=== PATIENT | male | born 1985 | race Caucasian/White ===

== ENCOUNTER 2023-10-19 02:17 | Emergency (ER) | payer BC, SELFPAY ==
[2023-10-19 02:21] VITALS: BP 163/92; PULSE 84; RESP 14; TEMP 36.6; O2SAT 99; BMI 50.6
--- NOTE | 2023-10-19 02:32 | ECG_ITS ---
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
--- NOTE | 2023-10-19 02:33 | CT_ITS ---
The [address] [address] Patient Name: JESSE YEPEZ MRN: [id number] date: 1985 Sex: M Assigned Patient Location: ER Current Patient Location: ER Accession/Order Number: [id number] Exam Date: 10/19/2023 02:50 Report Date: 10/19/2023 03:36 At the request of: ISAI WOODS Procedure: CT cervical spine wo con EXAM: CT cervical spine wo con HISTORY: left arm tingling, resolved COMPARISON: None. TECHNIQUE: Noncontrast axial CT images through the cervical spine were obtained with coronal and sagittal reformats. Dose reduction techniques were achieved by using automated exposure control and/or adjustment of mA and/or kV according to patient size and/or use of iterative reconstruction technique. FINDINGS: No acute fracture or subluxation is seen. The vertebral body heights are preserved. The vertebral elements are in anatomic alignment. The prevertebral soft tissues are unremarkable. The disc spaces are preserved. There does not appear to be any significant spinal canal or neural foraminal stenosis. CT/CT cervical spine wo con IMPRESSION: 1. No acute or significant abnormality of the cervical spine is seen. Electronically authenticated by: Itzel HIGGINBOTHAM Date: 10/19/2023 03:36
--- NOTE | 2023-10-19 02:33 | CT_ITS ---
The [address] [address] Patient Name: JESSE YEPEZ MRN: [id number] date: 1985 Sex: M Assigned Patient Location: ER Current Patient Location: ER Accession/Order Number: [id number] Exam Date: 10/19/2023 02:50 Report Date: 10/19/2023 03:33 At the request of: ISAI WOODS Procedure: CT head/brain wo con EXAM: CT head/brain wo con HISTORY: left arm tingling, resolved COMPARISON: CT head examination dated 01/10/2023. TECHNIQUE: Noncontrast axial CT images through the head were obtained with coronal and sagittal reformats. Dose reduction techniques were achieved by using automated exposure control and/or adjustment of mA and/or kV according to patient size and/or use of iterative reconstruction technique. FINDINGS: The cerebral sulci and ventricles are normal in size and shape. The density of the cerebrum, brainstem, and cerebellum is unremarkable. There is no evidence of intracranial hemorrhage, mass, or midline shift. No extra-axial fluid collection is seen. The brainstem and cerebellum are normal in appearance. The visualized paranasal sinuses and mastoid air cells are clear. No skull abnormalities are identified. CT/CT head/brain wo con IMPRESSION: 1. No acute intracranial abnormality. Electronically authenticated by: Itzel HIGGINBOTHAM Date: 10/19/2023 03:33
--- NOTE | 2023-10-19 02:39 | ED.GENADUL1 ---
HPI - General Adult General Chief complaint: Neuro Symptoms/Deficit Stated complaint: cva symptoms Time Seen by Provider: 10/19/23 02:19 Source: patient Mode of arrival: walk-in History of Present Illness HPI narrative: 37-year-old male presented for tingling in his left hand. It involved his thumb, index, and middle fingers and it lasted for a few minutes. It started at about 11:50 PM, just under three hours ago. It's resolved completely and has not recurred. He was started on a new blood pressure medication yesterday, lisinopril. He's taken one dose. He doesn't complain of a headache and he never had any symptoms in his right arm. Related Data Home Medications Medication Instructions Recorded Confirmed allopurinol 100 mg tablet mg 10/19/23 aspirin 325 mg tablet,delayed mg PO 10/19/23 release carvedilol 25 mg tablet mg 10/19/23 hydralazine 50 mg tablet mg 10/19/23 lisinopril 20 mg tablet 20 mg PO DAILY 10/19/23 10/19/23 Allergies Allergy/AdvReac Type Severity Reaction Status Date / Time Penicillins Allergy Verified 10/19/23 02:28 Review of Systems ROS Narrative A ten point review of systems is negative except as noted above. PFSH PFS Social History Smoking status: Never smoker Exam Narrative Exam Narrative: Nurses note and vital signs reviewed and patient is not hypoxic. General: The patient appears well and in no apparent distress. Patient is resting comfortably on cart. Skin: Warm, dry, no pallor noted. There is no rash noted. Head: Normocephalic, atraumatic Eye: Normal conjunctiva, no drainage Ears, Nose, Mouth, and Throat: oral mucosa is moist. Nares patent. Cardiovascular: Regular Rate and Rhythm Respiratory: Patient is in no distress, no accessory muscle use, lungs are clear to auscultation, no wheezing, rales or rhonchi Back: non-tender GI: obese and nontender Musculoskeletal: The patient has no evidence of calf tenderness, no pitting edema, symmetrical pulses noted bilaterally Neurological: A&O x4, normal speech; upper and lower extremity strength five out five and symmetric. Cranial nerves II through XII intact. Psychiatric: Cooperative Constitutional Vital Signs, click to edit/add: Last Vital Signs Temp 97.9 F 10/19/23 02:21 Pulse 71 10/19/23 03:43 Resp 14 10/19/23 02:21 BP 120/65 10/19/23 03:43 Pulse Ox 98 10/19/23 03:43 O2 Del Method Room Air 10/19/23 02:21 Course Vital Signs Vital signs: Vital Signs Temperature 97.9 F 10/19/23 02:21 Pulse Rate 84 10/19/23 02:21 Respiratory Rate 14 10/19/23 02:21 Blood Pressure 163/92 H 10/19/23 02:21 Pulse Oximetry 99 10/19/23 02:21 Oxygen Delivery Method Room Air 10/19/23 02:21 Temperature 97.9 F 10/19/23 02:21 Pulse Rate 71 10/19/23 03:43 Respiratory Rate 14 10/19/23 02:21 Blood Pressure 120/65 10/19/23 03:43 Pulse Oximetry 98 10/19/23 03:43 Oxygen Delivery Method Room Air 10/19/23 02:21 Medical Decision Making MDM Narrative Medical decision making narrative: CAT scan of the head and CAT scan and C-spine are both negative. EKG shows normal sinus rhythm. His symptoms of tingling in his thumb, index finger, and middle finger lasted for a few minutes and have not recurred. I've no clinical suspicion of coronary artery disease or acute coronary syndrome. This is likely a peripheral nerve issue. It has not recurred and he'll be discharged home, follow-up with his PCP. Treatment diagnosis and follow-up were discussed with the patient. Differential Diagnosis Differential Diagnosis: paresthesia, peripheral neuropathy, cervical spine issue Imaging Data CT C-spine, CT brain: Radiologist's impression: Procedure: CT head/brain wo con EXAM: CT head/brain wo con HISTORY: left arm tingling, resolved COMPARISON: CT head examination dated 01/10/2023. TECHNIQUE: Noncontrast axial CT images through the head were obtained with coronal and sagittal reformats. Dose reduction techniques were achieved by using automated exposure control and/or adjustment of mA and/or kV according to patient size and/or use of iterative reconstruction technique. FINDINGS: The cerebral sulci and ventricles are normal in size and shape. The density of the cerebrum, brainstem, and cerebellum is unremarkable. There is no evidence of intracranial hemorrhage, mass, or midline shift. No extra-axial fluid collection is seen. The brainstem and cerebellum are normal in appearance. The visualized paranasal sinuses and mastoid air cells are clear. No skull abnormalities are identified. IMPRESSION: 1. No acute intracranial abnormality. Electronically authenticated by: Itzel HIGGINBOTAHM Date: 10/19/2023 03:33 Procedure: CT cervical spine wo con EXAM: CT cervical spine wo con HISTORY: left arm tingling, resolved COMPARISON: None. TECHNIQUE: Noncontrast axial CT images through the cervical spine were obtained with coronal and sagittal reformats. Dose reduction techniques were achieved by using automated exposure control and/or adjustment of mA and/or kV according to patient size and/or use of iterative reconstruction technique. FINDINGS: No acute fracture or subluxation is seen. The vertebral body heights are preserved. The vertebral elements are in anatomic alignment. The prevertebral soft tissues are unremarkable. The disc spaces are preserved. There does not appear to be any significant spinal canal or neural foraminal stenosis. IMPRESSION: 1. No acute or significant abnormality of the cervical spine is seen. Electronically authenticated by: Itzel HIGGINBOTHAM Date: 10/19/2023 03:36 ECG Data Attestation: I personally reviewed and interpreted this ECG as follows: (EKG on my interpretation shows normal sinus rhythm without acute change, rate is 55.) Discharge Plan Discharge Chief Complaint: Neuro Symptoms/Deficit Clinical Impression: Paresthesia Patient Disposition: Home, Self-Care Time of Disposition Decision: 03:45 Condition: Good Mode of Transportation: Private Vehicle Prescriptions / Home Meds: No Action carvedilol 25 mg tablet allopurinol 100 mg tablet aspirin 325 mg tablet,delayed release (DR/EC) PO hydralazine 50 mg tablet lisinopril 20 mg tablet 20 mg PO DAILY Instructions: Paresthesia (ED) Stand Alone Forms: Portal Instructions Referrals: Salty Ramírez MD [Primary Care Provider] - 1 week
[2023-10-19 02:40] VITALS: PULSE 72
--- NOTE | 2023-10-19 02:45 | PC.NURSE ---
Pt presents to ER for numbness and tingling that was present to his left arm and hand when he woke up at 2350 last night Pt states his left thumb, pointer finger, and middle finger were completely numb but at this time has resolved pt states during this episode he was sweating profusely Pt states he has a history of sleep apnea, renal stenosis, and LVH as well as HTN Pt states he saw his PCP yesterday who started him on a new BP med (Lisinopril) which he took for the first time at about 4pm Pt drove himself to ER, and at this time denies all symptoms besides feeling weak and fatigued
[2023-10-19 03:43] VITALS: BP 120/65; PULSE 71; O2SAT 98
[2023-10-19 03:55] VITALS: PULSE 70; RESP 16; O2SAT 99
== END 2023-10-19 03:56 | disposition home or self-care (01) ==
PROVIDERS: Emergency Provider Emergency Medicine; PCP Family Medicine
DX: R20.2 Paresthesia of skin (principal); Z79.82 Long term (current) use of aspirin; Z79.899 Other long term (current) drug therapy; E66.9 Obesity, unspecified; Z68.43 Body mass index [BMI] 50.0-59.9, adult
CPT/HCPCS: 70450; 72125; 93005; 99284

== ENCOUNTER 2023-10-26 15:56 | Outpatient (OUT) | payer BC, SELFPAY ==
--- OUTSIDE RECORDS SUMMARY | 2023-10-26 16:00 | XMS_ITS | CCD ---
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 Name Role Phone High, Generic Primary Care Provider UnavailSIERRA Arriaza Referring Unavailable HIGH, GENERIC Primary Care Unavailable Jenny Ramírez Primary Care Physician Unavailable Primary Care Provider UnavailJENNY Duvall Referring Unavailable Jenny Ramírez MD Primary Care Provider [phone] AISSATOU VELASQUEZ Attending Unavailable JENNY RAMÍREZ Primary Care Unavailable SIM Guido, DR ALVARADO Primary Care Unavailable TRISTIN ., ANA Admitting Unavailable TRISTIN ., ANA Attending Unavailable HOY ., DR ALVARADO Consulting Unavailable SANJUANA, DR ERIKA Wills Consulting Unavailabl e DIOGENES, DR JOSEFINA Prakash Consulting Unavailable JOVANY, CASEY Consulting Unavailable REE, BENOIT Consulting Unavailable AURORA, MITALI Consulting Unavailable TRISTIN ., ANA Consulting Unavailable NEWATIA, SUHA Consulting Unavailable JBARA, YASER Consulting Unavailable CAROL ANNY ., DR ALVARADO Admitting Unavailable HOY ., DR ALVARADO Attending Unavailable HOY ., DR ALVARADO Consulting Unavailable HOY ., DR ALVARADO Primary Care Unavailable HOY ., DR ALVARADO Attending Unavailable HOY ., DR ALVARADO Consulting Unavailable HOY ., DR ALVARADO Primary Care Unavailable HOY ., DR ALVARADO Admitting Unavailable DEDE, DR JACOB Tolbert Consulting Unavailable SIM .DR ALVARADO Primary Care Unavailable MARKER ., DR REYEZ Admitting Unavailable MARKER ., DR REYEZ Attending Unavailable MARKER ., DR REYEZ Consulting Unavailable DIAB ., MATILDA Admitting Unavailable DIAB ., MATILDA Attending Unavailable HOVenkatesh ., DR ALVARADO Primary Care Unavailable MARYANN .IGNACIO Consulting Unavailable Jacob Everett Consulting Unavailable SIM ., DR ALVARADO Primary Care Unavailable HOY ., DR ALVARADO Admitting Unavailable HOY ., DR ALVARADO Attending Unavailable HOY ., DR ALVARADO Consulting Unavailable VEGA, MAGDALENE Attending Unavailable Allergies Allergy Classification Reported Allergen(s) Allergy Type Date of Onset Reaction(s) Facility (3 sources) Penicillins; Translations: [PENICILLINS] Propensity to adverse reactions to drug 11-30-19 17 [place], [place] (4 sources) Sulfamethoxazole / Trimethoprim; Translations: [SULFAMETHOXAZOLE-T RIMETHOPRIM] Drug Allergy 11-23-19 17 [place], [place] (2 sources) Penicillin; Translations: [penicillin] Drug Allergy [facility] (disorder) [facility] [place] (1 source) Penicillins Propensity to adverse reactions to drug 11-30-19 17 [facility] (1 source) Amoxicillin Drug Allergy [facility] Medications Current Medications Medication Drug Class(es) Dates Sig (Normalized) Sig (Original) allopurinol 100 mg oral tablet (2 sources) Xanthine Oxidase Inhibitor Start: 03-01-2022 take 1 tablet by mouth once daily allopurinol 100 mg Tab 100 mg = 1 tab(s), Oral, Daily, Refills(s) 0 Start Date: 03/01/22 Status: Ordered carvedilol 25 mg oral tablet (4 sources) alpha-Adrenergic Pablito, beta-Adrenergic Pablito Start: 01-15-2020 carvedilol (COREG) 25 MG tablet in the morning, at noon, and at bedtime 0 01/15/2020 Active cloNIDine hydrochloride 0.1 mg oral tablet (2 sources) Central alpha-2 Adrenergic Agonist Start: 02-27-2022 take 1 tablet by mouth three times daily cloNIDine 0.1 mg tab 0.1 mg = 1 tab(s), Oral, TID, Refills(s) 0 Start Date: 02/27/22 Status: Ordered Problems Active Problems Problem Classification Problem Date Documented Date Episodic/Chronic Anxiety disorders (1 source) Anxiety disorder, unspecified; Translations: [ANXIETY DISORDER UNSPECIFIED] Onset: 01-17-2023 Chronic Cardiac dysrhythmias (7 sources) Palpitations; Translations: [Palpitations] Onset: 01-07-2023 Episodic Disorders of lipid metabolism (2 sources) Mixed hyperlipidemia; Translations: [Mixed hyperlipidemia] Onset: 01-31-2023 Chronic Essential hypertension (6 sources) Malignant essential hypertension; Translations: [Essential (primary) hypertension] Onset: 01-07-2023 Chronic Gout and other crystal arthropathies (1 source) Gout 03-01-2022 Chronic Hypertension with complications and secondary hypertension (1 source) Hypertensive emergency; Translations: [HYPERTENSIVE EMERGENCY] Onset: 01-17-2023 Chronic Neoplasms of unspecified nature or uncertain behavior (2 sources) Neoplasm of uncertain behavior of skin; Translations: [Neoplasm of uncertain behavior of skin] Onset: 03-01-2022 Episodic Other aftercare (1 source) meterman (current) use of aspirin; Translations: [PRISON CURRENT USE OF ASPIRIN] Onset: 01-17-2023 Episodic Other aftercare (1 source) Other parts counterman (current) drug therapy; Translations: [OTH PRISON CURRENT DRUG THERAPY] Onset: 01-17-2023 Episodic Other and unspecified benign neoplasm (1 source) Melanocytic nevus; Translations: [Melanocytic nevi, unspecified] Onset: 03-01-2022 Episodic Other circulatory disease (1 source) History of transient ischemic attack 02-27-2022 Episodic Other circulatory disease (1 source) Prehypertension 02-27-2022 Episodic Other connective tissue disease (1 source) Tear of right rotator cuff; Translations: [Right rotator cuff tear] Onset: 11-30-2016 11-30-2016 Other nervous system disorders (4 sources) Paresthesia of skin; Translations: [PARESTHESIA OF SKIN] Onset: 01-10-2023 Episodic Other nervous system disorders (1 source) Anesthesia of skin; Translations: [ANESTHESIA OF SKIN] Onset: 01-17-2023 Episodic Other nutritional; endocrine; and metabolic disorders (1 source) Body mass index 40+ - severely obese 03-01-2022 Chronic Other nutritional; endocrine; and metabolic disorders (1 source) Morbid (severe) obesity due to excess calories; Translations: [MORBID SEVERE OBES D/T EXCESS DELFINO] Onset: 01-17-2023 Chronic Other nutritional; endocrine; and metabolic disorders (1 source) Body mass index (BMI) 50.0-59.9, adult; Translations: [BODY MASS INDEX BMI 50.0-59.9 ADULT] Onset: 01-17-2023 Chronic Other nutritional; endocrine; and metabolic disorders (1 source) Obesity, unspecified; Translations: [OBESITY UNSPECIFIED] Onset: 01-11-2023 Chronic Other skin disorders (1 source) Change in skin lesion 03-01-2022 Episodic Peripheral and visceral atherosclerosis (3 sources) Atherosclerosis of renal artery; Translations: [ATHEROSCLEROSIS OF RENAL ARTERY] Onset: 01-17-2023 Chronic Residual codes; unclassified (1 source) Sleep apnea 02-27-2022 Chronic Residual codes; unclassified (5 sources) Obstructive sleep apnea (adult) (pediatric); Translations: [OBSTRUCTIVE SLEEP APNEA] Onset: 01-17-2023 Chronic Residual codes; unclassified (1 source) Sleep apnea, unspecified; Translations: [SLEEP APNEA UNSPECIFIED] Onset: 01-11-2023 Chronic Residual codes; unclassified (1 source) Other general symptoms and signs; Translations: [Suspected COVID-19 virus infection] Episodic Residual codes; unclassified (1 source) Insomnia, unspecified; Translations: [INSOMNIA UNSPECIFIED] Onset: 01-17-2023 Episodic Screening and history of mental health and substance abuse codes (1 source) Personal history of nicotine dependence; Translations: [PERSONAL HISTORY OF NICOTINE DEPEND] Onset: 01-11-2023 Episodic Transient cerebral ischemia (6 sources) Transient cerebral ischemia; 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] Onset: 03-08-2022 02-27-2022 Chronic Unclassified (1 source) CONTACT W/AND (SUSP) EXPOS COVID-19; Translations: [CONTACT W/AND (SUSP) EXPOS COVID-19] Onset: 01-17-2023 Viral infection (2 sources) Verruca vulgaris; Translations: [Other viral warts] Onset: 03-01-2022 Episodic Past or Other Problems Problem Classification Problem Date Documented Da te Episodic/Chronic Other connective tissue disease (2 sources) Tear of right rotator cuff; Translations: [Unspecified rotator cuff tear or rupture of right shoulder, not specified as traumatic] Onset: 11-30-2016 11-30-2016 Episodic Sprains and strains (3 sources) Glenoid labrum tear; Translations: [Superior glenoid labrum lesion of unspecified shoulder, initial encounter] Onset: 11-30-2016 11-30-2016 Episodic Results Test Name Value Interpretation Reference Range Facility Office Visiton 01-31-2023 Follow-up visit [id number] Jesse Yepez 1985 Date Provider Department Center 01/31/2023 MAGDALENE GONZALEZ CARD [facility] Family History Problem Relation Age of Onset Liver disease Mother Comments: Fatty Liver Disease No Known Problems Father Comments: Suicide due to depresion No Known Problems Sister Celiac disease Brother Comments: Other gastro issues No Known Problems Brother Diabetes Mother's Brother Diabetes Maternal Grandmother COPD Maternal Grandmother Comments: Had a few other things he can't recall Heart disease Maternal Grandmother Comments: Possible Other Maternal Grandmother Dementia Paternal Grandfather Family Status - Relation Status Age at Mother Alive Father Sister Alive Brother Alive Brother Alive Mother's Brother Alive Maternal Grandmother Maternal Grandfather Alive Paternal Grandmother Alive Paternal Grandfather Level of Service:70521 OR OFFICE/OUTPATIENT NEW MODERATE MDM 45-59 MINUTES Reason for Visit and Comments: Hypertension [061651] - New Patient Normal [facility] ALDOSTERONE: RENIN RATIOon 0 01-20-2023 Aldos/Renin Ratio 4.1 Normal 0.0-30.0 [facility] Comment on above: Result Comment: Unit s: ng/dL per ng/mL/hr Performed By: #### C RP, CMP #### [facility] [address] [address] [address] Clive Main Aldosterone 3.0 ng/dL Normal 0.0-30.0 [facility] Comment on above: Performed By: #### C RP, CMP #### [facility] [address] [address] [address] Clive Main Renin Activity, Plasma 0.730 ng/mL/hr Normal 0.167-5.380 [facility] Comment on above: Performed By: #### C RP, CMP #### [facility] [address] [address] [address] Clive Main METANEPHRINES PLASMA FREEon 01-18-2023 Metanephrine, Pl <10.0 Normal 0.0-88.0 [facility] Comment on above: Performed By: #### M ETANPF #### [facility] [address] [address] [address] Clive Main Normetanephrine, Pl 107.5 pg/mL Normal 0.0-210.1 [facility] Comment on above: Performed By: #### M ETANPF #### [facility] [address] [place] [address] Dr. Clive Main CBC AUTO DIFFon 01-12-2023 BASO # 0.0 103/ul Normal 0.0-0.1 [facility] Comment on above: Performed By: #### C BC #### [facility] [address] [place] [address] Dr. Clive Main Basophils/100 WBC (Bld) 0.4 % Normal 0.2-2.0 [facility] Comment on above: Performed By: #### C BC #### [facility] [address] [place] [address] Dr. Clive Main EO # 0.1 103/ul Normal 0.0-0.7 [facility] Comment on above: Performed By: #### C BC #### [facility] [address] [place] [address] Dr. Clive Main Eosinophils/100 WBC (Bld) 0.9 % Normal 0.9-7.0 [facility] Comment on above: Performed By: #### C BC #### [facility] [address] [place] [address] Dr. Clive Main Erythrocyte distribution width (RBC) [Ratio] 13.8 % Normal 11.0-15.0 [facility] Comment on above: Performed By: #### C BC #### [facility] [address] [place] [address] Dr. Clive Main Hematocrit (Bld) [Volume fraction] 49.1 % Normal 42.0-54.0 [facility] Comment on above: Performed By: #### C BC #### [facility] [address] [place] [address] Dr. Clive Main Hemoglobin (Bld) [Mass/Vol] 16.7 g/dL Normal 14.0-18.0 [facility] Comment on above: Performed By: #### C BC #### [facility] [address] [place] [address] Dr. Clive Main IG # 0.06 10e3/ul Critically high 0.00-0.03 [facility] Comment on above: Performed By: #### C BC #### [facility] [address] [place] [address] Dr. Clive Main IG % 0.5 % Normal 0.0-0.5 [facility] Comment on above: Performed By: #### C BC #### [facility] [address] [place] [address] Dr. Clive Main LYMPH # 2.7 103/ul Normal 1.2-3.8 [facility] Comment on above: Performed By: #### C BC #### [facility] [address] [place] [address] Dr. Clive Main Lymphocytes/100 WBC (Bld) 24.7 % Normal 20.5-60.0 [facility] Comment on above: Performed By: #### C BC #### [facility] [address] [place] [address] Dr. Clive Main MANUAL DIFF REQ NO Normal [facility] Comment on above: Performed By: #### C BC #### [facility] [address] [place] [address] Dr. Clive Main MCH (RBC) [Entitic mass] 28.4 pg Normal 25.9-34.0 [facility] Comment on above: Performed By: #### C BC #### [facility] [address] [place] [address] Dr. Clive Main MCHC (RBC) [Mass/Vol] 34.0 g/dL Normal 29.9-35.2 [facility] Comment on above: Performed By: #### C BC #### [facility] [address] [place] [address] Dr. Clive Main MCV (RBC) [Entitic vol] 83.6 fL Normal 80.0-94.0 [facility] Comment on above: Performed By: #### C BC #### [facility] [address] [place] [address] Dr. Clive Main MONO # 1.3 103/ul Critically high 0.3-0.8 [facility] Comment on above: Performed By: #### C BC #### [facility] [address] [address] [address] Clive Main Monocytes/100 WBC (Bld) 11.5 % Normal 1.7-12.0 [facility] Comment on above: Performed By: #### C BC #### [facility] [address] [address] [address] Clive Main NEUT # 6.8 103/ul Critically high 1.4-6.5 [facility] Comment on above: Performed By: #### C BC #### [facility] [address] [address] [address] Clive Main Neutrophils/100 WBC (Bld) 62.0 % Normal 43.0-75.0 [facility] Comment on above: Performed By: #### C BC #### [facility] [address] [place] [address] Dr. Clive Main Platelet mean volume (Bld) [Entitic vol] 11.3 fL Normal 9.5-13.5 [facility] Comment on above: Performed By: #### C BC #### [facility] [address] [place] [address] Dr. Clive Main PLT 206 103/ul Normal 150-450 [facility] Comment on above: Performed By: #### C BC #### [facility] [address] [place] [address] Dr. Clive Main RBC 5.87 106/ul Normal 4.70-6.10 [facility] Comment on above: Performed By: #### C BC #### [facility] [address] [place] [address] Dr. Clive Main WBC 10.9 103/ul Normal 4.0-11.0 [facility] Comment on above: Performed By: #### C BC #### [facility] [address] [place] [address] Dr. Clive Main ECHOCARDIO M/2D COMPLETEon 0 01-12-2023 ECHOCARDIO M/2D COMPLETE Patient: JESSE YEPEZ Exam Date: 01/12/2023 : 1985 Gender:M Ordering : DR JENNY RAMÍREZ . Admission #: [id number] Family : ANA CROW . Order #: [id number] CLICK HERE TO VIEW EXAM ECHOCARDIOGRAM REPORT PROCEDURE: CARDIO PULMONARY ECHOCARDIO M/2D COMP INDICATIONS: Tachycardia, hypertension COMPARISON: None. DESCRIPTION: COMPLETE ECHOCARDIOGRAM Real-time transthoracic echocardiography with 2D, M-mode, spectral and color flow Doppler performed. QUALITY: Technical quality was adequate. LEFT VENTRICLE: Normal chamber size. Mild concentric left ventricular hypertrophy. Normal systolic function. LV EF: Normal left ventricular ejection fraction, (>55%). DIASTOLIC: Normal diastolic function. ATRIAL SEPTUM: LEFT ATRIUM: Normal chamber size. RIGHT ATRIUM: Normal chamber size. RIGHT VENTRICLE: Normal chamber size. Normal right ventricular systolic function. TRICUSPID VALVE: Normal mobility and thickness. No stenosis with trivial regurgitation. MITRAL VALVE: Normal mobility and thickness. No evidence of mitral valve stenosis. There is no mitral annular calcification. No mitral regurgitation. AORTIC VALVE: Normal trileaflet appearance. No visible sclerosis. Normal leaflet mobility. No evidence of aortic valve stenosis. No aortic regurgitation. AORTIC ROOT: Normal diameter and appearance. PULMONIC VALVE: Not well visualized. No stenosis. No regurgitation. PERICARDIUM: No evidence of pericardial effusion. IVC: Collapses with inspirations. PLEURA: CONCLUSION: 1. Mild concentric left ventricular hypertrophy with normal systolic function. LVEF is 60%. 2. Normal right ventricular systolic function. 3. Normal diastolic function. 4. No significant valvular dysfunction. 5. No pericardial effusion. Adult Echocardiography Procedure Report Left Ventricle LVEDD (3.7 - 5.6 cm): 5.20 cm LVESD (2.2 - 4.0 cm): 3.28 cm LVIVS thickness (0.6 - 1.2 cm): 1.35 cm LVPW thickness (0.5 - 1.0 cm): 1.35 cm e': 0.12 m/s E - e': 7.36 LVOT Max Gradient: 3.88 mm[Hg] Peak Velocity (LVOT): 0.98 m/s Mean Velocity (LVOT): 0.72 m/s LVOT Diameter 2.98 cm Left Ventricular Ejection Fraction: 60 % Left Atrium LA Volume Index (2D A2C): 102.23 ml, 102.23 ml Left Atrium Systolic Dimension: 5.14 cm Mitral Valve MV E to A Ratio: 1.19 Mitral Valve A-Wave Peak Velocity: 0.76 m/s Mitral Valve E-Wave Peak Velocity: 0.91 m/s Right Ventricle Aorta AO Root Diam: 3.70 cm Aortic Valve AoV Area (Peak Rudolph): 5.26 cm2, 5.19 cm2 AoV Area (VTI): 5.10 cm2, 4.82 cm2 Peak Velocity(Antegrade Flow): 1.32 m/s, 1.29 m/s Peak Gradient(Antegrade Flow): 7.00 mm[Hg], 6.62 mm[Hg] Mean Velocity(Antegrade Flow): 0.99 m/s, 0.93 m/s Mean Gradient(Antegrade Flow): 4.39 mm[Hg], 3.86 mm[Hg] Velocity Time Integral: 27.87 cm, 24.79 cm Tricuspid Valve Peak Velocity (Regurgitant Flow): 4.22 m/s Peak Velocity: 0.81 m/s Pulmonic Valve Peak Velocity: 1.24 m/s, 1.07 m/s Peak Gradient: 6.16 mm[Hg], 4.54 mm[Hg] Right Atrium Right Atrium Systolic Pressure: 57.39 ml, 57.39 ml Dictated by: Gigi Mooney M.D. on 01/12/2023 at 18:55 Approved by: Gigi Mooney M.D. on 01/12/2023 at 18:57 Normal [facility] PROF CHEM 8 (BAS METB)on Anion gap [Moles/Vol] 14.2 mmol/L Normal [facility] Comment on above: Performed By: #### H STROPN #### [facility] [address] [place] [address] Dr. Clive Main Calcium [Mass/Vol] 9.2 mg/dL Normal 8.5-10.1 [facility] Comment on above: Performed By: #### H STROPN #### [facility] [address] [address] [address] Clive Main Chloride [Moles/Vol] 103 mmol/L Normal 98-107 [facility] Comment on above: Performed By: #### H STROPN #### [facility] [address] [address] [address] Clive Main CO2 [Moles/Vol] 24.7 mmol/L Normal 21.0-32.0 [facility] Comment on above: Performed By: #### H STROPN #### [facility] [address] [address] [address] Clive Main Creatinine [Mass/Vol] 1.11 mg/dL Normal 0.70-1.30 [facility] Comment on above: Performed By: #### H STROPN #### [facility] [address] [address] [address] Clive Main EGFR-AF MALAGASY >60 Normal >=60 [facility] Comment on above: Performed By: #### H STROPN #### [facility] [address] [address] [address] Clive Main EGFR-NON AF MALAGASY >60 Normal >=60 [facility] Comment on above: Performed By: #### H STROPN #### [facility] [address] [address] [address] Clive Main Glucose [Mass/Vol] 117 mg/dL Critically high 74-106 [facility] Comment on above: Performed By: #### H STROPN #### [facility] [address] [address] [address] Clive Main Potassium [Moles/Vol] 3.9 mmol/L Normal 3.5-5.1 [facility] Comment on above: Performed By: #### H STROPN #### [facility] [address] [address] [address] Clive Main Sodium [Moles/Vol] 138 mmol/L Normal 136-145 [facility] Comment on above: Performed By: #### H STROPN #### [facility] [address] [address] [address] Clive Main Urea nitrogen [Mass/Vol] 20.0 mg/dL Critically high 7.0-18.0 [facility] Comment on above: Performed By: #### H STROPN #### [facility] [address] [place] [address] [id number] [address] Clive Main Urea nitrogen/Creatinine [Mass ratio] 18.0 mg/mg Normal [facility] Comment on above: Performed By: #### H STROPN #### [facility] [address] [place], [place] [id number] Dr. Clive Main US CAROTID ART BILon 023 US CAROTID ART BIN EXAMINATION: US CAROTID ART BIN HISTORY: Clouded consciousness (finding) ; right facial and arm tingling COMPARISON: Ultrasound carotid artery bilateral 03/03/2022 TECHNIQUE: Duplex Doppler ultrasound analysis of carotid and vertebral arteries. . Bilateral carotid arterial duplex examination was performed using B-mode, color flow and spectral analysis. Carotid stenosis is reported according to validated velocity parameters, similar to NASCET criteria. FINDINGS: RIGHT CAROTID ARTERY: Mild plaque without significant stenosis. RIGHT VERTEBRAL: Antegrade flow. Subclavian: PSV: 226.0 cm/s EDV: 0.0 cm/s CCA: Prox: PSV: 196.9 cm/s EDV: 32.0 cm/s Mid: PSV: 161.3 cm/s EDV: 22.3 cm/s Distal: PSV: 119.5 cm/s EDV: 24.8 cm/s BULB: PSV: 102.0 cm/s EDV: 23.0 cm/s ICA: Prox: PSV: 107.3 cm/s EDV: 33.0 cm/s Mid: PSV: 89.1 cm/s EDV: 28.0 cm/s Distal: PSV: 80.1 cm/s EDV: 32.2 cm/s ECA: PSV: 183.7 cm/s EDV: 22.0 cm/s VERTEBRAL: PSV: 25.7 cm/s EDV: 6.0 cm/s ICA/CCA ratio: PSV: 0.9 EDV: 1.3 LEFT CAROTID ARTERY: No visible stenosis or significant plaque. LEFT VERTEBRAL: Antegrade flow. Subclavian: PSV: 178.1 cm/s EDV: 0.0 cm/s CCA: Prox: PSV: 205.4 cm/s EDV: 38.4 cm/s Mid: PSV: 148.4 cm/s EDV: 22.3 cm/s Distal: PSV: 125.8 cm/s EDV: 22.3 cm/s BULB: PSV: 99.9 cm/s EDV: 22.3 cm/s ICA: Prox: PSV: 116.8 cm/s EDV: 30.4 cm/s Mid: PSV: 76.4 cm/s EDV: 30.0 cm/s Distal: PSV: 85.7 cm/s EDV: 32.3 cm/s ECA: PSV: 153.1 cm/s EDV: 27.6 cm/s VERTEBRAL: PSV: 59.4 cm/s EDV: 16.7 cm/s ICA/CCA ratio: PSV: 0.9 EDV: 1.4 IMPRESSION: 1. 0-49% flow stenosis within the right and left carotid arteries. 2. No significant atherosclerotic disease. Electronically authenticated by: JOSEFINA SHETTY Date: 2023-01-12 06:19 Normal [facility] CARDIAC ANDRE 3-6on 3 CK [Catalytic activity/Vol] 172 U/L Normal 39-308 [facility] Comment on above: Performed By: #### C RP, CMP #### [facility] [address] [place] [address] Dr. Clive ENCINAS.MB [Mass/Vol] 2.91 ng/mL Normal <=3.60 [facility] Comment on above: Performed By: #### C RP, CMP #### [facility] [address] [address] [address] Clive Main HSTROP 11.2 pg/mL Normal 4.0-76.1 [facility] Comment on above: Result Comment: CUT- OFF POINTS HAVE BEEN ESTABLISHED BASED ON THE FOURTH UNIVERSAL DEFINITIONS OF MYOCARDIAL INFARCTION. THE UPPER REFERENCE LIMIT (URL) OF TROPONIN, DEFINED THE 99TH PERCENTILE OF cTnI DISTRIBUTION IN A REFERENCE POPULATION, HAS BEEN CONFIRMED THE DECISION THRESHOLD FOR [place] DIAGNOSIS. Performed By: #### C RP, CMP #### [facility] [address] [address] [address] Clive Main CK [Catalytic activity/Vol] 204 U/L Normal 39-308 [facility] Comment on above: Performed By: #### C RP, CMP #### [facility] [address] [place] [address] Dr. Clive Main CK.MB [Mass/Vol] 2.97 ng/mL Normal <=3.60 The [facility] Comment on above: Performed By: #### C RP, CMP #### [facility] [address] [place] [address] Dr. Clive Main HSTROP 12.0 pg/mL Normal 4.0-76.1 The [facility] Comment on above: Result Comment: CUT- OFF POINTS HAVE BEEN ESTABLISHED BASED ON THE FOURTH UNIVERSAL DEFINITIONS OF MYOCARDIAL INFARCTION. THE UPPER REFERENCE LIMIT (URL) OF TROPONIN, DEFINED THE 99TH PERCENTILE OF cTnI DISTRIBUTION IN A REFERENCE POPULATION, HAS BEEN CONFIRMED THE DECISION THRESHOLD FOR [place] DIAGNOSIS. Performed By: #### C RP, CMP #### [facility] [address] [place] [address] Dr. Clive Main CBC AUTO DIFFon 01-11-2023 BASO # 0.1 103/ul Normal 0.0-0.1 [facility] Comment on above: Performed By: #### C RP, CMP #### [facility] [address] [place] [address] Dr. Clive Main Basophils/100 WBC (Bld) 0.3 % Normal 0.2-2.0 [facility] Comment on above: Performed By: #### C RP, CMP #### [facility] [address] [place] [address] Dr. Clive Main EO # 0.1 103/ul Normal 0.0-0.7 [facility] Comment on above: Performed By: #### C RP, CMP #### [facility] [address] [place] [address] Dr. Clive Main Eosinophils/100 WBC (Bld) 0.5 % Critically low 0.9-7.0 The [facility] Comment on above: Performed By: #### C RP, CMP #### [facility] [address] [place] [address] Dr. Clive Mian Erythrocyte distribution width (RBC) [Ratio] 13.6 % Normal 11.0-15.0 [facility] Comment on above: Performed By: #### C RP, CMP #### [facility] [address] [place] [address] Dr. Clive Main Hematocrit (Bld) [Volume fraction] 47.7 % Normal 42.0-54.0 [facility] Comment on above: Performed By: #### C RP, CMP #### [facility] [address] [place] [address] Dr. Clive Main Hemoglobin (Bld) [Mass/Vol] 16.2 g/dL Normal 14.0-18.0 [facility] Comment on above: Performed By: #### C RP, CMP #### [facility] [address] [place] [address] Dr. Clive Main IG # 0.26 10e3/ul Critically high 0.00-0.03 [facility] Comment on above: Performed By: #### C RP, CMP #### [facility] [address] [place] [address] Dr. Clive Main IG % 1.7 % Critically high 0.0-0.5 [facility] Comment on above: Performed By: #### C RP, CMP #### [facility] [address] [place] [address] Dr. Clive Main LYMPH # 2.2 103/ul Normal 1.2-3.8 [facility] Comment on above: Performed By: #### C RP, CMP #### [facility] [address] [place] [address] Dr. Clive Main Lymphocytes/100 WBC (Bld) 15.1 % Critically low 20.5-60.0 [facility] Comment on above: Performed By: #### C RP, CMP #### [facility] [address] [place] [address] Dr. Clive Main MANUAL DIFF REQ NO Normal [facility] Comment on above: Performed By: #### C RP, CMP #### [facility] [address] [place] [address] Dr. Clive Main MCH (RBC) [Entitic mass] 28.5 pg Normal 25.9-34.0 [facility] Comment on above: Performed By: #### C RP, CMP #### [facility] [address] [place] [address] Dr. Clive Main MCHC (RBC) [Mass/Vol] 34.0 g/dL Normal 29.9-35.2 [facility] Comment on above: Performed By: #### C RP, CMP #### [facility] [address] [place] [address] Dr. Clive Main MCV (RBC) [Entitic vol] 84.0 fL Normal 80.0-94.0 [facility] Comment on above: Performed By: #### C RP, CMP #### [facility] [address] [place] [address] Dr. Clive Main MONO # 1.3 103/ul Critically high 0.3-0.8 [facility] Comment on above: Performed By: #### C RP, CMP #### [facility] [address] [place] [address] Dr. Clive Main Monocytes/100 WBC (Bld) 8.7 % Normal 1.7-12.0 [facility] Comment on above: Performed By: #### C RP, CMP #### [facility] [address] [place] [address] Dr. Clive Main NEUT # 11.0 103/ul Critically high 1.4-6.5 [facility] Comment on above: Performed By: #### C RP, CMP #### [facility] [address] [place] [address] Dr. Clive Main Neutrophils/100 WBC (Bld) 73.7 % Normal 43.0-75.0 [facility] Comment on above: Performed By: #### C RP, CMP #### [facility] [address] [place] [address] Dr. Clive Main Platelet mean volume (Bld) [Entitic vol] 11.7 fL Normal 9.5-13.5 [facility] Comment on above: Performed By: #### C RP, CMP #### [facility] [address] [place] [address] Dr. Clive Main PLT 196 103/ul Normal 150-450 [facility] Comment on above: Performed By: #### C RP, CMP #### [facility] [address] [place] [address] Dr. Clive Main RBC 5.68 106/ul Normal 4.70-6.10 [facility] Comment on above: Performed By: #### C RP, CMP #### [facility] [address] [place] [address] Dr. Clive Main WBC 14.9 103/ul Critically high 4.0-11.0 [facility] Comment on above: Performed By: #### C RP, CMP #### [facility] [address] [place] [address] Dr. Clive Main DRUG SCREEN RAPID (URINE)on 01-11-2023 AMP Negative Normal NEGATIVE [facility] Comment on above: Performed By: #### D DIM #### [facility] [address] [place] [address] Dr. Clive Main BAR Negative Normal NEGATIVE [facility] Comment on above: Performed By: #### D DIM #### [facility] [address] [place] [address] Dr. Clive Main BUP Negative Normal NEGATIVE [facility] Comment on above: Performed By: #### D DIM #### [facility] [address] [place] [address] Dr. Clive Main BZO Negative Normal NEGATIVE [facility] Comment on above: Performed By: #### D DIM #### [facility] [address] [place] [address] Dr. Clive Main NEREIDA Negative Normal NEGATIVE [facility] Comment on above: Performed By: #### D DIM #### [facility] [address] [place] [address] Dr. Clive Main CUT-OFFS SEE BELOW Normal [facility] Comment on above: Result Comment: AMP (Amphetamine): 500ng/mL, BAR (Barbituates): 200 ng/mL, BZO (Benzodiazepines): 150 ng/mL, BUP (Buprenorphine): 10 ng/mL, NEREIDA (Cocaine): 150 ng/mL, mAMP (Methamphetamine): 500 ng/mL, MTD (Methadone): 200 ng/mL, OPI (Opiates): 100 ng/mL, OXY (Oxycodone): 100 ng/mL, PCP (Phencyclidine): 25 ng/mL, PPX (Propoxyphene): 300 ng/mL, THC (Cannabinoids): 50 ng/mL, TCA (Trycyclic Antidepressants): 300 ng/mL Performed By: #### D DIM #### [facility] [address] [place] [address] Dr. Clive Main DRUG CUT HEADER DRUG CLASS TEST SYSTEM CUT-OFF CONCENTRATIONS ARE FOLLOWS: Normal [facility] Comment on above: Performed By: #### D DIM #### [facility] [address] [place] [address] Dr. Clive Main mAMP Negative Normal NEGATIVE [facility] Comment on above: Performed By: #### D DIM #### [facility] [address] [place] [address] Dr. Clive Main MTD Negative Normal NEGATIVE [facility] Comment on above: Performed By: #### D DIM #### [facility] [address] [place] [address] Dr. Clive Main OPI Negative Normal NEGATIVE [facility] Comment on above: Performed By: #### D DIM #### [facility] [address] [place] [address] Dr. Clive Main OXY Negative Normal NEGATIVE [facility] Comment on above: Performed By: #### D DIM #### [facility] [address] [place] [address] Dr. Clive Main PCP Negative Normal NEGATIVE [facility] Comment on above: Performed By: #### D DIM #### [facility] [address] [place] [address] Dr. Clive Main PPX Negative Normal NEGATIVE [facility] Comment on above: Performed By: #### D DIM #### [facility] [address] [place] [address] Dr. Clive Main TCA Negative Normal NEGATIVE [facility] Comment on above: Performed By: #### D DIM #### [facility] [address] [place] [address] Dr. Clive Main THC Negative Normal NEGATIVE [facility] Comment on above: Performed By: #### D DIM #### [facility] [address] [place] [address] Dr. Clive ORTIZ URINE PROFILEon 3 Bilirubin Ql (U) Negative Normal NEGATIVE [facility] Comment on above: Performed By: #### C RP, CMP #### [facility] [address] [place] [address] Dr. Clive Main Clarity (U) CLEAR Normal CLEAR [facility] Comment on above: Performed By: #### C RP, CMP #### [facility] [address] [place] [address] Dr. Clive Main Color (U) LT. YELLOW Normal YELLOW [facility] Comment on above: Performed By: #### C RP, CMP #### [facility] [address] [place] [address] Dr. Clive NINO A micrscopic examination will be performed if indicated. Normal [facility] Comment on above: Performed By: #### C RP, CMP #### [facility] [address] [place] [address] Dr. Clive Main Glucose Ql (U) Negative Normal NEGATIVE [facility] Comment on above: Performed By: #### C RP, CMP #### [facility] [address] [place] [address] Dr. Clive Main Hemoglobin Ql (U) Negative Normal NEGATIVE [facility] Comment on above: Performed By: #### C RP, CMP #### [facility] [address] [place] [address] Dr. Clive Main Ketones Ql (U) 15 mg/dl Abnormal NEGATIVE [facility] Comment on above: Performed By: #### C RP, CMP #### [facility] [address] [place] [address] Dr. Clive Main LEUKOCYTES Negative Normal NEGATIVE [facility] Comment on above: Performed By: #### C RP, CMP #### [facility] [address] [place] [address] Dr. Clive Main Nitrite Ql (U) Negative Normal NEGATIVE [facility] Comment on above: Performed By: #### C RP, CMP #### [facility] [address] [place] [address] Dr. Clive Main pH (U) 5.5 [pH] Normal 5-9 [facility] Comment on above: Performed By: #### C RP, CMP #### [facility] [address] [place] [address] Dr. Clive Main SPEC GRAVITY 1.020 Normal 1.005-<=1.025 [facility] Comment on above: Performed By: #### C RP, CMP #### [facility] [address] [place] [address] Dr. Clive Main UA PROTEIN Negative Normal NEGATIVE/ TRACE [facility] Comment on above: Performed By: #### C RP, CMP #### [facility] [address] [place] [address] Dr. Clive Main UR MICRO IND NOT INDICATED Normal [facility] Comment on above: Performed By: #### C RP, CMP #### [facility] [address] [place] [address] Dr. Clive Main Urobilinogen Qn (U) 0.2 {Teodoro'U}/dL Normal 0.2 - 1. 0 [facility] Comment on above: Performed By: #### C RP, CMP #### [facility] [address] [place] [address] Dr. Clive Main MRI BRAIN WO CONon MRI BRAIN WO CON MRI OF THE BRAIN WIT H AND WITHOUT IV CONTRAST HISTORY: Headache right-sided facial paralysis with hypertension. Arm pain. TECHNIQUE: Multi planar MRI of the brain was performed with various sequences using department protocol with and without the use of IV contrast. An alternate core was used due to patient's kyphosis. Contrast: None. COMPARISON: CT head 01/10/2023. FINDINGS: Brain Parenchyma: Smith/white matter within accepted limits of normal for age. No abnormal T2 white matter signal. There is no evidence of acute hemorrhage or infarct. No restricted diffusion. No mass. Sella: Normal. Ventricles: Normal. Basal Cisterns: Normal. Midline Shift: None. Posterior Fossa: Normal. Extra Axial: Normal. Sinuses: The paranasal sinuses are clear. Mastoid air cells: Mastoid air cells are clear bilaterally. Vessels: There are normal flow voids in the internal carotid, vertebral and basilar arteries. . The dural venous sinuses are patent. Calvarium: No evidence of depressed skull fracture. Soft tissues: Normal. Orbits: Normal. IMPRESSION: Unremarkable noncontrast MRI of the brain for acute pathology. Electronically authenticated by: BENOIT KEENAN Date: 2023-01-11 01:02 Normal [facility] PROF CHEM 8 (BAS METB)on Anion gap [Moles/Vol] 15.8 mmol/L Normal [facility] Comment on above: Performed By: #### B MP #### [facility] [address] [address] [address] Clive Main Calcium [Mass/Vol] 9.0 mg/dL Normal 8.5-10.1 [facility] Comment on above: Performed By: #### B MP #### [facility] [address] [address] [address] Clive Main Chloride [Moles/Vol] 101 mmol/L Normal 98-107 [facility] Comment on above: Performed By: #### B MP #### [facility] [address] [address] [address] Clive Main CO2 [Moles/Vol] 22.0 mmol/L Normal 21.0-32.0 [facility] Comment on above: Performed By: #### B MP #### [facility] [address] [address] [address] Clive Main Creatinine [Mass/Vol] 0.88 mg/dL Normal 0.70-1.30 [facility] Comment on above: Performed By: #### B MP #### [facility] [address] [place] [address] Dr. Clive Main EGFR-AF MALAGASY >60 Normal >=60 [facility] Comment on above: Performed By: #### B MP #### [facility] [address] [address] [address] Clive Main EGFR-NON AF MALAGASY >60 Normal >=60 [facility] Comment on above: Performed By: #### B MP #### [facility] [address] [address] [address] Clive Main Glucose [Mass/Vol] 110 mg/dL Critically high 74-106 [facility] Comment on above: Performed By: #### B MP #### [facility] [address] [address] [address] Clive Main Potassium [Moles/Vol] 3.8 mmol/L Normal 3.5-5.1 [facility] Comment on above: Performed By: #### B MP #### [facility] [address] [address] [address] Clive Main Sodium [Moles/Vol] 135 mmol/L Critically low 136-145 [facility] Comment on above: Performed By: #### B MP #### [facility] [address] [address] [address] Clive Main Urea nitrogen [Mass/Vol] 15.0 mg/dL Normal 7.0-18.0 [facility] Comment on above: Performed By: #### B MP #### [facility] [address] [place] [address] Dr. Clive Main Urea nitrogen/Creatinine [Mass ratio] 17.0 mg/mg Normal [facility] Comment on above: Performed By: #### B MP #### [facility] [address] [place] [address] Dr. Clive Main US KIDNEYSon 01-11-2023 US KIDNEYS EXAMINATION: US KIDNEYS, US VASCULAR ORG CMPL HISTORY: hypertension COMPARISON: No relevant comparison available. TECHNIQUE: Ultrasound examination was performed of the kidneys and bladder. FINDINGS: Right Kidney: No mass, hydronephrosis, stones, or cortical thinning. Height: 7.9 cm Length: 12.5 cm Width: 6.2 cm Right Renal Artery Proximal PSV: 201.1 cm/s Proximal EDV: 50.8 cm/s Mid PSV: 170.8 cm/s Mid EDV: 43.8 cm/s Distal PSV: 122.3 cm/s Distal EDV: 39.4 cm/s Right Arcuate Artery Superior PSV: 29.2 cm/s Superior EDV: 9.5 cm/s Middle PSV: 21.0 cm/s Middle EDV: 7.8 cm/s Inferior PSV: 27.0 cm/s Inferior EDV: 11.1 cm/s Left Kidney: Height: 7.6 cm Length: 11.9 cm Width: 7.3 cm Left Renal Artery Proximal PSV: 65.7 cm/s Proximal EDV: 52.6 cm/s Mid PSV: 203.2 cm/s Mid EDV: 47.4 cm/s Distal PSV: 142.4 cm/s Distal EDV: 37.1 cm/s Left Arcuate Artery Superior PSV: 24.3 cm/s Superior EDV: 9.5 cm/s Middle PSV: 21.5 cm/s Middle EDV: 6.7 cm/s Inferior PSV: 17.1 cm/s Inferior EDV: 7.3 cm/s Aorta PSV: 111.3 cm/s Aorta EDV: 17.0 cm/s IMPRESSION: 1. Moderate atherosclerotic disease within the renal arteries resulting in elevated flow velocities within the mid and distal renal arteries bilaterally with resistive index up to 0.75 on right and 0.77 on left. Electronically authenticated by: JOSEFINA SHETTY Date: 2023-01-11 12:57 Normal [facility] BNPon 01-10-2023 Natriuretic peptide B (Bld) [Mass/Vol] 108.0 pg/mL Normal <=450.0 [facility] Comment on above: Performed By: #### C RP, CMP #### [facility] [address] [place] [address] Dr. Clive Main CBC AUTO DIFFon 01-10-2023 BASO # 0.0 103/ul Normal 0.0-0.1 [facility] Comment on above: Performed By: #### C RP, CMP #### [facility] [address] [place] [address] Dr. Clive Main Basophils/100 WBC (Bld) 0.3 % Normal 0.2-2.0 [facility] Comment on above: Performed By: #### C RP, CMP #### [facility] [address] [place] [address] Dr. Clive Main EO # 0.1 103/ul Normal 0.0-0.7 [facility] Comment on above: Performed By: #### C RP, CMP #### [facility] [address] [place] [address] Dr. Clive Main Eosinophils/100 WBC (Bld) 0.4 % Critically low 0.9-7.0 [facility] Comment on above: Performed By: #### C RP, CMP #### [facility] [address] [place] [address] Dr. Clive Main Erythrocyte distribution width (RBC) [Ratio] 13.5 % Normal 11.0-15.0 [facility] Comment on above: Performed By: #### C RP, CMP #### [facility] [address] [place] [address] Dr. Clive Main Hematocrit (Bld) [Volume fraction] 48.4 % Normal 42.0-54.0 [facility] Comment on above: Performed By: #### C RP, CMP #### [facility] [address] [place] [address] Dr. Clive Main Hemoglobin (Bld) [Mass/Vol] 16.8 g/dL Normal 14.0-18.0 [facility] Comment on above: Performed By: #### C RP, CMP #### [facility] [address] [place] [address] Dr. Clive Mian IG # 0.05 10e3/ul Critically high 0.00-0.03 [facility] Comment on above: Performed By: #### C RP, CMP #### [facility] [address] [place] [address] Dr. Clive Main IG % 0.4 % Normal 0.0-0.5 [facility] Comment on above: Performed By: #### C RP, CMP #### [facility] [address] [place] [address] Dr. Clive Main LYMPH # 1.8 103/ul Normal 1.2-3.8 [facility] Comment on above: Performed By: #### C RP, CMP #### [facility] [address] [place] [address] Dr. Clive Main Lymphocytes/100 WBC (Bld) 13.9 % Critically low 20.5-60.0 [facility] Comment on above: Performed By: #### C RP, CMP #### [facility] [address] [place] [address] Dr. Clive Main MANUAL DIFF REQ NO Normal [facility] Comment on above: Performed By: #### C RP, CMP #### [facility] [address] [place] [address] Dr. Clive Main MCH (RBC) [Entitic mass] 28.7 pg Normal 25.9-34.0 [facility] Comment on above: Performed By: #### C RP, CMP #### [facility] [address] [place] [address] Dr. Clive Main MCHC (RBC) [Mass/Vol] 34.7 g/dL Normal 29.9-35.2 [facility] Comment on above: Performed By: #### C RP, CMP #### [facility] [address] [place] [address] Dr. Clive Main MCV (RBC) [Entitic vol] 82.6 fL Normal 80.0-94.0 [facility] Comment on above: Performed By: #### C RP, CMP #### [facility] [address] [place] [address] Dr. Clive Main MONO # 1.0 103/ul Critically high 0.3-0.8 [facility] Comment on above: Performed By: #### C RP, CMP #### [facility] [address] [place] [address] Dr. Clive Main Monocytes/100 WBC (Bld) 7.2 % Normal 1.7-12.0 [facility] Comment on above: Performed By: #### C RP, CMP #### [facility] [address] [place] [address] Dr. Clive Main NEUT # 10.3 103/ul Critically high 1.4-6.5 [facility] Comment on above: Performed By: #### C RP, CMP #### [facility] [address] [address] [address] Clive Main Neutrophils/100 WBC (Bld) 77.8 % Critically high 43.0-75.0 [facility] Comment on above: Performed By: #### C RP, CMP #### [facility] [address] [address] [address] Clive Main Platelet mean volume (Bld) [Entitic vol] 11.3 fL Normal 9.5-13.5 [facility] Comment on above: Performed By: #### C RP, CMP #### [facility] [address] [address] [address] Clive Main PLT 202 103/ul Normal 150-450 [facility] Comment on above: Performed By: #### C RP, CMP #### [facility] [address] [address] [address] Clive Main RBC 5.86 106/ul Normal 4.70-6.10 [facility] Comment on above: Performed By: #### C RP, CMP #### [facility] [address] [address] [address] Clive Main WBC 13.2 103/ul Critically high 4.0-11.0 [facility] Comment on above: Performed By: #### C RP, CMP #### [facility] [address] [place] [address] Dr. Clive Main CRPon 01-10-2023 CRP 0.1 mg/dL Normal <=1.0 The [facility] Comment on above: Performed By: #### C RP, CMP #### [facility] [address] [place] [address] HEAD WO CONon 01-10-2023 CT HEAD WO CON EXAMINATION: CT HEAD WO CON, 01/10/2023 6:10 PM EDT HISTORY: Clouded consciousness (finding) COMPARISON: None. TECHNIQUE: CT scan of the head was performed without IV contrast. CT dose reduction technique was used, including Automated Exposure Control. FINDINGS: BRAIN PARENCHYMA/CSF SPACES: The study is limited due to motion. There is a linear high density area noted in the region of the left frontal lobe (series 6, image 27) which is likely artifactual. There is no clear evidence of hemorrhage, mass effect or midline shift. There are no other significant findings. PARANASAL SINUSES: Clear. SKULL BASE AND CALVARIUM: Normal. EXTRACRANIAL SOFT TISSUES: Normal. IMPRESSION: 1. Limited study due to motion and artifact. 2. No gross acute intracranial findings. 3. If symptoms persist, consider follow-up CT or MRI. Electronically authenticated by: SUHA KANG Date: 2023-01-10 19:40 Normal The [facility] Covid-19 PCR (CVDTB)on 12-21 SARS-CoV-2 (COVID-19) RNA ENIO+probe Ql (Unsp spec) Not detected Normal NOT DETECTED The [facility] Comment on above: Result Comment: When diagnostic testing is negative, the possibility of a false negative should be considered in the context of a patient's recent exposures and the presence of clinical signs and symptoms consistent with SARS-CoV-2. This test is not yet approved or cleared by the [place] FDA. When there are no FDA-approved or cleared tests available, and other criteria are met, FDA can make tests available under an emergency access mechanism called an Emergency Use Authorization (EUA). The EUA for this test is supported by the Screening Nurse of Health and Human Service's declaration that circumstances exist to justify the emergency use of in vitro diagnostics for the detection and/or diagnosis of the virus that causes COVID-19. This EUA will remain in effect for the duration of the COVID-19 declaration justifying emergency of IVDs, unless it is terminated or revoked by the FDA (after which the test may no longer be used). Performed By: #### C RP, CMP #### [facility] [address] [place], [place] [address] Dr. Clive Main D-DIMERon 01-10-2023 D-DIMER 0.19 mg/L FEU Normal <=0.59 The [facility] Comment on above: Performed By: #### D DIM #### [facility] [address] [place], [place] [address] Dr. Clive Main D-DIMER COMMENTS SEE BELOW Normal The [facility] Comment on above: Result Comment: Incr eases in D-Dimer concentration observed with thromboembolic events can be variable due to localization, size, and age of the thrombus. Therefore, a thromboembolic event cannot be diagnosed with certainty on the basis of the reference range. D-Dimers may also be elevated for a variety of disorders including: advanced age, , coronary disease, cancer, liver disease, infection, inflammation, hematoma, DIC, trauma, post-surgery, diabetes, thrombolytic or anticoagulant therapy, stress, and generalized hospitalization. Performed By: #### D DIM #### [facility] [address] [place] [address] Dr. Clive Main GLYCOHEMOGLOBIN A1Con 2022 ADA RECOMMENDATION SEE BELOW Normal [facility] Comment on above: Result Comment: ADA RECOMMENDED LIMIT 4.0 - 6.0 ADA THERAPEUTIC TARGET < 7.0 ACTION SUGGESTED > 7.0 Performed By: #### A 1C #### [facility] [address] [place] [address] Dr. Clive Main Glucose [Mass/Vol] 111 mg/dL Normal The [facility] Comment on above: Performed By: #### A 1C #### [facility] [address] [place] [address] Dr. Clive Main HbA1c (Bld) [Mass fraction] 5.5 % Normal 4.5-6.2 [facility] Comment on above: Performed By: #### A 1C #### [facility] [address] [place] [address] Dr. Clive Main LIPID PROFILEon 01-10-2023 CHOL-HDL RATIO NORM SEE BELOW Normal [facility] Comment on above: Result Comment: 3.3 - 4.4 LOW RISK 4.4 - 7.1 AVERAGE RISK 7.1 - 11.0 MODERATE RISK >11.0 HIGH RISK Performed By: #### C RP, CMP #### [facility] [address] [place] [address] Dr. Clive Main Cholesterol [Mass/Vol] 185 mg/dL Normal <=200 [facility] Comment on above: Performed By: #### C RP, CMP #### [facility] [address] [place] [address] Dr. Clive Main Cholesterol in HDL [Mass/Vol] 36 mg/dL Critically low 40-60 [facility] Comment on above: Performed By: #### C RP, CMP #### [facility] [address] [place] [address] [address] Clive Main Cholesterol in LDL [Mass/Vol] 124.4 mg/dL Normal [facility] Comment on above: Performed By: #### C RP, CMP #### [facility] [address] [address] [address] Clive Main Cholesterol.total/Ch olesterol in HDL [Mass ratio] 5.1 {ratio} Normal [facility] Comment on above: Performed By: #### C RP, CMP #### [facility] [address] [place] [address] Dr. Clive Main HDL NORMAL > or = 60 mg/dl - LO W CARDIOVASCULAR RISK <40 mg/dl - HIGH CARDIOVASCULAR RISK Normal [facility] Comment on above: Performed By: #### C RP, CMP #### [facility] [address] [place] [address] Dr. Clive Main LDL CALC NORMAL SEE BELOW Normal [facility] Comment on above: Result Comment: <100 mg/dl OPTIMAL 100 - 129 mg/dl NEAR OR ABOVE OPTIMAL 130 - 159 mg/dl BORDERLINE HIGH 160 - 189 mg/dl HIGH >190 mg/dl VERY HIGH Performed By: #### C RP, CMP #### [facility] [address] [place] [address] Dr. Clive Main Triglyceride [Mass/Vol] 123 mg/dL Normal <=150 [facility] Comment on above: Performed By: #### C RP, CMP #### [facility] [address] [place] [address] Dr. Clive Main VLDL CALC 24.6 mg/dL Normal [facility] Comment on above: Performed By: #### C RP, CMP #### [facility] [address] [place] [address] Dr. Clive Main MAGNESIUMon 01-10-2023 Magnesium [Mass/Vol] 2.1 mg/dL Normal 1.8-2.4 [facility] Comment on above: Performed By: #### C RP, CMP #### [facility] [address] [address] [address] Clive Main PROF 14(COMP METB)on 023 Albumin [Mass/Vol] 4.5 g/dL Normal 3.4-5.0 [facility] Comment on above: Performed By: #### C RP, CMP #### [facility] [address] [place] [address] Dr. Clive Main Albumin/Globulin [Mass ratio] 1.2 {ratio} Normal [facility] Comment on above: Performed By: #### C RP, CMP #### [facility] [address] [place] [address] Dr. Clive Main ALP [Catalytic activity/Vol] 78 U/L Normal 46-116 [facility] Comment on above: Performed By: #### C RP, CMP #### [facility] [address] [place] [address] Dr. Clive Main ALT [Catalytic activity/Vol] 43 U/L Normal 16-63 [facility] Comment on above: Performed By: #### C RP, CMP #### [facility] [address] [place] [address] Dr. Clive Main Anion gap [Moles/Vol] 17.6 mmol/L Normal [facility] Comment on above: Performed By: #### C RP, CMP #### [facility] [address] [place] [address] Dr. Clive Main AST [Catalytic activity/Vol] 23 U/L Normal 15-37 [facility] Comment on above: Performed By: #### C RP, CMP #### [facility] [address] [place] [address] Dr. Clive Main Bilirubin [Mass/Vol] 0.7 mg/dL Normal 0.2-1.0 [facility] Comment on above: Performed By: #### C RP, CMP #### [facility] [address] [place] [address] Dr. Clive Main Calcium [Mass/Vol] 9.2 mg/dL Normal 8.5-10.1 [facility] Comment on above: Performed By: #### C RP, CMP #### [facility] [address] [place] [address] Dr. Clive Main Chloride [Moles/Vol] 102 mmol/L Normal 98-107 [facility] Comment on above: Performed By: #### C RP, CMP #### [facility] [address] [place] [address] Dr. Clive Main CO2 [Moles/Vol] 22.1 mmol/L Normal 21.0-32.0 The [facility] Comment on above: Performed By: #### C RP, CMP #### [facility] [address] [place] [address] Dr. Clive Main Creatinine [Mass/Vol] 0.88 mg/dL Normal 0.70-1.30 [facility] Comment on above: Performed By: #### C RP, CMP #### [facility] [address] [place] [address] Dr. Clive Main EGFR-AF MALAGASY >60 Normal >=60 The [facility] Comment on above: Performed By: #### C RP, CMP #### [facility] [address] [place] [address] Dr. Clive Main EGFR-NON AF MALAGASY >60 Normal >=60 [facility] Comment on above: Performed By: #### C RP, CMP #### [facility] [address] [place] [address] Dr. Clive Main Globulin (S) [Mass/Vol] 3.8 g/dL Normal [facility] Comment on above: Performed By: #### C RP, CMP #### [facility] [address] [place] [address] Dr. Clive Main Glucose [Mass/Vol] 98 mg/dL Normal 74-106 [facility] Comment on above: Performed By: #### C RP, CMP #### [facility] [address] [place] [address] Dr. Clive Main Potassium [Moles/Vol] 3.7 mmol/L Normal 3.5-5.1 [facility] Comment on above: Performed By: #### C RP, CMP #### [facility] [address] [place] [address] Dr. Clive Main Protein [Mass/Vol] 8.3 g/dL Critically high 6.4-8.2 [facility] Comment on above: Performed By: #### C RP, CMP #### [facility] [address] [place] [address] Dr. Clvie Main Sodium [Moles/Vol] 138 mmol/L Normal 136-145 [facility] Comment on above: Performed By: #### C RP, CMP #### [facility] [address] [place] [address] Dr. Clive Main Urea nitrogen [Mass/Vol] 14.0 mg/dL Normal 7.0-18.0 [facility] Comment on above: Performed By: #### C RP, CMP #### [facility] [address] [place] [address] Dr. Clive Main Urea nitrogen/Creatinine [Mass ratio] 15.9 mg/mg Normal [facility] Comment on above: Performed By: #### C RP, CMP #### [facility] [address] [place] [address] Dr. Clive Main PROTIMEon 01-10-2023 INR Coag (PPP) [Relative time] 1.08 {INR} Normal [facility] Comment on above: Performed By: #### D DIM #### [facility] [address] [place] [address] Dr. Clive Main INR GUIDELINES SEE BELOW Normal [facility] Comment on above: Result Comment: NATY RED INR: 2.0 - 3.0 CONDITIONS NOT LISTED BELOW 2.5 - 3.5 FOR PROSTHETIC HEART VALVE REPLACEMENT 2.5 - 3.5 RECURRENT THROMBOSIS Performed By: #### D DIM #### [facility] [address] [place] [address] Dr. Clive Main PT Coag (PPP) [Time] 11.4 s Normal 9.0-11.6 [facility] Comment on above: Performed By: #### D DIM #### [facility] [address] [place] [address] Dr. Clive Main PTTon 01-10-2023 aPTT Coag (Bld) [Time] 32.0 s Normal 22.3-36.2 [facility] Comment on above: Performed By: #### D DIM #### [facility] [address] [place] [address] Dr. Clive Main SED RATE WESTERGRENon 2022 SED RATE 9 mm/hr Normal <=15 [facility] Comment on above: Performed By: #### C RP, CMP #### [facility] [address] [place] [address] Dr. Clive Main T4on 01-10-2023 T4 [Mass/Vol] 12.20 ug/dL Critically high 4.50-12.10 [facility] Comment on above: Performed By: #### C RP, CMP #### [facility] [address] [place] [address] Dr. Clive Main TROPONIN, HIGH SENSITIVITYon 01-10-2023 HSTROP 8.1 pg/mL Normal 4.0-76.1 [facility] Comment on above: Result Comment: CUT- OFF POINTS HAVE BEEN ESTABLISHED BASED ON THE FOURTH UNIVERSAL DEFINITIONS OF MYOCARDIAL INFARCTION. THE UPPER REFERENCE LIMIT (URL) OF TROPONIN, DEFINED THE 99TH PERCENTILE OF cTnI DISTRIBUTION IN A REFERENCE POPULATION, HAS BEEN CONFIRMED THE DECISION THRESHOLD FOR NV DIAGNOSIS. Performed By: #### H STROPN #### [facility] [address] [place] [address] Dr. Clive Main TSHon 01-10-2023 TSH 1.219 uIU/mL Normal 0.358-3.740 [facility] [place] Comment on above: Performed By: #### C RP, CMP #### [facility] [address] [place] [address] Dr. Clive Main XR CHEST 1 Von 01-10-2023 XR CHEST 1 V EXAM: XR CHEST 1 V a t 1858 hours HISTORY: Clouded consciousness (finding) COMPARISON: 01/07/2023 TECHNIQUE: AP upright portable chest x-ray FINDINGS: The heart is not enlarged and the vasculature is not distended. No acute infiltrate, effusion or pneumothorax is identified. The osseous structures are grossly intact. IMPRESSION: No acute infiltrate or evidence of cardiac decompensation. The overall appearance of the chest is essentially unchanged. Electronically authenticated by: MITALI SIMON Date: 2023-01-10 19:33 Normal [facility] CBC AUTO DIFFon 01-09-2023 BASO # 0.1 103/ul Normal 0.0-0.1 [facility] Comment on above: Performed By: #### C RP, CMP #### [facility] [address] [place] [address] Dr. Clive Main Basophils/100 WBC (Bld) 0.4 % Normal 0.2-2.0 [facility] Comment on above: Performed By: #### C RP, CMP #### [facility] [address] [place] [address] Dr. Clive Main EO # 0.1 103/ul Normal 0.0-0.7 [facility] Comment on above: Performed By: #### C RP, CMP #### [facility] [address] [place] [address] Dr. Clive Main Eosinophils/100 WBC (Bld) 0.9 % Normal 0.9-7.0 [facility] Comment on above: Performed By: #### C RP, CMP #### [facility] [address] [place] [address] Dr. Clive Main Erythrocyte distribution width (RBC) [Ratio] 13.5 % Normal 11.0-15.0 [facility] Comment on above: Performed By: #### C RP, CMP #### [facility] [address] [place] [address] Dr. Clive Main Hematocrit (Bld) [Volume fraction] 48.0 % Normal 42.0-54.0 [facility] Comment on above: Performed By: #### C RP, CMP #### [facility] [address] [place] [address] Dr. Clive Main Hemoglobin (Bld) [Mass/Vol] 16.2 g/dL Normal 14.0-18.0 [facility] Comment on above: Performed By: #### C RP, CMP #### [facility] [address] [place] [address] [address] Clive Main IG # 0.04 10e3/ul Critically high 0.00-0.03 [facility] Comment on above: Performed By: #### C RP, CMP #### [facility] [address] [place] [address] [address] Clive Main IG % 0.3 % Normal 0.0-0.5 [facility] Comment on above: Performed By: #### C RP, CMP #### [facility] [address] [place] [address] [address] Clive Main LYMPH # 2.3 103/ul Normal 1.2-3.8 [facility] Comment on above: Performed By: #### C RP, CMP #### [facility] [address] [place] [address] Dr. Clive Main Lymphocytes/100 WBC (Bld) 19.3 % Critically low 20.5-60.0 [facility] Comment on above: Performed By: #### C RP, CMP #### [facility] [address] [place] [address] Dr. Clive Main MANUAL DIFF REQ NO Normal [facility] Comment on above: Performed By: #### C RP, CMP #### [facility] [address] [place] [address] Dr. Clive Main MCH (RBC) [Entitic mass] 28.3 pg Normal 25.9-34.0 [facility] Comment on above: Performed By: #### C RP, CMP #### [facility] [address] [place] [address] Dr. Clive Main MCHC (RBC) [Mass/Vol] 33.8 g/dL Normal 29.9-35.2 [facility] Comment on above: Performed By: #### C RP, CMP #### [facility] [address] [place] [address] Dr. Clive Main MCV (RBC) [Entitic vol] 83.8 fL Normal 80.0-94.0 [facility] Comment on above: Performed By: #### C RP, CMP #### [facility] [address] [place] [address] Dr. Clive Main MONO # 1.0 103/ul Critically high 0.3-0.8 [facility] Comment on above: Performed By: #### C RP, CMP #### [facility] [address] [place] [address] Dr. Clive Main Monocytes/100 WBC (Bld) 8.1 % Normal 1.7-12.0 [facility] Comment on above: Performed By: #### C RP, CMP #### [facility] [address] [place] [address] Dr. Clive Main NEUT # 8.3 103/ul Critically high 1.4-6.5 [facility] Comment on above: Performed By: #### C RP, CMP #### [facility] [address] [place] [address] Dr. Clive Main Neutrophils/100 WBC (Bld) 71.0 % Normal 43.0-75.0 [facility] Comment on above: Performed By: #### C RP, CMP #### [facility] [address] [place] [address] Dr. Clive Main Platelet mean volume (Bld) [Entitic vol] 11.5 fL Normal 9.5-13.5 [facility] Comment on above: Performed By: #### C RP, CMP #### [facility] [address] [place] [address] Dr. Clvie Main PLT 191 103/ul Normal 150-450 [facility] Comment on above: Performed By: #### C RP, CMP #### [facility] [address] [place] [address] Dr. Clive Main RBC 5.73 106/ul Normal 4.70-6.10 [facility] Comment on above: Performed By: #### C RP, CMP #### [facility] [address] [place] [address] Dr. Clive Main WBC 11.7 103/ul Critically high 4.0-11.0 [facility] Comment on above: Performed By: #### C RP, CMP #### [facility] [address] [address] [address] Clive Main CPKon 01-09-2023 CK [Catalytic activity/Vol] 211 U/L Normal 39-308 [facility] Comment on above: Performed By: #### H STROPN #### [facility] [address] [place] [address] Dr. Clive Main D-DIMERon 01-09-2023 D-DIMER 0.19 mg/L FEU Normal <=0.59 [facility] [place] Comment on above: Performed By: #### D DIM #### [facility] [address] [place] [address] Dr. Clive Main D-DIMER COMMENTS SEE BELOW Normal [facility] Comment on above: Result Comment: Incr eases in D-Dimer concentration observed with thromboembolic events can be variable due to localization, size, and age of the thrombus. Therefore, a thromboembolic event cannot be diagnosed with certainty on the basis of the reference range. D-Dimers may also be elevated for a variety of disorders including: advanced age, , coronary disease, cancer, liver disease, infection, inflammation, hematoma, DIC, trauma, post-surgery, diabetes, thrombolytic or anticoagulant therapy, stress, and generalized hospitalization. Performed By: #### D DIM #### [facility] [address] [place] [address] Dr. Clive Main LACTATE/LACTIC ACIDon 2022 Lactate [Moles/Vol] 1.0 mmol/L Normal 0.4-2.0 [facility] Comment on above: Performed By: #### H STROPN #### [facility] [address] [place] [address] Dr. Clive Main PROF 14(COMP METB)on 023 Albumin [Mass/Vol] 4.5 g/dL Normal 3.4-5.0 [facility] Comment on above: Performed By: #### H STROPN #### [facility] [address] [place] [address] Dr. Clive Main Albumin/Globulin [Mass ratio] 1.2 {ratio} Normal [facility] Comment on above: Performed By: #### H STROPN #### [facility] [address] [address] [address] Clive Main ALP [Catalytic activity/Vol] 91 U/L Normal 46-116 [facility] Comment on above: Performed By: #### H STROPN #### [facility] [address] [address] [address] Clive Main ALT [Catalytic activity/Vol] 37 U/L Normal 16-63 [facility] Comment on above: Performed By: #### H STROPN #### [facility] [address] [address] [address] Clive Main Anion gap [Moles/Vol] 13.9 mmol/L Normal [facility] Comment on above: Performed By: #### H STROPN #### [facility] [address] [place] [address] Dr. Clive Main AST [Catalytic activity/Vol] U/L Critically low 15-37 [facility] Comment on above: Performed By: #### H STROPN #### [facility] [address] [address] [address] Clive Main Bilirubin [Mass/Vol] 0.4 mg/dL Normal 0.2-1.0 [facility] Comment on above: Performed By: #### H STROPN #### [facility] [address] [address] [address] Clive Main Calcium [Mass/Vol] 9.0 mg/dL Normal 8.5-10.1 [facility] Comment on above: Performed By: #### H STROPN #### [facility] [address] [address] [address] Clive Main Chloride [Moles/Vol] 104 mmol/L Normal 98-107 [facility] Comment on above: Performed By: #### H STROPN #### [facility] [address] [address] [address] Clive Main CO2 [Moles/Vol] 24.1 mmol/L Normal 21.0-32.0 [facility] Comment on above: Performed By: #### H STROPN #### [facility] [address] [address] [address] Clive Main Creatinine [Mass/Vol] 1.06 mg/dL Normal 0.70-1.30 [facility] Comment on above: Performed By: #### H STROPN #### [facility] [address] [address] [address] Clive Main EGFR-AF MALAGASY >60 Normal >=60 [facility] Comment on above: Performed By: #### H STROPN #### [facility] [address] [address] [address] Clive Main EGFR-NON AF MALAGASY >60 Normal >=60 [facility] Comment on above: Performed By: #### H STROPN #### [facility] [address] [place] [address] Dr. Clive Main Globulin (S) [Mass/Vol] 3.8 g/dL Normal [facility] Comment on above: Performed By: #### H STROPN #### [facility] [address] [place] [address] Dr. Clive Main Glucose [Mass/Vol] 101 mg/dL Normal 74-106 [facility] Comment on above: Performed By: #### H STROPN #### [facility] [address] [place] [address] Dr. Clive Main Potassium [Moles/Vol] 4.0 mmol/L Normal 3.5-5.1 [facility] Comment on above: Performed By: #### H STROPN #### [facility] [address] [place] [address] Dr. Clive Main Protein [Mass/Vol] 8.3 g/dL Critically high 6.4-8.2 [facility] Comment on above: Performed By: #### H STROPN #### [facility] [address] [place] [address] Dr. Clive Main Sodium [Moles/Vol] 138 mmol/L Normal 136-145 [facility] Comment on above: Performed By: #### H STROPN #### [facility] [address] [address] [address] Clive Main Urea nitrogen [Mass/Vol] 22.0 mg/dL Critically high 7.0-18.0 [facility] Comment on above: Performed By: #### H STROPN #### [facility] [address] [address] [address] Clive Main Urea nitrogen/Creatinine [Mass ratio] 20.8 mg/mg Normal [facility] Comment on above: Performed By: #### H STROPN #### [facility] [address] [address] [address] Clive Main TROPONIN, HIGH SENSITIVITYon 01-09-2023 HSTROP 6.1 pg/mL Normal 4.0-76.1 [facility] Comment on above: Result Comment: CUT- OFF POINTS HAVE BEEN ESTABLISHED BASED ON THE FOURTH UNIVERSAL DEFINITIONS OF MYOCARDIAL INFARCTION. THE UPPER REFERENCE LIMIT (URL) OF TROPONIN, DEFINED THE 99TH PERCENTILE OF cTnI DISTRIBUTION IN A REFERENCE POPULATION, HAS BEEN CONFIRMED THE DECISION THRESHOLD FOR [place] DIAGNOSIS. Performed By: #### H STROPN #### [facility] [address] [address] [address] Clive Main TSHon 01-09-2023 TSH 3.045 uIU/mL Normal 0.358-3.740 [facility] Comment on above: Performed By: #### H STROPN #### [facility] [address] [address] [address] Clive Main CBC with Auto Differentialon 01-07-2023 Absolute Eos # 0.18 [facility] Absolute Immature Granulocyte 0.05 [facility] Absolute Lymph # 2.34 [facility] Absolute [place] # 0.87 [facility] Basophils (Bld) [#/Vol] 0.05 10*3/uL [facility] Basophils/100 WBC (Bld) 1 % 0 - 2 % [facility] Eosinophils/100 WBC (Bld) 2 % 1 - 4 % [facility] Hematocrit (Bld) [Volume fraction] 45.9 % 40.7 - 50.3 % [facility] Hemoglobin (Bld) [Mass/Vol] 15.5 g/dL 13.0 - 17.0 g/dL [facility] Immature granulocytes/100 WBC (Bld) 1 % High 0 [facility] Interpretation and review of laboratory results Abnormal [facility] Lymphocytes/100 WBC (Bld) 24 % 24 - 43 % [facility] MCH (RBC) [Entitic mass] 29.0 pg 25.2 - 33.5 pg [facility] MCHC (RBC) [Mass/Vol] 33.8 g/dL 28.4 - 34.8 g/dL [facility] MCV (RBC) [Entitic vol] 85.8 fL 82.6 - 102.9 fL [facility] Monocytes/100 WBC (Bld) 9 % 3 - 12 % [facility] NRBC Automated 0.0 0.0 per 100 WBC [facility] Platelet distribution width (Bld) [Ratio] 13.2 % 11.8 - 14.4 % [facility] Platelet mean volume (Bld) [Entitic vol] 11.6 fL 8.1 - 13.5 fL [facility] Platelets (Bld) [#/Vol] 169 10*3/uL [facility] RBC (Bld) [#/Vol] 5.35 10*6/uL 4.21 - 5.7 7 m/uL [facility] Segmented neutrophils/100 WBC (Bld) 63 % 36 - 65 % [facility] Segs Absolute 6.30 [facility] WBC (Bld) [#/Vol] 9.8 10*3/uL [facility] CBC with Diffon 01-07-2023 Abs. Basophil 0.05 k/uL Normal 0.00-0.20 [facility] Comment on above: Performed By: #### C P, CDP #### [facility] [address] [place] [address] Physical Integration Practitioner: Jacob Gamez MD Abs.Imm.Granulocyte 0.05 k/uL Normal 0.00-0.[address] [facility] Comment on above: Performed By: #### C P, CDP #### [facility] [address] [place], [place] [id number] Physical Integration Practitioner: Jacob Gamez MD Abs.Neutrophil (Seg) 6.30 k/uL Normal 1.50-8.10 [facility] Comment on above: Performed By: #### C P, CDP #### [address] [place], [place] [id number] Physical Integration Practitioner: Jacob Gamez MD Basophils/100 WBC (Bld) 1 % Normal 0-[address] [facility] Comment on above: Performed By: #### C P, CDP #### [address] [place], [place] [address] Physical Integration Practitioner: Jacob Gamez MD Eosinophils (Bld) [#/Vol] 0.18 10*3/uL Normal 0.00-0.[address] [facility] Comment on above: Performed By: #### C P, CDP #### [address] [place], [facility]83 Physical Integration Practitioner: Jacob Gamez MD Eosinophils/100 WBC (Bld) 2 % Normal 1-[address] [facility] Comment on above: Performed By: #### C P, CDP #### [address] [place], [facility]83 Physical Integration Practitioner: Jacob Gamez MD Erythrocyte distribution width (RBC) [Ratio] 13.2 % Normal 11.8-14.[address] [facility] Comment on above: Performed By: #### C P, CDP #### [address] [place], [place] [id number] Physical Integration Practitioner: Jacob Gamez MD Hematocrit (Bld) [Volume fraction] 45.9 % Normal 40.7-50.[address] [facility] Comment on above: Performed By: #### C P, CDP #### [address] [place], [facility]83 Physical Integration Practitioner: Jacob Gamez MD Hemoglobin (Bld) [Mass/Vol] 15.5 g/dL Normal 13.0-17.[address] [facility] Comment on above: Performed By: #### C P, CDP #### [address] [place], [place] [id number] Physical Integration Practitioner: Jacob Gamez MD Immature granulocytes/100 WBC (Bld) 1 % High [address] [facility] Comment on above: Performed By: #### C P, CDP #### [address] [place], [place] [phone] Physical Integration Practitioner: Jacob Gamez MD Lymphocytes (Bld) [#/Vol] 2.34 10*3/uL Normal 1.10-3.[address] [facility] Comment on above: Performed By: #### C P, CDP #### [address] [place], [place] [phone] Physical Integration Practitioner: Jacob Gamez MD Lymphocytes/100 WBC (Bld) 24 % Normal 24-[address] [facility] Comment on above: Performed By: #### C P, CDP #### [address] [place], [place] [address]83 Physical Integration Practitioner: Jacob Gamez MD MCH (RBC) [Entitic mass] 29.0 pg Normal 25.2-33.[address] [facility] Comment on above: Performed By: #### C P, CDP #### [address] [place], [place] [id number] Physical Integration Practitioner: Jacob Gamez MD MCHC (RBC) [Mass/Vol] 33.8 g/dL Normal 28.4-34.[address] [facility] Comment on above: Performed By: #### C P, CDP #### [address] [place] [address] Physical Integration Practitioner: Jacob Gamez MD MCV (RBC) [Entitic vol] 85.8 fL Normal 82.6-102.[address] [facility] Comment on above: Performed By: #### C P, CDP #### [facility] [address] [place], [place] [address] Physical Integration Practitioner: Jacob Gamez MD Monocytes (Bld) [#/Vol] 0.87 10*3/uL Normal 0.10-1.[address] [facility] Comment on above: Performed By: #### C P, CDP #### [facility] [address] [place], [place] [address]83 Physical Integration Practitioner: Jacob Gamez MD Monocytes/100 WBC (Bld) 9 % Normal 3-[address] [facility] Comment on above: Performed By: #### C P, CDP #### [address] [place], [place] [phone] Physical Integration Practitioner: Jacob Gamez MD Neutrophil (Seg) 63 % Normal 36-65 [facility] Comment on above: Performed By: #### C P, CDP #### [facility] [address] [place], [place] [phone] Physical Integration Practitioner: Jacob Gamez MD NRBC Automated 0.0 per 100 WBC Normal 0.[address] [facility] Comment on above: Performed By: #### C P, CDP #### [address] [place], [place] [address]83 Physical Integration Practitioner: Jacob Gamez MD Platelet mean volume (Bld) [Entitic vol] 11.6 fL Normal 8.1-13.[address] [facility] Comment on above: Performed By: #### C P, CDP #### [address] [place], [place] [address]857383 Physical Integration Practitioner: Jacob Gamez MD Platelets (Bld) [#/Vol] 169 10*3/uL Normal 138-[address] [facility] Comment on above: Performed By: #### C P, CDP #### [facility] [address] [place] [address] Physical Integration Practitioner: Jacob Gamez MD RBC (Bld) [#/Vol] 5.35 10*6/uL Normal 4.21-5.[address] [facility] Comment on above: Performed By: #### C P, CDP #### [facility] [address] [place] [address] Physical Integration Practitioner: Jacob Gamez MD WBC (Bld) [#/Vol] 9.8 10*3/uL Normal 3.5-11.[address] [facility] Comment on above: Performed By: #### C P, CDP #### [facility] [address] [place] [address] Physical Integration Practitioner: [facility]z [facility] Albumin [Mass/Vol] 4.1 g/dL 3.5 - 5.2 g/dL [facility] Albumin/Globulin [Mass ratio] 1.3 {ratio} 1.0 - 2.5 [facility] ALP [Catalytic activity/Vol] 87 U/L 40 - 129 U/L [facility] ALT [Catalytic activity/Vol] 22 U/L 5 - 41 U/L [facility] Anion gap [Moles/Vol] 10 mmol/L 9 - 17 mmol/L [facility] AST [Catalytic activity/Vol] 18 U/L NINF - 40 U/L [facility] Bilirubin [Mass/Vol] 0.4 mg/dL 0.3 - 1 .2 mg/dL [facility] Calcium [Mass/Vol] 9.0 mg/dL 8.6 - 10. 4 mg/dL [facility] Chloride [Moles/Vol] 105 mmol/L 98 - 10 7 mmol/L [facility] CO2 [Moles/Vol] 23 mmol/L 20 - 31 mmol/L [facility] Creatinine [Mass/Vol] 1.08 mg/dL 0.70 - 1.20 mg/dL [facility] GFR/1.73 sq M.predicted MDRD (S/P/Bld) [Vol rate/Area] - PINF [facility] Comment on above: These results are not intended for use in patients <18 years of age. eGFR results are calculated without a race factor using the 2020 CKD-EPI equation. Careful clinical correlation is recommended, particularly when comparing to results calculated using previous equations. The CKD-EPI equation is less accurate in patients with extremes of muscle mass, extra-renal metabolism of creatine, excessive creatine ingestion, or following therapy that affects renal tubular secretion. Glucose [Mass/Vol] 140 mg/dL High 70 - 99 mg/dL [facility] Interpretation and review of laboratory results Abnormal [facility] Potassium [Moles/Vol] 4.1 mmol/L 3.7 - 5.3 mmol/L [facility] Protein [Mass/Vol] 7.3 g/dL 6.4 - 8.3 g/dL [facility] Sodium [Moles/Vol] 138 mmol/L 135 - 144 mmol/L [facility] Urea nitrogen [Mass/Vol] 22 mg/dL High 6 - 20 mg/dL [facility] Urea nitrogen/Creatinine (Bld) [Mass ratio] 20 9 - 20 [facility] Comp Metabolic Profon 2022 Albumin [Mass/Vol] 4.1 g/dL Normal 3.5-5.[address] [facility] Comment on above: Performed By: #### C P, CDP #### [facility] [address] [place] [address] Physical Integration Practitioner: Jacob Gamez MD Albumin/Glob Ratio 1.3 Normal 1.0-2.[address] [facility] Comment on above: Performed By: #### C P, CDP #### [facility] [address] [place] [address] Physical Integration Practitioner: Jacob Gamez MD Alkaline Phos 87 U/L Normal 40-129 [facility] Comment on above: Performed By: #### C P, CDP #### [facility] [address] [place] [address] Physical Integration Practitioner: Jacob Gamez MD ALT [Catalytic activity/Vol] 22 U/L Normal 5-[address] [facility] Comment on above: Performed By: #### C P, CDP #### [facility] [address] [place], [place] [address]83 Physical Integration Practitioner: Jacob Gamez MD Anion gap [Moles/Vol] 10 mmol/L Normal 9-[address] [facility] Comment on above: Performed By: #### C P, CDP #### [facility] [address] [place] [address] Physical Integration Practitioner: Jacob Gamez MD AST [Catalytic activity/Vol] 18 U/L Normal <[address] [facility] Comment on above: Performed By: #### C P, CDP #### [facility] [address] [place], [place] [phone] Physical Integration Practitioner: Jacob Gamez MD Bilirubin [Mass/Vol] 0.4 mg/dL Normal 0.3-1.2 [facility] Comment on above: Performed By: #### C P, CDP #### [facility] [address] [place], [place] [phone] Physical Integration Practitioner: Jcaob Gamez MD BUN/CRE Ratio 20 Normal 9-20 [facility] Comment on above: Performed By: #### C P, CDP #### [facility] [address] [place], [place] [address]83 Physical Integration Practitioner: Jacob Gamez MD Calcium [Mass/Vol] 9.0 mg/dL Normal 8.6-10.[address] [facility] Comment on above: Performed By: #### C P, CDP #### [facility] [address] [place] [address] Physical Integration Practitioner: Jacob Gamez MD Chloride [Moles/Vol] 105 mmol/L Normal 98-107 [facility] Comment on above: Performed By: #### C P, CDP #### [facility] [address] [place] [address] Physical Integration Practitioner: Jacob Gamez MD CO2 [Moles/Vol] 23 mmol/L Normal 20-31 [facility] Comment on above: Performed By: #### C P, CDP #### [facility] [address] [place] [address] Physical Integration Practitioner: Jacob Gamez MD Creatinine [Mass/Vol] 1.08 mg/dL Normal 0.70-1.[address] [facility] Comment on above: Performed By: #### C P, CDP #### [facility] [address] [place] [address] Physical Integration Practitioner: Jacob Gamez MD GFR/1.73 sq M.predicted among non-blacks MDRD (S/P/Bld) [Vol rate/Area] mL/min/{1.73_m2} Normal >[address] [facility] Comment on above: Result Comment: These results are not intended for use in patients <18 years of age. eGFR results are calculated without a race factor using the 2020 CKD-EPI equation. Careful clinical correlation is recommended, particularly when comparing to results calculated using previous equations. The CKD-EPI equation is less accurate in patients with extremes of muscle mass, extra-renal metabolism of creatine, excessive creatine ingestion, or following therapy that affects renal tubular secretion. Performed By: #### C P, CDP #### [facility] [address] [place] [address] Physical Integration Practitioner: Jacob Gamez MD Glucose [Mass/Vol] 140 mg/dL High 70-[address] [facility] Comment on above: Performed By: #### C P, CDP #### [facility] [address] [place] [address] Physical Integration Practitioner: Jacob Gamez MD Potassium [Moles/Vol] 4.1 mmol/L Normal 3.7-5.[address] [facility] Comment on above: Performed By: #### C P, CDP #### [facility] [address] [place], [place] [address] Physical Integration Practitioner: Jacob Gamez MD Protein [Mass/Vol] 7.3 g/dL Normal 6.4-8.[address] [facility] Comment on above: Performed By: #### C P, CDP #### [facility] [address] [place], [place] [id number] Physical Integration Practitioner: Jacob Gamez MD Sodium [Moles/Vol] 138 mmol/L Normal 135-[address] [facility] Comment on above: Performed By: #### C P, CDP #### [facility] [address] [place], [place] [phone] Physical Integration Practitioner: Jacob Gamez MD Urea nitrogen [Mass/Vol] 22 mg/dL High 6-[address] [facility] Comment on above: Performed By: #### C P, CDP #### [facility] [address] [place], [place] [address] Physical Integration Practitioner: Jacob Gamez MD TROPONIN, HIGH SENSITIVITYon 01-07-2023 HSTROP 6.5 pg/mL Normal 4.0-76.1 [facility] Comment on above: Result Comment: CUT- OFF POINTS HAVE BEEN ESTABLISHED BASED ON THE FOURTH UNIVERSAL DEFINITIONS OF MYOCARDIAL INFARCTION. THE UPPER REFERENCE LIMIT (URL) OF TROPONIN, DEFINED THE 99TH PERCENTILE OF cTnI DISTRIBUTION IN A REFERENCE POPULATION, HAS BEEN CONFIRMED THE DECISION THRESHOLD FOR [place] DIAGNOSIS. Performed By: #### H SHEILAPN #### [facility] [address] [address] [address] Clive Main TSHon 01-07-2023 TSH 1.852 uIU/mL Normal 0.358-3.740 [facility] Comment on above: Performed By: #### H SHEILAPN #### [facility] [address] [address] [address] Clive Main TSH w/reflex to FT4on 2022 Thyroid Stim. Horm. 2.45 uIU/mL Normal 0.30-5.00 [facility] Comment on above: Performed By: #### T SHX #### [facility] [address] [place] [address] Physical Integration Practitioner: Jacob Gamez MD TSH with Reflexon 01-07-2023 TSH Qn 2.45 m[IU]/L [facility] XR CHEST 2 Von 01-07-2023 XR CHEST 2 V EXAM: XR CHEST 2 V HISTORY: Hypertension COMPARISON: None. TECHNIQUE: PA and lateral chest x-ray FINDINGS: The lung parenchyma is free of consolidation or infiltrate. No pneumothorax or pleural effusion. The cardiac, mediastinal and hilar contours are normal. The visualized osseous structures exhibit no gross abnormality. IMPRESSION: Normal chest x-rays Electronically authenticated by: JACOB EVERETT Date: 2023-01-07 18:23 Normal [facility] Ambulatory Visit Summaryon 0 03-29-2022 Ambulatory Visit Summary JESSE YEPEZ Rafiq :1985 Visit Date:03/29/2022 Ambulatory Visit Instructions Your Care Team Attending Physician - CHARLIE NOLAN, Mahendra Prakash Primary Care Physician - Jenny Ramírez MD This Is Your Medications List allopurinol (allopurinol 100 mg Tab) carvedilol (Coreg 25 mg Tab) clonidine (cloNIDine 0.1 mg tab) Procedures Performed Repair of tendon, Rotator cuff repair. Medications What How Much When Instructions Unchanged allopurinol (allopurinol 100 mg Tab) 1 Tablets By Mouth Every day Unchanged carvedilol (Coreg 25 mg Tab) 1 Tablets By Mouth 2 times a day Unchanged clonidine (cloNIDine 0.1 mg tab) 1 Tablets By Mouth 3 times a day Allergies penicillin (Hives) Problems Ongoing - Any problem that you are currently receiving treatment for. BMI 40.0-44.9, adult Borderline hypertension Changing nevus Gout History of TIA (transient ischemic attack) Neoplasm of uncertain behavior of skin Sleep apnea Verruca palmaris Historical - Any problem that you are no longer receiving treatment for. Acute anterior circulation transient ischemic attack Normal [facility] General Surgery Office/Clini c Noteon 03-29-2022 General Surgery Office/Clinic Note Chief Complaint follow up excisional biopsy HPI Staff 14 day follow up post in-office excisional biopsy right upper chest and left groin. Denies discomfort, bleeding or drainage. Sutures intact. History of Present Illness 2 weeks s/p excisional biopsy changing skin lesion right upper chest, pathology consistent with intradermal nevus; and excision left groin lesion, pathology with compound nevus; doing well, no pain or drainage. Review of Systems ROS - Provider Constitutional: no fever, no sweats, no weight loss. Eyes: no glasses, no blurred vision, no visual loss. ENMT: no dentures, no hoarseness, no swallowing difficulties, no hearing loss, no ear infection(s), no nose bleeds. Cardiovascular: normal blood pressure, no chest pain, regular heartbeat, no heart murmur. Respiratory: no shortness of breath, no cough, no asthma, no wheezing. Gastrointestinal: no nausea, no vomiting, no diarrhea, no constipation, no blood in stool, no change in bowel habits, no abdominal pain, no hepatitis. Genitourinary: no kidney stones, no urine infection, no dysuria. Musculoskeletal: no pain, no weakness. Skin: no changing moles, no rash, no skin lumps. Neurologic: no seizures, no epilepsy, no headache. Psychiatric: no emotional or psychiatric problem. Heme/Lymph: no bleeding problems, no anemia, no blood clots, no transfusions. Allergy/Immunologic: no swollen lymph nodes/glands, no IV drug abuse. Other: Additional ROS info: Except as noted in the above Review of Systems and in the History of Present Illness, all other systems have been reviewed and are negative or noncontributory. Physical Exam skin: incisions healing well, minimal erythema around sutures, no drainage or ecchymoses. Assessment/Plan 1. Intradermal nevus (D23.9: Other benign neoplasm of skin, unspecified) doing well, sutures removed; call with problems/questions. 2. Compound nevus (D22.9: Melanocytic nevi, unspecified) see # 1 Follow-up No qualifying data available Problem List/Past Medical History Ongoing BMI 40.0-44.9, adult Borderline hypertension Changing nevus Compound nevus Gout History of TIA (transient ischemic attack) Intradermal nevus Neoplasm of uncertain behavior of skin Sleep apnea Verruca palmaris Historical Acute anterior circulation transient ischemic attack Procedure/Surgical History Repair of tendon, Rotator cuff repair. Medications allopurinol 100 mg Tab, 100 mg= 1 tab(s), Oral, Daily cloNIDine 0.1 mg tab, 0.1 mg= 1 tab(s), Oral, TID Coreg 25 mg Tab, 25 mg= 1 tab(s), Oral, BID Allergies penicillin (Hives) Social History Alcohol - Denies Alcohol Use, 03/01/2022 Substance Abuse - Denies Substance Abuse, 03/01/2022 Tobacco Former smoker, quit more than 30 days ago Tobacco Use:. Former smokeless tobacco user, quit more than 30 days ago Smokeless Tobacco Use:. Cigarettes, Vaping, Started age 16.0 Years. Stopped age 36 Years., 03/01/2022 Family History Suicide: Father. Normal [facility] Comment on above: Result Comment: Elec tronically Signed By: CHARLIE NOLAN, Mahendra Prakash\.br\Date and Time Signed: 03/29/22 15:14 EDT Pathology Noteon 03-22-2022 Pathology Note [id number] Normal [facility] Ambulatory Visit Summaryon 0 03-15-2022 Ambulatory Visit Summary JESSE YEPEZ :1985 Visit Date:03/15/2022 Ambulatory Visit Instructions Your Care Team Attending Physician - Mahendra PARK MD Primary Care Physician - Jenny Ramírez MD This Is Your Medications List allopurinol (allopurinol 100 mg Tab) carvedilol (Coreg 25 mg Tab) clonidine (cloNIDine 0.1 mg tab) Procedures Performed Repair of tendon, Rotator cuff repair. What to do next Scheduled Follow-Up Appointments Sunday 3:00 PM EDT With: Mahendra PARK MD Where: General Surgery [facility] [place] Normal [facility] General Surgery Office/Clini c Noteon 03-15-2022 General Surgery Office/Clinic Note Chief Complaint in-office excisional biopsy HPI Staff Presents for in-office excisional biopsy right upper chest nevus and left groin lesion. History of Present Illness patient here for excision changing lesions and excision multiple warts; warts resolving now, will hold off on wart excision. Review of Systems ROS - Provider Constitutional: no fever, no sweats, no weight loss. Eyes: no glasses, no blurred vision, no visual loss. ENMT: no dentures, no hoarseness, no swallowing difficulties, no hearing loss, no ear infection(s), no nose bleeds. Cardiovascular: normal blood pressure, no chest pain, regular heartbeat, no heart murmur. Respiratory: no shortness of breath, no cough, no asthma, no wheezing. Gastrointestinal: no nausea, no vomiting, no diarrhea, no constipation, no blood in stool, no change in bowel habits, no abdominal pain, no hepatitis. Genitourinary: no kidney stones, no urine infection, no dysuria. Musculoskeletal: no pain, no weakness. Skin: yes changing moles, no rash, no skin lumps. Neurologic: no seizures, no epilepsy, no headache. Psychiatric: no emotional or psychiatric problem. Heme/Lymph: no bleeding problems, no anemia, no blood clots, no transfusions. Allergy/Immunologic: no swollen lymph nodes/glands, no IV drug abuse. Other: Additional ROS info: Except as noted in the above Review of Systems and in the History of Present Illness, all other systems have been reviewed and are negative or noncontributory. Physical Exam right chest wall with 5 mm nevus, irregular pigmentation; let groin with raised, polypoid, pigmented lesion 1.5 cm Procedure patient brought to the procedure room, placed in supine position, right chest wall and left groin areas prepped and draped in sterile fashion; anesthetized with 1 % lidocaine; chest wall lesion excised in elliptical fashion down to subcutaneous fat; total length 7 mm; closed with interrupted 4-0 nylon sutures; left groin lesion excised and closed in similar fashion, total length 2 cm; tolerated well; ebl < 3 ml; sterile dressing applied. Assessment/Plan 1. Changing nevus (D22.9: Melanocytic nevi, unspecified) excised under local anesthesia, tolerated well; f/u in 10 days for suture removal; call sooner if problems/questions. 2. Neoplasm of uncertain behavior of skin (D48.5: Neoplasm of uncertain behavior of skin) see # 1 3. Verruca palmaris (B07.8: Other viral warts) resolving Follow-up No qualifying data available Problem List/Past Medical History Ongoing BMI 40.0-44.9, adult Borderline hypertension Changing nevus Gout History of TIA (transient ischemic attack) Neoplasm of uncertain behavior of skin Sleep apnea Verruca palmaris Historical Acute anterior circulation transient ischemic attack Procedure/Surgical History Repair of tendon, Rotator cuff repair. Medications allopurinol 100 mg Tab, 100 mg= 1 tab(s), Oral, Daily cloNIDine 0.1 mg tab, 0.1 mg= 1 tab(s), Oral, TID Coreg 25 mg Tab, 25 mg= 1 tab(s), Oral, BID Allergies penicillin (Hives) Social History Alcohol - Denies Alcohol Use, 03/01/2022 Substance Abuse - Denies Substance Abuse, 03/01/2022 Tobacco Former smoker, quit more than 30 days ago Tobacco Use:. Former smokeless tobacco user, quit more than 30 days ago Smokeless Tobacco Use:. Cigarettes, Vaping, Started age 16.0 Years. Stopped age 36 Years., 03/01/2022 Family History Suicide: Father. Normal [facility] Comment on above: Result Comment: Elec tronically Signed By: CHARLIE NOLAN, Mahendra Robles\Date and Time Signed: 03/15/22 17:14 EDT US CAROTID ART BILon 14-2 022 US CAROTID ART BIN EXAMINATION: US CAROTID ART BIN HISTORY: Transient cerebral ischemia COMPARISON: No relevant comparison available. TECHNIQUE: Duplex Doppler ultrasound analysis of carotid and vertebral arteries. . Bilateral carotid arterial duplex examination was performed using B-mode, color flow and spectral analysis. Carotid stenosis is reported according to validated velocity parameters, similar to NASCET criteria. FINDINGS: RIGHT CAROTID ARTERY Mild atherosclerotic plaque. No focal stenosis Subclavian: PSV: 153.1 cm/s cm/s EDV: 11.4 cm/s cm/s CCA: Prox: PSV: 180.8 cm/s cm/s EDV: 41.5 cm/s cm/s Mid: PSV: 129.1 cm/s cm/s EDV: 31.6 cm/s cm/s Distal: PSV: 104.4 cm/s cm/s EDV: 30.0 cm/s cm/s BULB: PSV: 68.1 cm/s cm/s EDV: 11.6 cm/s cm/s ICA: Prox: PSV: 83.8 cm/s cm/s EDV: 28.9 cm/s cm/s Mid: PSV: 68.1 cm/s cm/s EDV: 26.2 cm/s cm/s Distal: PSV: 87.0 cm/s cm/s EDV: 37.0 cm/s cm/s ECA: PSV: 153.1 cm/s cm/s EDV: 27.6 cm/s cm/s VERTEBRAL: PSV: 40.5 cm/s cm/s EDV: 12.7 cm/s cm/s ICA/CCA ratio: PSV: 0.7 EDV: 1.2 LEFT CAROTID ARTERY No significant plaque or stenosis Subclavian: PSV: 148.5 cm/s cm/s EDV: 13.7 cm/s CCA: Prox: PSV: 189.5 cm/s cm/s EDV: 36.2 cm/s Mid: PSV: 191.9 cm/s cm/s EDV: 45.5 cm/s Distal: PSV: 107.6 cm/s cm/s EDV: 36.7 cm/s BULB: PSV: 80.1 cm/s cm/s EDV: 27.0 cm/s ICA: Prox: PSV: 80.6 cm/s cm/s EDV: 28.9 cm/s Mid: PSV: 74.1 cm/s cm/s EDV: 32.1 cm/s Distal: PSV: 77.3 cm/s cm/s EDV: 27.3 cm/s ECA: PSV: 115.9 cm/s cm/s EDV: 25.3 cm/s VERTEBRAL: PSV: 46.9 cm/s cm/s EDV: 14.2 cm/s ICA/CCA ratio: PSV: 0.4 EDV: 0.6 Other: Multiple left-sided cervical lymph nodes the largest measures 2.1 x 0.4 x 1.2 cm IMPRESSION: 0-49% flow stenosis bilateral internal carotid arteries Spectral Doppler US Thresholds (Reference: Johnny EG, et al. Radiology 2000; 214:247-252) Stenosis (%) PSV (cm/sec) VICA/VCCA 0-49 <150 <2.5 50-69 150-225 2.5-4.0 >70 >225 >4.0 Electronically authenticated by: JACOB AGUAYO Date: 2022-03-04 08:12 Normal [facility] Ambulatory Visit Summaryon 0 5-11-2022 Ambulatory Visit Summary JESSE YEPEZ :1985 Visit Date:03/01/2022 Ambulatory Visit Instructions Your Care Team Attending Physician - Mahendra PARK MD Primary Care Physician - Jenny Ramírez MD This Is Your Medications List Contact prescribing physician if questions or concerns allopurinol (allopurinol 100 mg Tab) carvedilol (Coreg 25 mg Tab) clonidine (cloNIDine 0.1 mg tab) Procedures Performed Repair of tendon, Rotator cuff repair. Discharge Vitals Heart Rate (Peripheral) 80 Respiratory Rate 16 Blood Pressure 130/88 Height 190 cm Height 190.0 cm Weight 148 kg Weight 148.0 kg BMI 41 What to do next Scheduled Follow-Up Appointments Sunday 3:00 PM EDT With: Mahendra PRAK MD Where: General Surgery Nill/Said [place] Normal [facility] Physician Referralon 022 Physician Referral [id number] [id number] Normal [facility] [id number] 03-09-2020 SARS-CoV-2 Not Detected Normal Not Detected [facility] Comment on above: Result Comment: (NOT E) This test was developed and its performance characteristics determined by [employer]. This test has not been FDA cleared or approved. This test has been authorized by FDA under an Emergency Use Authorization (EUA). This test is only authorized for the duration of time the declaration that circumstances exist justifying the authorization of the emergency use of in vitro diagnostic tests for detection of SARS-CoV-2 virus and/or diagnosis of COVID-19 infection under section 564(b)(1) of the Act, 21 U.S.C. 360bbb-3(b)(1), unless the authorization is terminated or revoked sooner. When diagnostic testing is negative, the possibility of a false negative result should be considered in the context of a patient's recent exposures and the presence of clinical signs and symptoms consistent with COVID-19. An individual without symptoms of COVID-19 and who is not shedding SARS-CoV-2 virus would expect to have a negative (not detected) result in this assay. Performed At: [facility] [address] [place], [place] [id number] Scar Son MD Ph:[phone] Performed By: #### A COV #### [facility] [address] [place], [place] [id number] Physical Integration Practitioner: Mahendra Garcia MD Vital Signs Date Time Vital Sign Value Performing Clinician Faci lity 01-07-2023 05:42-0400 Diastolic blood pressure 70 mm[Hg] Aissatou Velasquez MD Work Phone: [employer] 01-07-2023 05:42-0400 Heart rate 74 /min Aissatou Velasquez MD Work Phone: [employer] [facility] 01-07-2023 05:42-0400 Respiratory rate 16 /min Aissatou Velasquez MD Work Phone: [employer] [facility] [employer] 01-07-2023 05:42-0400 SaO2% (BldA) [Mass fraction] 95 % Aissatou Velasquez MD Work Phone: [employer] [facility] [employer] 01-07-2023 05:42-0400 Systolic blood pressure 147 mm[Hg] Aissatou Velasquez MD Work Phone: [employer] [facility] [employer] 01-07-2023 04:14-0400 Body height 193 cm Aissatou Velasquez MD Work Phone: [employer] [facility] [employer] 01-07-2023 04:14-0400 Body mass index (BMI) [Ratio] 50.64 kg/m2 Aissatou Velasquez MD Work Phone: [employer] [facility] [employer] 01-07-2023 04:14-0400 Body temperature 98.6 [degF] Aissatou Velasquez MD Work Phone: [employer] [facility] [employer] 01-07-2023 04:14-0400 Body weight 188.7 kg Aissatou Velasquez MD Work Phone: [employer] [facility] [employer] 03-01-2022 15:41-0400 Blood Pressure Location Mahendra PARK [facility] [place] 03-01-2022 15:41-0400 Diastolic blood pressure 88 mm[Hg] Mahendra NILL [facility] Surgery [place] 03-01-2022 15:41-0400 Heart rate 80 /min Mahendra NILL [facility] Surgery [place] 03-01-2022 15:41-0400 Respiratory rate 16 /min Mahendra NILL [facility] Surgery [place] 03-01-2022 15:41-0400 Systolic blood pressure 130 mm[Hg] Mahendra NILL General Surgery [place] Encounters Encounter Date Encounter Type Care Provider Facility Start: 01-31-2023 End: 01-31-2023 ambulatory MAGDALENE FERRARI [facility] Start: 01-22-2023 End: 01-23-[address] JENNY RAMÍREZ . Facility:[facility] Start: 01-10-2023 End: 01-12-[address] JENNY RAMÍREZ . Facility:[facility] Start: 01-09-2023 End: 01-10-[address] JENNY RAMÍREZ . Facility:[facility] Start: 01-07-2023 End: 01-07-2023 ambulatory MATILDA ALMENDAREZ . Facility:[facility] Start: 01-07-2023 End: 01-07-2023 Emergency department patient visit AISSATOU VELASQUEZ [facility] Start: 01-07-2023 End: 01-07-2023 Emergency department patient visit Aissatou Velasquez MD Work Phone: [facility] ED Comment on above: Hypertension, unspec ified type (Primary Dx); Palpitations Start: 03-23-2022 End: 03-26-2022 ambulatory JENNY Krishnamurthy Venkatesh [facility] Start: 03-23-2022 End: 03-25-2022 Subsequent hospital visit by physician Ashok Barrientos Mri Room 1 [facility] MRI Comment on above: Transient ischemic a ttack, anterior circulation, acute; Essential hypertension, malignant Start: 03-08-2022 End: 03-09-[address] JENNY RAMÍREZ . Facility:[facility] Start: 03-03-2022 End: 03-04-[address] JENNY RAMÍREZ . Facility:[facility] Start: 03-01-2022 End: 03-01-2022 Patient encounter procedure Mahendra PARK General Surgery [facility] [place] Start: 03-06-2020 End: 03-07-2020 Patient encounter procedure SIERRA RICE [facility] Start: 03-06-2020 End: 03-06-2020 Subsequent hospital visit by physician Generic High [facility] Comment on above: Suspected COVID-19 v irus infection Procedures Date Procedure Procedure Detail Performing Clinician Start: 01-07-2023 Comprehensive metabolic panel Aissatou Velasquez MD Work Phone: Start: 03-06-2020 COVID-19 AMBULATORY MATTHEW RICE Repair of musculoten dinous cuff of shoulder Mahendra PARK Repair of tendon Mahendra Gonzalez Plan of Treatment Date Care Activity Detail Author Start: 06-22-2022 Influenza vaccination Flu vacc ine (Season Ended) [facility] Start: 05-22-2022 Influenza vaccination Flu vaccine (# 1) [facility] Start: 12-01-2021 COVID-19 Vaccine (3 - Booster for Pfizer series) COVID-19 Vaccine (3 - Booster for Pfizer series) [facility] Start: 08-26-2021 COVID-19 Vaccine (3 - Booster for Pfizer series) COVID-19 Vaccine (3 - Booster for Pfizer series) [facility] Start: 06-22-2020 Influenza vaccination Flu vacc ine (Season Ended) [place] Start: 2019 Diabetes screen Diabetes screen [facility] Start: 2003 DTaP/Tdap/Td vaccine (1 - Tdap) DTaP/Tdap/Td vaccine (1 - Tdap) [facility] Start: 2002 Hepatitis C screening Hepatitis C sc reen [facility] Start: 1999 HIV screening HIV screen [facility] Start: 1996 Depression Screen Depression Screen [facility] Start: 1990 Pneumococcal 0-64 ye ars Vaccine (1 - PCV) Pneumococcal 0-64 years Vaccine (1 - PCV) [facility] Start: 1990 Pneumococcal 0-64 ye ars Vaccine (1 of 1 - PPSV23) Pneumococcal 0-64 years Vaccine (1 of 1 - PPSV23) [place] Start: 1985 Varicella vaccine (1 of 2 - 2-dose childhood series) Varicella vaccine (1 of 2 - 2-dose childhood series) [facility] End: 03-06-2020 COVID-19 Ambulatory COVID-19 Ambulatory Lab Routine Suspected Covid-19 Virus Infection 1 Occurrences starting 03/06/2020 until 03/06/2020 [place] Comment on above: 1 Occurrences starti ng 03/06/2020 until 03/06/2020 COVID-19 Ambulatory COVID-19 Amb ulatory Lab Routine Suspected COVID-19 virus infection 03/06/2020 12:57 PM EDT [place] End: 01-07-2023 [facility] Continuous Cardia Event Monitor [facility] Continuous Cardia Event Monitor Cardiac Services Routine One Time for 1 Occurrences starting 01/07/2023 until 01/07/2023 [facility] Comment on above: One Time for 1 Occur rences starting 01/07/2023 until 01/07/2023 End: 03-23-2022 MRI BRAIN WO CONTRAST MRI BRAIN WO CONTRAST Imaging Routine Transient ischemic attack, anterior circulation, acute Essential hypertension, malignant 1 Occurrences starting 03/23/2022 until 03/23/2022 [facility]: Comment on above: 1 Occurrences starti ng 03/23/2022 until 03/23/2022 Payers Date Payer Category Payer Medicaid 1985 Unknown [id number] 2.16.8 [id number] 1985 Unknown [id number] 2.16.8 [id number] 1985 Unknown [id number] 2.16.84 [id number] 1984 Unknown [id number] 2.16.84 [id number] 1984 Unknown [id number] 2.16.84 [id number] 1984 Unknown [id number] 2.16.84 [id number] 1984 Unknown [id number] 2.16.84 [id number] 1984 Unknown [id number] 2.16.84 [id number] 1959 Unknown [id number]. [id number] Social History Date Type Detail Facility Start: 11-23-2016 End: 03-06-2020 Tobacco smoking status NHIS Current every day smoker [place], [place] History of tobacco use Cigarette Smoker Y[place] Start: 11-23-2016 End: 03-06-2020 Cigarettes smoked current (pack per day) - Reported [place] Start: 03-06-2020 End: 01-07-2023 Alcohol intake Current drinker of alcohol (finding) [place] Start: 11-23-2016 Tobacco Comment instructed to refrain from smoking day of surgery [place] Start: 11-23-2016 Alcohol Comment seldom Carly Lopez [place], [place] Start: 1985 Sex Assigned At Not on file [place], [place] Exposure to SARS-CoV -2 (event) Unable to assess [place] Start: 03-01-2022 Tobacco smoking status Ex-smoker (fi nding) [facility] [place] Tobacco smoking status Former sm okeless tobacco user, quit more than 30 days ago General Surgery [employer] Sex Assigned At Male Genera l Surgery [employer] Start: 11-23-2016 End: 03-06-2020 Tobacco use and exposure Smokeless tobacco non-user [employer] Phone: Start: 12-28-2022 End: 01-07-2023 Exposure to SARS-CoV-2 (event) Not sure [employer] Phone: Progress note 01-31-2023 Note Date & Type Note Facility 01-31-2023 Note Review of Systems Constitutional: Positive for malaise/fatigue. Cardiovascular: Positive for dyspnea on exertion, irregular heartbeat, leg swelling and palpitations. All other systems reviewed and are negative. Doron is here as a new patient follow up for hypertension. [facility] Progress note 01-31-2023 Note Date & Type Note Facility 01-31-2023 Note Cardiovascular Medic ine [place] [facility] SUBJECTIVE Chief Complaint Patient presents with Hypertension New Patient HPI Jesse Sal is a 37 y.o. male here as a new patient. PMHx: uncontrolled HTN, JAEMS wears CPAP, TIA (1 year ago while dealing with a GI upset and couldn't keep BP medications down, BP was elevated) He was admitted at [facility] 01/07/2023 for uncontrolled HTN. He then reported to [facility] ER later that day for c/o palpitations. He was admitted 01/12/2023 for hypertensive emergency. He had a renal artery ultrasound which showed some evidence of renal artery stenosis. During this admission he found that his CPAP machine was not working properly and was shutting down in the middle of the night. He had a follow-up sleep study last week and his CPAP has been fixed. BP has been reasonably controlled since his last ER visit averaging 130s/80s at home. He has some SOB with heavier exertion. He denies c/o CP. He has palpitations, typically at night, feels like his heart is beating harder, he sleeps on his back. He wore a holter monitor. He has leg swelling, typically worse at the end of the day and better by the morning. He is primarily sitting. He denies orthopnea, PND, dizziness/LH, syncope. 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 ROTATOR CUFF REPAIR Right 11/2016 Family History Problem Relation Name Age of Onset Liver disease Mother Fatty Liver Disease No Known Problems Father Suicide due to depresion No Known Problems Sister Gloria Celiac disease Brother Petr Other gastro issues No Known Problems Brother Junito Diabetes Mother's Brother Paolo Diabetes Maternal Grandmother COPD Maternal Grandmother Had a few other things he can't recall Heart disease Maternal Grandmother Possible Other (HTN) Maternal Grandmother Dementia Paternal Grandfather Social History Tobacco Use Smoking status: Former Packs/day: 0.25 Years: 20.00 Pack years: 5.00 Types: Cigarettes Quit date: 2021 Years since quittin.2 Passive exposure: Never Smokeless tobacco: Never Substance Use Topics Alcohol use: Not Currently Drug use: Yes Frequency: 2.0 times per week Types: Marijuana ROS Constitutional: Positive for malaise/fatigue. Cardiovascular: Positive for dyspnea on exertion, irregular heartbeat, leg swelling and palpitations. All other systems reviewed and are negative. OBJECTIVE Visit Vitals BP 132/78 (BP Location: Left arm, Patient Position: Sitting, BP Cuff Size: Large adult) Pulse 72 Ht 1.93 m (6' 4 ) Wt (!) 193 kg (424 lb 12.8 oz) SpO2 97% BMI 51.71 kg/m??? Smoking Status Former BSA 3.22 m??? Medications: Current Outpatient Medications: allopurinol (Zyloprim) 100 mg tablet, Take 100 mg by mouth in the morning., Disp: , Rfl: aspirin 325 mg EC tablet, Take 325 mg by mouth in the morning., Disp: , Rfl: carvedilol (Coreg) 25 mg tablet, Take 25 mg by mouth in the morning, afternoon, and at bedtime., Disp: , Rfl: doxepin (SINEquan) 10 mg capsule, TAKE 1 TO 2 CAPSULES BY MOUTH AT BEDTIME NEEDED FOR ANXIETY, Disp: , Rfl: hydrALAZINE (Apresoline) 50 mg tablet, Take 50 mg by mouth in the morning, afternoon, and at bedtime., Disp: , Rfl: simvastatin (Zocor) 20 mg tablet, TAKE 1 TABLET BY MOUTH ONCE DAILY AT NIGHT, Disp: , Rfl: triamcinolone (Kenalog) 0.1 % ointment, APPLY OINTMENT TOPICALLY TO AFFECTED AREA TWICE DAILY NEEDED . DO NOT USE ON FACE, ARMPITS, OR GROIN/SKIN FOLDS., Disp: , Rfl: Physical Exam Vitals reviewed. Constitutional: Appearance: Normal appearance. He is obese. HENT: Head: Normocephalic and atraumatic. Right Ear: External ear normal. Left Ear: External ear normal. Eyes: Extraocular Movements: Extraocular movements intact. Pupils: Pupils are equal, round, and reactive to light. Neck: Vascular: No carotid bruit. Cardiovascular: Rate and Rhythm: Normal rate and regular rhythm. Pulses: Normal pulses. Heart sounds: Normal heart sounds. Pulmonary: Effort: Pulmonary effort is norm (more content not included)... [facility] Hospital Discharge instructions 01-07-2023 Discharge Instructions Note Date & Type Note Facility 01-07-2023 Hospital Discharg e instructions Aissatou Velasquez MD - 01/07/2023 5:42 AM EDT Continue current medications as prescribed. Follow-up with cardiology as soon as possible. Call Sunday morning to schedule the earliest available appointment. Please seek medical attention immediately if you develop any chest pain shortness of breath weakness dizziness lightheadedness or any other acute concerns. documented in this encounter [facility] [employer] Phone: Clinical Note 03-01-2022 Note Date & Type Note Facility 03-01-2022 Note Chief Complaint consultation for nevus HPI Staff 36 year old male presents on consultation from Dr. Ramírez for nevus on chest and pubic area along with warts to right hand. Reports one year history of warts. Occasional bleeding with trama. Chest nevus present several years. Unsure if this has changed in size, color or shape. Nevus to pubic area present for many years with recent increase in size. History of Present Illness 36 yo male with; h/o htn, JAMES, referred for changing skin lesions and refractory warts right hand; right chest wall nevus increased in size, raised, irregular pigmentation, no ulceration or bleeding; left groin lesion raised, enlarging, occasionally bleeds; warts refractory to cryotherapy; denies asa or NSAID use; no no personal h/o skin cancer or melanoma. former smoker, quit this year. Review of Systems PHQ Score Initial Depression Screen Score: 0 ROS - Provider Constitutional: no fever, no sweats, no weight loss. Eyes: no glasses, no blurred vision, no visual loss. ENMT: no dentures, no hoarseness, no swallowing difficulties, no hearing loss, no ear infection(s), no nose bleeds. Cardiovascular: normal blood pressure, no chest pain, regular heartbeat, no heart murmur. Respiratory: no shortness of breath, no cough, no asthma, no wheezing. Gastrointestinal: no nausea, no vomiting, no diarrhea, no constipation, no blood in stool, no change in bowel habits, no abdominal pain, no hepatitis. Genitourinary: no kidney stones, no urine infection, no dysuria. Musculoskeletal: no pain, no weakness. Skin: yes changing moles, no rash, yes skin lumps. Neurologic: no seizures, no epilepsy, no headache. Psychiatric: no emotional or psychiatric problem. Heme/Lymph: no bleeding problems, no anemia, no blood clots, no transfusions. Allergy/Immunologic: no swollen lymph nodes/glands, no IV drug abuse. Other: Additional ROS info: Except as noted in the above Review of Systems and in the History of Present Illness, all other systems have been reviewed and are negative or noncontributory. Physical Exam Vitals & Measurements HR: 80(Peripheral) RR: 16 BP: 130/88 HT: 190 cm HT: 190.0 cm WT: 148 kg WT: 148.0 kg BMI: 41 HEENT: normal conjunctiva, sclera clear, no scleral icterus, EOM intact, PERRLA, oral mucosa moist without lesions. Neck: trachea midline, no mass, symmetric, no thyromegaly or nodules, no adenopathy Respiratory: lungs CTA, respirations non labored. Cardiovascular: regular rate and rhythm, no murmur, no pedal edema or varicosities. Lymphatic: no cervical adenopathy, Musculoskeletal: normal gait, digits and nails without infection, nodes, cyanosis, clubbing. Skin: no rashes, right upper chest wall with 5 mm irregular, raised nevus with irregular pigmentation, no ulceration or bleeding; left groin with raised, polypoid, broad-based lesion, 2cm, no ulceration, no ulcers, no subcutaneous nodules, induration. right hand with multiple warts dorsal aspect of 3rd and 4 th digits and thumb Psychiatric/Neuro: oriented to time, place, person, judgement normal, affect appropriate for age, insight intact, no focal deficits. Tests: , review of old records completed, Discussed surgical options, risks, and possible complications with patient. Assessment/Plan 1. Changing nevus (D22.9: Melanocytic nevi, unspecified) plan excisional biopsy under local anesthesia in the office for definitive diagnosis and treatment; informed consent obtained. 2. Neoplasm of uncertain behavior of skin (D48.5: Neoplasm of uncertain behavior of skin) see # 1 3. 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 Follow-up No qualifying data available Problem List/Past Medical History Ongoing BMI 40.0-44.9, adult Borderline hypertension Changing nevus Gout History of TIA (transient ischemic attack) Neoplasm of uncertain behavior of skin Sleep apnea Verruca palmaris Historical Acute anterior circulation transient ischemic attack Procedure/Surgical History Repair of tendon, Rotator cuff repair. Medications allopurinol 100 mg Tab, 100 mg= 1 tab(s), Oral, Daily cloNIDine 0.1 mg tab, 0.1 mg= 1 tab(s), Oral, TID Coreg 25 mg Tab, 25 mg= 1 tab(s), Oral, BID Allergies penicillin (Hives) Social History Alcohol - Denies Alcohol Use, 03/01/2022 Substance Abuse - Denies Substance Abuse, 03/01/2022 Tobacco Former smoker, quit more than 30 days ago Tobacco Use:. Former smokeless tobacco user, quit more than 30 days ago Smokeless Tobacco Use:. Cigarettes, Vaping, Started age 16.0 Years. Stopped age 36 Years., 03/01/2022 Family History Suicide: Father. [facility] Comment on above: Result Comment: Elec tronically Signed By: CHARLIE NOLAN, Mahendra Prakash\.br\Date and Time Signed: 03/01/22 17:17 EDT Evaluation + Plan note Note Date & Type Note Facility Evaluation + Plan note Future Appointments Appointment Date:03/15/2022 03:00:00 PM Scheduled Provider:Mahendra PARK MD Location:[facility] Appointment Type: Procedure 30 [facility] [place] Evaluation note Note Date & Type Note Facility Evaluation note Diagnosis Transient ischemic attack, anterior circulation, acute Unspecified transient cerebral ischemia Essential hypertension, malignant documented in this encounter [employer] Phone: Evaluation note Note Date & Type Note Facility Evaluation note Diagnosis Hypertension, unspecified type- Primary Palpitations documented in this encounter [employer] Phone: Hospital course Narrative Note Date & Type Note Facility Hospital course Narrative No data available for this section [facility] [place] [facility] Discharge instructions Note Date & Type Note Facility Hospital Discharge instructions No data available for this section [facility] [place] Assessments Diagnosis Suspected COVID-19 virus infection Advance Directives No Advanced Directives Records FoundDocuments on File Type Date Recorded 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 Advance Directives and Living Will Power of Unit Secy Latest Code Status on File Code Status Date Activated Date Inactivated Comments Full Code 11/30/2016 1:55 PM 11/30/2016 5:37 PM Full Code 11/30/2016 10:18 AM 11/30/2016 1:55 PM Documents on File Type Date Recorded 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 ACP-Advance Directive ACP-Power of Unit Secy Latest Code Status on File Code Status Date Activated Date Inactivated Comments Full Code 11/30/2016 1:55 PM 11/30/2016 5:37 PM Full Code 11/30/2016 10:18 AM 11/30/2016 1:55 PM Summary Purpose Family History No Family History Records FoundNo Family History Records FoundNo Family History Records FoundNo Family History Records FoundNo Family History Records FoundNo Family History Records Found Reason for Referral Specialty Diagnoses / Procedures Referred By Contac t Referred To Contact Cardiology Diagnoses Hypertension, unspecified type Palpitations Aissatou Velasquez MD [address] [facility] [place] [address] [facility] [address] [place] [id number] Referral ID Status Reason Start Date Expiration Date V isits Requested Visits Authorized [id number] Open Specialty Services Required 01/07/2023 01/07/2024 1 1 Scheduling Instructions [facility] Wilkerson MD [address] [place] [id number] Comments The patient can be scheduled with any member of the group, including the provider with the first available appointments. Specialty Diagnoses / Procedures Referred By Contac t Referred To Contact Radiology Diagnoses Transient ischemic attack, anterior circulation, acute Essential hypertension, malignant Procedures MRI BRAIN WO CONTRAST Jenny Ramírez MD [address] [place] [address] Referral ID Status Reason Start Date Expiration Date V isits Requested Visits Authorized [id number] Authorized 03/09/2022 04/08/2022 1 1 Additional Source Comments (unrecognized sect ion and content) No Status Records FoundNo Status Records FoundNo Status Records FoundNo Status Records FoundNo Status Records FoundNo Status Records Found INFORMATION SOURCE (unrecogn ized section and content) DATE CREATED AUTHOR 03/09/2020 [facility] DATE CREATED AUTHOR AUTHOR'S ORGANIZ ATION 03/25/2022 [facility] DATE CREATED AUTHOR AUTHOR'S ORGANIZ ATION 03/30/2022 [facility] DATE CREATED AUTHOR AUTHOR'S ORGANIZ ATION 01/07/2023 [facility] DATE CREATED AUTHOR AUTHOR'S ORGANIZ ATION 01/27/2023 [facility] DATE CREATED AUTHOR AUTHOR'S ORGANIZ ATION 02/01/2023 [facility] Reason for Visit (unrecogniz ed section and content) Specialty Diagnoses / Procedures Referred By Brown son Referred To Contact Radiology Diagnoses Transient ischemic attack, anterior circulation, acute Essential hypertension, malignant Procedures MRI BRAIN WO CONTRAST Jenny Ramírez MD [address] [place] [address] Referral ID Status Reason Start Date Expiration Date V isits Requested Visits Authorized [id number] Authorized 03/09/2022 04/08/2022 1 1 Reason Comments Hypertension Took bp meds around 11 pm, started feeling off and anxious around midnight. bp at home 178/116. 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 This clinical summary was aggregated from multiple sources. Caution should be exercised in using it in the provision of clinical care. This summary normalizes information from multiple sources, and as a consequence, information in this document may materially change the coding, format and clinical context of patient data. In addition, data may be omitted in some cases. CLINICAL DECISIONS SHOULD BE BASED ON THE PRIMARY CLINICAL RECORDS. [email or web address] [facility]. provides no warranty or guarantee of the accuracy or completeness of information in this document.
[2023-10-26 16:22] LABS: Basophils Percent Auto 0.5 % (0.2-2.0); Eosinophils Absolute Auto 0.1 10^3/uL (0.0-0.7); Eosinophils Percent Auto 1.2 % (0.9-7.0); Hematocrit 45.6 % (42.0-54.0); Hemoglobin 15.2 g/dL (14.0-18.0); Immature Granulocytes Abs Auto 0.03 10^3/uL (0.00-0.03); Immature Granulocytes Pct Auto 0.4 % (0.0-0.5); Lymphocytes Absolute Auto 1.8 10^3/uL (1.2-3.8); Lymphocytes Percent Auto 21.5 % (20.5-60.0); Mean Corpuscular HGB Conc 33.3 g/dL (29.9-35.2); Mean Corpuscular Hemoglobin 28.6 pg (25.9-34.0); Mean Corpuscular Volume 85.9 fL (80.0-94.0); Mean Platelet Volume 11.3 fL (9.5-13.5); Monocytes Absolute Auto 0.7 10^3/uL (0.3-0.8); Monocytes Percent Auto 8.7 % (1.7-12.0); Neutrophils Absolute Auto 5.7 10^3/uL (1.4-6.5); Neutrophils Percent Auto 67.7 % (43.0-75.0); Platelet Count 185 10^3/uL (150-450); Red Blood Count 5.31 10^6/uL (4.70-6.10); Red Cell Distribution Width 13.2 % (11.0-15.0); White Blood Count 8.4 10^3/uL (4.0-11.0)
[2023-10-26 16:42] LABS: Estimated Average Glucose 120 mg/dL; Glycohemoglobin A1C 5.8 % (4.5-6.2)
[2023-10-26 17:15] LABS: Alanine Aminotransferase 47 U/L (16-63); Albumin Globulin Ratio 1.1; Albumin Level 4.2 g/dL (3.4-5.0); Alkaline Phosphatase 57 U/L (46-116); Anion Gap 9.1; Aspartate Amino Transferase 23 U/L (15-37); BUN Creatinine Ratio 19.6; Bilirubin Total 0.6 mg/dL (0.2-1.0); Calcium 9.3 mg/dL (8.5-10.1); Carbon Dioxide 26.9 mmol/L (21.0-32.0); Chloride 101 mmol/L (98-107); Chol HDL Ratio 4.5; Cholesterol 154 mg/dL (<=200); Estimated GFR (African America >60 (>=60); Estimated GFR (Non-African Ame >60 (>=60); Free T3 2.91 pg/mL (2.18-3.98); Globulin 3.7 g/dL; Glucose 88 mg/dL (74-106); HDL Cholesterol 34 mg/dL (40-60); Sodium 133 mmol/L (136-145); Total Protein 7.9 g/dL (6.4-8.2); Triglycerides 136 mg/dL (<=150); VLDL CHOLESTEROL 27.2 mg/dL
[2023-10-26 18:11] LABS: Prostate Specific Antigen Scrn 1.06 ng/mL (<=4.00)
[2023-10-28 14:08] LABS: Insulin 22.1 uIU/mL (2.6-24.9)
== END 2023-10-26 15:57 | disposition home or self-care (01) ==
LOC: LAB 15:57
PROVIDERS: PCP Family Medicine; Visit Provider Family Medicine
DX: Z00.00 Encounter for general adult medical examination without abnormal findings (principal)
CPT/HCPCS: 36415; 80053; 80061; 83036; 83525; 84436; 84443; 84481; 85025; G0103

== ENCOUNTER 2024-08-05 08:01 | Outpatient (OUT) | payer BC, SELFPAY ==
--- NOTE | 2024-08-05 08:05 | VEIN_ITS ---
Patient Name: JESSE YEPEZ MR#: [id number] : 1985 Exam Date: 08/05/2024 Ordering Doctor: DR Salty Ramírez . RADIOLOGY REPORT PROCEDURE: VC EXT VENOUS REFLUX BIN LMTD COMPARISON: None. INDICATIONS: Pain due to varicose veins of bilateral legs I83.813 TECHNIQUE: Duplex imaging of the lower extremity to assess the deep and superficial venous system for the presence of deep or superficial venous incompetence and to document the location and severity of disease. The study includes evaluation of the great saphenous vein (GSV), anterior accessory saphenous vein (AASV) and small saphenous vein (SSV). Patient scanned in reverse Trendelenburg and standing. FINDINGS: RIGHT LOWER EXTREMITY: Saphenofemoral Junction Reflux: Yes 7.8mm 0.5 sec GSV: Diam (mm) Reflux/ Time (sec) Proximal Thigh 6.3 Yes 1.0 Mid Thigh 4.6 Yes 0.5 Distal Thigh 3.8 No Prox Calf 3.6 No Mid Calf 2.5 No Saphenopopliteal Junction Reflux: 3.3mm No SSV: Proximal Calf 2.8 No Mid Calf 2.9 AASV: Proximal Thigh 3.5 No Mid Thigh Distal Thigh Thrombi: No acute or chronic thrombus visualized Compressibility: Normal Flow: Normal Preforator: Mid/posterior 2.2mm with 0s reflux. Dist/med calf 3.8mm with 0s reflux. Tech Note: Incompetent GSV. Patent varicose vein prox/post calf 2.3mm with 0s reflux. Patent varicose vein prox/med thigh 1.8mm with 0s reflux. LEFT LOWER EXTREMITY: Saphenofemoral Junction Reflux: Yes 10.9 mm 2.8 sec GSV: Diam (mm) Reflux/Time (sec) Proximal Thigh 11.5 Yes 1.9 Mid Thigh 4.9 Yes 1.4 Distal Thigh 5.3 Yes 0.5 Prox Calf 4.8 No Mid Calf 2.6 No Saphenopopliteal Junction Relux: 3.2 mm No SSV: Proximal Calf 1.8 No Mid Calf 2.1 No AASV: Proximal Thigh 2.3 No Mid Thigh 2.3 No Distal Thigh Thrombi: No acute or chronic thrombus visualized Compressibility: Normal Flow: 1.7s reflux visualized in pop v. Rip Tailer: Mid/med calf 3.5mm with 0.5s reflux. Tech Note: Incompetent GSV. Patent varicose vein mid/med calf 3.5mm with 0.6s reflux. CONCLUSION: 1. Mild right and [id number] left great saphenous vein venous insufficiency with dilatation and saphenofemoral junction reflux 2. Bilateral incompetent varicose veins Dictated by: Genaro Jaeger MD on 08/05/2024 at 12:57 Approved by: Genaro Jaeger MD on 08/05/2024 at 12:58
--- OUTSIDE RECORDS SUMMARY | 2024-08-05 08:05 | XMS_ITS | CCD ---
Author Organization [facility] Care Team Providers Care Search Advertising Strategist Name Role Phone High, Generic Primary Care Provider UnavailSIERRA Arriaza Referring Unavailable HIGH, GENERIC Primary Care Unavailable Jenny Ramírez Primary Care Physician Unavailable Primary Care Provider UnavailJENNY Duvall Referring Unavailable Jenny Ramírez MD Primary Care Provider [phone] VERENA VELASQUEZ Attending Unavailable JENNY RAMÍREZ Primary Care Unavailable SIM ., DR ALVARADO Primary Care Unavailable TRISTIN ., ANA Admitting Unavailable TRISTIN ., ANA Attending Unavailable HOVenkatesh ., DR ALVARADO Consulting Unavailable SANJUANA, DR ERIKA Wills Consulting Unavailannelise e DIOGENES, DR JOSEFINA Prakash Consulting Unavailable JOVANY, CASEY Consulting Unavailable KEENAN, BENOIT Consulting Unavailable NEFCY, MITALI Consulting Unavailable TRISTIN ., ANA Consulting Unavailable NEWATIA, SUHA Consulting Unavailable JBARA, YASER Consulting Unavailable HOY ., DR ALVARADO Admitting Unavailable HOY ., DR ALVARADO Attending Unavailable HOY ., DR ALVARADO Consulting Unavailable HOY ., DR ALVARADO Primary Care Unavailable HOY ., DR ALVARADO Attending Unavailable HOY ., DR ALVARADO Consulting Unavailable HOY ., DR ALVARADO Primary Care Unavailable HOY ., DR ALVARADO Admitting Unavailable IOLA, DR JACOB Tolbert Consulting Unavailable SIM .DR ALVARADO Primary Care Unavailable MARKER ., DR REYEZ Admitting Unavailable MARKER ., DR REYEZ Attending Unavailable MARKER ., DR REYEZ Consulting Unavailable DIAB ., MATILDA Admitting Unavailable DIAB ., MATILDA Attending Unavailable CAROL ANNY ., DR ALVARADO Primary Care Unavailable MARYANN ., IGNACIO Consulting Unavailable Jacob Everett Consulting Unavailable SIM ., DR ALVARADO Primary Care Unavailable HOY ., DR ALVARADO Admitting Unavailable HOY ., DR ALVARADO Attending Unavailable HOY ., DR ALVARADO Consulting Unavailable MAGDALENE FERRARI Attending Unavailable Delilah Rai MD Unavailable [phone] DELILAH RAI Attending Unavailable DELILAH RAI Referring Unavailable DELILAH RAI Referring Unavailable DELILAH RAI Admitting Unavailable DELILAH RAI Attending Unavailable DELILAH RAI Referring Unavailable DELILAH RAI Attending Unavailable Allergies Allergy Classification Reported Allergen(s) Allergy Type Date of Onset Reaction(s) Facility (4 sources) Penicillins; Translations: [PENICILLINS] Propensity to adverse reactions to drug 11-30-[address] [place] [address] (4 sources) Sulfamethoxazole / Trimethoprim; Translations: [SULFAMETHOXAZOLE-T RIMETHOPRIM] Drug Allergy 11-23-[address] [place] [address] (2 sources) Penicillin; Translations: [penicillin] Drug Allergy [facility] (disorder) [facility] (2 sources) Penicillins Propensity to adverse reactions to drug 11-30-[address] [place] [address] (1 source) Amoxicillin Drug Allergy [facility] Medications Current Medications Medication Drug Class(es) Dates Sig (Normalized) Sig (Original) cloNIDine hydrochloride 0.1 mg oral tablet (2 sources) Central alpha-2 Adrenergic Agonist Start: 02-27-2022 take 1 tablet by mouth three times daily cloNIDine 0.1 mg tab 0.1 mg = 1 tab(s), Oral, TID, Refills(s) 0 Start Date: 02/27/22 Status: Ordered Completed/Discontinued Medications Medication Drug Class(es) Dates Sig (Normalized) Sig (Original) allopurinol 100 mg oral tablet (3 sources) Xanthine Oxidase Inhibitor Start: 2023 take 1 tablet by mouth every twelve hours allopurinol (ZYLOPRIM) 100 mg tablet Take 1 tablet by mouth every 12 hours. 0 2023 Active Start: 03-01-2022 take 1 tablet by sergo th once daily allopurinol 100 mg Tab 100 mg = 1 tab(s), Oral, Daily, Refills(s) 0 Start Date: 03/01/22 Status: Ordered Comment on above: Take 1 tablet by sergo th every 12 hours. aspirin 325 mg oral tablet (1 source) Platelet Aggregation Inhibitor, Nonsteroidal Anti-inflammatory Drug take 1 tablet by mouth once daily aspirin 325 mg tablet Take 325 mg by mouth. States he does not take this daily 0 Active Comment on above: Take 325 mg by mouth . States he does not take this daily carvedilol 25 mg oral tablet (5 sources) alpha-Adrenergic Pablito, beta-Adrenergic Pablito Start: 4 take 1 tablet by mouth three times daily carvedilol (COREG) 25 mg tablet Take 25 mg by mouth three times a day. 0 10/29/2023 Active Start: 01-15-2020 carvedilol (CO REG) 25 MG tablet in the morning, at noon, and at bedtime 0 01/15/2020 Active Comment on above: Take 25 mg by mouth three times a day. doxepin hydrochloride 10 mg oral capsule (1 source) Tricyclic Antidepressant Start: 01-09-20 23 doxepin capsule 10 mg Take 1-2 capsules by mouth as needed. 0 01/08/2023 Active Comment on above: Take 1-2 capsules by mouth as needed. hydrALAZINE hydrochloride 50 mg oral tablet (1 source) Arteriolar Vasodilator Start: 11-01-19 24 take 1 tablet by mouth three times daily hydrALAZINE (APRESOLINE) 50 mg tablet Take 50 mg by mouth three times a day. 0 2023 Active Comment on above: Take 50 mg by mouth three times a day. irbesartan 150 mg oral tablet (1 source) Angiotensin 2 Receptor Pablito Start: 10-26-19 24 take 1 tablet by mouth twice daily irbesartan (AVAPRO) 150 mg tablet Take 1 tablet by mouth two times a day. 0 10/26/2023 Active Comment on above: Take 1 tablet by sergo th two times a day. rosuvastatin calcium 40 mg oral tablet (1 source) HMG-CoA Reductase Inhibitor Start: 11-07-19 24 take 1 tablet by mouth once daily at bedtime rosuvastatin (CRESTOR) 40 mg tablet Take 1 tablet by mouth daily at bedtime. 90 tablet 3 11/07/2023 Active Comment on above: Take 1 tablet by sergo th daily at bedtime. Problems Active Problems Problem Classification Problem Date Documented Date Episodic/Chronic Anxiety disorders (1 source) Anxiety disorder, unspecified; Translations: [ANXIETY DISORDER UNSPECIFIED] Onset: 01-17-2023 Chronic Cardiac dysrhythmias (7 sources) Palpitations; Translations: [Palpitations] Onset: 01-07-2023 Episodic Disorders of lipid metabolism (3 sources) Mixed hyperlipidemia; Translations: [Hyperlipidemia] Onset: 01-31-2023 Chronic Essential hypertension (8 sources) Malignant essential hypertension; Translations: [Essential (primary) hypertension] Onset: 01-07-2023 Chronic Gout and other crystal arthropathies (1 source) Gout 03-01-2022 Chronic Hypertension with complications and secondary hypertension (1 source) Hypertensive emergency; Translations: [HYPERTENSIVE EMERGENCY] Onset: 01-17-2023 Chronic Neoplasms of unspecified nature or uncertain behavior (2 sources) Neoplasm of uncertain behavior of skin; Translations: [Neoplasm of uncertain behavior of skin] Onset: 03-01-2022 Episodic Nonspecific chest pain (1 source) Precordial pain; Translations: [Precordial pain] Onset: 11-08-2023 11-08-2023 Episodic Other aftercare (1 source) nursing home (current) use of aspirin; Translations: [BALLET SOLOIST CURRENT USE OF ASPIRIN] Onset: 01-17-2023 Episodic Other aftercare (1 source) Other surveyor geodetic (current) drug therapy; Translations: [OTH BALLET SOLOIST CURRENT DRUG THERAPY] Onset: 01-17-2023 Episodic Other and unspecified benign neoplasm (1 source) Melanocytic nevus; Translations: [Melanocytic nevi, unspecified] Onset: 03-01-2022 Episodic Other circulatory disease (1 source) History of transient ischemic attack 02-27-2022 Episodic Other circulatory disease (1 source) Prehypertension 02-27-2022 Episodic Other connective tissue disease (1 source) Tear of right rotator cuff; Translations: [Right rotator cuff tear] Onset: 11-30-2016 11-30-2016 Other lower respiratory disease (1 source) Dyspnea on exertion; Translations: [Other forms of dyspnea] Onset: 11-08-2023 11-08-2023 Episodic Other nervous system disorders (4 sources) Paresthesia [...] Translations: [OBESITY UNSPECIFIED] Onset: 01-11-2023 Chronic Other nutritional; endocrine; and metabolic disorders (1 source) Severe obesity; Translations: [Morbid (severe) obesity due to excess calories] Onset: 11-08-2023 11-08-2023 Chronic Other skin disorders (1 source) Change in skin lesion 03-01-2022 Episodic Peripheral and visceral atherosclerosis (5 sources) Atherosclerosis of renal artery; Translations: [Renal artery stenosis] Onset: 01-17-2023 Chronic Residual codes; unclassified (1 source) Sleep apnea 02-27-2022 Chronic Residual codes; unclassified (5 sources) Obstructive sleep apnea (adult) (pediatric); Translations: [OBSTRUCTIVE SLEEP APNEA] Onset: 01-17-2023 Chronic Residual codes; unclassified (1 source) Sleep apnea, unspecified; Translations: [SLEEP APNEA UNSPECIFIED] Onset: 01-11-2023 Chronic Residual codes; unclassified (1 source) Obstructive sleep apnea syndrome; Translations: [Obstructive sleep apnea (adult) (pediatric)] Onset: 11-08-2023 11-08-2023 Chronic Residual codes; unclassified (1 source) Other general symptoms and signs; Translations: [Suspected COVID-19 virus infection] Episodic Residual codes; unclassified (1 source) Insomnia, unspecified; Translations: [INSOMNIA UNSPECIFIED] Onset: 01-17-2023 Episodic Screening and history of mental health and substance abuse codes (2 sources) Personal history of nicotine dependence; Translations: [Tobacco use and exposure - finding] Onset: 01-11-2023 11-08-2023 Episodic Substance-related disorders (1 source) History of clinical finding in subject; Translations: [History of marijuana use] Onset: 11-08-2023 11-08-2023 Chronic Transient cerebral ischemia (6 sources) Transient cerebral [...] Test Name Value Interpretation Reference Range Facility [facility] ([id number]) 1985 M Date Time Provider Department 12/25/23 DELILAH RAI During your visit today, we recorded the following information about you: Alvin Prater 12/25/2023 2:54 PM Signed Pt's PCP called requesting copies of OPD note, cath report and testing. Faxed via [email or web address] Allergies As of Date: 12/25/2023 Noted Allergy Reaction PENICILLINS 11/07/2023 4 - Hives Date Reviewed: 11/12/2023 Reviewed by: Maddy Eid, RN - Fully Assessed Reason for Visit: Release Of Medical Records [2017] Prescriptions as of 12/25/2023 - allopurinol (ZYLOPRIM) 100 mg tablet Take 1 tablet by mouth every 12 hours. - carvedilol (COREG) 25 mg tablet Take 25 mg by mouth three times a day. - doxepin capsule 10 mg Take 1-2 capsules by mouth as needed. - hydrALAZINE (APRESOLINE) 50 mg tablet Take 50 mg by mouth three times a day. - irbesartan (AVAPRO) 150 mg tablet Take 1 tablet by mouth two times a day. - aspirin 325 mg tablet Take 325 mg by mouth. States he does not take this daily - rosuvastatin (CRESTOR) 40 mg tablet Take 1 tablet by mouth daily at bedtime. Problem List As Of Date 12/25/2023 Noted Resolved Hypertension goal BP (blood pressure) < 140/80 *11/08/2023 Renal artery stenosis (HCC) [I70.1] 11/08/2023 Hyperlipidemia LDL goal <70 [E78.5] 11/08/2023 Class 3 severe obesity due to excess calories w*11/08/2023 JAMES on CPAP [G47.33] 11/08/2023 History of tobacco abuse [Z87.891] 11/08/2023 History of marijuana use [F12.91] 11/08/2023 ZIEGLER (dyspnea on exertion) [R06.09] 11/08/2023 Precordial pain [R07.2] 11/08/2023 Encounter Status:Closed by ALVIN PRATER on 12/25/23 [facility] ([id number]) 1985 M Date Time Provider Department 11/21/23 DELILAH RAI During your visit today, we recorded the following information about you: Alvin Prater 11/21/2023 9:12 AM Signed Rec'd faxed FMLA forms to fill out. Copy saved to scanned documents Azalia Barnes APRN.CNP 11/21/2023 5:33 PM Signed [facility] papers completed Allergies As of Date: 11/21/2023 Noted Allergy Reaction PENICILLINS 11/07/2023 4 - Hives Date Reviewed: 11/12/2023 Reviewed by: Maddy Eid RN - Fully Assessed Reason for Visit: [place] Paperwork [7045] Prescriptions as of 11/21/2023 - allopurinol (ZYLOPRIM) 100 mg tablet Take 1 tablet by mouth every 12 hours. - carvedilol (COREG) 25 mg tablet Take 25 mg by mouth three times a day. - doxepin capsule 10 mg Take 1-2 capsules by mouth as needed. - hydrALAZINE (APRESOLINE) 50 mg tablet Take 50 mg by mouth three times a day. - irbesartan (AVAPRO) 150 mg tablet Take 1 tablet by mouth two times a day. - aspirin 325 mg tablet Take 325 mg by mouth. States he does not take this daily - rosuvastatin (CRESTOR) 40 mg tablet Take 1 tablet by mouth daily at bedtime. Problem List As Of Date 11/21/2023 Noted Resolved Hypertension goal BP (blood pressure) < 140/80 *11/08/2023 Renal artery stenosis (HCC) [I70.1] 11/08/2023 Hyperlipidemia LDL goal <70 [E78.5] 11/08/2023 Class 3 severe obesity due to excess calories w*11/08/2023 JAMES on CPAP [G47.33] 11/08/2023 History of tobacco abuse [Z87.891] 11/08/2023 History of marijuana use [F12.91] 11/08/2023 ZIEGLER (dyspnea on exertion) [R06.09] 11/08/2023 Precordial pain [R07.2] 11/08/2023 Encounter Status:Closed by AZALIA BARNES on 11/21/23 Normal [facility] ARTERIAL BLOOD GASESon 11-12 Base deficit (BldA) [Moles/Vol] -2 mmol/L Normal -2-0 [facility] Comment on above: Order Comment: Speci men Type: ARTERIAL BLOOD SPECIMEN Ordering Facility: [facility] Address: [address] [place] [address] Performed By: #### A LLBG #### [facility] CLIA [id number] [address] [place] [address] [place] Calcium.ionized (Bld) [Mass/Vol] 1.25 mmol/L Normal 1.08-1.30 [facility] Comment on above: Order Comment: Speci men Type: ARTERIAL BLOOD SPECIMEN Ordering Facility: [facility] Address: [address] [place] [address] Performed By: #### A LLBG #### [facility] CLIA [id number] [address] [place] [address] [place] Calcium.ionized adjusted to pH 7.4 (BldA) [Moles/Vol] 1.24 mmol/L Normal 1.08-1.30 [facility] Comment on above: Order Comment: Speci men Type: ARTERIAL BLOOD SPECIMEN Ordering Facility: [facility] Address: [address] [place] [address] Performed By: #### A LLBG #### [facility] CLIA [id number] [address] [place] [address] [place] Carboxyhemoglobin (BldA) [Mass fraction] 1.1 % Normal 0.0-2.0 [facility] Comment on above: Order Comment: Speci men Type: ARTERIAL BLOOD SPECIMEN Ordering Facility: [facility] Address: [address] [place] [address] Result Comment: Carb oxyhemoglobin Reference Range for Smokers: 2.0-8.0% Performed By: #### A LLBG #### [facility] IA [id number] [address] [place] [address] [place] CO2 (Bld) [Partial pressure] 39 mm Hg Normal 36-46 [facility] Comment on above: Order Comment: Speci men Type: ARTERIAL BLOOD SPECIMEN Ordering Facility: [facility] Address: [address] [place] [address] Performed By: #### A LLBG #### [facility] CLIA [id number] [address] [place] [address] [place] CO2 adjusted to patient's actual temperature (Bld) [Partial pressure] 39 mmHg Normal 36-46 [facility] Comment on above: Order Comment: Speci men Type: ARTERIAL BLOOD SPECIMEN Ordering Facility: [facility] Address: [address] [place] [address] Performed By: #### A LLBG #### [facility] CLIA [id number] [address] [place] [address] [place] Glucose [Mass/Vol] 116 mg/dL High 60-105 [facility] Comment on above: Order Comment: Speci men Type: ARTERIAL BLOOD SPECIMEN Ordering Facility: [facility] Address: [address] [place] [address] Performed By: #### A LLBG #### [facility] CLIA [id number] [address] [place] [address] [place] HCO3 (Bld) [Moles/Vol] 23 mmol/L Normal 22-26 [facility] Comment on above: Order Comment: Speci men Type: ARTERIAL BLOOD SPECIMEN Ordering Facility: [facility] Address: [address] [place] [address] Performed By: #### A LLBG #### [facility] CLIA [id number] [address] [place] [address] [place] Hematocrit (Bld) [Volume fraction] 45.5 % Normal 39.0-51.0 [facility] Comment on above: Order Comment: Speci men Type: ARTERIAL BLOOD SPECIMEN Ordering Facility: [facility] Address: [address] [place] [address] Performed By: #### A LLBG #### [facility] CLIA [id number] [address] [place] [address] [place] Hemoglobin (Bld) [Mass/Vol] 14.9 g/dL Normal 13.0-17.0 [facility] Comment on above: Order Comment: Speci men Type: ARTERIAL BLOOD SPECIMEN Ordering Facility: [facility] Address: [address] [place] [address] Performed By: #### A LLBG #### [facility] CLIA [id number] [address] [place] [address] [place] Lactate [Moles/Vol] 1.2 mmol/L Normal 0.5-2.2 [facility] Comment on above: Order Comment: Speci men Type: ARTERIAL BLOOD SPECIMEN Ordering Facility: [facility] Address: [address] [place] [address] Performed By: #### A LLBG #### [facility] CLIA [id number] [address] [place] [address] [place] Methemoglobin (Bld) [Mass fraction] 1.1 % Normal 0.0-1.5 [facility] Comment on above: Order Comment: Speci men Type: ARTERIAL BLOOD SPECIMEN Ordering Facility: [facility] Address: [address] [place] [address] Performed By: #### A LLBG #### [facility] CLIA [id number] [address] [place] [address] [place] Oxygen (Bld) [Partial pressure] 111 mm Hg High 85-95 [facility] Comment on above: Order Comment: Speci men Type: ARTERIAL BLOOD SPECIMEN Ordering Facility: [facility] Address: [address] [place] [address] Performed By: #### A LLBG #### [facility] CLIA [id number] [address] [place] [id number] [place] Oxygen adjusted to patient's actual temperature (Bld) [Partial pressure] 111 mmHg High 85-95 [facility] Comment on above: Order Comment: Speci men Type: ARTERIAL BLOOD SPECIMEN Ordering Facility: [facility] Address: [address] [place] [address] Performed By: #### A LLBG #### [facility] CLIA [id number] [address] [place] [address] [place] Oxyhemoglobin (BldA) [Mass fraction] 97 % Normal 95-98 [facility] Comment on above: Order Comment: Speci men Type: ARTERIAL BLOOD SPECIMEN Ordering Facility: [facility] Address: [address] [place] [address] Performed By: #### A LLBG #### [facility] CLIA [id number] [address] [place] [address] [place] pH (Bld) 7.38 [pH] Normal 7.35-7.45 [facility] Comment on above: Order Comment: Speci men Type: ARTERIAL BLOOD SPECIMEN Ordering Facility: [facility] Address: [address] [place] [address] Performed By: #### A LLBG #### [facility] CLIA [id number] [address] [place] [address] [place] pH adjusted to patient's actual temperature (Bld) 7.38 Normal 7.35-7.45 [facility] Comment on above: Order Comment: Speci men Type: ARTERIAL BLOOD SPECIMEN Ordering Facility: [facility] Address: [address] [place] [address] Performed By: #### A LLBG #### [facility] CLIA [id number] [address] [place] [address] [place] Potassium [Moles/Vol] 4.3 mmol/L Normal 3.5-5.0 [facility] Comment on above: Order Comment: Speci men Type: ARTERIAL BLOOD SPECIMEN Ordering Facility: [facility] Address: [address] [place] [address] Performed By: #### A LLBG #### [facility] CLIA [id number] [address] [place] [address] [place] Sodium [Moles/Vol] 141 mmol/L Normal 136-144 [facility] Comment on above: Order Comment: Speci men Type: ARTERIAL BLOOD SPECIMEN Ordering Facility: [facility] Address: [address] [place] [address] Performed By: #### A LLBG #### [facility] CLIA [id number] [address] [facility] [id number] [id number] [place] CARD CATH DIAGNOSTICon 11-12 CARD CATH DIAGNOSTIC Site Id: [facility] Lab #: [id number] Anchor Tacker 1 Study Date: 11/12/2023 Start Time: 11/12/2023 10:41:02 AM End Time: 11/12/2023 12:04:05 PM Physician Name Delilah Rai M.D., Beka M.D. Dugan, Eunice M.D. Sheng, Calvin M.D. Nursing[facility] Care[facility]ennifer R.N., M. RJulisa Leavitt R.N., K. R.NHay + + PATIENT INFORMATION + + Name: MR. JESSE YEPEZ : 1985 Age: 38 years Gender: M Height: 76 in / 193 cm Weight: 416.00 lb / 188.70 kg BMI: 50.66 kg/m BSA: 3.02 m Allergies: YES + + CLINICAL HISTORY/INDICATION(s) + + Suspected coronary artery disease, symptomatic with high global risk; AUC score = 7. CAD Presentation: Symptoms Likely to be Ischemic Angina Classification (within 2 weeks): CCS II No Heart Failure 38yo M w/ morbid obesity, HTN, and JAMES presenting for R/LHC and renal angiogram iso exertional chest pain. Access Point Sheath Size Hemostasis Method Brachial vein right 7F Short Manual Hold Left Radial Artery 6F Short Radial TR band + + DIAGNOSTIC FINDINGS + + Coronary Anatomy: Right Dominant Injection Site(s): Coronary Artery LMT: _ The LMT is normal. Additional Comment: Large caliber bifruating LMT. LAD: _ The LAD has mild luminal irregularities. Additional Comment: Large caliber LAD that reaches the apex. LCX: _ The Circumflex has mild luminal irregularities. Additional Comment: Non-dominant LCx. RAMUS: _ The Ramus is Absent. RCA: _ The RCA has mild luminal irregularities. Additional Comment: Large caliber dominant RCA. Additional Findings: Renal angiogram: Both right and left renal arteries are wide open without obstruction L Radial artery accessed to facilitate renal angiogram. + + HEMODYNAMICS + + General: RA Mean 9.00 RV 38.00/9.00 PA 33.00/20.00 (25.00) PCWP Mean 16.00 Cardiac Outputs: Condition # Baseline MOUSTAPHA CO 10.22 MOUSTAPHA CI 3.38 + + HEMODYNAMIC CONDITIONS (SENSIS ENTERED): + + Valve Gradients: Oximetry: # Site O2-Saturation O2-Cont. Sample Time PO2 1 Superior Vena Cava 78.1 11/12/2023 11:19:13 AM 1 Right Atrium High 77.2 11/12/2023 11:18:58 AM 1 Right Atrium Low 77.4 11/12/2023 11:18:38 AM 1 Right Ventricle 77.2 11/12/2023 11:18:32 AM 1 Main Pulmonary Artery 79.1 157.3 11/12/2023 11:09:46 AM 1 Aorta 97.0 194.0 11/12/2023 11:09:41 AM Cardiac Outputs: Vascular Resistance: Systolic Area Index (BRUCE): + + IMPRESSION/PLAN + + Impression: - Borderline normal bilateral pressures with mild elevated pulmonary pressures and high cardiac output. - Negative shunt run. - Non-obstructive CAD, R dominant. - Non-obstructive renal arteries Recommended Treatment: Medical Therapy. Plan: - Aggressive risk modificaiton and medical management of CAD. Advise high intensity statin therapy, weight loss and control of blood pressure. + + ADVERSE OUTCOME(s)/COMPLICATI ON(s) + + None + + PROCEDURAL & TECHNICAL DETAILS + + Status Category Description Used Catheter, Other 7Fr, 4 Lumen, 110cm Thermodilution Catheter Heparin-Coated Multiflex, Non-latex (formerly Hospira cat# [id number]) (INCORRECT BARCODE FORMAT) Used Catheter, Diagnostic Imaging - 4Fr x 100cm Infiniti TL Diagnostic Angiographic Catheter, Jake Right Coronary, JR 4, Femoral Selective ThruLumen, Standard, 0.038in max guidewire (EA/1) Used Catheter, Diagnostic Imaging - 4Fr x 100cm Infiniti TL Diagnostic Angiographic Catheter, Jake Left Coronary, JL 4, Femoral Selective ThruLumen, Standard, 0.038in max guidewire (EA/1) Used Catheter, Diagnostic Imaging - 6Fr x 125cm Performa Diagnostic Angiographic Catheter, Jake Right, JR4.0, 1.9cm tip, 0.038in max guidewire PROCEDURE SEQUENCE: Time Procedure Performed 11/12/2023 11:14:59 AM Right Heart Cath 11/12/2023 11:14:59 AM Oxygen Determination 11/12/2023 11:14:59 AM Cardiac Outputs 11/12/2023 11:15:07 AM Left Heart Cath 11/12/2023 11:15:17 AM 11/12/2023 11:40:48 AM Renal Bilateral Angiogram PROCEDURE DETAILS: Contrast: Contrast Type Total Infused Omnipaque 150ml 111 Blood Loss: < 30ml Specimen: No Specimen Obtained RADIATION: Procedure performed under Fluoroscopic Guidance Total Dose Dose Area Product Total Exposure Time 1136.51 mGy 172.77 Gy*cm 896.00 sec + + MEDICAL HISTORY + + Left Ventricle EF: No Relevent EF within 6 Months by Echo. Physician Intra Service Procedure Start Time: 11/12/2023 10:52:53 AM Physician Intra Service Procedure End Time: 10/23 (more content not included)... Normal [facility] CNPNon 11-11-2023 CNPN Telephone (CATLMN) JESSE YEPEZ ([id number]) 1985 Date Time Provider Department 11/11/23 DELILAH RAI During your visit today, we recorded the following information about you: Lawrence Almeida RN 11/11/2023 1:16 PM Signed CARDIOVASCULAR LAB INSTRUCTIONS: Readiness to Learn: Cognitive Ability: Alert and oriented Motivation To Learn: Interested Family/Significant Other Support: Unable to assess - Family not present Instruction Provided To: Patient Patient Learns Best By: Individual Instruction Factors Affecting Learning: None Physical Limitations Affecting Learning: None Learning Response: Procedure: Diagnostic Cath with Intervention Pre procedure education topics: Arrival time/NPO Status/Medications/Tr arleen Instructions/Restrict ions- instructed to be accompanied by adult dray truck driver at discharge Patient/Family Response Evaluation: Verbalizes understanding Follow Up Plan and Medication: As directed by physician Instruction/Supplemen jose Material Given: Cardiac catheterization instructions, procedure information, hospital information, hotel information. Instructed By Lawrence Kohut, RN, RN. In Department of CARDIOLOGY. Allergies As of Date: 11/11/2023 Noted Allergy Reaction PENICILLINS 11/07/2023 4 - Hives Date Reviewed: 11/07/2023 Reviewed by: Alison Christy, RN - Fully Assessed Reason for Visit: Education Of Patient/family [904] Prescriptions as of 11/11/2023 - allopurinol (ZYLOPRIM) 100 mg tablet Take 1 tablet by mouth every 12 hours. - carvedilol (COREG) 25 mg tablet Take 25 mg by mouth three times a day. - doxepin capsule 10 mg Take 1-2 capsules by mouth as needed. - hydrALAZINE (APRESOLINE) 50 mg tablet Take 50 mg by mouth three times a day. - irbesartan (AVAPRO) 150 mg tablet Take 1 tablet by mouth two times a day. - aspirin 325 mg tablet Take 325 mg by mouth. States he does not take this daily - rosuvastatin (CRESTOR) 40 mg tablet Take 1 tablet by mouth daily at bedtime. Problem List As Of Date 11/11/2023 Noted Resolved Hypertension goal BP (blood pressure) < 140/80 *11/08/2023 Renal artery stenosis (HCC) [I70.1] 11/08/2023 Hyperlipidemia LDL goal <70 [E78.5] 11/08/2023 Class 3 severe obesity due to excess calories w*11/08/2023 JAMES on CPAP [G47.33] 11/08/2023 History of tobacco abuse [Z87.891] 11/08/2023 History of marijuana use [F12.91] 11/08/2023 ZIEGLER (dyspnea on exertion) [R06.09] 11/08/2023 Precordial pain [R07.2] 11/08/2023 Encounter Status:Closed by LAWRENCE ALMEIDA RN on 11/11/23 [facility] [place] 11-08-2023 CALIN Telephone (EFFIE) JESSE YEPEZ ([id number]) 1985 M Date Time Provider Department 11/08/23 DELILAH RAI During your visit today, we recorded the following information about you: Yi Olmos 11/08/2023 8:26 AM Signed 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 employer is requesting documents verifying his upcoming Cath procedure on Sunday (11/12/23) AND a RTW letter stating what his limitations are and when he can return to work - Office informed pt they could/would provide his employer with documents verifying his upcoming Cath procedure; however, we could NOT provide them with a RTW letter at this time stating what his limitations are/should be - Office explained that this is diomedy-cf-gslkbij based and something we are unable to predict right now - Office stated this would be something provided to his employer after the Cath procedure, and it would be based on his symptoms and how he is feeling, etc. - Patient completley understood and verbalized complete understanding to the above statement - Patient accepted the fact we would only provide documents for upcoming Cath at this time - Patient provided employer info: [employer] HR person of contact: Natalie Main #: HR #: *No fax number available -- Company/HR requested documents/records to be emailed * Email: ami [employer] Records that need to be sent - Per HR: - Office Visit on 11/07/23 - ALL testing done on 11/07/23 - Upcoming Cath appt info for 11/12/23 - Letter from office stating we are unable to provide a RTW letter at this time due to pt not having procedure yet AND not knowing how pt will feel afterwards including any symptoms or limitations, etc. Office forwarded message to 's office staff for completion of request and any further information needed - Office staff told pt they would get this over to HR as soon as possible - Pt thanked office AND call ended - Pt call back #: Alvin Prater 11/09/2023 3:32 PM Signed Office called and left detailed vm for HR to return call with a better email address. The email has not been received or delivered. Alvin Prater 11/09/2023 3:54 PM Signed Office received return call from patient's employer. The correct email address is the following: [email or web address] Office emailed the letter and attachments as requested. Pt's employer's number is [phone]. Allergies As of Date: 11/08/2023 Noted Allergy Reaction PENICILLINS 11/07/2023 4 - Hives Date Reviewed: 11/07/2023 Reviewed by: Alison Christy RN - Fully Assessed Reason for Visit: Release Of Medical Records [2017] Cmt: Cardiac Cath/OPD Notes - Employment Purposes Patient Question [3219] RTW/Cath Documents Needed [Other] Prescriptions as of 11/09/2023 - allopurinol (ZYLOPRIM) 100 mg tablet Take 1 tablet by mouth every 12 hours. - carvedilol (COREG) 25 mg tablet Take 25 mg by mouth three times a day. - doxepin capsule 10 mg Take 1-2 capsules by mouth as needed. - hydrALAZINE (APRESOLINE) 50 mg tablet Take 50 mg by mouth three times a day. - irbesartan (AVAPRO) 150 mg tablet Take 1 tablet by mouth two times a day. - aspirin 325 mg tablet Take 325 mg by mouth. States he does not take this daily - rosuvastatin (CRESTOR) 40 mg tablet Take 1 tablet by mouth daily at bedtime. Problem List As Of Date 11/08/2023 Noted Resolved Hypertension goal BP (blood pressure) < 140/80 *11/08/2023 Renal artery stenosis (HCC) [I70.1] 11/08/2023 Hyperlipidemia LDL goal <70 [E78.5] 11/08/2023 Class 3 severe obesity due to excess calories w*11/08/2023 JAMES on CPAP [G47.33] 11/08/2023 History of tobacco abuse [Z87.891] 11/08/2023 History of marijuana use [F12.91] 11/08/2023 ZIEGLER (dyspnea on exertion) [R06.09] 11/08/2023 Precordial pain [R07.2] 11/08/2023 Clinical report posted in error Letter Text Letter Text Encounter Status:Closed by ALVIN PRATER on 11/08/23 Normal [facility] CBC panel Auto (Bld)on 11-07 Erythrocyte distribution width (RBC) [Ratio] 13.3 % Normal 11.5-15.0 [facility] Comment on above: Order Comment: Speci men Type: BLOOD SPECIMEN Ordering Facility: [facility] Address: [address] [place] [address] Performed By: #### 5 8410-2 #### [facility] CLIA [id number] [address] [place] [address] [place] Hematocrit (Bld) [Volume fraction] 46.8 % Normal 39.0-51.0 [facility] Comment on above: Order Comment: Speci men Type: BLOOD SPECIMEN Ordering Facility: [facility] Address: [address] [place] [address] Performed By: #### 5 8410-2 #### [facility] CLIA [id number] [address] [place] [address] [place] Hemoglobin (Bld) [Mass/Vol] 15.5 g/dL Normal 13.0-17.0 [facility] Comment on above: Order Comment: Speci men Type: BLOOD SPECIMEN Ordering Facility: [facility] Address: [address] [place] [address] Performed By: #### 5 8410-2 #### [facility] CLIA [id number] [address] [place] [address] [place] MCH (RBC) [Entitic mass] 28.3 pg Normal 26.0-34.0 [facility] Comment on above: Order Comment: Speci men Type: BLOOD SPECIMEN Ordering Facility: [facility] Address: [address] [place] [address] Performed By: #### 5 8410-2 #### [facility] CLIA [id number] [address] [place] [address] [place] MCHC (RBC) [Mass/Vol] 33.1 g/dL Normal 30.5-36.0 [facility] Comment on above: Order Comment: Speci men Type: BLOOD SPECIMEN Ordering Facility: [facility] Address: [address] [place] [address] Performed By: #### 5 8410-2 #### [facility] CLIA [id number] [address] [place] [address] [place] MCV (RBC) [Entitic vol] 85.4 fL Normal 80.0-100.0 [facility] Comment on above: Order Comment: Speci men Type: BLOOD SPECIMEN Ordering Facility: [facility] Address: [address] [place] [address] Performed By: #### 5 8410-2 #### [facility] CLIA [id number] [address] [place] [address] [place] Nucleated RBC (Bld) [#/Vol] 10*3/uL Normal <0.01 [facility] Comment on above: Order Comment: Speci men Type: BLOOD SPECIMEN Ordering Facility: [facility] Address: [address] [place] [address] Performed By: #### 5 8410-2 #### [facility] CLIA [id number] [address] [place] [address] [place] Platelet mean volume (Bld) [Entitic vol] 11.5 fL Normal 9.0-12.7 [facility] Comment on above: Order Comment: Speci men Type: BLOOD SPECIMEN Ordering Facility: [facility] Address: [address] [place] [address] Performed By: #### 5 8410-2 #### [facility] CLIA [id number] [address] [place] [address] [place] Platelets (Bld) [#/Vol] 168 10*3/uL Normal 150-400 [facility] Comment on above: Order Comment: Speci men Type: BLOOD SPECIMEN Ordering Facility: [facility] Address: [address] [place] [address] Performed By: #### 5 8410-2 #### [facility] CLIA [id number] [address] [place] [address] [place] RBC (Bld) [#/Vol] 5.48 10*6/uL Normal 4.20-6.00 [facility] Comment on above: Order Comment: Speci men Type: BLOOD SPECIMEN Ordering Facility: [facility] Address: [address] [place] [address] Performed By: #### 5 8410-2 #### [facility] CLIA [id number] [address] [place] [address] [place] WBC (Bld) [#/Vol] 8.07 10*3/uL Normal 3.70-11.00 [facility] Comment on above: Order Comment: Speci men Type: BLOOD SPECIMEN Ordering Facility: [facility] Address: [address] [place] [address] Performed By: #### 5 8410-2 #### [facility] CLIA [id number] [address] [place] [address] [place] CNOVon 11-07-2023 CNOV Office Visit (CATHMN ) JESSE YEPEZ ([id number]) 1985 M Date Time Provider Department 11/07/23 8:45 AM DELILAH RAI During your visit today, we recorded the following information about you: Pulse Respiration Blood pressure Weight 67/minute 18/minute 119/75 188.7 kg Height 1.93 m Delilah Rai MD 11/08/2023 3:23 PM Signed [facility] [facility] Department of Cardiovascular Medicine SECTION OF INTERVENTIONAL CARDIOLOGY OUTPATIENT VISIT DATE November 06, 2023 OUTPATIENT VISIT TYPE NEW PRIMARY CARE PHYSICIAN: To use this Smartlink, specify the provider ID whose address you want to display, e.g., .PROVADDR[1 (where 1 is the provider ID). REFERRING PHYSICIAN: SELF CHIEF COMPLAINT: Renal artery stenosis HISTORY OF PRESENT ILLNESS: Mr. Yepez is a 38 year old male who presents today for second opinion on symptoms and RF for CAD. NURSING INTAKE: Past medical history includes: HTN, SHYANNE, JAMES (bipap), former smoking, gout, COVID, obesity, HLD He is here for cardiovascular evaluation as well as renal artery stenosis. On 10/19 he presented to [facility] for tingling in his left hand. This lasted only a few minutes and resolved completely. CAT scan of the head and CAT scan and C-spine are both negative. EKG shows normal sinus rhythm. His symptoms of tingling in his thumb, index finger, and middle finger lasted for a few minutes and have not recurred. I've no clinical suspicion of coronary artery disease or acute coronary syndrome. This is likely a peripheral nerve issue. It has not recurred and he'll be discharged home, follow-up with his PCP. In regards to his hypertension, he has been on BP meds since about 2016. Recently he was prescribed lisinopril, but he could not handle the side effects so he was switched to irbesartan 150 mg, which was recently changed from daily to BID recently. He saw a rewind operator in January 2023 for follow up of hospitalization for hypertensive urgency: -Reviewed his recent ECHO, renal US, and lab results with patient. -He has noted moderate renal artery stenosis on his recent ultrasound. Will manage medically at this time unless patients BP becomes uncontrollable with medications and/or he develops renal dysfunction. -BP is currently reasonably controlled. Continue carvedilol 25mg TID and hydralazine 50mg TID. Patient would benefit from ACEi or ARB if further medications are needed. He was supposed to follow up 3 months after, but did not. He has palpitations, typically at night, feels like his heart is beating harder, he sleeps on his back. He wore a holter monitor. He has leg swelling, typically worse at the end of the day and better by the morning. He is primarily sitting. he has a productive cough at times. Through out the day he will have some lightheadedness with position changes. He complains of chest pain that is on left side and will radiate up his neck. He feels more short of breath with exertion. He states these symptoms have been ongoing since September. Risk factors for coronary artery disease hyperlipidemia, hypertension, history of smoking, obesity He denies orthopnea, PND, syncope, claudication, and wheezing. Diet / Nutrition: low sodium Weight: weight fluctuates +/- 20lbs Exercise: walking 30-90 minutes 4 x weekly 03/04/2022 CUS: IMPRESSION: 1. Moderate atherosclerotic disease within the renal arteries resulting in elevated flow velocities within the mid and distal renal arteries bilaterally with resistive index up to 0.75 on right and 0.77 on left. 01/07/2023 Event monitor: Recording Length: 5 days, 9 hours. Findings Summary 1. Predominant rhythm: Normal sinus rhythm. 2. Ectopic Atrial Rhythm (EAR). 3. PAC <0.1%. Multiple symptoms were reported and were associated with normal sinus rhythm in the 60's to 90's. Otherwise unremarkable study. 01/11/2023 MRI brain: IMPRESSION: Unremarkable noncontrast MRI of the brain for acute pathology. 01/11/2023 Renal US: IMPRESSION: 1. Moderate atherosclerotic disease within the renal arteries resulting in elevated flow velocities within the mid and distal renal arteries bilaterally with resistive index up to 0.75 on right and 0.77 on left. 01/12/2023 CUS: FINDINGS: RIGHT CAROTID ARTERY: Mild plaque without [...] EDV: 1.3 LEFT CAROTID ARTERY: No visible (more content not included)... Normal [facility] Comprehensive metabolic 2000 panelon 11-07-2023 Albumin [Mass/Vol] 4.6 g/dL Normal 3.9-4.9 [facility] Comment on above: Order Comment: Speci men Type: BLOOD SPECIMEN Ordering Facility: [facility] Address: [address] [place] [address] Performed By: #### 2 4331-1, 30785-7 #### [facility] CLIA [id number] [address] [place] [address] [place] ALP [Catalytic activity/Vol] 64 U/L Normal 38-113 [facility] Comment on above: Order Comment: Speci men Type: BLOOD SPECIMEN Ordering Facility: [facility] Address: [address] [place] [address] Performed By: #### 2 4331-1, #### [facility] CLIA [id number] [address] [place] [address] [place] ALT [Catalytic activity/Vol] 24 U/L Normal 10-54 [facility] Comment on above: Order Comment: Speci men Type: BLOOD SPECIMEN Ordering Facility: [facility] Address: [address] [place] [address] Performed By: #### 2 4331-1, 65404-8 #### [facility] CLIA [id number] [address] [place] [address] [place] Anion gap [Moles/Vol] 9 mmol/L Normal 9-18 [facility] Comment on above: Order Comment: Speci men Type: BLOOD SPECIMEN Ordering Facility: [facility] Address: [address] [place] [address] Performed By: #### 2 4331-1, #### [facility] CLIA [id number] [address] [place] [address] [place] AST [Catalytic activity/Vol] 22 U/L Normal 14-40 [facility] Comment on above: Order Comment: Speci men Type: BLOOD SPECIMEN Ordering Facility: [facility] Address: [address] [place] [address] Performed By: #### 2 4331-1, #### [facility] CLIA [id number] [address] [place] [address] [place] Bilirubin [Mass/Vol] 0.6 mg/dL Normal 0.2-1.3 [facility] Comment on above: Order Comment: Speci men Type: BLOOD SPECIMEN Ordering Facility: [facility] Address: [address] [place] [address] Performed By: #### 2 4331-1, #### [facility] CLIA [id number] [address] [place] [address] [place] Calcium [Mass/Vol] 9.5 mg/dL Normal 8.5-10.2 [facility] Comment on above: Order Comment: Speci men Type: BLOOD SPECIMEN Ordering Facility: [facility] Address: [address] [place] [address] Performed By: #### 2 4331-1, #### [facility] CLIA [id number] [address] [place] [address] [place] Chloride [Moles/Vol] 103 mmol/L Normal 97-105 [facility] Comment on above: Order Comment: Speci men Type: BLOOD SPECIMEN Ordering Facility: [facility] Address: [address] [place] [address] Performed By: #### 2 4331-1, #### [facility] CLIA [id number] [address] [place] [address] [place] CO2 [Moles/Vol] 26 mmol/L Normal 22-30 [facility] Comment on above: Order Comment: Speci men Type: BLOOD SPECIMEN Ordering Facility: [facility] Address: [address] [place] [address] Performed By: #### 2 4331-, #### [facility] CLIA [id number] [address] [place] [address] [place] Creatinine [Mass/Vol] 1.17 mg/dL Normal 0.73-1.22 [facility] Comment on above: Order Comment: Speci men Type: BLOOD SPECIMEN Ordering Facility: [facility] Address: [address] [place] [address] Performed By: #### 2 433-, #### [facility] CLIA [id number] [address] [place] [address] [place] Creatinine and Glomerular filtration rate.predicted panel (S/P/Bld) 81 mL/min/1.73m??? Normal >=60 [facility] Comment on above: Order Comment: Speci men Type: BLOOD SPECIMEN Ordering Facility: [facility] Address: [address] [place] [address] Result Comment: Janice mated Glomerular Filtration Rate (eGFR) is calculated using the 2020 CKD-EPI creatinine equation. This equation utilizes serum creatinine, sex, and age as parameters. The creatinine assay has traceable calibration to isotope dilution-mass spectrometry. Refer to KDIGO guidelines for clinical interpretation. In patients with unstable renal function, e.g. those with acute kidney injury, the eGFR may not accurately reflect actual GFR. Performed By: #### 2 4331-1, 45923-0 #### [facility] CLIA [id number] [address] [place] [address] [place] Glucose [Mass/Vol] 99 mg/dL Normal 74-99 [facility] Comment on above: Order Comment: Speci wale Type: BLOOD SPECIMEN Ordering Facility: [facility] Address: [address] [place] [address] Result Comment: The [place] [employer] (ADA) provides guidance for cutoff values for fasting glucose and random glucose. The ADA defines fasting as no caloric intake for at least 8 hours. Fasting plasma glucose results between 100 to 125 mg/dL indicate increased risk for diabetes (prediabetes). Fasting plasma glucose results greater than or equal to 126 mg/dL meet the criteria for diagnosis of diabetes. In the absence of unequivocal hyperglycemia, results should be confirmed by repeat testing. In a patient with classic symptoms of hyperglycemia or hyperglycemic crisis, random plasma glucose results greater than or equal to 200 mg/dL meet the criteria for diagnosis of diabetes. Reference: Standards of Medical Care in Diabetes 2016, [place] [employer]. Diabetes Care. 2016.39(Suppl 1). Performed By: #### 2 4331-1, 57890-1 #### [facility] CLIA [id number] [address] [place] [address] [place] Potassium [Moles/Vol] 4.2 mmol/L Normal 3.7-5.1 [facility] Comment on above: Order Comment: Jenaro echevarria Type: BLOOD SPECIMEN Ordering Facility: [facility] Address: [address] [place] [address] Performed By: #### 2 4331-1, 12258-3 #### [facility] CLIA [id number] [address] [place] [address] [place] Protein [Mass/Vol] 7.5 g/dL Normal 6.3-8.0 [facility] Comment on above: Order Comment: Jenaro echevarria Type: BLOOD SPECIMEN Ordering Facility: [facility] Address: [address] [place] [address] Performed By: #### 2 4331-, 35978-4 #### [facility] CLIA [id number] [address] [place] [address] [place] Sodium [Moles/Vol] 138 mmol/L Normal 136-144 [facility] Comment on above: Order Comment: Speci men Type: BLOOD SPECIMEN Ordering Facility: [facility] Address: [address] [place] [id number] Performed By: #### 2 4331-1, 55568-1 #### [facility] CLIA [id number] [address] [place] [address] [place] Urea nitrogen [Mass/Vol] 19 mg/dL Normal 9-24 [facility] Comment on above: Order Comment: Speci men Type: BLOOD SPECIMEN Ordering Facility: [facility] Address: [address] [place] [address] Performed By: #### 2 4331-1, 15123-6 #### [facility] CLIA [id number] [address] [place] [address] [place] ECG COMPLETEon 11-07-2023 ECG COMPLETE Ventricular Rate : 6 9 BPM Atrial Rate : 69 BPM P-R Interval : 174 ms QRS Duration : 108 ms Q-T Interval : 392 ms QTC Calculation(Bazett) : 420 ms Calculated P [place] : 18 degrees Calculated R [place] : 5 degrees Calculated T [place] : 10 degrees NORMAL SINUS RHYTHM NORMAL ECG Confirmed by АННА BURLESON MD ([id number]) on 11/14/2023 7:55:00 AM NAME : JESSE YEPEZ PID : [id number] : 1985 Gender : Male Race : ORD : [id number] Procedure Date : Nov 07 2023 10:46:46 Edit Date : Nov 14 2023 07:55:01 Diagnosis: NORMAL SINUS RHYTHM NORMAL ECG Confirmed by АННА BURLESON MD ([id number]) on 11/14/2023 7:55:00 AM Test Reason : Location : 314 : J14 j1-4 Overread By : АННА BURLESON MD Edited By : АННА BURLESON MD Referred By : DELILAH RAI Acquired by : RASHAAD COLLIER Normal [facility] Lipid 1996 panelon 4 Cholesterol [Mass/Vol] 135 mg/dL Normal <200 [facility] Comment on above: Order Comment: Evonnei men Type: BLOOD SPECIMEN Ordering Facility: [facility] Address: [address] [place] [address] Result Comment: <200 mg/dL, Desirable 200-239 mg/dL, Borderline high >239 mg/dL, High Performed By: #### 2 4331-1, 33179-6 #### [facility] CLIA [id number] [address] [place] [address] [place] Cholesterol in HDL [Mass/Vol] 25 mg/dL Low >39 [facility] Comment on above: Order Comment: Evonnei men Type: BLOOD SPECIMEN Ordering Facility: [facility] Address: [address] [place] [address] Result Comment: 40-5 9 mg/dL, Acceptable >59 mg/dL, High: Negative risk factor for coronary heart disease <40 mg/dL, Low: Positive risk factor for coronary heart disease Performed By: #### 2 4331-1, 45662-4 #### [facility] CLIA [id number] [address] [place] [address] [place] Cholesterol in LDL [Mass/Vol] 87 mg/dL Normal <100 [facility] Comment on above: Order Comment: Jenaro men Type: BLOOD SPECIMEN Ordering Facility: [facility] Address: [address] [place] [address] Result Comment: <100 mg/dL, Optimal 100-129 mg/dL, Near optimal/above optimal 130-159 mg/dL, Borderline high 160-189 mg/dL, High >189 mg/dL, Very high Secondary prevention optimal LDL Cholesterol levels are recommended to be < 70 mg/dL Performed By: #### 2 4331-1, 89547-9 #### [facility] CLIA [id number] [address] [place] [address] [place] Cholesterol in LDL/Cholesterol in HDL [Mass ratio] 3.48 {ratio} High <2.54 [facility] Comment on above: Order Comment: Speci men Type: BLOOD SPECIMEN Ordering Facility: [facility] Address: [address] [place] [address] Result Comment: Ronald cline: 1. National Cholesterol Education Program ATP III Guideline At-A-Glance Quick Desk Reference: National Heart, Lung, and Blood [place]. National Institutes of Health. 2001: NIH Publication No. 01-3305. 2. An International Atherosclerosis Society position paper: global recommendations for the management of dyslipidemia: executive summary, Atherosclerosis. 2014: 232(2):410-413. Performed By: #### 2 4331-1, 68431-0 #### [facility] CLIA [id number] [address] [place] [address] [place] Cholesterol in VLDL [Mass/Vol] 23 mg/dL Normal <30 [facility] Comment on above: Order Comment: Jenaro echevarria Type: BLOOD SPECIMEN Ordering Facility: [facility] Address: [address] [place] [address] Performed By: #### 2 4331-1, 45208-3 #### [facility] CLIA [id number] [address] [place] [address] [place] Cholesterol non HDL [Mass/Vol] 110 mg/dL Normal <130 [facility] Comment on above: Order Comment: Jenaro echevarria Type: BLOOD SPECIMEN Ordering Facility: [facility] Address: [address] [place] [address] Result Comment: <130 mg/dL, Optimal 130-159 mg/dL, Near optimal/above optimal 160-189 mg/dL, Borderline high 190-219 mg/dL, High >219 mg/dL, Very high Secondary prevention optimal non HDL Cholesterol levels are recommended to be <100 mg/dL Performed By: #### 2 4331-1, 60145-9 #### [facility] CLIA [id number] [address] [place] [address] [place] Cholesterol.total/Cho lesterol in HDL [Mass ratio] 5.40 {ratio} High <5.10 [facility] Comment on above: Order Comment: Jenaro echevarria Type: BLOOD SPECIMEN Ordering Facility: [facility] Address: [address] [place] [address] Performed By: #### 2 4331-1, 76790-5 #### [facility] CLIA [id number] [address] [facility] [place] [place] [address] [place] FASTING TIME 12 hrs Normal [facility] Comment on above: Order Comment: Speci men Type: BLOOD SPECIMEN Ordering Facility: [facility] Address: [address] [place] [address] Performed By: #### 2 4331-1, #### [facility] CLIA [id number] [address] [place] [address] [place] Triglyceride [Mass/Vol] 116 mg/dL Normal <150 [facility] Comment on above: Order Comment: Speci men Type: BLOOD SPECIMEN Ordering Facility: [facility] Address: [address] [place] [address] Result Comment: <150 mg/dL, Normal 150-199 mg/dL, Borderline high 200-499 mg/dL, High >499 mg/dL, Very high Performed By: #### 2 4331-1, #### [facility] CLIA [id number] [address] [place] [address] [place] Office Visiton 01-31-2023 Follow-up visit [id number] Jesse Yepez 1985 [facility] Provider Department Center 01/31/2023 MAGDALENE GONZALEZ CARD [facility] History Problem Relation Age of [...] Paternal Grandmother Alive Paternal Grandfather Level of Service:19980 AL OFFICE/OUTPATIENT NEW MODERATE MDM 45-59 MINUTES Reason for Visit and Comments: Hypertension [958882] - New Patient Normal [facility] ALDOSTERONE: RENIN RATIOon 0 01-20-2023 Aldos/Renin Ratio 4.1 Normal 0.0-30.0 [facility] Comment on above: Result Comment: Unit s: ng/dL per ng/mL/hr Performed By: #### C RP, CMP #### [facility] [address] [place] [address] Dr. Clive Main Aldosterone 3.0 ng/dL Normal 0.0-30.0 [facility] Comment on above: Performed By: #### C RP, CMP #### [facility] [address] [place] [address] Dr. Clive Main Renin Activity, Plasma 0.730 ng/mL/hr Normal 0.167-5.380 [facility] Comment on above: Performed By: #### C RP, CMP #### [facility] [address] [place] [address] Dr. Clive Main METANEPHRINES PLASMA FREEon 01-18-2023 Metanephrine, Pl <10.0 Normal 0.0-88.0 [facility] Comment on above: Performed By: #### M ETANPF #### [facility] [address] [place] [address] Dr. Clive Main Normetanephrine, Pl 107.5 pg/mL Normal 0.0-210.1 [facility] Comment on above: Performed By: #### M ETANPF #### [facility] [address] [place] [address] Dr. Clive Main CBC AUTO DIFFon 01-12-2023 BASO # 0.0 103/ul Normal 0.0-0.1 [facility] Comment on above: Performed By: #### C BC #### [facility] [address] [place] [address] Dr. Clive Main Basophils/100 WBC (Bld) 0.4 % Normal 0.2-2.0 [facility] Comment on above: Performed By: #### C BC #### [facility] [address] [place] [address] Dr. Clive Main EO # 0.1 103/ul Normal 0.0-0.7 [facility] Comment on above: Performed By: #### C BC #### [facility] [address] [place] [address] Dr. Clive Main Eosinophils/100 WBC (Bld) 0.9 % Normal 0.9-7.[address] [facility] Comment on above: Performed By: #### C BC #### [facility] [address] [place] [address] Dr. Clive Main Erythrocyte distribution width (RBC) [Ratio] 13.8 % Normal 11.0-15.[address] [facility] Comment on above: Performed By: #### C BC #### [facility] [address] [place] [address] Dr. Clive Main Hematocrit (Bld) [Volume fraction] 49.1 % Normal 42.0-54.[address] [facility] Comment on above: Performed By: #### C BC #### [facility] [address] [place] [address] Dr. Clive Main Hemoglobin (Bld) [Mass/Vol] 16.7 g/dL Normal 14.0-18.[address] [facility] Comment on above: Performed By: #### C BC #### [facility] [address] [place] [address] Dr. Clive Main IG # 0.06 10e3/ul Critically high 0.00-0.03 [facility] Comment on above: Performed By: #### C BC #### [facility] [address] [place] [address] Dr. Clive Main IG % 0.5 % Normal 0.0-0.5 [facility] Comment on above: Performed By: #### C BC #### [facility] [address] [place] [address] Dr. Clive Main LYMPH # 2.7 103/ul Normal 1.2-3.8 [facility] Comment on above: Performed By: #### C BC #### [facility] [address] [place] [address] Dr. Clive Main Lymphocytes/100 WBC (Bld) 24.7 % Normal 20.5-60.0 [facility] Comment on above: Performed By: #### C BC #### [facility] [address] [place] [address] Dr. Clive Main MANUAL DIFF REQ NO Normal [facility] Comment on above: Performed By: #### C BC #### [facility] [address] [place] [address] Dr. Clive Main MCH (RBC) [Entitic mass] 28.4 pg Normal 25.9-34.0 [facility] Comment on above: Performed By: #### C BC #### [facility] [address] [place] [address] Dr. Clive Main MCHC (RBC) [Mass/Vol] 34.0 g/dL Normal 29.9-35.2 [facility] Comment on above: Performed By: #### C BC #### [facility] [address] [place] [address] Dr. Clive Main MCV (RBC) [Entitic vol] 83.6 fL Normal 80.0-94.0 [facility] Comment on above: Performed By: #### C BC #### [facility] [address] [place] [address] Dr. Clive Main MONO # 1.3 103/ul Critically high 0.3-0.8 [facility] Comment on above: Performed By: #### C BC #### [facility] [address] [place] [address] Dr. Clive Main Monocytes/100 WBC (Bld) 11.5 % Normal 1.7-12.0 [facility] Comment on above: Performed By: #### C BC #### [facility] [address] [place] [address] Dr. Clive Main NEUT # 6.8 103/ul Critically high 1.4-6.5 [facility] Comment on above: Performed By: #### C BC #### [facility] [address] [place] [address] Dr. Clive Main Neutrophils/100 WBC (Bld) 62.0 % Normal 43.0-75.[address] [facility] Comment on above: Performed By: #### C BC #### [facility] [address] [place] [address] Dr. Clive Main Platelet mean volume (Bld) [Entitic vol] 11.3 fL Normal 9.5-13.[address] [facility] Comment on above: Performed By: #### C BC #### [facility] [address] [address] [address] Clive Main PLT 206 103/ul Normal 150-[address] [facility] Comment on above: Performed By: #### C BC #### [facility] [address] [place] [address] Dr. Clive Main RBC 5.87 106/ul Normal 4.70-6.[address] [facility] Comment on above: Performed By: #### C BC #### [facility] [address] [place] [address] Dr. Clive Main WBC 10.9 103/ul Normal 4.0-11.0 [facility] Comment on above: Performed By: #### C BC #### [facility] [address] [place] [address] Dr. Clive Main ECHOCARDIO M/2D COMPLETEon 0 01-12-2023 ECHOCARDIO M/2D COMPLETE Patient: JESSE YEPEZ Exam Date: 01/12/2023 : 1985 Gender:M Ordering : DR JENNY RAMÍREZ . Admission #: [id number] Family : ANA CROW . Order #: [id number] CLICK HERE TO VIEW EXAM ECHOCARDIOGRAM REPORT [...] on 01/12/2023 at 18:[address] [facility] PROF CHEM 8 (BAS METB)on Anion gap [Moles/Vol] 14.2 mmol/L Normal [facility] Comment on above: Performed By: #### H STROPN #### [facility] [address] [place] [address] Dr. Clive Main Calcium [Mass/Vol] 9.2 mg/dL Normal 8.5-10.1 [facility] Comment on above: Performed By: #### H STROPN #### [facility] [address] [place] [address] Dr. Clive Main Chloride [Moles/Vol] 103 mmol/L Normal 98-[address] [facility] Comment on above: Performed By: #### H STROPN #### [facility] [address] [place] [address] Dr. Clive Main CO2 [Moles/Vol] 24.7 mmol/L Normal 21.0-32.0 [facility] Comment on above: Performed By: #### H STROPN #### [facility] [address] [address] [address] Clive Main Creatinine [Mass/Vol] 1.11 mg/dL Normal 0.70-1.[address] [facility] Comment on above: Performed By: #### H STROPN #### [facility] [address] [address] [address] Clive Main EGFR-AF SWAZI >60 Normal >=60 [facility] Comment on above: Performed By: #### H STROPN #### [facility] [address] [address] [address] Clive Main EGFR-NON AF SWAZI >60 Normal >=[address] [facility] Comment on above: Performed By: #### H STROPN #### [facility] [address] [address] [address] Clive Main Glucose [Mass/Vol] 117 mg/dL Critically high 74-106 [facility] Comment on above: Performed By: #### H STROPN #### [facility] [address] [address] [address] Clive Main Potassium [Moles/Vol] 3.9 mmol/L Normal 3.5-5.[address] [facility] Comment on above: Performed By: #### H STROPN #### [facility] [address] [address] [address] Clive Main Sodium [Moles/Vol] 138 mmol/L Normal 136-145 [facility] Comment on above: Performed By: #### H STROPN #### [facility] [address] [address] [address] Clive Main Urea nitrogen [Mass/Vol] 20.0 mg/dL Critically high 7.0-18.[address] [facility] Comment on above: Performed By: #### H STROPN #### [facility] [address] [address] [address] Clive Main Urea nitrogen/Creatinine [Mass ratio] 18.0 mg/mg Normal [facility] Comment on above: Performed By: #### H STROPN #### [facility] [address] [address] [address] Clive Main US CAROTID ART BILon [...] significant atherosclerotic disease. Electronically authenticated by: JOSEFINA ANGELAKATARZYNADIANA Date: 2023-01-12 06:19 Normal [facility] CARDIAC ANDRE 3-6on 3 CK [Catalytic activity/Vol] 172 U/L Normal 39-308 [facility] Comment on above: Performed By: #### C RP, CMP #### [facility] [address] [place] [address] Dr. Clive Main CK.MB [Mass/Vol] 2.91 ng/mL Normal <=3.60 [facility] Comment on above: Performed By: #### C RP, CMP #### [facility] [address] [place] [address] Dr. Clive Main HSTROP 11.2 pg/mL Normal 4.0-76.1 [facility] Comment on above: Result Comment: CUT- OFF POINTS HAVE BEEN ESTABLISHED BASED ON THE FOURTH UNIVERSAL DEFINITIONS OF MYOCARDIAL INFARCTION. THE UPPER REFERENCE LIMIT (URL) OF TROPONIN, DEFINED THE 99TH PERCENTILE OF cTnI DISTRIBUTION IN A REFERENCE POPULATION, HAS BEEN CONFIRMED THE DECISION THRESHOLD FOR ID DIAGNOSIS. Performed By: #### C RP, CMP #### [facility] [address] [place] [address] Dr. Clive Main CK [Catalytic activity/Vol] 204 U/L Normal 39-308 [facility] Comment on above: Performed By: #### C RP, CMP #### [facility] [address] [place] [address] Dr. lCive Main CK.MB [Mass/Vol] 2.97 ng/mL Normal <=3.60 [facility] Comment on above: Performed By: #### C RP, CMP #### [facility] [address] [place] [address] Dr. Clive Main HSTROP 12.0 pg/mL Normal 4.0-76.1 [facility] Comment on above: Result Comment: CUT- OFF POINTS HAVE BEEN ESTABLISHED BASED ON THE FOURTH UNIVERSAL DEFINITIONS OF MYOCARDIAL INFARCTION. THE UPPER REFERENCE LIMIT (URL) OF TROPONIN, DEFINED THE 99TH PERCENTILE OF cTnI DISTRIBUTION IN A REFERENCE POPULATION, HAS BEEN CONFIRMED THE DECISION THRESHOLD FOR ID DIAGNOSIS. Performed By: #### C RP, CMP #### [facility] [address] [place] [address] Dr. Clive Main CBC AUTO DIFFon 01-11-2023 BASO # 0.1 103/ul Normal 0.0-0.[address] [facility] Comment on above: Performed By: #### C RP, CMP #### [facility] [address] [place] [address] Dr. Clive Main Basophils/100 WBC (Bld) 0.3 % Normal 0.2-2.[address] [facility] Comment on above: Performed By: #### C RP, CMP #### [facility] [address] [place] [address] Dr. Clive Main EO # 0.1 103/ul Normal 0.0-0.[address] [facility] Comment on above: Performed By: #### C RP, CMP #### [facility] [address] [place] [address] Dr. Clive Main Eosinophils/100 WBC (Bld) 0.5 % Critically low 0.9-7.[address] [facility] Comment on above: Performed By: #### C RP, CMP #### [facility] [address] [place] [address] Dr. Clive Main Erythrocyte distribution width (RBC) [Ratio] 13.6 % Normal 11.0-15.[address] [facility] Comment on above: Performed By: #### C RP, CMP #### [facility] [address] [place] [address] Dr. Clive Main Hematocrit (Bld) [Volume fraction] 47.7 % Normal 42.0-54.[address] [facility] Comment on above: Performed By: #### C RP, CMP #### [facility] [address] [place] [address] Dr. Clive Main Hemoglobin (Bld) [Mass/Vol] 16.2 g/dL Normal 14.0-18.[address] [facility] Comment on above: Performed By: #### C RP, CMP #### [facility] [address] [address] [address] Clive Main IG # 0.26 10e3/ul Critically high 0.00-0.03 [facility] Comment on above: Performed By: #### C RP, CMP #### [facility] [address] [place] [address] Dr. Clive Main IG % 1.7 % Critically high 0.0-0.5 [facility] Comment on above: Performed By: #### C RP, CMP #### [facility] [address] [place] [address] Dr. Clive Main LYMPH # 2.2 103/ul Normal 1.2-3.8 [facility] Comment on above: Performed By: #### C RP, CMP #### [facility] [address] [place] [address] Dr. Clive Main Lymphocytes/100 WBC (Bld) 15.1 % Critically low 20.5-60.[address] [facility] Comment on above: Performed By: #### C RP, CMP #### [facility] [address] [place] [address] Dr. Clive Main MANUAL DIFF REQ NO Normal [facility] Comment on above: Performed By: #### C RP, CMP #### [facility] [address] [place] [address] Dr. Clive Main MCH (RBC) [Entitic mass] 28.5 pg Normal 25.9-34.[address] [facility] Comment on above: Performed By: #### C RP, CMP #### [facility] [address] [place] [address] Dr. Clive Main MCHC (RBC) [Mass/Vol] 34.0 g/dL Normal 29.9-35.2 [facility] Comment on above: Performed By: #### C RP, CMP #### [facility] [address] [place] [address] Dr. Clive Main MCV (RBC) [Entitic vol] 84.0 fL Normal 80.0-94.[address] [facility] Comment on above: Performed By: #### C RP, CMP #### [facility] [address] [address] [address] Clive Main MONO # 1.3 103/ul Critically high 0.3-0.8 [facility] Comment on above: Performed By: #### C RP, CMP #### [facility] [address] [place] [address] Dr. Clive Main Monocytes/100 WBC (Bld) 8.7 % Normal 1.7-12.0 [facility] Comment on above: Performed By: #### C RP, CMP #### [facility] [address] [place] [address] Dr. Clive Main NEUT # 11.0 103/ul Critically high 1.4-6.5 [facility] Comment on above: Performed By: #### C RP, CMP #### [facility] [address] [place] [address] Dr. Clive Main Neutrophils/100 WBC (Bld) 73.7 % Normal 43.0-75.0 [facility] Comment on above: Performed By: #### C RP, CMP #### [facility] [address] [place] [address] Dr. Clive Main Platelet mean volume (Bld) [Entitic vol] 11.7 fL Normal 9.5-13.5 [facility] Comment on above: Performed By: #### C RP, CMP #### [facility] [address] [place] [address] Dr. Clive Main PLT 196 103/ul Normal 150-450 [facility] Comment on above: Performed By: #### C RP, CMP #### [facility] [address] [place] [address] Dr. Clive Main RBC 5.68 106/ul Normal 4.70-6.10 [facility] Comment on above: Performed By: #### C RP, CMP #### [facility] [address] [place] [address] Dr. lCive Main WBC 14.9 103/ul Critically high 4.0-11.0 [facility] Comment on above: Performed By: #### C RP, CMP #### [facility] [address] [place] [address] Dr. Clive Main DRUG SCREEN RAPID (URINE)on 01-11-2023 AMP Negative Normal NEGATIVE [facility] Comment on above: Performed By: #### D DIM #### [facility] [address] [place] [address] Dr. Clive Main BAR Negative Normal NEGATIVE [facility] Comment on above: Performed By: #### D DIM #### [facility] [address] [place] [address] Dr. Clive Main BUP Negative Normal NEGATIVE [facility] Comment on above: Performed By: #### D DIM #### [facility] [address] [place] [address] Dr. Clive Main BZO Negative Normal NEGATIVE [facility] Comment on above: Performed By: #### D DIM #### [facility] [address] [place] [address] Dr. Clive Main NEREIDA Negative Normal NEGATIVE [facility] Comment on above: Performed By: #### D DIM #### [facility] [address] [place] [address] Dr. Clive Main CUT-OFFS SEE BELOW Normal [facility] Comment on above: Result Comment: AMP (Amphetamine): 500ng/mL, BAR (Barbituates): 200 ng/mL, BZO (Benzodiazepines): 150 ng/mL, BUP (Buprenorphine): 10 ng/mL, NEREIDA (Cocaine): 150 ng/mL, mAMP (Methamphetamine): 500 ng/mL, MTD (Methadone): 200 ng/mL, OPI (Opiates): 100 ng/mL, OXY (Oxycodone): 100 ng/mL, PCP (Phencyclidine): 25 ng/mL, PPX (Propoxyphene): 300 ng/mL, THC (Cannabinoids): 50 ng/mL, TCA (Trycyclic Antidepressants): 300 ng/mL Performed By: #### D DIM #### [facility] [address] [place] [address] Dr. Clive Main DRUG CUT HEADER DRUG CLASS TEST SYSTEM CUT-OFF CONCENTRATIONS ARE FOLLOWS: Normal [facility] Comment on above: Performed By: #### D DIM #### [facility] [address] [address] [address] Clive Main mAMP Negative Normal NEGATIVE [facility] Comment on above: Performed By: #### D DIM #### [facility] [address] [address] [address] Clive Main MTD Negative Normal NEGATIVE [facility] Comment on above: Performed By: #### D DIM #### [facility] [address] [place] [address] Dr. Clive Main OPI Negative Normal NEGATIVE [facility] Comment on above: Performed By: #### D DIM #### [facility] [address] [address] [address] Clive Main OXY Negative Normal NEGATIVE [facility] Comment on above: Performed By: #### D DIM #### [facility] [address] [place] [address] Dr. Clive Main PCP Negative Normal NEGATIVE [facility] Comment on above: Performed By: #### D DIM #### [facility] [address] [place] [address] Dr. Clive Main PPX Negative Normal NEGATIVE [facility] Comment on above: Performed By: #### D DIM #### [facility] [address] [place] [address] Dr. Clive Main TCA Negative Normal NEGATIVE [facility] Comment on above: Performed By: #### D DIM #### [facility] [address] [place] [address] Dr. Clive Main THC Negative Normal NEGATIVE [facility] Comment on above: Performed By: #### D DIM #### [facility] [address] [place] [address] Dr. Clive Main ER URINE PROFILEon 3 Bilirubin Ql (U) Negative Normal NEGATIVE [facility] Comment on above: Performed By: #### C RP, CMP #### [facility] [address] [place] [address] Dr. Clive Main Clarity (U) CLEAR Normal CLEAR [facility] Comment on above: Performed By: #### C RP, CMP #### [facility] [address] [place] [address] Dr. Clive Main Color (U) LT. YELLOW Normal YELLOW [facility] Comment on above: Performed By: #### C RP, CMP #### [facility] [address] [place] [address] Dr. Clive NINO A micrscopic examination will be performed if indicated. Normal [facility] Comment on above: Performed By: #### C RP, CMP #### [facility] [address] [place] [address] Dr. Clive Main Glucose Ql (U) Negative Normal NEGATIVE [facility] Comment on above: Performed By: #### C RP, CMP #### [facility] [address] [place] [address] Dr. Clive Main Hemoglobin Ql (U) Negative Normal NEGATIVE [facility] Comment on above: Performed By: #### C RP, CMP #### [facility] [address] [place] [address] Dr. Clive Main Ketones Ql (U) 15 mg/dl Abnormal NEGATIVE [facility] Comment on above: Performed By: #### C RP, CMP #### [facility] [address] [place] [address] Dr. Clive Main LEUKOCYTES Negative Normal NEGATIVE [facility] Comment on above: Performed By: #### C RP, CMP #### [facility] [address] [place] [address] Dr. Clive Main Nitrite Ql (U) Negative Normal NEGATIVE [facility] Comment on above: Performed By: #### C RP, CMP #### [facility] [address] [place] [address] Dr. Clive Main pH (U) 5.5 [pH] Normal 5-9 [facility] Comment on above: Performed By: #### C RP, CMP #### [facility] [address] [place] [address] Dr. Clive Main SPEC GRAVITY 1.020 Normal 1.005-<=1.025 [facility] [place] [facility] Comment on above: Performed By: #### C RP, CMP #### [facility] [address] [address] [address] Clive Main UA PROTEIN Negative Normal NEGATIVE/ TRACE [facility] Comment on above: Performed By: #### C RP, CMP #### [facility] [address] [address] [address] Clive Main UR MICRO IND NOT INDICATED Normal [facility] [place] [facility] Comment on above: Performed By: #### C RP, CMP #### [facility] [address] [address] [address] Clive Main Urobilinogen Qn (U) 0.2 {Teodoro'U}/dL Normal 0.2 - 1. 0 [facility] Comment on above: Performed By: #### C RP, CMP #### [facility] [address] [address] [address] Clive Main MRI BRAIN WO CONon [...] by: BENOIT KEENAN Date: 2023-01-11 01:02 Normal [facility] PROF CHEM 8 (BAS METB)on Anion gap [Moles/Vol] 15.8 mmol/L Normal [facility] Comment on above: Performed By: #### B MP #### [facility] [address] [address] [address] Clive Main Calcium [Mass/Vol] 9.0 mg/dL Normal 8.5-10.1 [facility] Comment on above: Performed By: #### B MP #### [facility] [address] [address] [address] Clive Main Chloride [Moles/Vol] 101 mmol/L Normal 98-[address] [facility] Comment on above: Performed By: #### B MP #### [facility] [address] [address] [address] Clive Main CO2 [Moles/Vol] 22.0 mmol/L Normal 21.0-32.0 [facility] Comment on above: Performed By: #### B MP #### [facility] [address] [address] [address] Clive Main Creatinine [Mass/Vol] 0.88 mg/dL Normal 0.70-1.[address] [facility] Comment on above: Performed By: #### B MP #### [facility] [address] [address] [address] Clive Main EGFR-AF SWAZI >60 Normal >=60 [facility] Comment on above: Performed By: #### B MP #### [facility] [address] [address] [address] Clive Main EGFR-NON AF SWAZI >60 Normal >=[address] [facility] Comment on above: Performed By: #### B MP #### [facility] [address] [address] [address] Clive Main Glucose [Mass/Vol] 110 mg/dL Critically high 74-106 [facility] Comment on above: Performed By: #### B MP #### [facility] [address] [address] [address] Clive Main Potassium [Moles/Vol] 3.8 mmol/L Normal 3.5-5.[address] [facility] Comment on above: Performed By: #### B MP #### [facility] [address] [place], [place] [address] Dr. Clive Main Sodium [Moles/Vol] 135 mmol/L Critically low 136-145 Th e [facility] Comment on above: Performed By: #### B MP #### [facility] [address] [place], [place] [address] Dr. Clive Main Urea nitrogen [Mass/Vol] 15.0 mg/dL Normal 7.0-18.[address] [facility] Comment on above: Performed By: #### B MP #### [facility] [address] [place], [place] [address] Dr. Clive Main Urea nitrogen/Creatinine [Mass ratio] 17.0 mg/mg Normal [facility] Comment on above: Performed By: #### B MP #### [facility] [address] [place], [place] [address] Dr. Clive Main US KIDNEYSon 01-11-2023 US [...] JOSEFINA SHETTY Date: 2023-01-11 12:57 Normal [facility] BNPon 01-10-2023 Natriuretic peptide B (Bld) [Mass/Vol] 108.0 pg/mL Normal <=450.0 [facility] Comment on above: Performed By: #### C RP, CMP #### [facility] [address] [place] [address] Dr. Clive Main CBC AUTO DIFFon 01-10-2023 BASO # 0.0 103/ul Normal 0.0-0.[address] [facility] Comment on above: Performed By: #### C RP, CMP #### [facility] [address] [place] [address] Dr. Clive Main Basophils/100 WBC (Bld) 0.3 % Normal 0.2-2.[address] [facility] Comment on above: Performed By: #### C RP, CMP #### [facility] [address] [place] [address] Dr. Clive Main EO # 0.1 103/ul Normal 0.0-0.7 [facility] Comment on above: Performed By: #### C RP, CMP #### [facility] [address] [place] [address] Dr. Clive Main Eosinophils/100 WBC (Bld) 0.4 % Critically low 0.9-7.0 [facility] Comment on above: Performed By: #### C RP, CMP #### [facility] [address] [place] [address] Dr. Clive Main Erythrocyte distribution width (RBC) [Ratio] 13.5 % Normal 11.0-15.[address] [facility] Comment on above: Performed By: #### C RP, CMP #### [facility] [address] [place] [address] Dr. Clive Main Hematocrit (Bld) [Volume fraction] 48.4 % Normal 42.0-54.[address] [facility] Comment on above: Performed By: #### C RP, CMP #### [facility] [address] [place] [address] Dr. Clive Main Hemoglobin (Bld) [Mass/Vol] 16.8 g/dL Normal 14.0-18.[address] [facility] Comment on above: Performed By: #### C RP, CMP #### [facility] [address] [place] [address] Dr. Clive Main IG # 0.05 10e3/ul Critically high 0.00-0.03 [facility] Comment on above: Performed By: #### C RP, CMP #### [facility] [address] [place] [address] Dr. Clive Main IG % 0.4 % Normal 0.0-0.[address] [facility] Comment on above: Performed By: #### C RP, CMP #### [facility] [address] [place] [address] Dr. Clive Main LYMPH # 1.8 103/ul Normal 1.2-3.[address] [facility] Comment on above: Performed By: #### C RP, CMP #### [facility] [address] [place] [address] Dr. Clive Main Lymphocytes/100 WBC (Bld) 13.9 % Critically low 20.5-60.[address] [facility] Comment on above: Performed By: #### C RP, CMP #### [facility] [address] [place] [address] Dr. Clive Main MANUAL DIFF REQ NO Normal [facility] Comment on above: Performed By: #### C RP, CMP #### [facility] [address] [place] [address] Dr. Clive Main MCH (RBC) [Entitic mass] 28.7 pg Normal 25.9-34.0 [facility] Comment on above: Performed By: #### C RP, CMP #### [facility] [address] [place] [address] Dr. Clive Main MCHC (RBC) [Mass/Vol] 34.7 g/dL Normal 29.9-35.2 [facility] Comment on above: Performed By: #### C RP, CMP #### [facility] [address] [place] [address] Dr. Clive Main MCV (RBC) [Entitic vol] 82.6 fL Normal 80.0-94.0 [facility] Comment on above: Performed By: #### C RP, CMP #### [facility] [address] [place] [address] Dr. Clive Main MONO # 1.0 103/ul Critically high 0.3-0.8 [facility] [place] [facility] Comment on above: Performed By: #### C RP, CMP #### [facility] [address] [place] [address] Dr. Clive Main Monocytes/100 WBC (Bld) 7.2 % Normal 1.7-12.0 [facility] Comment on above: Performed By: #### C RP, CMP #### [facility] [address] [place] [address] Dr. Clive Main NEUT # 10.3 103/ul Critically high 1.4-6.5 The [facility] Comment on above: Performed By: #### C RP, CMP #### [facility] [address] [place] [address] Dr. Clive Main Neutrophils/100 WBC (Bld) 77.8 % Critically high 43.0-75.0 [facility] Comment on above: Performed By: #### C RP, CMP #### [facility] [address] [place] [address] Dr. Clive Main Platelet mean volume (Bld) [Entitic vol] 11.3 fL Normal 9.5-13.5 [facility] Comment on above: Performed By: #### C RP, CMP #### [facility] [address] [address] [address] Clive Main PLT 202 103/ul Normal 150-450 [facility] Comment on above: Performed By: #### C RP, CMP #### [facility] [address] [address] [address] Clive Main RBC 5.86 106/ul Normal 4.70-6.10 [facility] Comment on above: Performed By: #### C RP, CMP #### [facility] [address] [address] [address] Clive Main WBC 13.2 103/ul Critically high 4.0-11.0 [facility] Comment on above: Performed By: #### C RP, CMP #### [facility] [address] [address] [address] Clive Main CRPon 01-10-2023 CRP 0.1 mg/dL Normal <=1.[address] [facility] Comment on above: Performed By: #### C RP, CMP #### [facility] [address] [place] [address] HEAD WO CONon [...] SUHA KANG Date: 2023-01-10 19:40 Normal [facility] SARS-CoV-2 (COVID-19) RNA ENIO+probe Ql (Unsp spec) Not detected Normal NOT DETECTED [facility] Comment on above: Result Comment: When diagnostic [...] for this test is supported by the [place] of [employer] and Human Service's declaration that [...] Performed By: #### C RP, CMP #### [facility] [address] [place] [address] Dr. Clive Main D-DIMERon 01-10-2023 D-DIMER 0.19 mg/L FEU Normal <=0.59 [facility] Comment on above: Performed By: #### D DIM #### [facility] [address] [place] [address] Dr. Clive Main D-DIMER COMMENTS SEE BELOW Normal [facility] Comment on above: Result Comment: Incr [...] hospitalization. Performed By: #### D DIM #### [facility] [address] [place] [address] Dr. Clive Main GLYCOHEMOGLOBIN A1Con 2022 ADA RECOMMENDATION SEE BELOW Normal [facility] Comment on above: Result Comment: ADA RECOMMENDED LIMIT 4.0 - 6.0 ADA THERAPEUTIC TARGET < 7.0 ACTION SUGGESTED > 7.0 Performed By: #### A 1C #### [facility] [address] [place] [address] Dr. Clive Main Glucose [Mass/Vol] 111 mg/dL Normal [facility] Comment on above: Performed By: #### A 1C #### [facility] [address] [place] [address] Dr. Clive Main HbA1c (Bld) [Mass fraction] 5.5 % Normal 4.5-6.[address] [facility] Comment on above: Performed By: #### A 1C #### [facility] [address] [place] [address] Dr. Clive Main LIPID PROFILEon 01-10-2023 CHOL-HDL RATIO NORM SEE BELOW Normal [facility] Comment on above: Result Comment: 3.3 - 4.4 LOW RISK 4.4 - 7.1 AVERAGE RISK 7.1 - 11.0 MODERATE RISK >11.0 HIGH RISK Performed By: #### C RP, CMP #### [facility] [address] [place] [address] Dr. Clive Main Cholesterol [Mass/Vol] 185 mg/dL Normal <=[address] [facility] Comment on above: Performed By: #### C RP, CMP #### [facility] [address] [place] [address] Dr. Clive Main Cholesterol in HDL [Mass/Vol] 36 mg/dL Critically low 40-[address] [facility] Comment on above: Performed By: #### C RP, CMP #### [facility] [address] [place] [address] Dr. Clive Main Cholesterol in LDL [Mass/Vol] 124.4 mg/dL Normal [facility] Comment on above: Performed By: #### C RP, CMP #### [facility] [address] [place] [address] Dr. Clive Main Cholesterol.total/Cho lesterol in HDL [Mass ratio] 5.1 {ratio} Normal [facility] Comment on above: Performed By: #### C RP, CMP #### [facility] [address] [address] [address] Clive Main HDL NORMAL > or = 60 mg/dl - LO W CARDIOVASCULAR RISK <40 mg/dl - HIGH CARDIOVASCULAR RISK Normal [facility] Comment on above: Performed By: #### C RP, CMP #### [facility] [address] [address] [address] Clive Main LDL CALC NORMAL SEE BELOW Normal [facility] [place] [facility] Comment on above: Result Comment: <100 mg/dl OPTIMAL 100 - 129 mg/dl NEAR OR ABOVE OPTIMAL 130 - 159 mg/dl BORDERLINE HIGH 160 - 189 mg/dl HIGH >190 mg/dl VERY HIGH Performed By: #### C RP, CMP #### [facility] [address] [place] [address] Dr. Clive Main Triglyceride [Mass/Vol] 123 mg/dL Normal <=[address] [facility] Comment on above: Performed By: #### C RP, CMP #### [facility] [address] [address] [address] Clive Main VLDL CALC 24.6 mg/dL Normal [facility] Comment on above: Performed By: #### C RP, CMP #### [facility] [address] [place] [address] Dr. Clive Main MAGNESIUMon 01-10-2023 Magnesium [Mass/Vol] 2.1 mg/dL Normal 1.8-2.[address] [facility] Comment on above: Performed By: #### C RP, CMP #### [facility] [address] [place] [address] Dr. Clive Main PROF 14(COMP METB)on 023 Albumin [Mass/Vol] 4.5 g/dL Normal 3.4-5.0 [facility] Comment on above: Performed By: #### C RP, CMP #### [facility] [address] [place] [address] Dr. Clive Main Albumin/Globulin [Mass ratio] 1.2 {ratio} Normal [facility] Comment on above: Performed By: #### C RP, CMP #### [facility] [address] [address] [address] Clive Main ALP [Catalytic activity/Vol] 78 U/L Normal 46-[address] [facility] Comment on above: Performed By: #### C RP, CMP #### [facility] [address] [address] [address] Clive Main ALT [Catalytic activity/Vol] 43 U/L Normal 16-[address] [facility] Comment on above: Performed By: #### C RP, CMP #### [facility] [address] [address] [address] Clive Main Anion gap [Moles/Vol] 17.6 mmol/L Normal Th [facility] Comment on above: Performed By: #### C RP, CMP #### [facility] [address] [place] [address] Dr. Clive Main AST [Catalytic activity/Vol] 23 U/L Normal 15-[address] [facility] Comment on above: Performed By: #### C RP, CMP #### [facility] [address] [place] [address] Dr. Clive Main Bilirubin [Mass/Vol] 0.7 mg/dL Normal 0.2-1.[address] [facility] Comment on above: Performed By: #### C RP, CMP #### [facility] [address] [place] [address] Dr. Clive Main Calcium [Mass/Vol] 9.2 mg/dL Normal 8.5-10.1 [facility] Comment on above: Performed By: #### C RP, CMP #### [facility] [address] [place] [address] Dr. Clive Main Chloride [Moles/Vol] 102 mmol/L Normal 98-[address] [facility] Comment on above: Performed By: #### C RP, CMP #### [facility] [address] [address] [address] Clive Main CO2 [Moles/Vol] 22.1 mmol/L Normal 21.0-32.0 [facility] Comment on above: Performed By: #### C RP, CMP #### [facility] [address] [place] [address] Dr. Clive Main Creatinine [Mass/Vol] 0.88 mg/dL Normal 0.70-1.[address] [facility] Comment on above: Performed By: #### C RP, CMP #### [facility] [address] [address] [address] Clive Main EGFR-AF SWAZI >60 Normal >=60 [facility] Comment on above: Performed By: #### C RP, CMP #### [facility] [address] [place] [address] Dr. Clive Main EGFR-NON AF SWAZI >60 Normal >=[address] [facility] Comment on above: Performed By: #### C RP, CMP #### [facility] [address] [place] [address] Dr. Clive Main Globulin (S) [Mass/Vol] 3.8 g/dL Normal [facility] Comment on above: Performed By: #### C RP, CMP #### [facility] [address] [place] [address] Dr. Clive Main Glucose [Mass/Vol] 98 mg/dL Normal 74-106 [facility] Comment on above: Performed By: #### C RP, CMP #### [facility] [address] [place] [address] Dr. Clive Main Potassium [Moles/Vol] 3.7 mmol/L Normal 3.5-5.[address] [facility] Comment on above: Performed By: #### C RP, CMP #### [facility] [address] [place] [address] Dr. Clive Main Protein [Mass/Vol] 8.3 g/dL Critically high 6.4-8.2 [facility] Comment on above: Performed By: #### C RP, CMP #### [facility] [address] [place] [address] Dr. Clive Main Sodium [Moles/Vol] 138 mmol/L Normal 136-145 [facility] Comment on above: Performed By: #### C RP, CMP #### [facility] [address] [place] [address] Dr. Clive Main Urea nitrogen [Mass/Vol] 14.0 mg/dL Normal 7.0-18.[address] [facility] Comment on above: Performed By: #### C RP, CMP #### [facility] [address] [place] [address] Dr. Clive Main Urea nitrogen/Creatinine [Mass ratio] 15.9 mg/mg Normal [facility] Comment on above: Performed By: #### C RP, CMP #### [facility] [address] [place] [address] Dr. Clive Main PROTIMEon 01-10-2023 INR Coag (PPP) [Relative time] 1.08 {INR} Normal [facility] Comment on above: Performed By: #### D DIM #### [facility] [address] [place] [address] Dr. Clive Main INR GUIDELINES SEE BELOW Normal [facility] Comment on above: Result Comment: NATY RED INR: 2.0 - 3.0 CONDITIONS NOT LISTED BELOW 2.5 - 3.5 FOR PROSTHETIC HEART VALVE REPLACEMENT 2.5 - 3.5 RECURRENT THROMBOSIS Performed By: #### D DIM #### [facility] [address] [place] [address] Dr. Clive Main PT Coag (PPP) [Time] 11.4 s Normal 9.0-11.6 [facility] Comment on above: Performed By: #### D DIM #### [facility] [address] [place] [address] Dr. Clive Main PTTon 01-10-2023 aPTT Coag (Bld) [Time] 32.0 s Normal 22.3-36.[address] [facility] Comment on above: Performed By: #### D DIM #### [facility] [address] [place] [address] Dr. Clive Main SED RATE IOLAERGRENon 2022 SED RATE 9 mm/hr Normal <=15 [facility] Comment on above: Performed By: #### C RP, CMP #### [facility] [address] [place] [address] Dr. Clive Main T4on 01-10-2023 T4 [Mass/Vol] 12.20 ug/dL Critically high 4.50-12.10 [facility] Comment on above: Performed By: #### C PASQUALE, CMP #### [facility] [address] [place] [address] Dr. Clive Main TROPONIN, HIGH SENSITIVITYon 01-10-2023 HSTROP 8.1 pg/mL Normal 4.0-76.[address] [facility] Comment on above: Result Comment: CUT- OFF POINTS HAVE BEEN ESTABLISHED BASED ON THE FOURTH UNIVERSAL DEFINITIONS OF MYOCARDIAL INFARCTION. THE UPPER REFERENCE LIMIT (URL) OF TROPONIN, DEFINED THE 99TH PERCENTILE OF cTnI DISTRIBUTION IN A REFERENCE POPULATION, HAS BEEN CONFIRMED THE DECISION THRESHOLD FOR ID DIAGNOSIS. Performed By: #### H STROPN #### [facility] [address] [place] [address] Dr. Clive Main TSHon 01-10-2023 TSH 1.219 uIU/mL Normal 0.358-3.740 [facility] Comment on above: Performed By: #### C PASQUALE, CMP #### [facility] [address] [place] [address] Dr. Clive Main XR CHEST 1 Von [...] MITALI SIMON Date: 2023-01-10 19:33 Normal [facility] CBC AUTO DIFFon 01-09-2023 BASO # 0.1 103/ul Normal 0.0-0.[address] [facility] Comment on above: Performed By: #### C RP, CMP #### [facility] [address] [place] [address] Dr. Clive Main Basophils/100 WBC (Bld) 0.4 % Normal 0.2-2.[address] [facility] Comment on above: Performed By: #### C RP, CMP #### [facility] [address] [place] [address] Dr. Clive Main EO # 0.1 103/ul Normal 0.0-0.[address] [facility] Comment on above: Performed By: #### C RP, CMP #### [facility] [address] [place] [address] Dr. Clive Main Eosinophils/100 WBC (Bld) 0.9 % Normal 0.9-7.[address] [facility] Comment on above: Performed By: #### C RP, CMP #### [facility] [address] [place] [address] Dr. Clive Main Erythrocyte distribution width (RBC) [Ratio] 13.5 % Normal 11.0-15.[address] [facility] Comment on above: Performed By: #### C RP, CMP #### [facility] [address] [place] [address] Dr. Clive Main Hematocrit (Bld) [Volume fraction] 48.0 % Normal 42.0-54.[address] [facility] Comment on above: Performed By: #### C RP, CMP #### [facility] [address] [place] [address] Dr. Clive Main Hemoglobin (Bld) [Mass/Vol] 16.2 g/dL Normal 14.0-18.[address] [facility] Comment on above: Performed By: #### C RP, CMP #### [facility] [address] [place] [address] Dr. Clive Main IG # 0.04 10e3/ul Critically high 0.00-0.03 [facility] Comment on above: Performed By: #### C RP, CMP #### [facility] [address] [place] [address] Dr. Clive Main IG % 0.3 % Normal 0.0-0.[address] [facility] Comment on above: Performed By: #### C RP, CMP #### [facility] [address] [place] [address] Dr. Clive Main LYMPH # 2.3 103/ul Normal 1.2-3.[address] [facility] Comment on above: Performed By: #### C RP, CMP #### [facility] [address] [place] [address] Dr. Clive Main Lymphocytes/100 WBC (Bld) 19.3 % Critically low 20.5-60.[address] [facility] Comment on above: Performed By: #### C RP, CMP #### [facility] [address] [place] [address] Dr. Clive Main MANUAL DIFF REQ NO Normal [facility] Comment on above: Performed By: #### C RP, CMP #### [facility] [address] [place] [address] Dr. Clive Main MCH (RBC) [Entitic mass] 28.3 pg Normal 25.9-34.[address] [facility] Comment on above: Performed By: #### C RP, CMP #### [facility] [address] [place] [address] Dr. Clive Main MCHC (RBC) [Mass/Vol] 33.8 g/dL Normal 29.9-35.[address] [facility] Comment on above: Performed By: #### C RP, CMP #### [facility] [address] [place] [address] Dr. Clive Main MCV (RBC) [Entitic vol] 83.8 fL Normal 80.0-94.[address] [facility] Comment on above: Performed By: #### C RP, CMP #### [facility] [address] [place] [address] Dr. Clive Main MONO # 1.0 103/ul Critically high 0.3-0.8 [facility] Comment on above: Performed By: #### C RP, CMP #### [facility] [address] [place] [address] Dr. Clive Main Monocytes/100 WBC (Bld) 8.1 % Normal 1.7-12.[address] [facility] Comment on above: Performed By: #### C RP, CMP #### [facility] [address] [place] [address] Dr. Clive Main NEUT # 8.3 103/ul Critically high 1.4-6.5 [facility] Comment on above: Performed By: #### C RP, CMP #### [facility] [address] [place] [address] Dr. Clive Main Neutrophils/100 WBC (Bld) 71.0 % Normal 43.0-75.[address] [facility] Comment on above: Performed By: #### C RP, CMP #### [facility] [address] [place] [address] Dr. Clive Main Platelet mean volume (Bld) [Entitic vol] 11.5 fL Normal 9.5-13.[address] [facility] Comment on above: Performed By: #### C RP, CMP #### [facility] [address] [place] [address] Dr. Clive Main PLT 191 103/ul Normal 150-[address] [facility] Comment on above: Performed By: #### C RP, CMP #### [facility] [address] [place] [address] Dr. Clive Main RBC 5.73 106/ul Normal 4.70-6.10 [facility] Comment on above: Performed By: #### C RP, CMP #### [facility] [address] [place] [address] Dr. Clive Main WBC 11.7 103/ul Critically high 4.0-11.0 [facility] Comment on above: Performed By: #### C RP, CMP #### [facility] [address] [place] [address] Dr. Clive Main CPKon 01-09-2023 CK [Catalytic activity/Vol] 211 U/L Normal 39-308 [facility] Comment on above: Performed By: #### H STROPN #### [facility] [address] [place] [address] Dr. Clive Main D-DIMERon 01-09-2023 D-DIMER 0.19 mg/L FEU Normal <=0.59 [facility] Comment on above: Performed By: #### D DIM #### [facility] [address] [place] [address] Dr. Clive Main D-DIMER COMMENTS SEE BELOW Normal [facility] Comment on above: Result Comment: Incr eases [...] hospitalization. Performed By: #### D DIM #### [facility] [address] [place] [address] Dr. Clive Main LACTATE/LACTIC ACIDon 2022 Lactate [Moles/Vol] 1.0 mmol/L Normal 0.4-2.0 [facility] Comment on above: Performed By: #### H STROPN #### [facility] [address] [place] [address] Dr. Clive Main PROF 14(COMP METB)on 023 Albumin [Mass/Vol] 4.5 g/dL Normal 3.4-5.0 [facility] Comment on above: Performed By: #### H STROPN #### [facility] [address] [place] [address] Dr. Clive Main Albumin/Globulin [Mass ratio] 1.2 {ratio} Normal [facility] Comment on above: Performed By: #### H STROPN #### [facility] [address] [place] [address] Dr. Clive Main ALP [Catalytic activity/Vol] 91 U/L Normal 46-[address] [facility] Comment on above: Performed By: #### H STROPN #### [facility] [address] [place] [address] Dr. Clive Main ALT [Catalytic activity/Vol] 37 U/L Normal 16-[address] [facility] Comment on above: Performed By: #### H STROPN #### [facility] [address] [place] [address] Dr. Clive Main Anion gap [Moles/Vol] 13.9 mmol/L Normal Th [facility] Comment on above: Performed By: #### H STROPN #### [facility] [address] [place] [address] Dr. Clive Main AST [Catalytic activity/Vol] U/L Critically low 15-[address] [facility] Comment on above: Performed By: #### H STROPN #### [facility] [address] [address] [address] Clive Main Bilirubin [Mass/Vol] 0.4 mg/dL Normal 0.2-1.[address] [facility] Comment on above: Performed By: #### H STROPN #### [facility] [address] [place] [address] Dr. Clive Main Calcium [Mass/Vol] 9.0 mg/dL Normal 8.5-10.1 [facility] Comment on above: Performed By: #### H STROPN #### [facility] [address] [place] [address] Dr. Clive Main Chloride [Moles/Vol] 104 mmol/L Normal 98-[address] [facility] Comment on above: Performed By: #### H STROPN #### [facility] [address] [place] [address] Dr. Clive Main CO2 [Moles/Vol] 24.1 mmol/L Normal 21.0-32.0 [facility] Comment on above: Performed By: #### H STROPN #### [facility] [address] [place] [address] Dr. Clive Main Creatinine [Mass/Vol] 1.06 mg/dL Normal 0.70-1.[address] [facility] Comment on above: Performed By: #### H STROPN #### [facility] [address] [place] [address] Dr. Clive Main EGFR-AF SWAZI >60 Normal >=60 [facility] Comment on above: Performed By: #### H STROPN #### [facility] [address] [place] [address] Dr. Clive Main EGFR-NON AF SWAZI >60 Normal >=[address] [facility] Comment on above: Performed By: #### H STROPN #### [facility] [address] [address] [address] Clive Main Globulin (S) [Mass/Vol] 3.8 g/dL Normal [facility] Comment on above: Performed By: #### H STROPN #### [facility] [address] [address] [address] Clive Main Glucose [Mass/Vol] 101 mg/dL Normal 74-106 [facility] Comment on above: Performed By: #### H STROPN #### [facility] [address] [address] [address] Clive Main Potassium [Moles/Vol] 4.0 mmol/L Normal 3.5-5.[address] [facility] Comment on above: Performed By: #### H STROPN #### [facility] [address] [address] [address] Clive Main Protein [Mass/Vol] 8.3 g/dL Critically high 6.4-8.2 [facility] Comment on above: Performed By: #### H STROPN #### [facility] [address] [address] [address] Clive Main Sodium [Moles/Vol] 138 mmol/L Normal 136-145 [facility] Comment on above: Performed By: #### H STROPN #### [facility] [address] [address] [address] Clive Main Urea nitrogen [Mass/Vol] 22.0 mg/dL Critically high 7.0-18.[address] [facility] Comment on above: Performed By: #### H STROPN #### [facility] [address] [address] [address] Clive Main Urea nitrogen/Creatinine [Mass ratio] 20.8 mg/mg Normal [facility] Comment on above: Performed By: #### H STROPN #### [facility] [address] [address] [address] Clive Main TROPONIN, HIGH SENSITIVITYon 01-09-2023 HSTROP 6.1 pg/mL Normal 4.0-76.[address] [facility] Comment on above: Result Comment: CUT- OFF POINTS HAVE BEEN ESTABLISHED BASED ON THE FOURTH UNIVERSAL DEFINITIONS OF MYOCARDIAL INFARCTION. THE UPPER REFERENCE LIMIT (URL) OF TROPONIN, DEFINED THE 99TH PERCENTILE OF cTnI DISTRIBUTION IN A REFERENCE POPULATION, HAS BEEN CONFIRMED THE DECISION THRESHOLD FOR ID DIAGNOSIS. Performed By: #### H STROPN #### [facility] [address] [place], [place] [address] Dr. Clive Main TSHon 01-09-2023 TSH 3.045 uIU/mL Normal 0.358-3.740 [facility] Comment on above: Performed By: #### H STROPN #### [facility] [address] [place], [place] [address] Dr. Clive Main CBC with Auto Differentialon 01-07-2023 Absolute Eos # 0.18 [facility] Absolute Immature Granulocyte 0.05 [facility] Absolute Lymph # 2.34 [facility] Absolute Rogers # 0.87 [facility] Basophils (Bld) [#/Vol] 0.05 10*3/uL [facility] Basophils/100 WBC (Bld) 1 % 0 - 2 % [facility] Eosinophils/100 WBC (Bld) 2 % 1 - 4 % [facility] Hematocrit (Bld) [Volume fraction] 45.9 % 40.7 - 50.3 % [facility] Hemoglobin (Bld) [Mass/Vol] 15.5 g/dL 13.0 - 17.0 g/dL [facility] Immature granulocytes/100 WBC (Bld) 1 % High 0 [facility] Interpretation and review of laboratory results Abnormal [facility] Lymphocytes/100 WBC (Bld) 24 % 24 - 43 % [facility] MCH (RBC) [Entitic mass] 29.0 pg 25.2 - 33.5 pg [facility] MCHC (RBC) [Mass/Vol] 33.8 g/dL 28.4 - 34.8 g/dL [facility] MCV (RBC) [Entitic vol] 85.8 fL 82.6 - 102.9 fL [facility] Monocytes/100 WBC (Bld) 9 % 3 - 12 % [facility] NRBC Automated 0.0 0.0 per 100 WBC [facility] Platelet distribution width (Bld) [Ratio] 13.2 % 11.8 - 14.4 % [facility] Platelet mean volume (Bld) [Entitic vol] 11.6 fL 8.1 - 13.5 fL [facility] Platelets (Bld) [#/Vol] 169 10*3/uL [facility] RBC (Bld) [#/Vol] 5.35 10*6/uL 4.21 - 5.7 7 m/uL [facility] Segmented neutrophils/100 WBC (Bld) 63 % 36 - 65 % [facility] Segs Absolute 6.30 [facility] WBC (Bld) [#/Vol] 9.8 10*3/uL [facility] CBC with Diffon 01-07-2023 Abs. Basophil 0.05 k/uL Normal 0.00-0.20 [facility] Comment on above: Performed By: #### C P, CDP #### [facility] [address] [place] [address] [place] [address] Clinical Medical Assistant: Jacob Gamez MD Abs.Imm.Granulocyte 0.05 k/uL Normal 0.00-0.30 [facility] Comment on above: Performed By: #### C P, CDP #### [facility] [address] [place] [address] Clinical Medical Assistant: Jacob Gamez MD Abs.Neutrophil (Seg) 6.30 k/uL Normal 1.50-8.10 [facility] Comment on above: Performed By: #### C P, CDP #### [facility] [address] [place] [address] Clinical Medical Assistant: Jacob Gamez MD Basophils/100 WBC (Bld) 1 % Normal 0-2 [facility] Comment on above: Performed By: #### C P, CDP #### [facility] [address] [place] [address] Dr. [place], [facility] Clinical Medical Assistant: Jacob Gamez MD Eosinophils (Bld) [#/Vol] 0.18 10*3/uL Normal 0.00-0.44 [facility] Comment on above: Performed By: #### C P, CDP #### [address] [place], [facility] Clinical Medical Assistant: Jacob Gamez MD Eosinophils/100 WBC (Bld) 2 % Normal 1-4 [facility] Comment on above: Performed By: #### C P, CDP #### [address] [place], [place] [address] Clinical Medical Assistant: Jacob Gamez MD Erythrocyte distribution width (RBC) [Ratio] 13.2 % Normal 11.8-14.4 [facility] Comment on above: Performed By: #### C P, CDP #### [address] [place], [place] [address] Clinical Medical Assistant: Jacob Gamez MD Hematocrit (Bld) [Volume fraction] 45.9 % Normal 40.7-50.3 [facility] Comment on above: Performed By: #### C P, CDP #### [address] [place], [facility] Clinical Medical Assistant: Jacob Gamez MD Hemoglobin (Bld) [Mass/Vol] 15.5 g/dL Normal 13.0-17.0 [facility] Comment on above: Performed By: #### C P, CDP #### [address] [place], [facility] Clinical Medical Assistant: Jacob Gamez MD Immature granulocytes/100 WBC (Bld) 1 % High 0 [facility] Comment on above: Performed By: #### C P, CDP #### [address] [place], [facility] Clinical Medical Assistant: Jacob Gamez MD Lymphocytes (Bld) [#/Vol] 2.34 10*3/uL Normal 1.10-3.70 [facility] Comment on above: Performed By: #### C P, CDP #### [address] [place], [place] [id number] Clinical Medical Assistant: Jacob Gamez MD Lymphocytes/100 WBC (Bld) 24 % Normal 24-43 [facility] Comment on above: Performed By: #### C P, CDP #### [address] [place] [address] Clinical Medical Assistant: Jacob Gamez MD MCH (RBC) [Entitic mass] 29.0 pg Normal 25.2-33.5 [facility] Comment on above: Performed By: #### C P, CDP #### [address] [place], [place] [id number] Clinical Medical Assistant: Jacob Gamez MD MCHC (RBC) [Mass/Vol] 33.8 g/dL Normal 28.4-34.8 [facility] Comment on above: Performed By: #### C P, CDP #### [address] [place] [address] Clinical Medical Assistant: Jacob Gamez MD MCV (RBC) [Entitic vol] 85.8 fL Normal 82.6-102.9 [facility] Comment on above: Performed By: #### C P, CDP #### [address] [place] [address] Clinical Medical Assistant: Jacob Gamez MD Monocytes (Bld) [#/Vol] 0.87 10*3/uL Normal 0.10-1.20 [facility] Comment on above: Performed By: #### C P, CDP #### [address] [place], [place] [id number] Clinical Medical Assistant: Jacob Gamez MD Monocytes/100 WBC (Bld) 9 % Normal 3-12 [facility] Comment on above: Performed By: #### C P, CDP #### [facility] [address] [place], [place] [id number] Clinical Medical Assistant: Jacob Gamez MD Neutrophil (Seg) 63 % Normal 36-65 [facility] Comment on above: Performed By: #### C P, CDP #### [facility] [address] [place], [place] [id number] Clinical Medical Assistant: Jacob Gamez MD NRBC Automated 0.0 per 100 WBC Normal 0.0 [facility] Comment on above: Performed By: #### C P, CDP #### [facility] [address] [place], [place] [id number] Clinical Medical Assistant: Jacob Gamez MD Platelet mean volume (Bld) [Entitic vol] 11.6 fL Normal 8.1-13.5 [facility] Comment on above: Performed By: #### C P, CDP #### [address] [place], [place] [id number] Clinical Medical Assistant: Jacob Gamez MD Platelets (Bld) [#/Vol] 169 10*3/uL Normal 138-453 [facility] Comment on above: Performed By: #### C P, CDP #### [address] [place], [place] [address]4083 Clinical Medical Assistant: Jacob Gamez MD RBC (Bld) [#/Vol] 5.35 10*6/uL Normal 4.21-5.77 [facility] Comment on above: Performed By: #### C P, CDP #### [facility] [address] [place], [place] [id number] Clinical Medical Assistant: Jacob Gamez MD WBC (Bld) [#/Vol] 9.8 10*3/uL Normal 3.5-11.3 [facility] Comment on above: Performed By: #### C P, CDP #### [facility] [address] [place] [address] Clinical Medical Assistant: Jacob Gamez MD [facility] 01-07-2023 Albumin [Mass/Vol] 4.1 g/dL 3.5 - 5.2 g/dL [facility] Albumin/Globulin [Mass ratio] 1.3 {ratio} 1.0 - 2.5 [facility] ALP [Catalytic activity/Vol] 87 U/L 40 - 129 U/L [facility] ALT [Catalytic activity/Vol] 22 U/L 5 - 41 U/L [facility] Anion gap [Moles/Vol] 10 mmol/L 9 - 17 mmol/L [facility] AST [Catalytic activity/Vol] 18 U/L NINF - 40 U/L [facility] Bilirubin [Mass/Vol] 0.4 mg/dL 0.3 - 1 .2 mg/dL [facility] Calcium [Mass/Vol] 9.0 mg/dL 8.6 - 10. 4 mg/dL [facility] Chloride [Moles/Vol] 105 mmol/L 98 - 10 7 mmol/L [facility] CO2 [Moles/Vol] 23 mmol/L 20 - 31 mmol/L [facility] Creatinine [Mass/Vol] 1.08 mg/dL 0.70 - 1.20 mg/dL [facility] GFR/1.73 sq M.predicted MDRD (S/P/Bld) [Vol rate/Area] - PINF [facility] Comment on above: These results are not [...] 140 mg/dL High 70 - 99 mg/dL [facility] Interpretation and review of laboratory results Abnormal [facility] Potassium [Moles/Vol] 4.1 mmol/L 3.7 - 5.3 mmol/L [facility] Protein [Mass/Vol] 7.3 g/dL 6.4 - 8.3 g/dL [facility] Sodium [Moles/Vol] 138 mmol/L 135 - 144 mmol/L [facility] Urea nitrogen [Mass/Vol] 22 mg/dL High 6 - 20 mg/dL [facility] Urea nitrogen/Creatinine (Bld) [Mass ratio] 20 9 - [address] [facility] Comp Metabolic Profon 2022 Albumin [Mass/Vol] 4.1 g/dL Normal 3.5-5.2 [facility] Comment on above: Performed By: #### C P, CDP #### [facility] [address] [place], [place] [id number] Clinical Medical Assistant: Jacob Gamez MD Albumin/Glob Ratio 1.3 Normal 1.0-2.5 [facility] Comment on above: Performed By: #### C P, CDP #### [facility] [address] [place], [place] [id number] Clinical Medical Assistant: Jacob Gamez MD Alkaline Phos 87 U/L Normal 40-129 [facility] Comment on above: Performed By: #### C P, CDP #### [facility] [address] [place], [place] [id number] Clinical Medical Assistant: Jacob Gamez MD ALT [Catalytic activity/Vol] 22 U/L Normal 5-41 [facility] Comment on above: Performed By: #### C P, CDP #### [facility] [address] [place], [place] [id number] Clinical Medical Assistant: Jacob Gamez MD Anion gap [Moles/Vol] 10 mmol/L Normal 9-17 [facility] Comment on above: Performed By: #### C P, CDP #### [facility] [address] [place], [place] [id number] Clinical Medical Assistant: Jacob Gamez MD AST [Catalytic activity/Vol] 18 U/L Normal <40 [facility] Comment on above: Performed By: #### C P, CDP #### [facility] [address] [place] [address] Clinical Medical Assistant: Jacob Gamez MD Bilirubin [Mass/Vol] 0.4 mg/dL Normal 0.3-1.2 [facility] Comment on above: Performed By: #### C P, CDP #### [facility] [address] [place], [place] [id number] Clinical Medical Assistant: Jacob Gamez MD BUN/CRE Ratio 20 Normal 9-20 [facility] Comment on above: Performed By: #### C P, CDP #### [facility] [address] [place] [address] Clinical Medical Assistant: Jacob Gamez MD Calcium [Mass/Vol] 9.0 mg/dL Normal 8.6-10.4 [facility] Comment on above: Performed By: #### C P, CDP #### [address] [place], [place] [id number] Clinical Medical Assistant: Jacob Gamez MD Chloride [Moles/Vol] 105 mmol/L Normal 98-107 [facility] Comment on above: Performed By: #### C P, CDP #### [facility] [address] [place], [place] [address]9583 Clinical Medical Assistant: Jacob Gamez MD CO2 [Moles/Vol] 23 mmol/L Normal 20-31 [facility] Comment on above: Performed By: #### C P, CDP #### [facility] [address] [place], [place] [id number] Clinical Medical Assistant: Jacob Gamez MD Creatinine [Mass/Vol] 1.08 mg/dL Normal 0.70-1.20 [facility] Comment on above: Performed By: #### C P, CDP #### [facility] [address] [place] [address] Clinical Medical Assistant: Jacob Gamez MD GFR/1.73 sq M.predicted among non-blacks MDRD (S/P/Bld) [Vol rate/Area] mL/min/{1.73_m2} Normal >60 [facility] [facility] Comment on above: Result Comment: These results [...] Performed By: #### C P, CDP #### [address] [place] [address] Clinical Medical Assistant: Jacob Gamez MD Glucose [Mass/Vol] 140 mg/dL High 70-99 [facility] Comment on above: Performed By: #### C P, CDP #### [address] [place] [address] Clinical Medical Assistant: Jacob Gamez MD Potassium [Moles/Vol] 4.1 mmol/L Normal 3.7-5.3 [facility] Comment on above: Performed By: #### C P, CDP #### [address] [place] [address] Clinical Medical Assistant: Jacob Gamez MD Protein [Mass/Vol] 7.3 g/dL Normal 6.4-8.3 [facility] Comment on above: Performed By: #### C P, CDP #### [address] [place] [address] Clinical Medical Assistant: Jacob Gamez MD Sodium [Moles/Vol] 138 mmol/L Normal 135-144 [facility] Comment on above: Performed By: #### C P, CDP #### [address] [place] [address] Clinical Medical Assistant: Jacob Gamez MD Urea nitrogen [Mass/Vol] 22 mg/dL High 6-20 [facility] Comment on above: Performed By: #### C P, CDP #### [facility] [address] [place] [address] Clinical Medical Assistant: Jacob Gamez MD TROPONIN, HIGH SENSITIVITYon 01-07-2023 HSTROP 6.5 pg/mL Normal 4.0-76.[address] [facility] Comment on above: Result Comment: CUT- OFF POINTS HAVE BEEN ESTABLISHED BASED ON THE FOURTH UNIVERSAL DEFINITIONS OF MYOCARDIAL INFARCTION. THE UPPER REFERENCE LIMIT (URL) OF TROPONIN, DEFINED THE 99TH PERCENTILE OF cTnI DISTRIBUTION IN A REFERENCE POPULATION, HAS BEEN CONFIRMED THE DECISION THRESHOLD FOR ID DIAGNOSIS. Performed By: #### H STROPN #### [facility] [address] [place] [address] Dr. Clive Main TSHon 01-07-2023 TSH 1.852 uIU/mL Normal 0.358-3.740 [facility] Comment on above: Performed By: #### H STROPN #### [facility] [address] [address] [address] Clive Main TSH w/reflex to FT4on 2022 Thyroid Stim. Horm. 2.45 uIU/mL Normal 0.30-5.00 [facility] Comment on above: Performed By: #### T SHX #### [facility] [address] [place] [address] Clinical Medical Assistant: Jacob Gamez MD TSH with Reflexon 01-07-2023 TSH Qn 2.45 m[IU]/L [facility] XR CHEST 2 Von 01-07-2023 XR CHEST [...] EVERETT Date: 2023-01-07 18:[address] [facility] Ambulatory Visit Summaryon 0 03-29-2022 Ambulatory Visit Summary JESSE YEPEZ :1985 Visit Date:03/29/2022 Ambulatory Visit Instructions Your Care Team Attending Physician - VIVIAN NOLAN, Mahendra Prakash Primary Care Physician - [...] Acute anterior circulation transient ischemic attack Normal [facility] General Surgery Office/Clini c Noteon 03-29-2022 General [...] Years., 03/01/2022 Family History Suicide: Father. Normal [facility] Comment on above: Result Comment: Elec tronically Signed By: Mahendra PARK MD\.br\Date and Time Signed: 03/29/22 15:14 EDT Pathology Noteon 03-22-2022 Pathology Note [id number]:[address] [facility] Ambulatory Visit Summaryon 0 03-15-2022 Ambulatory Visit [...] With: Mahendra PARK MD Where: General Surgery Vivian/Haroldo Gibson Normal [facility] General Surgery Office/Clini c Noteon 03-15-2022 General [...] Years., 03/01/2022 Family History Suicide: Father. Normal [facility] Comment on above: Result Comment: Elec tronically Signed By: VIVIAN NOLAN, Mahendra Robles\Date and Time Signed: 03/15/22 17:14 EDT US CAROTID ART BILon 03-04-2 022 US CAROTID ART BIN EXAMINATION: US [...] by: JACOB AGUAYO Date: 2022-03-04 08:[address] [facility] Ambulatory Visit Summaryon 0 03-01-2022 Ambulatory Visit Summary JESSE YEPEZ :1985 Visit Date:03/01/2022 Ambulatory Visit Instructions Your Care Team Attending Physician - VIVIAN NOLAN, Mahendra Prakash Primary Care Physician - [...] With: Mahendra PARK MD Where: General Surgery Vivian/Haroldo [facility] Normal [facility] Physician Referralon 022 Physician Referral [id number] .[id number]:[address] [facility] [id number] 03-09-2020 SARS-CoV-2 Not Detected Normal Not Detected [facility] Comment on above: Result Comment: (NOT E) This test was developed and its performance characteristics determined by [employer]. This test has not been FDA cleared [...] detected) result in this assay. Performed At: [facility] [address] [facility] [place] [id number] Scar Ball MD Ph:[phone] Performed By: #### A COV #### [facility] [address] [place] [address] Clinical Medical Assistant: Mahendra Garcia MD Vital Signs Date Time Vital Sign Value Performing Clinician Devon cruz 11-12-2023 13:24-0500 SaO2% (BldA) [Mass fraction] 99 % DELILAH RAI [facility] Comment on above: Order Comment: Specimen Type: ARTERIAL B LOOD SPECIMEN Ordering Facility: [facility] Address: [address] [place] [id number] Performed By: #### A LLBG #### [facility] CLIA [id number] [address] [place], [place] [id number] [place] 01-07-2023 05:42-0400 Diastolic blood pressure 70 mm[Hg] Verena Velasquez MD Work Phone: [facility] 01-07-2023 05:42-0400 Heart rate 74 /min Verena Velasquez MD Work Phone: [facility] 01-07-2023 05:42-0400 Respiratory rate 16 /min Verena Velasquez MD Work Phone: [facility] 01-07-2023 05:42-0400 SaO2% (BldA) [Mass fraction] 95 % Verena Velasquez MD Work Phone: [facility] 01-07-2023 05:42-0400 Systolic blood pressure 147 mm[Hg] Verena Velasquez MD Work Phone: [facility] 01-07-2023 04:14-0400 Body height 193 cm Verena Velasquez MD Work Phone: [facility] 01-07-2023 04:14-0400 Body mass index (BMI) [Ratio] 50.64 kg/m2 Verena Velasquez MD Work Phone: [facility] 01-07-2023 04:14-0400 Body temperature 98.6 [degF] Verena Velasquez MD Work Phone: [facility] 01-07-2023 04:14-0400 Body weight 188.7 kg Verena Velasquez MD Work Phone: [facility] 03-01-2022 15:41-0400 Blood Pressure Location Mahendra PARK [facility] 03-01-2022 15:41-0400 Diastolic blood pressure 88 mm[Hg] Mahendra PARK [facility] 03-01-2022 15:41-0400 Heart rate 80 /min Mahendra PARK [facility] 03-01-2022 15:41-0400 Respiratory rate 16 /min Mahendra PARK [facility] 03-01-2022 15:41-0400 Systolic blood pressure 130 mm[Hg] Mahendra CHAMBERSL [facility] Encounters Encounter Date Encounter Type Care Provider Facility Start: 11-12-2023 End: 11-13-2023 ambulatory DELILAH RAI Facility:[facility] Start: 11-11-2023 Telephone encounter Obey Rai MD Work Phone: Cardiology Comment on above: Education Of Patient /family Start: 11-07-2023 End: 11-08-2023 ambulatory DELILAH RAI Facility:[facility] Start: 11-07-2023 End: 11-07-2023 ambulatory DELILAH RAI Facility:[facility] Start: 01-31-2023 End: 01-31-2023 ambulatory MAGDAELNE [facility] Start: 01-22-2023 End: 01-23-[address] JENNY RAMÍREZ . Facility:[facility] Start: 01-10-2023 End: 01-12-[address] JENNY RAMÍREZ . Facility:[facility] Start: 01-09-2023 End: 01-10-[address] JENNY RAMÍREZ . Facility:[facility] Start: 01-07-2023 End: 01-07-2023 ambulatory MATILDA ALMENDAREZ . Facility:[facility] Start: 01-07-2023 End: 01-07-2023 Emergency department patient visit VERENA VELASQUEZ [facility] Start: 01-07-2023 End: 01-07-2023 Emergency department patient visit Verena Velasquez MD Work Phone: [facility] ED Comment on above: Hypertension, unspec ified type (Primary Dx); Palpitations Start: 03-23-2022 End: 03-26-2022 ambulatory JENNY RAMÍREZ [facility] Start: 03-23-2022 End: 03-25-2022 Subsequent hospital visit by physician Ashok Barrientos Mri Room 1 [facility] Imaging MRI Comment on above: Transient ischemic a ttack, anterior circulation, acute; Essential hypertension, malignant Start: 03-08-2022 End: 03-09-[address] JENNY RAMÍREZ . Facility:[facility] Start: 03-03-2022 End: 03-04-[address] JENNY RAMÍREZ . Facility:[facility] Start: 03-01-2022 End: 03-01-2022 Patient encounter procedure Mahendra PARK [facility] Start: 03-06-2020 End: 03-07-2020 Patient encounter procedure SIERRA Gonzalez [facility] Start: 03-06-2020 End: 03-06-2020 Subsequent hospital visit by physician Shay [facility] Comment on above: Suspected COVID-19 v irus infection Procedures Date Procedure Procedure Detail Performing Clinician Start: 11-07-2023 Lipid 1996 panel - S evangelist or Plasma Delilah Rai MD Work Phone: Start: 01-07-2023 Comprehensive metabo lic panel Verena Velasquez MD Work Phone: Start: 03-06-2020 COVID-19 AMBULATORY MATTHEW RICE Repair of musculoten dinous cuff of shoulder Mahendra PARK Repair of tendon Mahendra Gonzalez Plan of Treatment Date Care Activity Detail Author Start: 11-07-2028 Lipid panel Lipid Screening [facility] Start: 11-07-2024 BP Controlled (<130/80) BP Controlle d (<130/80) [facility] Start: 10-22-2023 Depression Assessment Depression Ass essment [facility] Start: 06-22-2023 Covid-19 Vaccine () Covid-19 Vaccine () [facility] Start: 06-22-2023 Influenza vaccination Influenza Vacc ine (#1) [facility] Start: 06-22-2022 Influenza vaccination Flu vacc ine (Season Ended) [facility] Start: 05-22-2022 Influenza vaccination Flu vaccine (# 1) [facility] Start: 12-01-2021 COVID-19 Vaccine (3 - Booster for Pfizer series) COVID-19 Vaccine (3 - Booster for Pfizer series) [facility] Start: 08-26-2021 COVID-19 Vaccine (3 - Booster for Pfizer series) COVID-19 Vaccine (3 - Booster for Pfizer series) [facility] Start: 06-22-2020 Influenza vaccination Flu vacc ine (Season Ended) [place] Start: 2019 Diabetes screen Diabetes screen [facility] Start: 2003 DTaP/Tdap/Td vaccine (1 - Tdap) DTaP/Tdap/Td vaccine (1 - Tdap) [facility] Start: 2003 Urine microalbumin profile DTaP,Tdap,Td Vaccine (1 - Tdap) 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 Start: 2002 Hepatitis C screening B [facility] Start: 2002 HIV screening HIV Screening [facility] Start: 1999 HIV screening HIV screen [facility] Start: 1996 Depression Screen Depression Screen [facility] Start: 1990 Pneumococcal 0-64 ye ars Vaccine (1 - PCV) Pneumococcal 0-64 years Vaccine (1 - PCV) [facility] Start: 1990 Pneumococcal 0-64 ye ars Vaccine (1 of 1 - PPSV23) Pneumococcal 0-64 years Vaccine (1 of 1 - PPSV23) [place] Start: 1985 Varicella vaccine (1 of 2 - 2-dose childhood series) Varicella vaccine (1 of 2 - 2-dose childhood series) [facility] Start: 1984 Hepatitis B Vaccine (1 of 3 - 3-dose series) Hepatitis B Vaccine (1 of 3 - 3-dose series) [facility] End: 03-06-2020 COVID-19 Ambulatory COVID-19 Ambulatory Lab Routine Suspected Covid-19 Virus Infection 1 Occurrences starting 03/06/2020 until 03/06/2020 [facility] [place] Comment on above: 1 Occurrences starti ng 03/06/2020 until 03/06/2020 COVID-19 Ambulatory COVID-19 Amb ulatory Lab Routine Suspected COVID-19 virus infection 03/06/2020 12:57 PM EDT [facility] [place] End: 01-07-2023 Half-Way Continuous Cardia Event Monitor Half-Way Continuous Cardia Event Monitor Cardiac Services Routine One Time for 1 Occurrences starting 01/07/2023 until 01/07/2023 [employer] Phone: Comment on above: One Time for 1 Occur rences starting 01/07/2023 until 01/07/2023 End: 03-23-2022 MRI BRAIN WO CONTRAST MRI BRAIN WO CONTRAST Imaging Routine Transient ischemic attack, anterior circulation, acute Essential hypertension, malignant 1 Occurrences starting 03/23/2022 until 03/23/2022 [employer] [facility] [facility] [employer] Phone: Comment on above: 1 Occurrences starti ng 03/23/2022 until 03/23/2022 [facility] Payers Date Payer Category Payer Unknown [employer] BLUE CARD PPO OOS [id number] 2023-Present [phone] [address] [place] [address] PPO [id number] 2023 Unknown [id number] 2023 Medicaid 1985 Unknown [id number] 1984 Unknown [id number] 1984 Unknown [id number] 1984 Unknown [id number] 1984 Unknown [id number] 1984 Unknown [id number] 1984 Unknown [id number] 1984 Unknown [id number] 1959 Unknown [id number] Social History Date Type Detail Facility Start: 11-23-2016 End: 03-06-2020 Tobacco smoking status NHIS Current every day smoker [place], [place] End: 10-22-2014 History of tobacco use Cigarette Smoker [place] Start: 03-06-2020 End: 11-07-2023 Cigarettes smoked current (pack per day) - Reported [place] Start: 03-06-2020 End: 01-07-2023 Alcohol intake Current drinker of alcohol (finding) [place] Start: 11-23-2016 Tobacco Comment instructed to refrain from smoking day of surgery [place] Start: 11-23-2016 Alcohol Comment seldom [place], [place] Start: 1985 Sex Assigned At Not on file [place] Exposure to SARS-CoV -2 (event) Unable to assess [place] Start: 03-01-2022 End: 11-07-2023 Tobacco smoking status Ex-smoker (finding) [facility] Tobacco smoking status Former sm okeless tobacco user, quit more than 30 days ago [facility] Start: 11-07-2023 Sex Assigned At Male [facility] Start: 11-23-2016 End: 11-07-2023 Tobacco use and exposure Smokeless tobacco non-user [employer] [facility] Phone: Start: 12-28-2022 End: 01-07-2023 Exposure to SARS-CoV-2 (event) Not sure [employer] [facility] Phone: End: 10-22-2014 History of tobacco use Current smoker [facility] Start: 11-07-2023 Alcohol intake Ex-drinker (finding) [facility] Clinical Notes 03-01-2022 to 11-11-2023 Telephone Encounter - Lawrence Almeida RN - 11/11/2023 1:15 PM ESTDischarge Instructions Note Date & Type Note Facility 11-11-2023 Miscellaneous Notes CARDIOVASCULAR LAB INSTRUCTIONS: Readiness to Learn: Cognitive Ability: Alert and oriented Motivation To Learn: Interested Family/Significant Other Support: Unable to assess - Family not present Instruction Provided To: Patient Patient Learns Best By: Individual Instruction Factors Affecting Learning: None Physical Limitations Affecting Learning: None Learning Response: Procedure: Diagnostic Cath with Intervention Pre procedure education topics: Arrival time/NPO Status/Medications/Travel Instructions/Restrictions- instructed to be accompanied by 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 Instructed By Lawrence Almeida RN, RN. In Department of CARDIOLOGY. documented in this encounter [facility] 11-07-2023 Note HNO ID: [id number] Author: DELILAH RAI MD Service: ? Author Type: Physician Type: Progress Notes Filed: 11/08/2023 15:23 Note Text: [facility] [place] Francy Kern Department of Cardiovascular Medicine SECTION OF INTERVENTIONAL CARDIOLOGY OUTPATIENT VISIT DATE November 06, 2023 OUTPATIENT VISIT TYPE NEW PRIMARY CARE PHYSICIAN: To use this Smartlink, specify the provider ID whose address you want to display, e.g., .PROVADDR[1 (where 1 is the provider ID). REFERRING PHYSICIAN: SELF CHIEF COMPLAINT: Renal artery stenosis HISTORY OF PRESENT ILLNESS: Mr. Yepez is a 38 year old male who presents today for second opinion on symptoms and RF for CAD. NURSING INTAKE: Past medical history includes: HTN, SHYANNE, JAMES (bipap), former smoking, gout, COVID, obesity, HLD He is here for cardiovascular evaluation as well as renal artery stenosis. On 10/19 he presented to [facility] for tingling in his left hand. This lasted only a few minutes and resolved completely. CAT scan of the head and CAT scan and C-spine are both negative. EKG shows normal sinus rhythm. His symptoms of tingling in his thumb, index finger, and middle finger lasted for a few minutes and have not recurred. I've no clinical suspicion of coronary artery disease or acute coronary syndrome. This is likely a peripheral nerve issue. It has not recurred and he'll be discharged home, follow-up with his PCP. In regards to his hypertension, he has been on BP meds since about 2015. Recently he was prescribed lisinopril, but he could not handle the side effects so he was switched to irbesartan 150 mg, which was recently changed from daily to BID recently. He saw a rewind operator in January 2023 for follow up of hospitalization for hypertensive urgency: -Reviewed his recent ECHO, renal US, and lab results with patient. -He has noted moderate renal artery stenosis on his recent ultrasound. Will manage medically at this time unless patients BP becomes uncontrollable with medications and/or he develops renal dysfunction. -BP is currently reasonably controlled. Continue carvedilol 25mg TID and hydralazine 50mg TID. Patient would benefit from ACEi or ARB if further medications are needed. He was supposed to follow up 3 months after, but did not. He has palpitations, typically at night, feels like his heart is beating harder, he sleeps on his back. He wore a holter monitor. He has leg swelling, typically worse at the end of the day and better by the morning. He is primarily sitting. he has a productive cough at times. Through out the day he will have some lightheadedness with position changes. He complains of chest pain that is on left side and will radiate up his neck. He feels more short of breath with exertion. He states these symptoms have been ongoing since September. Risk factors for coronary artery disease hyperlipidemia, hypertension, history of smoking, obesity He denies orthopnea, PND, syncope, claudication, and wheezing. Diet / Nutrition: low sodium Weight: weight fluctuates +/- 20lbs Exercise: walking 30-90 minutes 4 x weekly 03/04/2022 CUS: IMPRESSION: 1. Moderate atherosclerotic disease within the renal arteries resulting in elevated flow velocities within the mid and distal renal arteries bilaterally with resistive index up to 0.75 on right and 0.77 on left. 01/07/2023 Event monitor: Recording Length: 5 days, 9 hours. Findings Summary 1. Predominant rhythm: Normal sinus rhythm. 2. Ectopic Atrial Rhythm (EAR). 3. PAC <0.1%. Multiple symptoms were reported and were associated with normal sinus rhythm in the 60's to 90's. Otherwise unremarkable study. 01/11/2023 MRI brain: IMPRESSION: Unremarkable noncontrast MRI of the brain for acute pathology. 01/11/2023 Renal US: IMPRESSION: 1. Moderate atherosclerotic disease within the renal arteries resulting in elevated flow velocities within the mid and distal renal arteries bilaterally with resistive index up to 0.75 on right and 0.77 on left. 01/12/2023 CUS: FINDINGS: RIGHT CAROTID ARTERY: Mild plaque without [...] EDV: 22.3 cm/s ICA: Prox: PSV: 116.8 cm/ (more content not included)... [facility] 01-31-2023 Note Review of Systems Constitutional: Positive for malaise/fatigue. Cardiovascular: Positive for dyspnea on exertion, irregular heartbeat, leg swelling and palpitations. All other systems reviewed and are negative. Doron is here as a new patient follow up for hypertension. [facility] 01-31-2023 Note Cardiovascular Medic in[facility] SUBJECTIVE Chief Complaint Patient presents with Hypertension New Patient HPI Jesse Sal is a 37 y.o. male here as a new patient. PMHx: uncontrolled HTN, JAMES wears CPAP, TIA (1 year ago while dealing with a GI upset and couldn't keep BP medications down, BP was elevated) He was admitted at [facility] 01/07/2023 for uncontrolled HTN. 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 [facility] 01-07-2023 Hospital Discharg e instructions Verena Velasquez MD - 01/07/2023 5:42 AM EDT Continue current medications as prescribed. Follow-up with cardiology as soon as possible. Call Sunday morning to schedule the earliest available appointment. Please seek medical attention immediately if you develop any chest pain shortness of breath weakness dizziness lightheadedness or any other acute concerns. documented in this encounter [employer] Phone: 03-01-2022 Note Chief Complaint consultation for nevus [...] 36 Years., 03/01/2022 Family History Suicide: Father. [facility] Comment on above: Result Comment: Elec tronically Signed By: VIVIAN NOLAN, Mahendra Prakash\.br\Date and Time Signed: 03/01/22 17:17 EDT Evaluation + Plan note Future Appointments Appointment Date:03/15/2022 03:00:00 PM Scheduled Provider:Mahendra PARK MD [facility]oint[facility] Type: Procedure 30 [facility] Evaluation note Diagnosis Transient ischemic attack, anterior circulation, acute Unspecified transient cerebral ischemia Essential hypertension, malignant documented in this encounter [employer] Phone: evaluation note* Diagnosis Hypertension, unspecified type- Primary Palpitations documented in this encounter [employer] Phone: Hospital course Narrative No data available for this section General [facility] Discharge instructions No data available for this section General Surgery [employer] Assessments Diagnosis Suspected COVID-19 virus infection Advance Directives No Advanced Directives Records FoundDocuments on File Type Date Recorded Patient Md Physician Dermatologist Expl anation Advance Directives and Living Will Power of House Cleaner Supervisor Latest Code Status on File Code Status Date Activated Date Inactivated Comments Full Code 11/30/2016 1:55 PM 11/30/2016 5:37 PM Full Code 11/30/2016 10:18 AM 11/30/2016 1:55 PM Documents on File Type Date Recorded Patient Md Physician Dermatologist Expl anation ACP-Advance Directive ACP-Power of House Cleaner Supervisor Latest Code Status on File Code Status [...] Contact Cardiology Diagnoses Hypertension, unspecified type Palpitations Verena Velasquez MD [address] [place] [address] [facility] [address] [place] [phone] Referral ID Status Reason Start Date Expiration Date V isits Requested Visits Authorized [id number] Open Specialty Services Required 01/07/2023 01/07/2024 1 1 Scheduling Instructions [facility] Wilkerson MD [address] [place], [place] [id number] Comments The patient can be scheduled with any member of the group, including the provider with the first available appointments. Specialty Diagnoses / Procedures Referred By Contac t Referred To Contact Radiology Diagnoses Transient ischemic attack, anterior circulation, acute Essential hypertension, malignant Procedures MRI BRAIN WO CONTRAST Jenny Ramírez MD [address] [place] [address] Referral ID Status Reason Start Date Expiration Date V isits Requested Visits Authorized [id number] Authorized 03/09/2022 04/08/2022 1 1 Additional Source Comments (unrecognized sect ion and content) No Status Records FoundNo Status Records FoundNo Status Records FoundNo Status Records FoundNo Status Records FoundNo Status Records FoundNo Status Records Found INFORMATION SOURCE (unrecogn ized section and content) DATE [facility]ATED [facility] DATE CREATED AUTHOR AUTHOR'S ORGANIZ ATION 03/25/2022 [facility] DATE CREATED AUTHOR AUTHOR'S ORGANIZ ATION 03/30/2022 [facility] DATE CREATED AUTHOR AUTHOR'S ORGANIZ ATION 01/07/2023 [facility] DATE CREATED AUTHOR AUTHOR'S ORGANIZ ATION 01/27/2023 [facility] DATE CREATED AUTHOR AUTHOR'S ORGANIZ ATION 02/01/2023 [facility] DATE CREATED AUTHOR AUTHOR'S ORGANIZ ATION 12/26/2023 [facility] Reason for Visit (unrecogniz ed section and content) Specialty Diagnoses / Procedures Referred By Contac t Referred To Contact Radiology Diagnoses Transient ischemic attack, anterior circulation, acute Essential hypertension, malignant Procedures MRI BRAIN WO CONTRAST Jenny Ramírez MD [address] [place] [address] Referral ID Status Reason Start Date Expiration Date V isits Requested Visits Authorized [id number] Authorized 03/09/2022 04/08/2022 1 1 Reason Comments Hypertension Took bp meds around 11 pm, started feeling off and anxious around midnight. bp at home 178/116. Anxiety Reason Comments Education Of Patient/family Care Teams (unrecognized sec tion and content) Search Advertising Strategist Relationship Specialty Start Date End Date Jenny Ramírez MD [address] [place] [address] 026 PCP - General Family Medicine 01/07/23 Search Advertising Strategist Relationship Specialty Start Date End Date Delilah Rai MD [address] [place] [address] Primary Staff Physician Cardiology 11/07/23 Source Comments (unrecognize d section and content) In the event this informatio n is protected by the Federal Confidentiality of Alcohol and Drug Abuse Patient Records regulations: The Federal rules restrict any use of the information to criminally investigate or prosecute any alcohol or drug abuse patient.[facility] FOR RECORDS PERTAINING TO PATIENTS WHO ARE [...] BE BASED ON THE PRIMARY CLINICAL RECORDS. [facility]. provides no warranty or guarantee of the accuracy or completeness of information in this document.
== END 2024-08-05 08:02 | disposition home or self-care (01) ==
LOC: VC 08:01
PROVIDERS: PCP Family Medicine; Visit Provider Family Medicine
DX: R60.0 Localized edema (principal)
CPT/HCPCS: 93970

== ENCOUNTER 2024-08-21 09:02 | Outpatient (OUT) | payer BC, SELFPAY ==
--- NOTE | 2024-08-19 09:11 | VEINCLINIC_ITS ---
Vital Signs 08/21/24 09:08 BP 124/68 BP Location Left Brachial BP Position Sitting BP Cuff Size Adult BP Source Automatic Cuff Respiration 16 Pulse 72 Pulse Source Monitor Pulse Oximetry (%) 98 Comment The patient's blood pressure is elevated. Varicose Veins Patient is a 38 year old male in this day as a referral from Dr. Ramírez with c/o bilateral leg edema and pain for approximately 5 years. Patient has worn bilateral leg knee high compression stockings for approximately 3 years with some relief. Patient does have family history of varicose vein disease in materanl grandmother. No history of varicose vein treatment with patient nor history of blood clotting issues. Genaro Mckenzie MD personally performed the services described in this documentation, as scribed by Brayden Cota RN in my presence and it is both accurate and complete. I, Brayden Cota RN, am scribing for, and in the presence of, Dr. Genaro Jaeger and in the presence of the patient. . thigh: bilateral, knee: bilateral, calf: bilateral, ankle: bilateral and de leon: bilateral aching, cramping and tender 6 5 years Worsened in recent months: Yes sitting elevating extremities, compression stockings and exercise Reports muscle spasms of leg, heaviness, limb pain and leg edema History of lower extremity trauma: No Superficial thrombophlebitis: No Family history of varicose veins: yes Has patient had previous lower extremity venous surgery: No Patient has previously received the following treatment(s) for lower extremity varicose veins: Reports none Does patient have a history of : not applicable Does patient intend to have future pregnancies: not applicable Has patient had lower extremity venous scan with relux testing: Yes Support hose used: Yes Problems walking or doing physical activity: Yes How does it affect you: pain causes patient to have to elevate and rest legs Do you walk much: Yes Do you stand much: Yes Review of Systems ROS Narrative Genaro Mckenzie MD personally performed the services described in this documentation, as scribed by Brayden Cota RN in my presence and it is both accurate and complete. IBrayden RN, am scribing for, and in the presence of, Dr. Genaro Jaeger and in the presence of the patient. Status of ROS 10 or more systems reviewed and unremark able except as noted in history and below Cardiovascular Reports: edema Integumentary/Breast Reports: changes in skin color PFSH PFSH Medical History (Updated 08/21/24 @ 10:59 by Brayden Cota) Varicose veins of bilateral lower extremities with pain ?I83.813 - Varicose veins of bilateral lower extremities with pain (ICD-10) Finger tendinitis ?M77.8 - Other enthesopathies, not elsewhere classified (ICD-10) Gout ?M10.9 - Gout, unspecified (ICD-10) Hypertension ?I10 - Essential (primary) hypertension (ICD-10) Rotator cuff arthropathy of right shoulder ?M12.811 - Other specific arthropathies, not elsewhere classified, right shoulder (ICD-10) Family History (Updated 08/21/24 @ 09:21 by Brayden Cota) Other Family history of CHF (congestive heart failure) Family history of hypertension Family history of myocardial infarction Pain due to varicose veins of both lower extremities Social History (Updated 08/21/24 @ 09:21 by Brayden Cota) Within the past year, how often did you have a drink containing alcohol: never Score interpretation: A score less than 4 is consistent with normal alcohol consumption. Smoking status: Former smoker Non-prescribed substance use: denies use Meds Home Medications and Allergies Home Medications ?Medication ?Instructions ?Recorded ?Confirmed ?Type allopurinol 100 mg tablet 100 mg 10/19/23 History carvedilol 25 mg tablet 25 mg 10/19/23 History hydralazine 50 mg tablet 50 mg 10/19/23 History irbesartan 75 mg tablet (Avapro) 75 mg PO DAILY 08/21/24 08/21/24 History Allergies Allergy/AdvReac Type Severity Reaction Status Date / Time Penicillins Allergy Hives Verified 08/21/24 09:24 Exam Narrative Exam Narrative: Genaro Mckenzie MD personally performed the services described in this documentation, as scribed by Brayden Cota RN in my presence and it is both accurate and complete. Brayden Mckenzie RN, am scribing for, and in the presence of, Dr. Genaro Jaeger and in the presence of the patient. Constitutional Documenting provider has reviewed patient's vital signs: yes Common normals: oriented x3 Nutritional appearance: overweight Cardio Peripheral pulses: posterior tibial pulses present and dorsalis pedis pulses present Extremity Common normals: normal capillary refill General: calf tenderness and edema Right lower extremity: lower leg Right lower leg: inspection and palpation Left lower extremity: lower leg Left lower leg: inspection and palpation Neuro Common normals: oriented x3 Results Additional Findings Additional findings: Bilateral leg reflux u/s reveals bilateral leg great saphenous insufficiency with associated dilation along with bilateral leg branch saphenous truncal tributary varicosities. Genaro Mckenzie MD personally performed the services described in this documentation, as scribed by Brayden Cota RN in my presence and it is both accurate and complete. Brayden Mckenzie RN, am scribing for, and in the presence of, Dr. Genaro Jaeger and in the presence of the patient. Assessment and Plan Assessment and Plan (1) Varicose veins of bilateral lower extremities with pain: Plan Patient to continue use of bilateral leg knee high compression stockings, exercise, rest, and elevation of bilateral feet/ankle. Patient to return for EVLT of left GSV followed by right GSV Genaro Mckenzie MD personally performed the services described in this documentation, as scribed by Brayden Cota RN in my presence and it is both accurate and complete. Brayden Mckenzie RN, am scribing for, and in the presence of, Dr. Genaro Jaeger and in the presence of the patient.
--- NOTE | 2024-08-19 09:23 | P.DS_ITS ---
Discharge Plan Discharge Disposition: Home, Self-Care Outpatient Diagnostics: VC Endovenous Ablation 1VeinLT (Routine) Timeframe: 2 Months Facility: [facility] - Location: [facility] Ordered By: Genaro Jaeger Plan of Treatment: EVLT of left GSV Patient Instructions: Endovenous Ablation (DC) Print Language: Kyrgyz Discharge Date/Time: 08/21/24 11:00
[2024-08-21 09:08] VITALS: BP 124/68; PULSE 72; O2SAT 98
--- OUTSIDE RECORDS SUMMARY | 2024-08-21 09:24 | XMS_ITS | CCD ---
Author Organization [facility] Care Team Providers Care Mechanic Recovery Name Role Phone High, Generic Primary Care Provider UnavailSIERRA Arriaza Referring Unavailable HIGH, GENERIC Primary Care Unavailable Jenny Ramírez Primary Care Physician Unavailable Primary Care Provider UnavailJENNY Duvall Referring Unavailable Jenny Ramírez MD Primary Care Provider [phone] VERENA VELASQUEZ Attending Unavailable JENNY RAMÍREZ [...] Unavailable HOY ., DR ALVARADO Admitting Unavailable PURDY, DR JACOB Tolbert Consulting Unavailable SIM .DR [...] FERRARI Attending Unavailable Delilah Rai MD Unavailable DELILAH RAI Attending Unavailable DELILAH RAI Referring Unavailable DELILAH RAI Referring Unavailable DELILAH RAI Admitting Unavailable DELILAH RAI Attending Unavailable DELILAH RAI Referring Unavailable DELILAH RAI Attending Unavailable Allergies Allergy Classification Reported Allergen(s) Allergy Type Date of Onset Reaction(s) Facility (4 sources) Penicillins; Translations: [PENICILLINS] Propensity to adverse reactions to drug 11-30-[address] [place] [address] (4 sources) Sulfamethoxazole / Trimethoprim; Translations: [SULFAMETHOXAZOLE-T RIMETHOPRIM] Drug Allergy 11-23-[address] [place] [address] (2 sources) Penicillin; Translations: [penicillin] Drug Allergy [facility] (disorder) [facility] [place] (2 sources) Penicillins Propensity to adverse reactions to drug 11-30-[address] [place] [address] (1 source) Amoxicillin Drug Allergy [facility] Medications Current Medications Medication Drug Class(es) [...] 11-08-2023 11-08-2023 Episodic Other aftercare (1 source) alf (current) use of aspirin; Translations: [AUDIOVISUAL LEAD TECHNICIAN CURRENT USE OF ASPIRIN] Onset: 01-17-2023 Episodic Other aftercare (1 source) Other exterminator (current) drug therapy; Translations: [OTH AUDIOVISUAL LEAD TECHNICIAN CURRENT DRUG THERAPY] Onset: 01-17-2023 Episodic Other [...] Test Name Value Interpretation Reference Range Facility [facility] ([id number]) 1985 M Date Time Provider Department 12/25/23 DELILAH RAI During your visit today, we recorded the following information about you: Alvin Prater 12/25/2023 2:54 PM Signed Pt's PCP called requesting copies of OPD note, cath report and testing. Faxed via [employer] Allergies As of Date: 12/25/2023 Noted Allergy [...] Encounter Status:Closed by ALVIN PRATER on 12/25/23 [facility]ES[facility] YE[facility] ([id number]) 1985 M Date Time Provider Department 11/21/23 DELILAH RAI During your visit today, we recorded the following information about you: Alvin Prater 11/21/2023 9:12 AM Signed Rec'd faxed FMLA forms to fill out. Copy saved to scanned documents Azalia Barnes APRN.CNP 11/21/2023 5:33 PM Signed [facility] papers completed Allergies As of Date: 11/21/2023 Noted Allergy Reaction PENICILLINS 11/07/2023 4 - Hives Date Reviewed: 11/12/2023 Reviewed by: Maddy Eid RN - Fully Assessed Reason for Visit: [place] Paperwork [1015] Prescriptions as of 11/21/2023 - allopurinol (ZYLOPRIM) [...] Status:Closed by AZALIA BARNES on 11/21/23 Normal [facility] ARTERIAL BLOOD GASESon 11-12 Base deficit (BldA) [Moles/Vol] -2 mmol/L Normal -2-0 [facility] Comment on above: Order Comment: Speci men Type: ARTERIAL BLOOD SPECIMEN [facility] Address: [address] [place] [address] Performed By: #### A LLBG #### [facility] CLIA [id number] [address] [place] [address] [place] Calcium.ionized (Bld) [Mass/Vol] 1.25 mmol/L Normal 1.08-1.30 [facility] Comment on above: Order Comment: Speci men Type: ARTERIAL BLOOD SPECIMEN [facility] Address: [address] [place] [address] Performed By: #### A LLBG #### [facility] CLIA [id number] [address] [place] [address] [place] Calcium.ionized adjusted to pH 7.4 (BldA) [Moles/Vol] 1.24 mmol/L Normal 1.08-1.30 [facility] Comment on above: Order Comment: Speci men Type: ARTERIAL BLOOD SPECIMEN [facility] Address: [address] [place] [address] Performed By: #### A LLBG #### [facility] CLIA [id number] [address] [place] [address] [place] Carboxyhemoglobin (BldA) [Mass fraction] 1.1 % Normal 0.0-2.0 [facility] Comment on above: Order Comment: Speci men Type: ARTERIAL BLOOD SPECIMEN [facility] Address: [address] [place] [address] Result Comment: Carb oxyhemoglobin Reference Range for Smokers: 2.0-8.0% Performed By: #### A LLBG #### [facility] IA [id number] [address] [place] [address] [place] CO2 (Bld) [Partial pressure] 39 mm Hg Normal 36-46 [facility] Comment on above: Order Comment: Speci men Type: ARTERIAL BLOOD SPECIMEN [facility] Address: [address] [place] [address] Performed By: #### A LLBG #### [facility] CLIA [id number] [address] [place] [address] [place] CO2 adjusted to patient's actual temperature (Bld) [Partial pressure] 39 mmHg Normal 36-46 [facility] Comment on above: Order Comment: Speci men Type: ARTERIAL BLOOD SPECIMEN [facility] Address: [address] [place] [address] Performed By: #### A LLBG #### [facility] CLIA [id number] [address] [place] [address] [place] Glucose [Mass/Vol] 116 mg/dL High 60-105 [facility] Comment on above: Order Comment: Speci men Type: ARTERIAL BLOOD SPECIMEN [facility] Address: [address] [place] [address] Performed By: #### A LLBG #### [facility] CLIA [id number] [address] [place] [address] [place] HCO3 (Bld) [Moles/Vol] 23 mmol/L Normal 22-26 [facility] Comment on above: Order Comment: Speci men Type: ARTERIAL BLOOD SPECIMEN [facility] Address: [address] [place] [address] Performed By: #### A LLBG #### [facility] CLIA [id number] [address] [place] [address] [place] Hematocrit (Bld) [Volume fraction] 45.5 % Normal 39.0-51.0 [facility] Comment on above: Order Comment: Speci men Type: ARTERIAL BLOOD SPECIMEN [facility] Address: [address] [place] [address] Performed By: #### A LLBG #### [facility] CLIA [id number] [address] [place] [address] [place] Hemoglobin (Bld) [Mass/Vol] 14.9 g/dL Normal 13.0-17.0 [facility] Comment on above: Order Comment: Speci men Type: ARTERIAL BLOOD SPECIMEN [facility] Address: [address] [place] [address] Performed By: #### A LLBG #### [facility] CLIA [id number] [address] [place] [address] [place] Lactate [Moles/Vol] 1.2 mmol/L Normal 0.5-2.2 [facility] Comment on above: Order Comment: Speci men Type: ARTERIAL BLOOD SPECIMEN [facility] Address: [address] [place] [address] Performed By: #### A LLBG #### [facility] CLIA [id number] [address] [place] [address] [place] Methemoglobin (Bld) [Mass fraction] 1.1 % Normal 0.0-1.5 [facility] Comment on above: Order Comment: Speci men Type: ARTERIAL BLOOD SPECIMEN [facility] Address: [address] [place] [address] Performed By: #### A LLBG #### [facility] CLIA [id number] [address] [place] [address] [place] Oxygen (Bld) [Partial pressure] 111 mm Hg High 85-95 [facility] Comment on above: Order Comment: Speci men Type: ARTERIAL BLOOD SPECIMEN [facility] Address: [address] [place] [address] Performed By: #### A LLBG #### [facility] CLIA [id number] [address] [place] [id number] [place] Oxygen adjusted to patient's actual temperature (Bld) [Partial pressure] 111 mmHg High 85-95 [facility] Comment on above: Order Comment: Speci men Type: ARTERIAL BLOOD SPECIMEN [facility] Address: [address] [place] [address] Performed By: #### A LLBG #### [facility] CLIA [id number] [address] [place] [address] [place] Oxyhemoglobin (BldA) [Mass fraction] 97 % Normal 95-98 [facility] Comment on above: Order Comment: Speci men Type: ARTERIAL BLOOD SPECIMEN [facility] Address: [address] [place] [address] Performed By: #### A LLBG #### [facility] CLIA [id number] [address] [place] [address] [place] pH (Bld) 7.38 [pH] Normal 7.35-7.45 [facility] Comment on above: Order Comment: Speci men Type: ARTERIAL BLOOD SPECIMEN [facility] Address: [address] [place] [address] Performed By: #### A LLBG #### [facility] CLIA [id number] [address] [place] [address] [place] pH adjusted to patient's actual temperature (Bld) 7.38 Normal 7.35-7.45 [facility] Comment on above: Order Comment: Speci men Type: ARTERIAL BLOOD SPECIMEN [facility] Address: [address] [place] [address] Performed By: #### A LLBG #### [facility] CLIA [id number] [address] [place] [address] [place] Potassium [Moles/Vol] 4.3 mmol/L Normal 3.5-5.0 [facility] Comment on above: Order Comment: Speci men Type: ARTERIAL BLOOD SPECIMEN [facility] Address: [address] [place] [address] Performed By: #### A LLBG #### [facility] CLIA [id number] [address] [place] [address] [place] Sodium [Moles/Vol] 141 mmol/L Normal 136-144 [facility] Comment on above: Order Comment: Speci men Type: ARTERIAL BLOOD SPECIMEN [facility] Address: [address] [place] [address] Performed By: #### A LLBG #### [facility] CLIA [id number] [address] [facility] [id number] [id number] [place] CARD CATH DIAGNOSTICon 11-12 CARD CATH DIAGNOSTIC Site Id: [facility] Lab #: [id number] Monument Installer 1 Study Date: 11/12/2023 Start Time: 11/12/2023 10:41:02 AM End Time: 11/12/2023 12:04:05 PM Physician Name Delilah Rai M.D., Beka M.D. Dugan, Eunice M.D. Sheng, Calvin M.D. Nursing/Critical Access HospitalJennifer R.N., M. RJulisa Leavitt R.N., K. R.NHay [...] Catheter Heparin-Coated Multiflex, Non-latex (formerly Hospira cat# [id number]) (INCORRECT BARCODE FORMAT) Used Catheter, Diagnostic Imaging [...] Time: 10/23 (more content not included)... Normal [facility] CNPNon 11-11-2023 CNPN Telephone (CATLMN) JESSE YEPEZ ([id number]) 1985 Date Time Provider Department 11/11/23 DELILAH [...] ions- instructed to be accompanied by adult ambulance driver at discharge Patient/Family Response Evaluation: Verbalizes [...] Status:Closed by LAWRENCE ALMEIDA RN on 11/11/23 [facility] 11-08-2023 CALIN Telephone (EFFIE) JESSE YEPEZ ([id number]) 1985 M Date Time Provider Department 11/08/23 DELILAH ARI During your visit today, we recorded the [...] be - Office explained that this is aviyywv-re-iqgugzx based and something we are unable to [...] documents/records to be emailed * Email: [email or web address] Records that need to be sent - [...] The correct email address is the following: [email or web address]) Office emailed the letter and attachments as requested. Pt's employer's number is [phone]. Allergies As of Date: 11/08/2023 Noted Allergy Reaction PENICILLINS 11/07/2023 4 - Hives Date Reviewed: 11/07/2023 Reviewed by: Alison Christy RN - Fully Assessed Reason for Visit: Release Of Medical Records [2017] Cmt: Cardiac Cath/OPD Notes - Employment Purposes Patient Question [9556] RTW/Cath Documents Needed [Other] Prescriptions as of [...] Status:Closed by ALVIN PRATER on 11/08/23 Normal [facility] CBC panel Auto (Bld)on 11-07 Erythrocyte distribution width (RBC) [Ratio] 13.3 % Normal 11.5-15.0 [facility] Comment on above: Order Comment: Speci men Type: BLOOD SPECIMEN [facility] Address: [address] [place] [address] Performed By: #### 5 8410-2 #### [facility] CLIA [id number] [address] [place] [address] [place] Hematocrit (Bld) [Volume fraction] 46.8 % Normal 39.0-51.0 [facility] Comment on above: Order Comment: Speci men Type: BLOOD SPECIMEN [facility] Address: [address] [place] [address] Performed By: #### 5 8410-2 #### [facility] CLIA [id number] [address] [place] [address] [place] Hemoglobin (Bld) [Mass/Vol] 15.5 g/dL Normal 13.0-17.0 [facility] Comment on above: Order Comment: Speci men Type: BLOOD SPECIMEN [facility] Address: [address] [place] [address] Performed By: #### 5 8410-2 #### [facility] CLIA [id number] [address] [place] [address] [place] MCH (RBC) [Entitic mass] 28.3 pg Normal 26.0-34.0 [facility] Comment on above: Order Comment: Speci men Type: BLOOD SPECIMEN [facility] Address: [address] [place] [address] Performed By: #### 5 8410-2 #### [facility] CLIA [id number] [address] [place] [address] [place] MCHC (RBC) [Mass/Vol] 33.1 g/dL Normal 30.5-36.0 [facility] Comment on above: Order Comment: Speci men Type: BLOOD SPECIMEN [facility] Address: [address] [place] [address] Performed By: #### 5 8410-2 #### [facility] CLIA [id number] [address] [place] [address] [place] MCV (RBC) [Entitic vol] 85.4 fL Normal 80.0-100.0 [facility] Comment on above: Order Comment: Speci men Type: BLOOD SPECIMEN [facility] Address: [address] [place] [address] Performed By: #### 5 8410-2 #### [facility] CLIA [id number] [address] [place] [address] [place] Nucleated RBC (Bld) [#/Vol] 10*3/uL Normal <0.01 [facility] Comment on above: Order Comment: Speci men Type: BLOOD SPECIMEN [facility] Address: [address] [place] [address] Performed By: #### 5 8410-2 #### [facility] CLIA [id number] [address] [place] [address] [place] Platelet mean volume (Bld) [Entitic vol] 11.5 fL Normal 9.0-12.7 [facility] Comment on above: Order Comment: Speci men Type: BLOOD SPECIMEN [facility] Address: [address] [place] [address] Performed By: #### 5 8410-2 #### [facility] CLIA [id number] [address] [place] [address] [place] Platelets (Bld) [#/Vol] 168 10*3/uL Normal 150-400 [facility] Comment on above: Order Comment: Speci men Type: BLOOD SPECIMEN [facility] Address: [address] [place] [address] Performed By: #### 5 8410-2 #### [facility] CLIA [id number] [address] [place] [address] [place] RBC (Bld) [#/Vol] 5.48 10*6/uL Normal 4.20-6.00 [facility] Comment on above: Order Comment: Speci men Type: BLOOD SPECIMEN [facility] Address: [address] [place] [address] Performed By: #### 5 8410-2 #### [facility] CLIA [id number] [address] [place] [address] [place] WBC (Bld) [#/Vol] 8.07 10*3/uL Normal 3.70-11.00 [facility] Comment on above: Order Comment: Speci men Type: BLOOD SPECIMEN [facility] Address: [address] [place] [address] Performed By: #### 5 8410-2 #### [facility] CLIA [id number] [address] [place] [address] [place] CNOVon 11-07-2023 CNOV Office Visit (CATHMN ) JESSE YEPEZ ([id number]) 1985 M Date Time Provider Department 11/07/23 8:45 AM DELILAH RAI During your visit today, we recorded the following information about you: Pulse Respiration Blood pressure Weight 67/minute 18/minute 119/75 188.7 kg Height 1.93 m Delilah Rai MD 11/08/2023 3:23 PM Signed [facility] Department of Cardiovascular Medicine SECTION [...] artery stenosis. On 10/19 he presented to [facility] for tingling in his left hand. [...] daily to BID recently. He saw a transportation planning engineer in January 2023 for follow up of [...] No visible (more content not included)... Normal [facility] Comprehensive metabolic 2000 panelon 11-07-2023 Albumin [Mass/Vol] 4.6 g/dL Normal 3.9-4.9 [facility] Comment on above: Order Comment: Speci men Type: BLOOD SPECIMEN [facility] Address: [address] [place] [address] Performed By: #### 2 4331-1, 87505-4 #### [facility] CLIA [id number] [address] [place] [address] [place] ALP [Catalytic activity/Vol] 64 U/L Normal 38-113 [facility] Comment on above: Order Comment: Speci men Type: BLOOD SPECIMEN [facility] Address: [address] [place] [address] Performed By: #### 2 4331-1, #### [facility] CLIA [id number] [address] [place] [address] [place] ALT [Catalytic activity/Vol] 24 U/L Normal 10-54 [facility] Comment on above: Order Comment: Speci men Type: BLOOD SPECIMEN [facility] Address: [address] [place] [address] Performed By: #### 2 4331-1, 19064-9 #### [facility] CLIA [id number] [address] [place] [address] [place] Anion gap [Moles/Vol] 9 mmol/L Normal 9-18 [facility] Comment on above: Order Comment: Speci men Type: BLOOD SPECIMEN [facility] Address: [address] [place] [address] Performed By: #### 2 4331-1, #### [facility] CLIA [id number] [address] [place] [address] [place] AST [Catalytic activity/Vol] 22 U/L Normal 14-40 [facility] Comment on above: Order Comment: Speci men Type: BLOOD SPECIMEN [facility] Address: [address] [place] [address] Performed By: #### 2 4331-1, #### [facility] CLIA [id number] [address] [place] [address] [place] Bilirubin [Mass/Vol] 0.6 mg/dL Normal 0.2-1.3 [facility] Comment on above: Order Comment: Speci men Type: BLOOD SPECIMEN [facility] Address: [address] [place] [address] Performed By: #### 2 4331-1, #### [facility] CLIA [id number] [address] [place] [address] [place] Calcium [Mass/Vol] 9.5 mg/dL Normal 8.5-10.2 [facility] Comment on above: Order Comment: Speci men Type: BLOOD SPECIMEN [facility] Address: [address] [place] [address] Performed By: #### 2 4331-1, #### [facility] CLIA [id number] [address] [place] [address] [place] Chloride [Moles/Vol] 103 mmol/L Normal 97-105 [facility] Comment on above: Order Comment: Speci men Type: BLOOD SPECIMEN [facility] Address: [address] [place] [address] Performed By: #### 2 4331-1, #### [facility] CLIA [id number] [address] [place] [address] [place] CO2 [Moles/Vol] 26 mmol/L Normal 22-30 [facility] Comment on above: Order Comment: Speci men Type: BLOOD SPECIMEN [facility] Address: [address] [place] [address] Performed By: #### 2 4331-, #### [facility] CLIA [id number] [address] [place] [address] [place] Creatinine [Mass/Vol] 1.17 mg/dL Normal 0.73-1.22 [facility] Comment on above: Order Comment: Speci men Type: BLOOD SPECIMEN [facility] Address: [address] [place] [address] Performed By: #### 2 433-, #### [facility] CLIA [id number] [address] [place] [address] [place] Creatinine and Glomerular filtration rate.predicted panel (S/P/Bld) 81 mL/min/1.73m??? Normal >=60 [facility] Comment on above: Order Comment: Speci men Type: BLOOD SPECIMEN [facility] Address: [address] [place] [address] Result Comment: Janice mated Glomerular Filtration Rate [...] actual GFR. Performed By: #### 2 4331-1, 95801-7 #### [facility] CLIA [id number] [address] [place] [address] [place] Glucose [Mass/Vol] 99 mg/dL Normal 74-99 [facility] Comment on above: Order Comment: Speci wale Type: BLOOD SPECIMEN [facility] Address: [address] [place] [address] Result Comment: The [place] [employer] Association (ADA) provides guidance for cutoff [...] Standards of Medical Care in Diabetes 2016, [place] [employer]. Diabetes Care. 2016.39(Suppl 1). Performed By: #### 2 4331-1, 25345-4 #### [facility] CLIA [id number] [address] [place] [address] [place] Potassium [Moles/Vol] 4.2 mmol/L Normal 3.7-5.1 [facility] Comment on above: Order Comment: Jenaro echevarria Type: BLOOD SPECIMEN [facility] Address: [address] [place] [address] Performed By: #### 2 4331-1, 10944-5 #### [facility] CLIA [id number] [address] [place] [address] [place] Protein [Mass/Vol] 7.5 g/dL Normal 6.3-8.0 [facility] Comment on above: Order Comment: Jenaro echevarria Type: BLOOD SPECIMEN [facility] Address: [address] [place] [address] Performed By: #### 2 4331-, 58487-2 #### [facility] CLIA [id number] [address] [place] [address] [place] Sodium [Moles/Vol] 138 mmol/L Normal 136-144 [facility] Comment on above: Order Comment: Speci men Type: BLOOD SPECIMEN [facility] Address: [address] [place] [id number] Performed By: #### 2 4331-1, 10400-2 #### [facility] CLIA [id number] [address] [place] [address] [place] Urea nitrogen [Mass/Vol] 19 mg/dL Normal 9-24 [facility] Comment on above: Order Comment: Speci men Type: BLOOD SPECIMEN [facility] Address: [address] [place] [address] Performed By: #### 2 4331-1, 03310-0 #### [facility] CLIA [id number] [address] [place] [address] [place] ECG COMPLETEon 11-07-2023 ECG COMPLETE Ventricular Rate : 6 9 BPM Atrial Rate : 69 BPM P-R Interval : 174 ms QRS Duration : 108 ms Q-T Interval : 392 ms QTC Calculation(Bazett) : 420 ms Calculated P Fowler : 18 degrees Calculated R Fowler : 5 degrees Calculated T Fowler : 10 degrees NORMAL SINUS RHYTHM NORMAL ECG Confirmed by АННА BURLESON MD ([id number]) on 11/14/2023 7:55:00 AM NAME : JESSE YEPEZ PID : [id number] : 1985 Gender : Male Race : ORD : [id number] Procedure Date : Nov 07 2023 10:46:46 Edit Date : Nov 14 2023 07:55:01 Diagnosis: NORMAL SINUS RHYTHM NORMAL ECG Confirmed by АННА BURLESON MD ([id number]) on 11/14/2023 7:55:00 AM Test Reason : Location : 314 : J14 j1-4 Overread By : АННА BURLESON MD Edited By : АННА BURLESON MD Referred By : DELILAH RAI Acquired by : RASHAAD COLLIER Normal [facility] Lipid 1996 panelon 4 Cholesterol [Mass/Vol] 135 mg/dL Normal <200 [facility] Comment on above: Order Comment: Evonnei men Type: BLOOD SPECIMEN [facility] Address: [address] [place] [address] Result Comment: <200 mg/dL, Desirable 200-239 mg/dL, Borderline high >239 mg/dL, High Performed By: #### 2 4331-1, 40708-6 #### [facility] CLIA [id number] [address] [place] [address] [place] Cholesterol in HDL [Mass/Vol] 25 mg/dL Low >39 [facility] Comment on above: Order Comment: Evonnei men Type: BLOOD SPECIMEN [facility] Facility[facility] Address: [address] [place] [address] Result Comment: 40-5 9 mg/dL, Acceptable >59 mg/dL, High: Negative risk factor for coronary heart disease <40 mg/dL, Low: Positive risk factor for coronary heart disease Performed By: #### 2 4331-1, 61602-2 #### [facility] CLIA [id number] [address] [place] [address] [place] Cholesterol in LDL [Mass/Vol] 87 mg/dL Normal <100 [facility] Comment on above: Order Comment: Jenaro men Type: BLOOD SPECIMEN [facility]ing Facility: [facility] Address: [address] [place] [address] Result Comment: <100 mg/dL, Optimal 100-129 mg/dL, Near optimal/above optimal 130-159 mg/dL, Borderline high 160-189 mg/dL, High >189 mg/dL, Very high Secondary prevention optimal LDL Cholesterol levels are recommended to be < 70 mg/dL Performed By: #### 2 4331-1, 30978-0 #### [facility] CLIA [id number] [address] [place] [address] [place] Cholesterol in LDL/Cholesterol in HDL [Mass ratio] 3.48 {ratio} High <2.54 [facility] Comment on above: Order Comment: Speci men Type: BLOOD SPECIMEN [facility]ing Facility[facility] Address: [address] [place] [address] Result Comment: Ronald cline: 1. National Cholesterol Education Program ATP III Guideline At-A-Glance Quick Desk Reference: National Heart, Lung, and Blood [place]. National Institutes of Health. 2001: NIH Publication No. 01-3305. 2. An International Atherosclerosis Society position paper: global recommendations for the management of dyslipidemia: executive summary, Atherosclerosis. 2014: 232(2):410-413. Performed By: #### 2 4331-1, 36659-9 #### [facility] CLIA [id number] [address] [place] [address] [place] Cholesterol in VLDL [Mass/Vol] 23 mg/dL Normal <30 [facility] Comment on above: Order Comment: Jenaro echevarria Type: BLOOD SPECIMEN [facility] Address: [address] [place] [address] Performed By: #### 2 4331-1, 81818-2 #### [facility] CLIA [id number] [address] [place] [address] [place] Cholesterol non HDL [Mass/Vol] 110 mg/dL Normal <130 [facility] Comment on above: Order Comment: Jenaro echevarria Type: BLOOD SPECIMEN [facility] Address: [address] [place] [address] Result Comment: <130 mg/dL, Optimal 130-159 mg/dL, Near optimal/above optimal 160-189 mg/dL, Borderline high 190-219 mg/dL, High >219 mg/dL, Very high Secondary prevention optimal non HDL Cholesterol levels are recommended to be <100 mg/dL Performed By: #### 2 4331-1, 87816-9 #### [facility] CLIA [id number] [address] [place] [address] [place] Cholesterol.total/Cho lesterol in HDL [Mass ratio] 5.40 {ratio} High <5.10 [facility] Comment on above: Order Comment: Jenaro echevarria Type: BLOOD SPECIMEN [facility] Address: [address] [place] [address] Performed By: #### 2 4331-1, 89231-6 #### [facility] CLIA [id number] [address] [facility] [place] [address] [place] FASTING TIME 12 hrs Normal [facility] Comment on above: Order Comment: Speci men Type: BLOOD SPECIMEN [facility] Address: [address] [place] [address] Performed By: #### 2 4331-1, #### [facility] CLIA [id number] [address] [place] [address] [place] Triglyceride [Mass/Vol] 116 mg/dL Normal <150 [facility] Comment on above: Order Comment: Speci men Type: BLOOD SPECIMEN [facility] Address: [address] [place] [address] Result Comment: <150 mg/dL, Normal 150-199 mg/dL, Borderline high 200-499 mg/dL, High >499 mg/dL, Very high Performed By: #### 2 4331-1, #### [facility] CLIA [id number] [address] [place] [address] [place] Office Visiton 01-31-2023 Follow-up visit [id number] Jesse Yepez 1985 [facility] Provider Department Center 01/31/2023 MAGDALENE GONZALEZ CARD [...] Paternal Grandmother Alive Paternal Grandfather Level of Service:[address] [place] OFFICE/OUTPATIENT NEW MODERATE MDM 45-59 MINUTES Reason for Visit and Comments: Hypertension [345542] - New Patient Normal [facility] ALDOSTERONE: RENIN RATIOon 0 01-20-2023 Aldos/Renin Ratio 4.1 Normal 0.0-30.0 [facility] Comment on above: Result Comment: Unit s: ng/dL per ng/mL/hr Performed By: #### C RP, CMP #### [facility] [address] [place] [address] Dr. Clive Main Aldosterone 3.0 ng/dL Normal 0.0-30.0 [facility] Comment on above: Performed By: #### C RP, CMP #### [facility] [address] [place] [address] Dr. Clive Main Renin Activity, Plasma 0.730 ng/mL/hr Normal 0.167-5.380 [facility] Comment on above: Performed By: #### C RP, CMP #### [facility] [address] [place] [address] Dr. Clive Main METANEPHRINES PLASMA FREEon 01-18-2023 Metanephrine, Pl <10.0 Normal 0.0-88.0 [facility] Comment on above: Performed By: #### M ETANPF #### [facility] [address] [place] [address] Dr. Clive Main Normetanephrine, Pl 107.5 pg/mL Normal 0.0-210.1 [facility] Comment on above: Performed By: #### M ETANPF #### [facility] [address] [place] [address] Dr. Clive Main CBC AUTO DIFFon 01-12-2023 BASO # 0.0 103/ul Normal 0.0-0.1 [facility] Comment on above: Performed By: #### C BC #### [facility] [address] [place] [address] Dr. Clive Main Basophils/100 WBC (Bld) 0.4 % Normal 0.2-2.0 [facility] Comment on above: Performed By: #### C BC #### [facility] [address] [place] [address] Dr. Clive Main EO # 0.1 103/ul Normal 0.0-0.7 [facility] Comment on above: Performed By: #### C BC #### [facility] [address] [place] [address] Dr. Clive Main Eosinophils/100 WBC (Bld) 0.9 % Normal 0.9-7.0 [facility] Comment on above: Performed By: #### C BC #### [facility] [address] [place] [address] Dr. Clive Main Erythrocyte distribution width (RBC) [Ratio] 13.8 % Normal 11.0-15.0 [facility] Comment on above: Performed By: #### C BC #### [facility] [address] [place] [address] Dr. Clive Main Hematocrit (Bld) [Volume fraction] 49.1 % Normal 42.0-54.0 [facility] Comment on above: Performed By: #### C BC #### [facility] [address] [place] [address] Dr. Clive Main Hemoglobin (Bld) [Mass/Vol] 16.7 g/dL Normal 14.0-18.0 [facility] Comment on above: Performed By: #### C BC #### [facility] [address] [place] [address] Dr. Clive Main IG # 0.06 10e3/ul Critically high 0.00-0.03 [facility] Comment on above: Performed By: #### C BC #### [facility] [address] [place] [address] Dr. Clive Main IG % 0.5 % Normal 0.0-0.5 [facility] Comment on above: Performed By: #### C BC #### [facility] [address] [place] [address] Dr. Clive Main LYMPH # 2.7 103/ul Normal 1.2-3.8 [facility] Comment on above: Performed By: #### C BC #### [facility] [address] [place] [address] Dr. Clive Main Lymphocytes/100 WBC (Bld) 24.7 % Normal 20.5-60.0 [facility] Comment on above: Performed By: #### C BC #### [facility] [address] [place] [address] Dr. Clive Main MANUAL DIFF REQ NO Normal [facility] Comment on above: Performed By: #### C BC #### [facility] [address] [place] [address] Dr. Clive Main MCH (RBC) [Entitic mass] 28.4 pg Normal 25.9-34.0 [facility] Comment on above: Performed By: #### C BC #### [facility] [address] [place] [address] Dr. Clive Main MCHC (RBC) [Mass/Vol] 34.0 g/dL Normal 29.9-35.2 [facility] Comment on above: Performed By: #### C BC #### [facility] [address] [place] [address] Dr. Clive Main MCV (RBC) [Entitic vol] 83.6 fL Normal 80.0-94.0 [facility] Comment on above: Performed By: #### C BC #### [facility] [address] [place] [address] Dr. Clive Main MONO # 1.3 103/ul Critically high 0.3-0.8 [facility] Comment on above: Performed By: #### C BC #### [facility] [address] [place] [address] Dr. Clive Main Monocytes/100 WBC (Bld) 11.5 % Normal 1.7-12.0 [facility] Comment on above: Performed By: #### C BC #### [facility] [address] [place] [address] Dr. Clive Main NEUT # 6.8 103/ul Critically high 1.4-6.5 [facility] Comment on above: Performed By: #### C BC #### [facility] [address] [place] [address] Dr. Clive Main Neutrophils/100 WBC (Bld) 62.0 % Normal 43.0-75.0 [facility] Comment on above: Performed By: #### C BC #### [facility] [address] [place] [address] Dr. Clive Main Platelet mean volume (Bld) [Entitic vol] 11.3 fL Normal 9.5-13.5 [facility] Comment on above: Performed By: #### C BC #### [facility] [address] [address] [address] Clive Main PLT 206 103/ul Normal 150-450 [facility] Comment on above: Performed By: #### C BC #### [facility] [address] [place] [address] Dr. Clive Main RBC 5.87 106/ul Normal 4.70-6.10 [facility] Comment on above: Performed By: #### C BC #### [facility] [address] [place] [address] Dr. Clive Main WBC 10.9 103/ul Normal 4.0-11.0 [facility] Comment on above: Performed By: #### C BC #### [facility] [address] [place] [address] Dr. Clive Main ECHOCARDIO M/2D COMPLETEon 0 01-12-2023 ECHOCARDIO M/2D COMPLETE Patient: JESSE YEPEZ Exam Date: 01/12/2023 : 1985 Gender:M Ordering : DR JENNY RAMÍREZ . Admission #: [id number] Family : ANA CROW . Order #: [id number] CLICK HERE TO VIEW EXAM ECHOCARDIOGRAM REPORT [...] Mooney M.D. on 01/12/2023 at 18:57 Normal [facility] PROF CHEM 8 (BAS METB)on Anion gap [Moles/Vol] 14.2 mmol/L Normal [facility] Comment on above: Performed By: #### H STROPN #### [facility] [address] [place] [address] Dr. Clive Main Calcium [Mass/Vol] 9.2 mg/dL Normal 8.5-10.1 [facility] Comment on above: Performed By: #### H STROPN #### [facility] [address] [place] [address] Dr. Clive Main Chloride [Moles/Vol] 103 mmol/L Normal 98-107 [facility] Comment on above: Performed By: #### H STROPN #### [facility] [address] [place] [address] Dr. Clive Main CO2 [Moles/Vol] 24.7 mmol/L Normal 21.0-32.0 [facility] Comment on above: Performed By: #### H STROPN #### [facility] [address] [address] [address] Clive Main Creatinine [Mass/Vol] 1.11 mg/dL Normal 0.70-1.30 [facility] Comment on above: Performed By: #### H STROPN #### [facility] [address] [address] [address] Clive Main EGFR-AF KOSOVAN >60 Normal >=60 [facility] Comment on above: Performed By: #### H STROPN #### [facility] [address] [address] [address] Clive Main EGFR-NON AF KOSOVAN >60 Normal >=60 [facility] Comment on above: Performed By: #### H STROPN #### [facility] [address] [address] [address] Clive Main Glucose [Mass/Vol] 117 mg/dL Critically high 74-106 [facility] Comment on above: Performed By: #### H STROPN #### [facility] [address] [address] [address] Clive Main Potassium [Moles/Vol] 3.9 mmol/L Normal 3.5-5.1 [facility] Comment on above: Performed By: #### H STROPN #### [facility] [address] [address] [address] Clive Main Sodium [Moles/Vol] 138 mmol/L Normal 136-145 [facility] Comment on above: Performed By: #### H STROPN #### [facility] [address] [address] [address] Clive Main Urea nitrogen [Mass/Vol] 20.0 mg/dL Critically high 7.0-18.0 [facility] Comment on above: Performed By: #### H STROPN #### [facility] [address] [address] [address] Clive Main Urea nitrogen/Creatinine [Mass ratio] 18.0 mg/mg Normal [facility] Comment on above: Performed By: #### H STROPN #### [facility] [address] [address] [address] Clive Main US CAROTID ART BILon [...] JOSEFINA ANGELAKATARZYNADIANA Date: 2023-01-12 06:19 Normal [facility] CARDIAC ANDRE 3-6on 3 CK [Catalytic activity/Vol] 172 U/L Normal 39-308 [facility] Comment on above: Performed By: #### C RP, CMP #### [facility] [address] [place] [address] Dr. Clive Main CK.MB [Mass/Vol] 2.91 ng/mL Normal <=3.60 [facility] Comment on above: Performed By: #### C RP, CMP #### [facility] [address] [place] [address] Dr. Clive Main HSTROP 11.2 pg/mL Normal 4.0-76.1 [facility] Comment on above: Result Comment: CUT- OFF POINTS HAVE BEEN ESTABLISHED BASED ON THE FOURTH UNIVERSAL DEFINITIONS OF MYOCARDIAL INFARCTION. THE UPPER REFERENCE LIMIT (URL) OF TROPONIN, DEFINED THE 99TH PERCENTILE OF cTnI DISTRIBUTION IN A REFERENCE POPULATION, HAS BEEN CONFIRMED THE DECISION THRESHOLD FOR [place] DIAGNOSIS. Performed By: #### C RP, CMP #### [facility] [address] [place] [address] Dr. Clive Main CK [Catalytic activity/Vol] 204 U/L Normal 39-308 [facility] Comment on above: Performed By: #### C RP, CMP #### [facility] [address] [place] [address] Dr. Clive Main CK.MB [Mass/Vol] 2.97 ng/mL Normal <=3.60 [facility] Comment on above: Performed By: #### C RP, CMP #### [facility] [address] [place] [address] Dr. Clive Main HSTROP 12.0 pg/mL Normal 4.0-76.1 [facility] Comment on above: Result Comment: CUT- OFF POINTS HAVE BEEN ESTABLISHED BASED ON THE FOURTH UNIVERSAL DEFINITIONS OF MYOCARDIAL INFARCTION. THE UPPER REFERENCE LIMIT (URL) OF TROPONIN, DEFINED THE 99TH PERCENTILE OF cTnI DISTRIBUTION IN A REFERENCE POPULATION, HAS BEEN CONFIRMED THE DECISION THRESHOLD FOR [place] DIAGNOSIS. Performed By: #### C RP, CMP #### [facility] [address] [place] [address] Dr. Clive Main CBC AUTO DIFFon 01-11-2023 BASO # 0.1 103/ul Normal 0.0-0.1 [facility] Comment on above: Performed By: #### C RP, CMP #### [facility] [address] [place] [address] Dr. Clive Main Basophils/100 WBC (Bld) 0.3 % Normal 0.2-2.0 [facility] Comment on above: Performed By: #### C RP, CMP #### [facility] [address] [place] [address] Dr. Clive Main EO # 0.1 103/ul Normal 0.0-0.7 [facility] Comment on above: Performed By: #### C RP, CMP #### [facility] [address] [place] [address] Dr. Clive Main Eosinophils/100 WBC (Bld) 0.5 % Critically low 0.9-7.0 [facility] Comment on above: Performed By: #### C RP, CMP #### [facility] [address] [place] [address] Dr. Clive Main Erythrocyte distribution width (RBC) [Ratio] 13.6 % Normal 11.0-15.0 [facility] Comment on above: Performed By: #### C RP, CMP #### [facility] [address] [place] [address] Dr. Clive Main Hematocrit (Bld) [Volume fraction] 47.7 % Normal 42.0-54.0 [facility] Comment on above: Performed By: #### C RP, CMP #### [facility] [address] [place] [address] Dr. Clive Main Hemoglobin (Bld) [Mass/Vol] 16.2 g/dL Normal 14.0-18.0 [facility] Comment on above: Performed By: #### C RP, CMP #### [facility] [address] [address] [address] Clive Main IG # 0.26 10e3/ul Critically high 0.00-0.03 [facility] Comment on above: Performed By: #### C RP, CMP #### [facility] [address] [place] [address] Dr. Clive Main IG % 1.7 % Critically high 0.0-0.5 [facility] Comment on above: Performed By: #### C RP, CMP #### [facility] [address] [place] [address] Dr. Clive Main LYMPH # 2.2 103/ul Normal 1.2-3.8 [facility] Comment on above: Performed By: #### C RP, CMP #### [facility] [address] [place] [address] Dr. Clive Main Lymphocytes/100 WBC (Bld) 15.1 % Critically low 20.5-60.0 [facility] Comment on above: Performed By: #### C RP, CMP #### [facility] [address] [place] [address] Dr. Clive Main MANUAL DIFF REQ NO Normal [facility] Comment on above: Performed By: #### C RP, CMP #### [facility] [address] [place] [address] Dr. Clive Main MCH (RBC) [Entitic mass] 28.5 pg Normal 25.9-34.0 [facility] Comment on above: Performed By: #### C RP, CMP #### [facility] [address] [place] [address] Dr. Clive Main MCHC (RBC) [Mass/Vol] 34.0 g/dL Normal 29.9-35.2 [facility] Comment on above: Performed By: #### C RP, CMP #### [facility] [address] [place] [address] Dr. Clive Main MCV (RBC) [Entitic vol] 84.0 fL Normal 80.0-94.0 [facility] Comment on above: Performed By: #### C RP, CMP #### [facility] [address] [address] [address] Clive Main MONO # 1.3 103/ul Critically high 0.3-0.8 [facility] Comment on above: Performed By: #### C RP, CMP #### [facility] [address] [place] [address] Dr. Clive Main Monocytes/100 WBC (Bld) 8.7 % Normal 1.7-12.0 [facility] Comment on above: Performed By: #### C RP, CMP #### [facility] [address] [place] [address] Dr. Clive Main NEUT # 11.0 103/ul Critically high 1.4-6.5 [facility] Comment on above: Performed By: #### C RP, CMP #### [facility] [address] [place] [address] Dr. Clive Main Neutrophils/100 WBC (Bld) 73.7 % Normal 43.0-75.0 [facility] Comment on above: Performed By: #### C RP, CMP #### [facility] [address] [place] [address] Dr. Clive Main Platelet mean volume (Bld) [Entitic vol] 11.7 fL Normal 9.5-13.5 [facility] Comment on above: Performed By: #### C RP, CMP #### [facility] [address] [place] [address] Dr. Clive Main PLT 196 103/ul Normal 150-450 [facility] Comment on above: Performed By: #### C RP, CMP #### [facility] [address] [place] [address] Dr. Clive Main RBC 5.68 106/ul Normal 4.70-6.10 [facility] Comment on above: Performed By: #### C RP, CMP #### [facility] [address] [place] [address] Dr. Clive Main WBC 14.9 103/ul Critically high 4.0-11.0 [facility] Comment on above: Performed By: #### C RP, CMP #### [facility] [address] [place] [address] Dr. Clive Main DRUG SCREEN RAPID (URINE)on 01-11-2023 AMP Negative Normal NEGATIVE [facility] Comment on above: Performed By: #### D DIM #### [facility] [address] [place] [address] Dr. Clive Main BAR Negative Normal NEGATIVE [facility] Comment on above: Performed By: #### D DIM #### [facility] [address] [place] [address] Dr. Clive Main BUP Negative Normal NEGATIVE [facility] Comment on above: Performed By: #### D DIM #### [facility] [address] [place] [address] Dr. Clive Main BZO Negative Normal NEGATIVE [facility] Comment on above: Performed By: #### D DIM #### [facility] [address] [place] [address] Dr. Clive Main NEREIDA Negative Normal NEGATIVE [facility] Comment on above: Performed By: #### D DIM #### [facility] [address] [place] [address] Dr. Clive Main CUT-OFFS SEE BELOW Normal [facility] Comment on above: Result Comment: AMP [...] ng/mL Performed By: #### D DIM #### [facility] [address] [place] [address] Dr. Clive Main DRUG CUT HEADER DRUG CLASS TEST SYSTEM CUT-OFF CONCENTRATIONS ARE FOLLOWS: Normal [facility] Comment on above: Performed By: #### D DIM #### [facility] [address] [address] [address] Clive Main mAMP Negative Normal NEGATIVE [facility] Comment on above: Performed By: #### D DIM #### [facility] [address] [address] [address] Clive Main MTD Negative Normal NEGATIVE [facility] Comment on above: Performed By: #### D DIM #### [facility] [address] [place] [address] Dr. Clive Main OPI Negative Normal NEGATIVE [facility] Comment on above: Performed By: #### D DIM #### [facility] [address] [address] [address] Clive Main OXY Negative Normal NEGATIVE [facility] Comment on above: Performed By: #### D DIM #### [facility] [address] [place] [address] Dr. Clive Main PCP Negative Normal NEGATIVE [facility] Comment on above: Performed By: #### D DIM #### [facility] [address] [place] [address] Dr. Clive Main PPX Negative Normal NEGATIVE [facility] Comment on above: Performed By: #### D DIM #### [facility] [address] [place] [address] Dr. Clive Main TCA Negative Normal NEGATIVE [facility] Comment on above: Performed By: #### D DIM #### [facility] [address] [place] [address] Dr. Clive Main THC Negative Normal NEGATIVE [facility] Comment on above: Performed By: #### D DIM #### [facility] [address] [place] [address] Dr. Clive Main ER URINE PROFILEon 3 Bilirubin Ql (U) Negative Normal NEGATIVE [facility] Comment on above: Performed By: #### C RP, CMP #### [facility] [address] [place] [address] Dr. Clive Main Clarity (U) CLEAR Normal CLEAR [facility] Comment on above: Performed By: #### C RP, CMP #### [facility] [address] [place] [address] Dr. Clive Main Color (U) LT. YELLOW Normal YELLOW [facility] Comment on above: Performed By: #### C RP, CMP #### [facility] [address] [place] [address] Dr. Clive NINO A micrscopic examination will be performed if indicated. Normal [facility] Comment on above: Performed By: #### C RP, CMP #### [facility] [address] [place] [address] Dr. Clive Main Glucose Ql (U) Negative Normal NEGATIVE [facility] Comment on above: Performed By: #### C RP, CMP #### [facility] [address] [place] [address] Dr. Clive Main Hemoglobin Ql (U) Negative Normal NEGATIVE [facility] Comment on above: Performed By: #### C RP, CMP #### [facility] [address] [place] [address] Dr. Clive Main Ketones Ql (U) 15 mg/dl Abnormal NEGATIVE [facility] [facility] Comment on above: Performed By: #### C RP, CMP #### [facility] [address] [place] [address] Dr. Clive Main LEUKOCYTES Negative Normal NEGATIVE [facility] Comment on above: Performed By: #### C RP, CMP #### [facility] [address] [place] [address] Dr. Clive Main Nitrite Ql (U) Negative Normal NEGATIVE [facility] Comment on above: Performed By: #### C RP, CMP #### [facility] [address] [place] [address] Dr. Clive Main pH (U) 5.5 [pH] Normal 5-9 [facility] Comment on above: Performed By: #### C RP, CMP #### [facility] [address] [place] [address] Dr. Clive Main SPEC GRAVITY 1.020 Normal 1.005-<=1.025 [facility] Comment on above: Performed By: #### C RP, CMP #### [facility] [address] [address] [address] Clive Main UA PROTEIN Negative Normal NEGATIVE/ TRACE [facility] Comment on above: Performed By: #### C RP, CMP #### [facility] [address] [address] [address] Clive Main UR MICRO IND NOT INDICATED Normal [facility] Comment on above: Performed By: #### C RP, CMP #### [facility] [address] [address] [address] Clive Main Urobilinogen Qn (U) 0.2 {Teodoro'U}/dL Normal 0.2 - 1. 0 [facility] Comment on above: Performed By: #### C RP, CMP #### [facility] [address] [address] [address] Clive Main MRI BRAIN WO CONon [...] BENOIT KEENAN Date: 2023-01-11 01:02 Normal [facility] PROF CHEM 8 (BAS METB)on Anion gap [Moles/Vol] 15.8 mmol/L Normal [facility] Comment on above: Performed By: #### B MP #### [facility] [address] [address] [address] Clive Main Calcium [Mass/Vol] 9.0 mg/dL Normal 8.5-10.1 [facility] Comment on above: Performed By: #### B MP #### [facility] [address] [address] [address] Clive Main Chloride [Moles/Vol] 101 mmol/L Normal 98-107 [facility] Comment on above: Performed By: #### B MP #### [facility] [address] [address] [address] Clive Main CO2 [Moles/Vol] 22.0 mmol/L Normal 21.0-32.0 [facility] Comment on above: Performed By: #### B MP #### [facility] [address] [address] [address] Clive Main Creatinine [Mass/Vol] 0.88 mg/dL Normal 0.70-1.30 [facility] Comment on above: Performed By: #### B MP #### [facility] [address] [address] [address] Clive Main EGFR-AF KOSOVAN >60 Normal >=60 [facility] Comment on above: Performed By: #### B MP #### [facility] [address] [address] [address] Clive Main EGFR-NON AF KOSOVAN >60 Normal >=60 [facility] Comment on above: Performed By: #### B MP #### [facility] [address] [address] [address] Clive Main Glucose [Mass/Vol] 110 mg/dL Critically high 74-106 [facility] Comment on above: Performed By: #### B MP #### [facility] [address] [address] [address] Clive Main Potassium [Moles/Vol] 3.8 mmol/L Normal 3.5-5.1 [facility] Comment on above: Performed By: #### B MP #### [facility] [address] [place], [place] [address] Dr. Clive Main Sodium [Moles/Vol] 135 mmol/L Critically low 136-145 [facility] Comment on above: Performed By: #### B MP #### [facility] [address] [place], [place] [address] Dr. Clive Main Urea nitrogen [Mass/Vol] 15.0 mg/dL Normal 7.0-18.0 [facility] Comment on above: Performed By: #### B MP #### [facility] [address] [place], [place] [address] Dr. Clive Main Urea nitrogen/Creatinine [Mass ratio] 17.0 mg/mg Normal [facility] Comment on above: Performed By: #### B MP #### [facility] [address] [place], [place] [address] Dr. Clive Main US KIDNEYSon 01-11-2023 US [...] JOSEFINA SHETTY Date: 2023-01-11 12:57 Normal [facility] BNPon 01-10-2023 Natriuretic peptide B (Bld) [Mass/Vol] 108.0 pg/mL Normal <=450.0 [facility] Comment on above: Performed By: #### C RP, CMP #### [facility] [address] [place] [address] Dr. Clive Main CBC AUTO DIFFon 01-10-2023 BASO # 0.0 103/ul Normal 0.0-0.1 [facility] Comment on above: Performed By: #### C RP, CMP #### [facility] [address] [place] [address] Dr. Clive Main Basophils/100 WBC (Bld) 0.3 % Normal 0.2-2.0 [facility] Comment on above: Performed By: #### C RP, CMP #### [facility] [address] [place] [address] Dr. Clive Main EO # 0.1 103/ul Normal 0.0-0.7 [facility] Comment on above: Performed By: #### C RP, CMP #### [facility] [address] [place] [address] Dr. Clive Main Eosinophils/100 WBC (Bld) 0.4 % Critically low 0.9-7.0 [facility] Comment on above: Performed By: #### C RP, CMP #### [facility] [address] [place] [address] Dr. Clive Main Erythrocyte distribution width (RBC) [Ratio] 13.5 % Normal 11.0-15.0 [facility] Comment on above: Performed By: #### C RP, CMP #### [facility] [address] [place] [address] Dr. Clive Main Hematocrit (Bld) [Volume fraction] 48.4 % Normal 42.0-54.0 [facility] Comment on above: Performed By: #### C RP, CMP #### [facility] [address] [place] [address] Dr. Clive Main Hemoglobin (Bld) [Mass/Vol] 16.8 g/dL Normal 14.0-18.0 [facility] Comment on above: Performed By: #### C RP, CMP #### [facility] [address] [place] [address] Dr. Clive Main IG # 0.05 10e3/ul Critically high 0.00-0.03 [facility] Comment on above: Performed By: #### C RP, CMP #### [facility] [address] [place] [address] Dr. Clive Main IG % 0.4 % Normal 0.0-0.5 [facility] Comment on above: Performed By: #### C RP, CMP #### [facility] [address] [place] [address] Dr. Clive Main LYMPH # 1.8 103/ul Normal 1.2-3.8 [facility] Comment on above: Performed By: #### C RP, CMP #### [facility] [address] [place] [address] Dr. Clive Main Lymphocytes/100 WBC (Bld) 13.9 % Critically low 20.5-60.0 [facility] Comment on above: Performed By: #### C RP, CMP #### [facility] [address] [place] [address] Dr. Clive Main MANUAL DIFF REQ NO Normal [facility] Comment on above: Performed By: #### C RP, CMP #### [facility] [address] [place] [address] Dr. Clive Main MCH (RBC) [Entitic mass] 28.7 pg Normal 25.9-34.0 [facility] Comment on above: Performed By: #### C RP, CMP #### [facility] [address] [place] [address] Dr. Clive Main MCHC (RBC) [Mass/Vol] 34.7 g/dL Normal 29.9-35.2 [facility] Comment on above: Performed By: #### C RP, CMP #### [facility] [address] [place] [address] Dr. Clive Main MCV (RBC) [Entitic vol] 82.6 fL Normal 80.0-94.0 [facility] Comment on above: Performed By: #### C RP, CMP #### [facility] [address] [place] [address] Dr. Clive Main MONO # 1.0 103/ul Critically high 0.3-0.8 [facility] Comment on above: Performed By: #### C RP, CMP #### [facility] [address] [place] [address] Dr. Clive Main Monocytes/100 WBC (Bld) 7.2 % Normal 1.7-12.0 [facility] Comment on above: Performed By: #### C RP, CMP #### [facility] [address] [place] [address] Dr. Clive Main NEUT # 10.3 103/ul Critically high 1.4-6.5 [facility] Comment on above: Performed By: #### C RP, CMP #### [facility] [address] [place] [address] Dr. Clive Main Neutrophils/100 WBC (Bld) 77.8 % Critically high 43.0-75.0 [facility] Comment on above: Performed By: #### C RP, CMP #### [facility] [address] [place] [address] Dr. Clive Main Platelet mean volume (Bld) [Entitic vol] 11.3 fL Normal 9.5-13.5 [facility] Comment on above: Performed By: #### C RP, CMP #### [facility] [address] [address] [address] Clive Main PLT 202 103/ul Normal 150-450 [facility] Comment on above: Performed By: #### C RP, CMP #### [facility] [address] [address] [address] Clive Main RBC 5.86 106/ul Normal 4.70-6.10 [facility] Comment on above: Performed By: #### C RP, CMP #### [facility] [address] [address] [address] Clive Main WBC 13.2 103/ul Critically high 4.0-11.0 [facility] Comment on above: Performed By: #### C RP, CMP #### [facility] [address] [address] [address] Clive Main CRPon 01-10-2023 CRP 0.1 mg/dL Normal <=1.0 [facility] Comment on above: Performed By: #### C RP, CMP #### [facility] [address] [place] [address] HEAD WO CONon [...] SUHA KANG Date: 2023-01-10 19:40 Normal [facility] 12-21 SARS-CoV-2 (COVID-19) RNA ENIO+probe Ql (Unsp spec) Not detected Normal NOT DETECTED [facility] Comment on above: Result Comment: When diagnostic [...] for this test is supported by the [place] of Health and Human Service's declaration that [...] Performed By: #### C RP, CMP #### [facility] [address] [place] [address] Dr. Clive Main D-DIMERon 01-10-2023 D-DIMER 0.19 mg/L FEU Normal <=0.59 [facility] Comment on above: Performed By: #### D DIM #### [facility] [address] [place] [address] Dr. Clive Main D-DIMER COMMENTS SEE BELOW Normal [facility] Comment on above: Result Comment: [...] hospitalization. Performed By: #### D DIM #### [facility] [address] [place] [address] Dr. Clive Main GLYCOHEMOGLOBIN A1Con 2022 ADA RECOMMENDATION SEE BELOW Normal [facility] Comment on above: Result Comment: ADA RECOMMENDED LIMIT 4.0 - 6.0 ADA THERAPEUTIC TARGET < 7.0 ACTION SUGGESTED > 7.0 Performed By: #### A 1C #### [facility] [address] [place] [address] Dr. Clive Main Glucose [Mass/Vol] 111 mg/dL Normal [facility] Comment on above: Performed By: #### A 1C #### [facility] [address] [place] [address] Dr. Clive Main HbA1c (Bld) [Mass fraction] 5.5 % Normal 4.5-6.2 [facility] Comment on above: Performed By: #### A 1C #### [facility] [address] [place] [address] Dr. Clive Main LIPID PROFILEon 01-10-2023 CHOL-HDL RATIO NORM SEE BELOW Normal [facility] Comment on above: Result Comment: 3.3 - 4.4 LOW RISK 4.4 - 7.1 AVERAGE RISK 7.1 - 11.0 MODERATE RISK >11.0 HIGH RISK Performed By: #### C RP, CMP #### [facility] [address] [place] [address] Dr. Clive Main Cholesterol [Mass/Vol] 185 mg/dL Normal <=200 [facility] Comment on above: Performed By: #### C RP, CMP #### [facility] [address] [place] [address] Dr. Clive Main Cholesterol in HDL [Mass/Vol] 36 mg/dL Critically low 40-60 [facility] Comment on above: Performed By: #### C RP, CMP #### [facility] [address] [place] [address] Dr. Clive Main Cholesterol in LDL [Mass/Vol] 124.4 mg/dL Normal [facility] Comment on above: Performed By: #### C RP, CMP #### [facility] [address] [place] [address] Dr. Clive Main Cholesterol.total/Cho lesterol in HDL [Mass ratio] 5.1 {ratio} Normal [facility] Comment on above: Performed By: #### C RP, CMP #### [facility] [address] [address] [address] Clive Main HDL NORMAL > or = 60 mg/dl - LO W CARDIOVASCULAR RISK <40 mg/dl - HIGH CARDIOVASCULAR RISK Normal [facility] Comment on above: Performed By: #### C RP, CMP #### [facility] [address] [address] [address] Clive Main LDL CALC NORMAL SEE BELOW Normal [facility] Comment on above: Result Comment: <100 mg/dl OPTIMAL 100 - 129 mg/dl NEAR OR ABOVE OPTIMAL 130 - 159 mg/dl BORDERLINE HIGH 160 - 189 mg/dl HIGH >190 mg/dl VERY HIGH Performed By: #### C RP, CMP #### [facility] [address] [place] [address] Dr. Clive Main Triglyceride [Mass/Vol] 123 mg/dL Normal <=150 [facility] Comment on above: Performed By: #### C RP, CMP #### [facility] [address] [address] [address] Clive Main VLDL CALC 24.6 mg/dL Normal [facility] Comment on above: Performed By: #### C RP, CMP #### [facility] [address] [place] [address] Dr. Clive Main MAGNESIUMon 01-10-2023 Magnesium [Mass/Vol] 2.1 mg/dL Normal 1.8-2.4 [facility] Comment on above: Performed By: #### C RP, CMP #### [facility] [address] [place] [address] Dr. Clive Main PROF 14(COMP METB)on 023 Albumin [Mass/Vol] 4.5 g/dL Normal 3.4-5.0 [facility] Comment on above: Performed By: #### C RP, CMP #### [facility] [address] [place] [address] Dr. Clive Main Albumin/Globulin [Mass ratio] 1.2 {ratio} Normal [facility] Comment on above: Performed By: #### C RP, CMP #### [facility] [address] [address] [address] Clive Main ALP [Catalytic activity/Vol] 78 U/L Normal 46-116 [facility] Comment on above: Performed By: #### C RP, CMP #### [facility] [address] [address] [address] Clive Main ALT [Catalytic activity/Vol] 43 U/L Normal 16-63 [facility] Comment on above: Performed By: #### C RP, CMP #### [facility] [address] [address] [address] Clive Main Anion gap [Moles/Vol] 17.6 mmol/L Normal [facility] Comment on above: Performed By: #### C RP, CMP #### [facility] [address] [place] [address] Dr. Clive Main AST [Catalytic activity/Vol] 23 U/L Normal 15-37 [facility] Comment on above: Performed By: #### C RP, CMP #### [facility] [address] [place] [address] Dr. Clive Main Bilirubin [Mass/Vol] 0.7 mg/dL Normal 0.2-1.0 [facility] Comment on above: Performed By: #### C RP, CMP #### [facility] [address] [place] [address] Dr. Clive Main Calcium [Mass/Vol] 9.2 mg/dL Normal 8.5-10.1 [facility] Comment on above: Performed By: #### C RP, CMP #### [facility] [address] [place] [address] Dr. Clive Main Chloride [Moles/Vol] 102 mmol/L Normal 98-107 [facility] Comment on above: Performed By: #### C RP, CMP #### [facility] [address] [address] [address] Clive Main CO2 [Moles/Vol] 22.1 mmol/L Normal 21.0-32.0 [facility] Comment on above: Performed By: #### C RP, CMP #### [facility] [address] [place] [address] Dr. Clive Main Creatinine [Mass/Vol] 0.88 mg/dL Normal 0.70-1.30 [facility] Comment on above: Performed By: #### C RP, CMP #### [facility] [address] [address] [address] Clive Main EGFR-AF KOSOVAN >60 Normal >=60 [facility] Comment on above: Performed By: #### C RP, CMP #### [facility] [address] [place] [address] Dr. Clive Main EGFR-NON AF KOSOVAN >60 Normal >=60 [facility] Comment on above: Performed By: #### C RP, CMP #### [facility] [address] [place] [address] Dr. Clive Main Globulin (S) [Mass/Vol] 3.8 g/dL Normal [facility] Comment on above: Performed By: #### C RP, CMP #### [facility] [address] [place] [address] Dr. Clive Main Glucose [Mass/Vol] 98 mg/dL Normal 74-106 [facility] Comment on above: Performed By: #### C RP, CMP #### [facility] [address] [place] [address] Dr. Clive Main Potassium [Moles/Vol] 3.7 mmol/L Normal 3.5-5.1 [facility] Comment on above: Performed By: #### C RP, CMP #### [facility] [address] [place] [address] Dr. Clive Main Protein [Mass/Vol] 8.3 g/dL Critically high 6.4-8.2 [facility] Comment on above: Performed By: #### C RP, CMP #### [facility] [address] [place] [address] Dr. Clive Main Sodium [Moles/Vol] 138 mmol/L Normal 136-145 [facility] Comment on above: Performed By: #### C RP, CMP #### [facility] [address] [place] [address] Dr. Clive Main Urea nitrogen [Mass/Vol] 14.0 mg/dL Normal 7.0-18.0 [facility] Comment on above: Performed By: #### C RP, CMP #### [facility] [address] [place] [address] Dr. Clive Main Urea nitrogen/Creatinine [Mass ratio] 15.9 mg/mg Normal [facility] Comment on above: Performed By: #### C RP, CMP #### [facility] [address] [place] [address] Dr. Clive Main PROTIMEon 01-10-2023 INR Coag (PPP) [Relative time] 1.08 {INR} Normal [facility] Comment on above: Performed By: #### D DIM #### [facility] [address] [place] [address] Dr. Clive Main INR GUIDELINES SEE BELOW Normal [facility] Comment on above: Result Comment: NATY RED INR: 2.0 - 3.0 CONDITIONS NOT LISTED BELOW 2.5 - 3.5 FOR PROSTHETIC HEART VALVE REPLACEMENT 2.5 - 3.5 RECURRENT THROMBOSIS Performed By: #### D DIM #### [facility] [address] [place] [address] Dr. Clive Main PT Coag (PPP) [Time] 11.4 s Normal 9.0-11.6 [facility] Comment on above: Performed By: #### D DIM #### [facility] [address] [place] [address] Dr. Clive Main PTTon 01-10-2023 aPTT Coag (Bld) [Time] 32.0 s Normal 22.3-36.2 [facility] Comment on above: Performed By: #### D DIM #### [facility] [address] [place] [address] Dr. Clive Main SED RATE PURDYERGRENon 2022 SED RATE 9 mm/hr Normal <=15 [facility] Comment on above: Performed By: #### C RP, CMP #### [facility] [address] [place] [address] Dr. Clive Main T4on 01-10-2023 T4 [Mass/Vol] 12.20 ug/dL Critically high 4.50-12.10 [facility] Comment on above: Performed By: #### C PASQUALE, CMP #### [facility] [address] [place] [address] Dr. Clive Main TROPONIN, HIGH SENSITIVITYon 01-10-2023 HSTROP 8.1 pg/mL Normal 4.0-76.1 [facility] Comment on above: Result Comment: CUT- OFF POINTS HAVE BEEN ESTABLISHED BASED ON THE FOURTH UNIVERSAL DEFINITIONS OF MYOCARDIAL INFARCTION. THE UPPER REFERENCE LIMIT (URL) OF TROPONIN, DEFINED THE 99TH PERCENTILE OF cTnI DISTRIBUTION IN A REFERENCE POPULATION, HAS BEEN CONFIRMED THE DECISION THRESHOLD FOR [place] DIAGNOSIS. Performed By: #### H STROPN #### [facility] [address] [place] [address] Dr. Clive Main TSHon 01-10-2023 TSH 1.219 uIU/mL Normal 0.358-3.740 [facility] Comment on above: Performed By: #### C PASQUALE, CMP #### [facility] [address] [place] [address] Dr. Clive Main XR CHEST 1 Von [...] MITALI SIMON Date: 2023-01-10 19:33 Normal [facility] CBC AUTO DIFFon 01-09-2023 BASO # 0.1 103/ul Normal 0.0-0.1 [facility] Comment on above: Performed By: #### C RP, CMP #### [facility] [address] [place] [address] Dr. Clive Main Basophils/100 WBC (Bld) 0.4 % Normal 0.2-2.0 [facility] Comment on above: Performed By: #### C RP, CMP #### [facility] [address] [place] [address] Dr. Clive Main EO # 0.1 103/ul Normal 0.0-0.7 [facility] Comment on above: Performed By: #### C RP, CMP #### [facility] [address] [place] [address] Dr. Clive Main Eosinophils/100 WBC (Bld) 0.9 % Normal 0.9-7.0 [facility] Comment on above: Performed By: #### C RP, CMP #### [facility] [address] [place] [address] Dr. Clive Main Erythrocyte distribution width (RBC) [Ratio] 13.5 % Normal 11.0-15.0 [facility] Comment on above: Performed By: #### C RP, CMP #### [facility] [address] [place] [address] Dr. Clive Main Hematocrit (Bld) [Volume fraction] 48.0 % Normal 42.0-54.0 [facility] Comment on above: Performed By: #### C RP, CMP #### [facility] [address] [place] [address] Dr. Clive Main Hemoglobin (Bld) [Mass/Vol] 16.2 g/dL Normal 14.0-18.0 [facility] Comment on above: Performed By: #### C RP, CMP #### [facility] [address] [place] [address] Dr. Clive Main IG # 0.04 10e3/ul Critically high 0.00-0.03 [facility] Comment on above: Performed By: #### C RP, CMP #### [facility] [address] [place] [address] Dr. Clive Main IG % 0.3 % Normal 0.0-0.5 [facility] Comment on above: Performed By: #### C RP, CMP #### [facility] [address] [place] [address] Dr. Clive Main LYMPH # 2.3 103/ul Normal 1.2-3.8 [facility] Comment on above: Performed By: #### C RP, CMP #### [facility] [address] [place] [address] Dr. Clive Main Lymphocytes/100 WBC (Bld) 19.3 % Critically low 20.5-60.0 [facility] Comment on above: Performed By: #### C RP, CMP #### [facility] [address] [place] [address] Dr. Clive Main MANUAL DIFF REQ NO Normal [facility] Comment on above: Performed By: #### C RP, CMP #### [facility] [address] [place] [address] Dr. Clive Main MCH (RBC) [Entitic mass] 28.3 pg Normal 25.9-34.0 [facility] Comment on above: Performed By: #### C RP, CMP #### [facility] [address] [place] [address] Dr. Clive Main MCHC (RBC) [Mass/Vol] 33.8 g/dL Normal 29.9-35.2 [facility] Comment on above: Performed By: #### C RP, CMP #### [facility] [address] [place] [address] Dr. Clive Main MCV (RBC) [Entitic vol] 83.8 fL Normal 80.0-94.0 [facility] Comment on above: Performed By: #### C RP, CMP #### [facility] [address] [place] [address] Dr. Clive Main MONO # 1.0 103/ul Critically high 0.3-0.8 [facility] Comment on above: Performed By: #### C RP, CMP #### [facility] [address] [place] [address] Dr. Clive Main Monocytes/100 WBC (Bld) 8.1 % Normal 1.7-12.0 [facility] Comment on above: Performed By: #### C RP, CMP #### [facility] [address] [place] [address] Dr. Clive Main NEUT # 8.3 103/ul Critically high 1.4-6.5 [facility] Comment on above: Performed By: #### C RP, CMP #### [facility] [address] [place] [address] Dr. Clive Main Neutrophils/100 WBC (Bld) 71.0 % Normal 43.0-75.0 [facility] Comment on above: Performed By: #### C RP, CMP #### [facility] [address] [place] [address] Dr. Clive Main Platelet mean volume (Bld) [Entitic vol] 11.5 fL Normal 9.5-13.5 [facility] Comment on above: Performed By: #### C RP, CMP #### [facility] [address] [place] [address] Dr. Clive Main PLT 191 103/ul Normal 150-450 [facility] Comment on above: Performed By: #### C RP, CMP #### [facility] [address] [place] [address] Dr. Clive Main RBC 5.73 106/ul Normal 4.70-6.10 [facility] Comment on above: Performed By: #### C RP, CMP #### [facility] [address] [place] [address] Dr. Clive Main WBC 11.7 103/ul Critically high 4.0-11.0 [facility] Comment on above: Performed By: #### C RP, CMP #### [facility] [address] [place] [address] Dr. Clive Main CPKon 01-09-2023 CK [Catalytic activity/Vol] 211 U/L Normal 39-308 [facility] Comment on above: Performed By: #### H STROPN #### [facility] [address] [place] [address] Dr. Clive Main D-DIMERon 01-09-2023 D-DIMER 0.19 mg/L FEU Normal <=0.59 [facility] Comment on above: Performed By: #### D DIM #### [facility] [address] [place] [address] Dr. Clive Main D-DIMER COMMENTS SEE BELOW Normal [facility] Comment on above: Result Comment: Incr [...] hospitalization. Performed By: #### D DIM #### [facility] [address] [place] [address] Dr. Clive Main LACTATE/LACTIC ACIDon 2022 Lactate [Moles/Vol] 1.0 mmol/L Normal 0.4-2.0 [facility] Comment on above: Performed By: #### H STROPN #### [facility] [address] [place] [address] Dr. lCive Main PROF 14(COMP METB)on 023 Albumin [Mass/Vol] 4.5 g/dL Normal 3.4-5.0 [facility] Comment on above: Performed By: #### H STROPN #### [facility] [address] [place] [address] Dr. Clive Main Albumin/Globulin [Mass ratio] 1.2 {ratio} Normal [facility] Comment on above: Performed By: #### H STROPN #### [facility] [address] [place] [address] Dr. Clive Main ALP [Catalytic activity/Vol] 91 U/L Normal 46-116 [facility] Comment on above: Performed By: #### H STROPN #### [facility] [address] [place] [address] Dr. Clive Main ALT [Catalytic activity/Vol] 37 U/L Normal 16-63 [facility] Comment on above: Performed By: #### H STROPN #### [facility] [address] [place] [address] Dr. Clive Main Anion gap [Moles/Vol] 13.9 mmol/L Normal Th [facility] Comment on above: Performed By: #### H STROPN #### [facility] [address] [place] [address] Dr. Clive Main AST [Catalytic activity/Vol] U/L Critically low 15-37 [facility] Comment on above: Performed By: #### H STROPN #### [facility] [address] [address] [address] Clive Main Bilirubin [Mass/Vol] 0.4 mg/dL Normal 0.2-1.0 [facility] Comment on above: Performed By: #### H STROPN #### [facility] [address] [place] [address] Dr. Clive Main Calcium [Mass/Vol] 9.0 mg/dL Normal 8.5-10.1 [facility] Comment on above: Performed By: #### H STROPN #### [facility] [address] [place] [address] Dr. Clive Main Chloride [Moles/Vol] 104 mmol/L Normal 98-107 [facility] Comment on above: Performed By: #### H STROPN #### [facility] [address] [place] [address] Dr. lCive Main CO2 [Moles/Vol] 24.1 mmol/L Normal 21.0-32.0 [facility] Comment on above: Performed By: #### H STROPN #### [facility] [address] [place] [address] Dr. Clive Main Creatinine [Mass/Vol] 1.06 mg/dL Normal 0.70-1.30 [facility] Comment on above: Performed By: #### H STROPN #### [facility] [address] [place] [address] Dr. Clive Main EGFR-AF KOSOVAN >60 Normal >=60 [facility] Comment on above: Performed By: #### H STROPN #### [facility] [address] [place] [address] Dr. Clive Main EGFR-NON AF KOSOVAN >60 Normal >=60 [facility] Comment on above: Performed By: #### H STROPN #### [facility] [address] [address] [address] Clive Main Globulin (S) [Mass/Vol] 3.8 g/dL Normal [facility] Comment on above: Performed By: #### H STROPN #### [facility] [address] [address] [address] Clive Main Glucose [Mass/Vol] 101 mg/dL Normal 74-106 [facility] Comment on above: Performed By: #### H STROPN #### [facility] [address] [address] [address] Clive Main Potassium [Moles/Vol] 4.0 mmol/L Normal 3.5-5.1 [facility] Comment on above: Performed By: #### H STROPN #### [facility] [address] [address] [address] Clive Main Protein [Mass/Vol] 8.3 g/dL Critically high 6.4-8.2 [facility] Comment on above: Performed By: #### H STROPN #### [facility] [address] [address] [address] Clive Main Sodium [Moles/Vol] 138 mmol/L Normal 136-145 [facility] Comment on above: Performed By: #### H STROPN #### [facility] [address] [address] [address] Clive Main Urea nitrogen [Mass/Vol] 22.0 mg/dL Critically high 7.0-18.0 [facility] Comment on above: Performed By: #### H STROPN #### [facility] [address] [address] [address] Clive Main Urea nitrogen/Creatinine [Mass ratio] 20.8 mg/mg Normal [facility] Comment on above: Performed By: #### H STROPN #### [facility] [address] [address] [address] Clive Main TROPONIN, HIGH SENSITIVITYon 01-09-2023 HSTROP 6.1 pg/mL Normal 4.0-76.1 [facility] Comment on above: Result Comment: CUT- OFF POINTS HAVE BEEN ESTABLISHED BASED ON THE FOURTH UNIVERSAL DEFINITIONS OF MYOCARDIAL INFARCTION. THE UPPER REFERENCE LIMIT (URL) OF TROPONIN, DEFINED THE 99TH PERCENTILE OF cTnI DISTRIBUTION IN A REFERENCE POPULATION, HAS BEEN CONFIRMED THE DECISION THRESHOLD FOR [place] DIAGNOSIS. Performed By: #### H STROPN #### [facility] [address] [place], [place] [address] Dr. Clive Main TSHon 01-09-2023 TSH 3.045 uIU/mL Normal 0.358-3.740 [facility] Comment on above: Performed By: #### H STROPN #### [facility] [address] [place], [place] [address] Dr. Clive Main CBC with Auto Differentialon 01-07-2023 Absolute Eos # 0.18 [facility] Absolute Immature Granulocyte 0.05 [facility] Absolute Lymph # 2.34 [facility] Absolute [place] # 0.87 [facility] Basophils (Bld) [#/Vol] 0.05 10*3/uL [facility] Basophils/100 WBC (Bld) 1 % 0 - 2 % [facility] Eosinophils/100 WBC (Bld) 2 % 1 - 4 % [facility] Hematocrit (Bld) [Volume fraction] 45.9 % 40.7 - 50.3 % [facility] Hemoglobin (Bld) [Mass/Vol] 15.5 g/dL 13.0 - 17.0 g/dL [facility] Immature granulocytes/100 WBC (Bld) 1 % High 0 [facility] Interpretation and review of laboratory results Abnormal [facility] Lymphocytes/100 WBC (Bld) 24 % 24 - 43 % [facility] MCH (RBC) [Entitic mass] 29.0 pg 25.2 - 33.5 pg [facility] MCHC (RBC) [Mass/Vol] 33.8 g/dL 28.4 - 34.8 g/dL [facility] MCV (RBC) [Entitic vol] 85.8 fL 82.6 - 102.9 fL [facility] Monocytes/100 WBC (Bld) 9 % 3 - 12 % [facility] NRBC Automated 0.0 0.0 per 100 WBC [facility] Platelet distribution width (Bld) [Ratio] 13.2 % 11.8 - 14.4 % [facility] Platelet mean volume (Bld) [Entitic vol] 11.6 fL 8.1 - 13.5 fL [facility] Platelets (Bld) [#/Vol] 169 10*3/uL [facility] RBC (Bld) [#/Vol] 5.35 10*6/uL 4.21 - 5.7 7 m/uL [facility] Segmented neutrophils/100 WBC (Bld) 63 % 36 - 65 % [facility] Segs Absolute 6.30 [facility] WBC (Bld) [#/Vol] 9.8 10*3/uL [facility] CBC with Diffon 01-07-2023 Abs. Basophil 0.05 k/uL Normal 0.00-0.20 [facility] Comment on above: Performed By: #### C P, CDP #### [facility] [address] [place] [address] [place] [address] Voice Studies Director: Jacob Gamez MD Abs.Imm.Granulocyte 0.05 k/uL Normal 0.00-0.30 [facility] Comment on above: Performed By: #### C P, CDP #### [facility] [address] [place] [address] Voice Studies Director: Jacob Gamez MD Abs.Neutrophil (Seg) 6.30 k/uL Normal 1.50-8.10 [facility] Comment on above: Performed By: #### C P, CDP #### [facility] [address] [place] [address] Voice Studies Director: Jacob Gamez MD Basophils/100 WBC (Bld) 1 % Normal 0-2 [facility] Comment on above: Performed By: #### C P, CDP #### [facility] [address] [place] [address] Dr. [place], [facility]83 Voice Studies Director: Jacob Gamez MD Eosinophils (Bld) [#/Vol] 0.18 10*3/uL Normal 0.00-0.44 [facility] Comment on above: Performed By: #### C P, CDP #### [address] [place], [facility]83 Voice Studies Director: Jacob Gamez MD Eosinophils/100 WBC (Bld) 2 % Normal 1-4 [facility] Comment on above: Performed By: #### C P, CDP #### [address] [place], [place] [address] Voice Studies Director: Jacob Gamez MD Erythrocyte distribution width (RBC) [Ratio] 13.2 % Normal 11.8-14.4 [facility] Comment on above: Performed By: #### C P, CDP #### [address] [place], [place] [address] Voice Studies Director: Jacob Gamez MD Hematocrit (Bld) [Volume fraction] 45.9 % Normal 40.7-50.3 [facility] Comment on above: Performed By: #### C P, CDP #### [address] [place], [facility]83 Voice Studies Director: Jacob Gamez MD Hemoglobin (Bld) [Mass/Vol] 15.5 g/dL Normal 13.0-17.0 [facility] Comment on above: Performed By: #### C P, CDP #### [address] [place], [facility]83 Voice Studies Director: Jacob Gamez MD Immature granulocytes/100 WBC (Bld) 1 % High 0 [facility] Comment on above: Performed By: #### C P, CDP #### [address] [place], [facility]83 Voice Studies Director: Jacob Gamez MD Lymphocytes (Bld) [#/Vol] 2.34 10*3/uL Normal 1.10-3.70 [facility] Comment on above: Performed By: #### C P, CDP #### [address] [place], [place] [id number] Voice Studies Director: Jacob Gamez MD Lymphocytes/100 WBC (Bld) 24 % Normal 24-43 [facility] Comment on above: Performed By: #### C P, CDP #### [address] [place] [address] Voice Studies Director: Jacob Gamez MD MCH (RBC) [Entitic mass] 29.0 pg Normal 25.2-33.5 [facility] Comment on above: Performed By: #### C P, CDP #### [address] [place], [place] [id number] Voice Studies Director: Jacob Gamez MD MCHC (RBC) [Mass/Vol] 33.8 g/dL Normal 28.4-34.8 [facility] Comment on above: Performed By: #### C P, CDP #### [address] [place] [address] Voice Studies Director: Jacob Gamez MD MCV (RBC) [Entitic vol] 85.8 fL Normal 82.6-102.9 [facility] Comment on above: Performed By: #### C P, CDP #### [address] [place] [address] Voice Studies Director: Jacob Gamez MD Monocytes (Bld) [#/Vol] 0.87 10*3/uL Normal 0.10-1.20 [facility] Comment on above: Performed By: #### C P, CDP #### [address] [place], [place] [id number] Voice Studies Director: Jacob Gamez MD Monocytes/100 WBC (Bld) 9 % Normal 3-12 [facility] Comment on above: Performed By: #### C P, CDP #### [facility] [address] [place], [place] [id number] Voice Studies Director: Jacob Gamez MD Neutrophil (Seg) 63 % Normal 36-65 [facility] Comment on above: Performed By: #### C P, CDP #### [facility] [address] [place], [place] [id number] Voice Studies Director: Jacob Gamez MD NRBC Automated 0.0 per 100 WBC Normal 0.0 [facility] Comment on above: Performed By: #### C P, CDP #### [facility] [address] [place], [place] [id number] Voice Studies Director: Jacob Gamez MD Platelet mean volume (Bld) [Entitic vol] 11.6 fL Normal 8.1-13.5 [facility] Comment on above: Performed By: #### C P, CDP #### [address] [place], [place] [id number] Voice Studies Director: Jacob Gamez MD Platelets (Bld) [#/Vol] 169 10*3/uL Normal 138-453 [facility] Comment on above: Performed By: #### C P, CDP #### [address] [place], [place] [id number] Voice Studies Director: Jacob Gamez MD RBC (Bld) [#/Vol] 5.35 10*6/uL Normal 4.21-5.77 [facility] Comment on above: Performed By: #### C P, CDP #### [facility] [address] [place], [place] [id number] Voice Studies Director: Jacob Gamez MD WBC (Bld) [#/Vol] 9.8 10*3/uL Normal 3.5-11.3 [facility] Comment on above: Performed By: #### C P, CDP #### [facility] [address] [place] [address] Voice Studies Director: Jacob Gamez MD [facility] 01-07-2023 Albumin [Mass/Vol] 4.1 g/dL 3.5 - 5.2 g/dL [facility] Albumin/Globulin [Mass ratio] 1.3 {ratio} 1.0 - 2.5 [facility] ALP [Catalytic activity/Vol] 87 U/L 40 - 129 U/L [facility] ALT [Catalytic activity/Vol] 22 U/L 5 - 41 U/L [facility] Anion gap [Moles/Vol] 10 mmol/L 9 - 17 mmol/L [facility] AST [Catalytic activity/Vol] 18 U/L NINF - 40 U/L [facility] Bilirubin [Mass/Vol] 0.4 mg/dL 0.3 - 1 .2 mg/dL [facility] Calcium [Mass/Vol] 9.0 mg/dL 8.6 - 10. 4 mg/dL [facility] Chloride [Moles/Vol] 105 mmol/L 98 - 10 7 mmol/L [facility] CO2 [Moles/Vol] 23 mmol/L 20 - 31 mmol/L [facility] Creatinine [Mass/Vol] 1.08 mg/dL 0.70 - 1.20 mg/dL [facility] GFR/1.73 sq M.predicted MDRD (S/P/Bld) [Vol rate/Area] - PINF [facility] Comment on above: These results are [...] 140 mg/dL High 70 - 99 mg/dL [facility] Interpretation and review of laboratory results Abnormal [facility] Potassium [Moles/Vol] 4.1 mmol/L 3.7 - 5.3 mmol/L [facility] Protein [Mass/Vol] 7.3 g/dL 6.4 - 8.3 g/dL [facility] Sodium [Moles/Vol] 138 mmol/L 135 - 144 mmol/L [facility] Urea nitrogen [Mass/Vol] 22 mg/dL High 6 - 20 mg/dL [facility] Urea nitrogen/Creatinine (Bld) [Mass ratio] 20 9 - 20 [facility] Comp Metabolic Profon 2022 Albumin [Mass/Vol] 4.1 g/dL Normal 3.5-5.2 [facility] Comment on above: Performed By: #### C P, CDP #### [facility] [address] [place], [place] [id number] Voice Studies Director: Jacob Gamez MD Albumin/Glob Ratio 1.3 Normal 1.0-2.5 [facility] Comment on above: Performed By: #### C P, CDP #### [facility] [address] [place], [place] [id number] Voice Studies Director: Jacob Gamez MD Alkaline Phos 87 U/L Normal 40-129 [facility] Comment on above: Performed By: #### C P, CDP #### [facility] [address] [place], [place] [id number] Voice Studies Director: Jacob Gamez MD ALT [Catalytic activity/Vol] 22 U/L Normal 5-41 [facility] Comment on above: Performed By: #### C P, CDP #### [facility] [address] [place], [place] [id number] Voice Studies Director: Jacob Gamez MD Anion gap [Moles/Vol] 10 mmol/L Normal 9-17 [facility] Comment on above: Performed By: #### C P, CDP #### [facility] [address] [place], [place] [id number] Voice Studies Director: Jacob Gamez MD AST [Catalytic activity/Vol] 18 U/L Normal <40 [facility] Comment on above: Performed By: #### C P, CDP #### [facility] [address] [place] [address] Voice Studies Director: Jacob Gamez MD Bilirubin [Mass/Vol] 0.4 mg/dL Normal 0.3-1.2 [facility] Comment on above: Performed By: #### C P, CDP #### [facility] [address] [place], [place] [id number] Voice Studies Director: Jacob Gamez MD BUN/CRE Ratio 20 Normal 9-20 [facility] Comment on above: Performed By: #### C P, CDP #### [facility] [address] [place] [id number] Voice Studies Director: Jacob Gamez MD Calcium [Mass/Vol] 9.0 mg/dL Normal 8.6-10.4 [facility] Comment on above: Performed By: #### C P, CDP #### [address] [place], [place] [id number] Voice Studies Director: Jacob Gamez MD Chloride [Moles/Vol] 105 mmol/L Normal 98-107 [facility] Comment on above: Performed By: #### C P, CDP #### [facility] [address] [place], [place] [id number] Voice Studies Director: Jacob Gamez MD CO2 [Moles/Vol] 23 mmol/L Normal 20-31 [facility] Comment on above: Performed By: #### C P, CDP #### [facility] [address] [place], [place] [id number] Voice Studies Director: Jacob Gamez MD Creatinine [Mass/Vol] 1.08 mg/dL Normal 0.70-1.20 [facility] Comment on above: Performed By: #### C P, CDP #### [facility] [address] [place] [address] Voice Studies Director: Jacob Gamez MD GFR/1.73 sq M.predicted among non-blacks MDRD (S/P/Bld) [Vol rate/Area] mL/min/{1.73_m2} Normal >60 [facility] Comment on above: Result Comment: These [...] By: #### C P, CDP #### [address] [place] [address] Voice Studies Director: Jacob Gamez MD Glucose [Mass/Vol] 140 mg/dL High 70-99 [facility] Comment on above: Performed By: #### C P, CDP #### [address] [place] [address] Voice Studies Director: Jacob Gamez MD Potassium [Moles/Vol] 4.1 mmol/L Normal 3.7-5.3 [facility] Comment on above: Performed By: #### C P, CDP #### [address] [place] [address] Voice Studies Director: Jacob Gamez MD Protein [Mass/Vol] 7.3 g/dL Normal 6.4-8.3 [facility] Comment on above: Performed By: #### C P, CDP #### [address] [place] [address] Voice Studies Director: aJcob Gamez MD Sodium [Moles/Vol] 138 mmol/L Normal 135-144 [facility] Comment on above: Performed By: #### C P, CDP #### [address] [place] [address] Voice Studies Director: Jacob Gamez MD Urea nitrogen [Mass/Vol] 22 mg/dL High 6-20 [facility] Comment on above: Performed By: #### C P, CDP #### [facility] [address] [place] [address] Voice Studies Director: Jacob Gamez MD TROPONIN, HIGH SENSITIVITYon 01-07-2023 HSTROP 6.5 pg/mL Normal 4.0-76.1 [facility] Comment on above: Result Comment: CUT- OFF POINTS HAVE BEEN ESTABLISHED BASED ON THE FOURTH UNIVERSAL DEFINITIONS OF MYOCARDIAL INFARCTION. THE UPPER REFERENCE LIMIT (URL) OF TROPONIN, DEFINED THE 99TH PERCENTILE OF cTnI DISTRIBUTION IN A REFERENCE POPULATION, HAS BEEN CONFIRMED THE DECISION THRESHOLD FOR [place] DIAGNOSIS. Performed By: #### H STROPN #### [facility] [address] [place] [address] Dr. Clive Main TSHon 01-07-2023 TSH 1.852 uIU/mL Normal 0.358-3.740 [facility] Comment on above: Performed By: #### H STROPN #### [facility] [address] [address] [address] Clive Main TSH w/reflex to FT4on 2022 Thyroid Stim. Horm. 2.45 uIU/mL Normal 0.30-5.00 [facility] Comment on above: Performed By: #### T SHX #### [facility] [address] [place] [address] Voice Studies Director: Jacob Gamez MD TSH with Reflexon 01-07-2023 TSH Qn 2.45 m[IU]/L [facility] XR CHEST 2 Von 01-07-2023 XR CHEST [...] by: JACOB EVERETT Date: 2023-01-07 18:23 Normal [facility] Ambulatory Visit Summaryon 0 03-29-2022 Ambulatory [...] Acute anterior circulation transient ischemic attack Normal [facility] General Surgery Office/Clini c Noteon 03-29-2022 General [...] Years., 03/01/2022 Family History Suicide: Father. Normal [facility] Comment on above: Result Comment: Elec tronically Signed By: Mahendra PARK MD\.br\Date and Time Signed: 03/29/22 15:14 EDT Pathology Noteon 03-22-2022 Pathology Note [id number]:127 Normal [facility] Ambulatory Visit Summaryon 0 03-15-2022 Ambulatory Visit [...] MD Where: General Surgery Vivian/Haroldo Gibson Normal [facility] General Surgery Office/Clini c Noteon 03-15-2022 General [...] 03/01/2022 Family History Suicide: Father. Normal [facility] Comment on above: Result Comment: Elec tronically [...] by: JACOB AGUAYO Date: 2022-03-04 08:12 Normal [facility] Ambulatory Visit Summaryon 0 03-01-2022 Ambulatory [...] MD Where: General Surgery Vivian/Haroldo Arthur Normal [facility] Physician Referralon 022 Physician Referral [id number] .[id number]:127 Normal [facility] [id number] 03-09-2020 SARS-CoV-2 Not Detected Normal Not Detected [facility] Comment on above: Result Comment: (NOT E) This test was developed and its performance characteristics determined by [employer]. This test has not been FDA cleared [...] detected) result in this assay. Performed At: [facility] [address] [facility], [place] [id number] Scar Ball MD Ph:[phone] Performed By: #### A COV #### [facility] [address] [place] [address] Voice Studies Director: Mahendra Garcia MD Vital Signs Date Time Vital Sign Value Performing Clinician Devon cruz 11-12-2023 13:24-0500 SaO2% (BldA) [Mass fraction] 99 % DELILAH RAI [facility] Comment on above: Order Comment: Specimen Type: ARTERIAL B LOOD SPECIMEN Ordering Facility[facility] Address: [address] [place] [id number] Performed By: #### A LLBG #### [facility] CLIA [id number] [address] [place], [place] [id number] [place] 01-07-2023 05:42-0400 Diastolic blood pressure 70 mm[Hg] Verena Velasquez MD Work Phone: [facility] 01-07-2023 05:42-0400 Heart rate 74 /min Verena Velasquez MD Work Phone: [facility] 01-07-2023 05:42-0400 Respiratory rate 16 /min Verena Velasquez MD Work Phone: [facility] 01-07-2023 05:42-0400 SaO2% (BldA) [Mass fraction] 95 % Verena Velasquez MD Work Phone: [facility] 01-07-2023 05:42-0400 Systolic blood pressure 147 mm[Hg] Verena Velasquez MD Work Phone: [facility] 01-07-2023 04:14-0400 Body height 193 cm Verena Velasquez MD Work Phone: [facility] 01-07-2023 04:14-0400 Body mass index (BMI) [Ratio] 50.64 kg/m2 Verena Velasquez MD Work Phone: [facility] 01-07-2023 04:14-0400 Body temperature 98.6 [degF] Verena Velasquez MD Work Phone: [facility] 01-07-2023 04:14-0400 Body weight 188.7 kg Verena Velasquez MD Work Phone: [facility] 03-01-2022 15:41-0400 Blood Pressure Location Mahendra PARK [facility] [place] 03-01-2022 15:41-0400 Diastolic blood pressure 88 mm[Hg] Mahendra PARK [facility] [place] 03-01-2022 15:41-0400 Heart rate 80 /min Mahendra PARK [facility] [place] 03-01-2022 15:41-0400 Respiratory rate 16 /min Mahendra PARK [facility] [place] 03-01-2022 15:41-0400 Systolic blood pressure 130 mm[Hg] Mahendra CHAMBERSL [facility] [place] Encounters Encounter Date Encounter Type Care Provider Facility Start: 11-12-2023 End: 11-13-2023 ambulatory DELILAH RAI Facility:[facility] Start: 11-11-2023 Telephone encounter Obey Rai MD Work Phone: Cardiology Comment on above: Education Of Patient /family Start: 11-07-2023 End: 11-08-2023 ambulatory DELILAH RAI Facility:[facility] Start: 11-07-2023 End: 11-07-2023 ambulatory DELILAH RAI Facility:[facility] Start: 01-31-2023 End: 01-31-2023 ambulatory MAGDALENE [facility] Start: 01-22-2023 End: 01-23-2023 ambulatory DR JENNY RAMÍREZ . Facility:[facility] Start: 01-10-2023 End: 01-12-[address] JENNY RAMÍREZ . Facility:[facility] Start: 01-09-2023 End: 01-10-[address] JENNY RAMÍREZ . Facility:[facility] Start: 01-07-2023 End: 01-07-2023 ambulatory MATILDA ALMENDAREZ . Facility:[facility] Start: 01-07-2023 End: 01-07-2023 Emergency department patient visit VERENA VELASQUEZ [facility] Start: 01-07-2023 End: 01-07-2023 Emergency department patient visit Verena Velasquez MD Work Phone: [facility] ED Comment on above: Hypertension, unspec ified type (Primary Dx); Palpitations Start: 03-23-2022 End: 03-26-2022 ambulatory JENNY RAMÍREZ [facility] Start: 03-23-2022 End: 03-25-2022 Subsequent hospital visit by physician Ashok Barrientos Mri Room 1 [facility] MRI Comment on above: Transient ischemic a ttack, anterior circulation, acute; Essential hypertension, malignant Start: 03-08-2022 End: 03-09-[address] JENNY RAMÍREZ . Facility:[facility] Start: 03-03-2022 End: 03-04-[address] JENNY RAMÍREZ . Facility:[facility] Start: 03-01-2022 End: 03-01-2022 Patient encounter procedure Mahendra PARK General Surgery [facility]old[facility] Start: 03-06-2020 End: 03-07-2020 Patient encounter procedure SIERRA Gonzalez [facility] Start: 03-06-2020 End: 03-06-2020 Subsequent hospital visit by physician Shay [facility] Laboratory Comment on above: [...] Lipid panel Lipid Screening [facility] Start: 11-07-2024 BP Controlled (<130/80) BP Controlle d (<130/80) [facility] Start: 10-22-2023 Depression Assessment Depression Ass essment [facility] Start: 06-22-2023 Covid-19 Vaccine () Covid-19 Vaccine () [facility] Start: 06-22-2023 Influenza vaccination Influenza Vacc ine (#1) [facility] Start: 06-22-2022 Influenza vaccination Flu vacc ine (Season Ended) [facility] Start: 05-22-2022 Influenza vaccination Flu vaccine (# 1) [facility] Start: 12-01-2021 COVID-19 Vaccine (3 - Booster for Pfizer series) COVID-19 Vaccine (3 - Booster for Pfizer series) [facility] Start: 08-26-2021 COVID-19 Vaccine (3 - Booster for Pfizer series) COVID-19 Vaccine (3 - Booster for Pfizer series) [facility] Start: 06-22-2020 Influenza vaccination Flu vacc ine (Season Ended) [place] Start: 2019 Diabetes screen Diabetes screen [facility] Start: 2003 DTaP/Tdap/Td vaccine (1 - Tdap) DTaP/Tdap/Td vaccine (1 - Tdap) [facility] Start: 2003 Urine microalbumin profile DTaP,Tdap,Td Vaccine (1 - Tdap) [facility] Start: 2002 Annual PCP Team Director Product Development gaudencio Disease Visit Annual PCP Team Chronic Disease Visit [facility] Start: 2002 Hepatitis C screening B [facility] Start: 2002 HIV screening HIV Screening [facility] Start: 1999 HIV screening HIV screen [facility] Start: 1996 Depression Screen Depression Screen [facility] Start: 1990 Pneumococcal 0-64 ye ars Vaccine (1 - PCV) Pneumococcal 0-64 years Vaccine (1 - PCV) [facility] Start: 1990 Pneumococcal 0-64 ye ars Vaccine (1 of 1 - PPSV23) Pneumococcal 0-64 years Vaccine (1 of 1 - PPSV23) [place] Start: 1985 Varicella vaccine (1 of 2 - 2-dose childhood series) Varicella vaccine (1 of 2 - 2-dose childhood series) [facility] Start: 1984 Hepatitis B Vaccine (1 of 3 - 3-dose series) Hepatitis B Vaccine (1 of 3 - 3-dose series) [facility] End: 03-06-2020 COVID-19 Ambulatory COVID-19 Ambulatory Lab Routine Suspected Covid-19 Virus Infection 1 Occurrences starting 03/06/2020 until 03/06/2020 [facility] [place] Comment on above: 1 Occurrences starti ng 03/06/2020 until 03/06/2020 COVID-19 Ambulatory COVID-19 Amb ulatory Lab Routine Suspected COVID-19 virus infection 03/06/2020 12:57 PM EDT [facility] [place] End: 01-07-2023 Retirement Continuous Cardia Event Monitor Retirement Continuous Cardia Event Monitor Cardiac Services Routine One Time for 1 Occurrences starting 01/07/2023 until 01/07/2023 [employer]: Comment on above: One Time for 1 Occur rences starting 01/07/2023 until 01/07/2023 End: 03-23-2022 MRI BRAIN WO CONTRAST MRI BRAIN WO CONTRAST Imaging Routine Transient ischemic attack, anterior circulation, acute Essential hypertension, malignant 1 Occurrences starting 03/23/2022 until 03/23/2022 [employer]: Comment on above: 1 Occurrences starti ng 03/23/2022 until 03/23/2022 [facility] Payers Date Payer Category Payer Unknown [employer] PPO OOS [id number] 2023-Present [phone] [address] [place] [address] PPO [id number] 2023 Unknown [id number] 2023 Medicaid 1985 Unknown [id number] 1984 Unknown [id number] 1984 Unknown [id number] 1984 Unknown [id number] 1984 Unknown [id number] 1984 Unknown [id number] 1984 Unknown [id number] 1984 Unknown [id number] 1959 Unknown [id number] Social History Date Type Detail Facility Start: 11-23-2016 End: 03-06-2020 Tobacco smoking status NHIS Current every day smoker [place] End: 10-22-2014 History of tobacco use Cigarette Smoker [place] Start: 03-06-2020 End: 11-07-2023 Cigarettes smoked current (pack per day) - Reported [place] Start: 03-06-2020 End: 01-07-2023 Alcohol intake Current drinker of alcohol (finding) [place] Start: 11-23-2016 Tobacco Comment instructed to refrain from smoking day of surgery [place] Start: 11-23-2016 Alcohol Comment seldom [place] Start: 1985 Sex Assigned At Not on file M [place] Exposure to SARS-CoV -2 (event) Unable to assess [place] Start: 03-01-2022 End: 11-07-2023 Tobacco smoking status Ex-smoker (finding) [facility] Tobacco smoking status Former sm okeless tobacco user, quit more than 30 days ago [facility] Start: 11-07-2023 Sex Assigned At Male [facility] Start: 11-23-2016 End: 11-07-2023 Tobacco use and exposure Smokeless tobacco non-user [employer]: Start: 12-28-2022 End: 01-07-2023 Exposure to SARS-CoV-2 (event) Not sure [employer]: End: 10-22-2014 History of tobacco use Current smoker [facility] Start: 11-07-2023 Alcohol intake Ex-drinker (finding) [facility] Clinical Notes 03-01-2022 to 11-11-2023 Telephone Encounter [...] Instructions/Restrictions- instructed to be accompanied by adult ambulance driver at discharge Patient/Family Response Evaluation: Verbalizes understanding Follow Up Plan and Medication: As directed by physician Instruction/Supplemental Material Given: Cardiac catheterization instructions, procedure information, hospital information, hotel information. Instructed By Lawrence Almeida RN, RN. In Department of CARDIOLOGY. documented in this encounter [facility] 11-07-2023 Note HNO ID: [id number] Author: DELILAH RAI MD Service: ? Author Type: Physician Type: Progress Notes Filed: 11/08/2023 15:23 Note Text: [facility] Department of Cardiovascular Medicine SECTION [...] artery stenosis. On 10/19 he presented to [facility] for tingling in his left hand. [...] daily to BID recently. He saw a transportation planning engineer in January 2023 for follow up of [...] PSV: 116.8 cm/ (more content not included)... [facility] 01-31-2023 Note Review of Systems Constitutional: Positive for malaise/fatigue. Cardiovascular: Positive for dyspnea on exertion, irregular heartbeat, leg swelling and palpitations. All other systems reviewed and are negative. Doron is here as a new patient follow up for hypertension. [facility] 01-31-2023 Note Cardiovascular Medic ine [facility] SUBJECTIVE Chief Complaint Patient presents with Hypertension New Patient HPI Jesse Sal is a 37 y.o. male here as a new patient. PMHx: uncontrolled HTN, JAMES wears CPAP, TIA (1 year ago while dealing with a GI upset and couldn't keep BP medications down, BP was elevated) He was admitted at [facility] 01/07/2023 for uncontrolled HTN. 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 [facility] 01-07-2023 Hospital Discharg e instructions Verena Velasquez MD - 01/07/2023 5:42 AM EDT Continue current medications as prescribed. Follow-up with cardiology as soon as possible. Call Sunday morning to schedule the earliest available appointment. Please seek medical attention immediately if you develop any chest pain shortness of breath weakness dizziness lightheadedness or any other acute concerns. documented in this encounter [employer] Phone: 03-01-2022 Note Chief Complaint consultation for [...] 36 Years., 03/01/2022 Family History Suicide: Father. [facility] Comment on above: Result Comment: Elec tronically Signed By: VIVIAN NOLAN, Mahendra Prakash\.br\Date and Time Signed: 03/01/22 17:17 EDT Evaluation + Plan note Future Appointments Appointment Date:03/15/2022 03:00:00 PM Scheduled Provider:Mahendra PARK MD Location:[facility] Appointment Type: Procedure 30 [facility] Evaluation note Diagnosis Transient ischemic attack, anterior circulation, acute Unspecified transient cerebral ischemia Essential hypertension, malignant documented in this encounter [employer]: evaluation note* Diagnosis Hypertension, unspecified type- Primary Palpitations documented in this encounter [employer]: Hospital course Narrative No data available for this section [facility] Discharge instructions No data available for this section [facility] Assessments Diagnosis Suspected COVID-19 virus infection Advance Directives No Advanced Directives Records FoundDocuments on File Type Date Recorded Patient Cable Placer Expl anation Advance Directives and Living Will Power of Slot Manager Latest Code Status on File Code Status Date Activated Date Inactivated Comments Full Code 11/30/2016 1:55 PM 11/30/2016 5:37 PM Full Code 11/30/2016 10:18 AM 11/30/2016 1:55 PM Documents on File Type Date Recorded Patient Cable Placer Expl anation ACP-Advance Directive ACP-Power of Slot Manager Latest Code Status on File Code Status [...] Palpitations Verena Velasquez MD [address] [place] [address] [facility] [address] [place] [phone] Referral ID Status Reason Start Date Expiration Date V isits Requested Visits Authorized [id number] Open Specialty Services Required 01/07/2023 01/07/2024 1 1 Scheduling Instructions [facility] Triniyt Wilkerson MD [address] [place], [place] [id number] Comments The patient can be scheduled with any member of the group, including the provider with the first available appointments. Specialty Diagnoses / Procedures Referred By Contac t Referred To Contact Radiology Diagnoses Transient ischemic attack, anterior circulation, acute Essential hypertension, malignant Procedures MRI BRAIN WO CONTRAST Jenny Ramírez MD [address] [place] [address] Referral ID Status Reason Start Date Expiration Date V isits Requested Visits Authorized [id number] Authorized 03/09/2022 04/08/2022 1 1 Additional Source Comments (unrecognized sect ion and content) No Status Records FoundNo Status Records FoundNo Status Records FoundNo Status Records FoundNo Status Records FoundNo Status Records FoundNo Status Records Found INFORMATION SOURCE (unrecogn ized section and content) DATE CREATED AUTHOR [facility] DATE CREATED AUTHOR AUTHOR'S ORGANIZ ATION 03/25/2022 [facility] DATE CREATED AUTHOR AUTHOR'S ORGANIZ ATION 03/30/2022 [facility] DATE CREATED AUTHOR AUTHOR'S ORGANIZ ATION 01/07/2023 [facility] DATE CREATED AUTHOR AUTHOR'S ORGANIZ ATION 01/27/[address] [facility] DATE CREATED AUTHOR AUTHOR'S ORGANIZ ATION 02/01/2023 [facility] DATE CREATED AUTHOR AUTHOR'S ORGANIZ ATION 12/26/2023 [facility] Reason for Visit (unrecogniz ed section and content) Specialty Diagnoses / Procedures Referred By Contac t Referred To Contact Radiology Diagnoses Transient ischemic attack, anterior circulation, acute Essential hypertension, malignant Procedures MRI BRAIN WO CONTRAST Jenny Ramírez MD [address] [place] [address] Referral ID Status Reason Start Date Expiration Date V isits Requested Visits Authorized [id number] Authorized 03/09/2022 04/08/2022 1 1 Reason Comments Hypertension Took bp meds around 11 pm, started feeling off and anxious around midnight. bp at home 178/116. Anxiety Reason Comments Education Of Patient/family Care Teams (unrecognized sec tion and content) Mechanic Recovery Relationship Specialty Start Date End Date Jenny Ramírez MD [address] [place] [address] 305 PCP - General Family Medicine 01/07/23 Mechanic Recovery Relationship Specialty Start Date End Date Delilah Rai MD [address] [place] [address] Primary Staff Physician Cardiology 11/07/23 Source Comments (unrecognize d section and content) In the event this informatio n is protected by the Federal Confidentiality of Alcohol and Drug Abuse Patient Records regulations: The Federal rules restrict any use of the information to criminally investigate or prosecute any alcohol or drug abuse patient.[facility] FOR RECORDS PERTAINING TO PATIENTS WHO ARE [...] BE BASED ON THE PRIMARY CLINICAL RECORDS. [facility] [employer] [facility]. provides no warranty or guarantee of the accuracy or completeness of information in this document.
== END 2024-08-21 11:00 | disposition home or self-care (01) ==
LOC: VC 09:02
PROVIDERS: PCP Family Medicine; Visit Provider Family Medicine
DX: R60.0 Localized edema (principal)
CPT/HCPCS: G0463

== ENCOUNTER 2024-08-21 10:38 | Outpatient (OUT) | payer BC, SELFPAY ==
--- NOTE | 2024-08-21 10:54 | XR_ITS ---
The [address] [address] Patient Name: JESSE YEPEZ MRN: [id number] date: 1985 Sex: M Assigned Patient Location: Current Patient Location: LAB Accession/Order Number: [id number] Exam Date: 08/21/2024 11:00 Report Date: 08/23/2024 06:36 At the request of: JENNY MONTEMAYOR Procedure: XR knee RT 3V PROCEDURE: XR knee RT 3V HISTORY: Internal derangement of knee COMPARISON: None. FINDINGS: BONES:Tiny degenerative osteophytes along the articular margins of all 3 compartments without significant joint space narrowing or articular surface irregularity. No fracture or dislocation. SOFT TISSUES:Degenerative enthesophytes at the quadriceps tendon and patellar tendon insertion into the patella. EFFUSION:None visible. OTHER: Negative. XR/XR knee RT 3V IMPRESSION: 1. Minimal degenerative joint disease. Electronically authenticated by: JOSEFINA SHETTY Date: 08/23/2024 06:36
--- OUTSIDE RECORDS SUMMARY | 2024-08-21 10:55 | XMS_ITS | CCD ---
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 Name Role Phone High, Generic Primary Care Provider UnavailSIERRA Arriaza Referring Unavailable HIGH, GENERIC Primary Care Unavailable Jenny Ramíerz Primary Care Physician Unavailable Primary Care Provider UnavailJENNY Duvall Referring Unavailable Jenny Ramírez MD Primary Care Provider [phone] VERENA VELASQUEZ Attending Unavailable JENNY RAMÍREZ [...] Unavailable HOY ., DR ALVARADO Admitting Unavailable FEDERAL WAY, DR JACOB Tolbert Consulting Unavailable SIM .DR [...] ALVARADO Primary Care Unavailable HOY ., DR ALAVRADO Admitting Unavailable HOY ., DR ALVARADO Attending Unavailable HOY ., DR ALVARADO Consulting Unavailable MAGDALENE FERRARI Attending Unavailable Delilah Rai MD Unavailable [phone] DELILAH RAI Attending Unavailable DELILAH RAI Referring Unavailable DELILAH RAI Referring Unavailable DELILAH RAI Admitting Unavailable EDLILAH RAI Attending Unavailable DELILAH RAI Referring Unavailable DELILAH RAI Attending Unavailable Allergies Allergy Classification Reported Allergen(s) Allergy Type Date of Onset Reaction(s) Facility (4 sources) Penicillins; Translations: [PENICILLINS] Propensity to adverse reactions to drug 11-30-[address] [place] [address] (4 sources) Sulfamethoxazole / Trimethoprim; Translations: [SULFAMETHOXAZOLE-T RIMETHOPRIM] Drug Allergy 11-23-[address] [place] [address] (2 sources) Penicillin; Translations: [penicillin] Drug Allergy [facility] (disorder) General [facility] [place] (2 sources) Penicillins Propensity to adverse reactions to drug 11-30-[address] [place] [address] (1 source) Amoxicillin Drug Allergy [facility] Repository Medications Current Medications Medication Drug Class(es) [...] 11-08-2023 11-08-2023 Episodic Other aftercare (1 source) prison (current) use of aspirin; Translations: [SALES DEVELOPMENT DIRECTOR CURRENT USE OF ASPIRIN] Onset: 01-17-2023 Episodic Other aftercare (1 source) 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 Faxed via [employer] Allergies As of Date: 12/25/2023 Noted Allergy [...] severe obesity due to excess calories w*11/08/2023 AJMES on CPAP [G47.33] 11/08/2023 History of tobacco abuse [Z87.891] 11/08/2023 History of marijuana use [F12.91] 11/08/2023 ZIEGLER (dyspnea on exertion) [R06.09] 11/08/2023 Precordial pain [R07.2] 11/08/2023 Encounter Status:Closed by ALVIN PRATER on 12/25/23 [facility]ES[facility] YE[facility] ([id number]) 1985 M Date Time Provider Department 11/21/23 DELILAH RAI During your visit today, we recorded the following information about you: Alvin Prater 11/21/2023 9:12 AM Signed Rec'd faxed FMLA forms to fill out. Copy saved to scanned documents Azalia Barnes APRN.CNP 11/21/2023 5:33 PM Signed [facility] papers completed Allergies As of Date: 11/21/2023 Noted Allergy Reaction PENICILLINS 11/07/2023 4 - Hives Date Reviewed: 11/12/2023 Reviewed by: Maddy Eid RN - Fully Assessed Reason for Visit: [place] Paperwork [1375] Prescriptions as of 11/21/2023 - allopurinol (ZYLOPRIM) [...] Status:Closed by AZALIA BARNES on 11/21/23 Normal [facility] ARTERIAL BLOOD GASESon 11-12 Base deficit (BldA) [Moles/Vol] -2 mmol/L Normal -2-0 [facility] Comment on above: Order Comment: Speci men Type: ARTERIAL BLOOD SPECIMEN Ordering Facility: [facility] Address: [address] [place] [address] Performed By: #### A LLBG #### [facility] CLIA [id number] [address] [place] [address] [place] Calcium.ionized (Bld) [Mass/Vol] 1.25 mmol/L Normal 1.08-1.30 [facility] Comment on above: Order Comment: Speci men Type: ARTERIAL BLOOD SPECIMEN Ordering Facility: [facility] Address: [address] [place] [address] Performed By: #### A LLBG #### [facility] CLIA [id number] [address] [place] [address] [place] Calcium.ionized adjusted to pH 7.4 (BldA) [Moles/Vol] 1.24 mmol/L Normal 1.08-1.30 [facility] Comment on above: Order Comment: Speci men Type: ARTERIAL BLOOD SPECIMEN Ordering Facility: [facility] Address: [address] [place] [address] Performed By: #### A LLBG #### [facility] CLIA [id number] [address] [place] [address] [place] Carboxyhemoglobin (BldA) [Mass fraction] 1.1 % Normal 0.0-2.0 [facility] Comment on above: Order Comment: Speci men Type: ARTERIAL BLOOD SPECIMEN Ordering Facility: [facility] Address: [address] [place] [address] Result Comment: Carb oxyhemoglobin Reference Range for Smokers: 2.0-8.0% Performed By: #### A LLBG #### [facility] IA [id number] [address] [place] [address] [place] CO2 (Bld) [Partial pressure] 39 mm Hg Normal 36-46 [facility] Comment on above: Order Comment: Speci men Type: ARTERIAL BLOOD SPECIMEN Ordering Facility: [facility] Address: [address] [place] [address] Performed By: #### A LLBG #### [facility] CLIA [id number] [address] [place] [address] [place] CO2 adjusted to patient's actual temperature (Bld) [Partial pressure] 39 mmHg Normal 36-46 [facility] Comment on above: Order Comment: Speci men Type: ARTERIAL BLOOD SPECIMEN Ordering Facility: [facility] Address: [address] [place] [address] Performed By: #### A LLBG #### [facility] CLIA [id number] [address] [place] [address] [place] Glucose [Mass/Vol] 116 mg/dL High 60-105 [facility] Comment on above: Order Comment: Speci men Type: ARTERIAL BLOOD SPECIMEN Ordering Facility: [facility] Address: [address] [place] [address] Performed By: #### A LLBG #### [facility] CLIA [id number] [address] [place] [address] [place] HCO3 (Bld) [Moles/Vol] 23 mmol/L Normal 22-26 [facility] Comment on above: Order Comment: Speci men Type: ARTERIAL BLOOD SPECIMEN Ordering Facility: [facility] Address: [address] [place] [address] Performed By: #### A LLBG #### [facility] CLIA [id number] [address] [place] [address] [place] Hematocrit (Bld) [Volume fraction] 45.5 % Normal 39.0-51.0 [facility] Comment on above: Order Comment: Speci men Type: ARTERIAL BLOOD SPECIMEN Ordering Facility: [facility] Address: [address] [place] [address] Performed By: #### A LLBG #### [facility] CLIA [id number] [address] [place] [address] [place] Hemoglobin (Bld) [Mass/Vol] 14.9 g/dL Normal 13.0-17.0 [facility] Comment on above: Order Comment: Speci men Type: ARTERIAL BLOOD SPECIMEN Ordering Facility: [facility] Address: [address] [place] [address] Performed By: #### A LLBG #### [facility] CLIA [id number] [address] [place] [address] [place] Lactate [Moles/Vol] 1.2 mmol/L Normal 0.5-2.2 [facility] Comment on above: Order Comment: Speci men Type: ARTERIAL BLOOD SPECIMEN Ordering Facility: [facility] Address: [address] [place] [address] Performed By: #### A LLBG #### [facility] CLIA [id number] [address] [place] [address] [place] Methemoglobin (Bld) [Mass fraction] 1.1 % Normal 0.0-1.5 [facility] Comment on above: Order Comment: Speci men Type: ARTERIAL BLOOD SPECIMEN Ordering Facility: [facility] Address: [address] [place] [address] Performed By: #### A LLBG #### [facility] CLIA [id number] [address] [place] [address] [place] Oxygen (Bld) [Partial pressure] 111 mm Hg High 85-95 [facility] Comment on above: Order Comment: Speci men Type: ARTERIAL BLOOD SPECIMEN Ordering Facility: [facility] Address: [address] [place] [address] Performed By: #### A LLBG #### [facility] CLIA [id number] [address] [place] [id number] [place] Oxygen adjusted to patient's actual temperature (Bld) [Partial pressure] 111 mmHg High 85-95 [facility] Comment on above: Order Comment: Speci men Type: ARTERIAL BLOOD SPECIMEN Ordering Facility: [facility] Address: [address] [place] [address] Performed By: #### A LLBG #### [facility] CLIA [id number] [address] [place] [address] [place] Oxyhemoglobin (BldA) [Mass fraction] 97 % Normal 95-98 [facility] Comment on above: Order Comment: Speci men Type: ARTERIAL BLOOD SPECIMEN Ordering Facility: [facility] Address: [address] [place] [address] Performed By: #### A LLBG #### [facility] CLIA [id number] [address] [place] [address] [place] pH (Bld) 7.38 [pH] Normal 7.35-7.45 [facility] Comment on above: Order Comment: Speci men Type: ARTERIAL BLOOD SPECIMEN Ordering Facility: [facility] Address: [address] [place] [address] Performed By: #### A LLBG #### [facility] CLIA [id number] [address] [place] [address] [place] pH adjusted to patient's actual temperature (Bld) 7.38 Normal 7.35-7.45 [facility] Comment on above: Order Comment: Speci men Type: ARTERIAL BLOOD SPECIMEN Ordering Facility: [facility] Address: [address] [place] [address] Performed By: #### A LLBG #### [facility] CLIA [id number] [address] [place] [address] [place] Potassium [Moles/Vol] 4.3 mmol/L Normal 3.5-5.0 [facility] Comment on above: Order Comment: Speci men Type: ARTERIAL BLOOD SPECIMEN Ordering Facility: [facility] Address: [address] [place] [address] Performed By: #### A LLBG #### [facility] CLIA [id number] [address] [place] [address] [place] Sodium [Moles/Vol] 141 mmol/L Normal 136-144 [facility] Comment on above: Order Comment: Speci men Type: ARTERIAL BLOOD SPECIMEN Ordering Facility: [facility] Address: [address] [place] [address] Performed By: #### A LLBG #### [facility] CLIA [id number] [address] [facility] [id number] [id number] [place] CARD CATH DIAGNOSTICon 11-12 CARD CATH DIAGNOSTIC Site Id: [facility] Lab #: [facility] [id number] Wire [place] 1 Study Date: 11/12/2023 Start Time: 11/12/2023 10:41:02 AM End Time: 11/12/2023 12:04:05 PM Physician Name Delilah Rai M.D., Beka M.D. Dugan, Eunice M.D. Sheng, Calvin M.D. Nursing/[facility]cu HealthJennifer R.N., M. RJulisa Leavitt R.N., K. R.NHay [...] Catheter Heparin-Coated Multiflex, Non-latex (formerly Hospira cat# [id number]) (INCORRECT BARCODE FORMAT) Used Catheter, Diagnostic Imaging [...] Time: 10/23 (more content not included)... 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 Pt's employer's number is [phone]. Allergies As of Date: 11/08/2023 Noted Allergy Reaction PENICILLINS 11/07/2023 4 - Hives Date Reviewed: 11/07/2023 Reviewed by: Alison Christy RN - Fully Assessed Reason for Visit: Release Of Medical Records [2017] Cmt: Cardiac Cath/OPD Notes - Employment Purposes Patient Question [5317] RTW/Cath Documents Needed [Other] Prescriptions as of [...] Status:Closed by ALVIN PRATER on 11/08/23 Normal [facility] CBC panel Auto (Bld)on 11-07 Erythrocyte distribution width (RBC) [Ratio] 13.3 % Normal 11.5-15.0 [facility] Comment on above: Order Comment: Speci men Type: BLOOD SPECIMEN Ordering Facility: [facility] Address: [address] [place] [address] Performed By: #### 5 8410-2 #### [facility] CLIA [id number] [address] [place] [address] [place] Hematocrit (Bld) [Volume fraction] 46.8 % Normal 39.0-51.0 [facility] Comment on above: Order Comment: Speci men Type: BLOOD SPECIMEN Ordering Facility: [facility] Address: [address] [place] [address] Performed By: #### 5 8410-2 #### [facility] CLIA [id number] [address] [place] [address] [place] Hemoglobin (Bld) [Mass/Vol] 15.5 g/dL Normal 13.0-17.0 [facility] Comment on above: Order Comment: Speci men Type: BLOOD SPECIMEN Ordering Facility: [facility] Address: [address] [place] [address] Performed By: #### 5 8410-2 #### [facility] CLIA [id number] [address] [place] [address] [place] MCH (RBC) [Entitic mass] 28.3 pg Normal 26.0-34.0 [facility] Comment on above: Order Comment: Speci men Type: BLOOD SPECIMEN Ordering Facility: [facility] Address: [address] [place] [address] Performed By: #### 5 8410-2 #### [facility] CLIA [id number] [address] [place] [address] [place] MCHC (RBC) [Mass/Vol] 33.1 g/dL Normal 30.5-36.0 [facility] Comment on above: Order Comment: Speci men Type: BLOOD SPECIMEN Ordering Facility: [facility] Address: [address] [place] [address] Performed By: #### 5 8410-2 #### [facility] CLIA [id number] [address] [place] [address] [place] MCV (RBC) [Entitic vol] 85.4 fL Normal 80.0-100.0 [facility] Comment on above: Order Comment: Speci men Type: BLOOD SPECIMEN Ordering Facility: [facility] Address: [address] [place] [address] Performed By: #### 5 8410-2 #### [facility] CLIA [id number] [address] [place] [address] [place] Nucleated RBC (Bld) [#/Vol] 10*3/uL Normal <0.01 [facility] Comment on above: Order Comment: Speci men Type: BLOOD SPECIMEN Ordering Facility: [facility] Address: [address] [place] [address] Performed By: #### 5 8410-2 #### [facility] CLIA [id number] [address] [place] [address] [place] Platelet mean volume (Bld) [Entitic vol] 11.5 fL Normal 9.0-12.7 [facility] Comment on above: Order Comment: Speci men Type: BLOOD SPECIMEN Ordering Facility: [facility] Address: [address] [place] [address] Performed By: #### 5 8410-2 #### [facility] CLIA [id number] [address] [place] [address] [place] Platelets (Bld) [#/Vol] 168 10*3/uL Normal 150-400 [facility] Comment on above: Order Comment: Speci men Type: BLOOD SPECIMEN Ordering Facility: [facility] Address: [address] [place] [address] Performed By: #### 5 8410-2 #### [facility] CLIA [id number] [address] [place] [address] [place] RBC (Bld) [#/Vol] 5.48 10*6/uL Normal 4.20-6.00 [facility] Comment on above: Order Comment: Speci men Type: BLOOD SPECIMEN Ordering Facility: [facility] Address: [address] [place] [address] Performed By: #### 5 8410-2 #### [facility] CLIA [id number] [address] [place] [address] [place] WBC (Bld) [#/Vol] 8.07 10*3/uL Normal 3.70-11.00 [facility] Comment on above: Order Comment: Speci men Type: BLOOD SPECIMEN Ordering Facility: [facility] Address: [address] [place] [address] Performed By: #### 5 8410-2 #### [facility] CLIA [id number] [address] [place] [address] [place] CNOVon 11-07-2023 CNOV Office Visit (CATHMN ) JESSE YEPEZ ([id number]) 1985 M Date Time Provider Department 11/07/23 8:45 AM DELILAH RAI During your visit today, we recorded the following information about you: Pulse Respiration Blood pressure Weight 67/minute 18/minute 119/75 188.7 kg Height 1.93 m Delilah Rai MD 11/08/2023 3:23 PM Signed [facility] [place] Francy [facility] Department of Cardiovascular Medicine SECTION [...] artery stenosis. On 10/19 he presented to [facility] for tingling in his left hand. [...] daily to BID recently. He saw a mail carrier technician in January 2023 for follow up of [...] No visible (more content not included)... Normal [facility] Comprehensive metabolic 2000 panelon 11-07-2023 Albumin [Mass/Vol] 4.6 g/dL Normal 3.9-4.9 [facility] Comment on above: Order Comment: Speci men Type: BLOOD SPECIMEN Ordering Facility: [facility] Address: [address] [place] [address] Performed By: #### 2 4331-1, 30077-3 #### [facility] CLIA [id number] [address] [place] [address] [place] ALP [Catalytic activity/Vol] 64 U/L Normal 38-113 [facility] Comment on above: Order Comment: Speci men Type: BLOOD SPECIMEN Ordering Facility: [facility] Address: [address] [place] [address] Performed By: #### 2 4331-1, #### [facility] CLIA [id number] [address] [place] [address] [place] ALT [Catalytic activity/Vol] 24 U/L Normal 10-54 [facility] Comment on above: Order Comment: Speci men Type: BLOOD SPECIMEN Ordering Facility: [facility] Address: [address] [place] [address] Performed By: #### 2 4331-1, 58291-7 #### [facility] CLIA [id number] [address] [place] [address] [place] Anion gap [Moles/Vol] 9 mmol/L Normal 9-18 [facility] Comment on above: Order Comment: Speci men Type: BLOOD SPECIMEN Ordering Facility: [facility] Address: [address] [place] [address] Performed By: #### 2 4331-1, #### [facility] CLIA [id number] [address] [place] [address] [place] AST [Catalytic activity/Vol] 22 U/L Normal 14-40 [facility] Comment on above: Order Comment: Speci men Type: BLOOD SPECIMEN Ordering Facility: [facility] Address: [address] [place] [address] Performed By: #### 2 4331-1, #### [facility] CLIA [id number] [address] [place] [address] [place] Bilirubin [Mass/Vol] 0.6 mg/dL Normal 0.2-1.3 [facility] Comment on above: Order Comment: Speci men Type: BLOOD SPECIMEN Ordering Facility: [facility] Address: [address] [place] [address] Performed By: #### 2 4331-1, #### [facility] CLIA [id number] [address] [place] [address] [place] Calcium [Mass/Vol] 9.5 mg/dL Normal 8.5-10.2 [facility] Comment on above: Order Comment: Speci men Type: BLOOD SPECIMEN Ordering Facility: [facility] Address: [address] [place] [address] Performed By: #### 2 4331-1, #### [facility] CLIA [id number] [address] [place] [address] [place] Chloride [Moles/Vol] 103 mmol/L Normal 97-105 [facility] Comment on above: Order Comment: Speci men Type: BLOOD SPECIMEN Ordering Facility: [facility] Address: [address] [place] [address] Performed By: #### 2 4331-1, #### [facility] CLIA [id number] [address] [place] [address] [place] CO2 [Moles/Vol] 26 mmol/L Normal 22-30 [facility] Comment on above: Order Comment: Speci men Type: BLOOD SPECIMEN Ordering Facility: [facility] Address: [address] [place] [address] Performed By: #### 2 4331-, #### [facility] CLIA [id number] [address] [place] [address] [place] Creatinine [Mass/Vol] 1.17 mg/dL Normal 0.73-1.22 [facility] Comment on above: Order Comment: Speci men Type: BLOOD SPECIMEN Ordering Facility: [facility] Address: [address] [place] [address] Performed By: #### 2 433-, #### [facility] CLIA [id number] [address] [place] [address] [place] Creatinine and Glomerular filtration rate.predicted panel (S/P/Bld) 81 mL/min/1.73m??? Normal >=60 [facility] Comment on above: Order Comment: Speci men Type: BLOOD SPECIMEN Ordering Facility: [facility] Address: [address] [place] [address] Result Comment: Janice mated Glomerular Filtration Rate [...] actual GFR. Performed By: #### 2 4331-1, 03380-6 #### [facility] CLIA [id number] [address] [place] [address] [place] Glucose [Mass/Vol] 99 mg/dL Normal 74-99 [facility] Comment on above: Order Comment: Speci wale Type: BLOOD SPECIMEN Ordering Facility: [facility] Address: [address] [place] [address] Result Comment: The [place] [employer] (ADA) provides guidance for cutoff [...] Standards of Medical Care in Diabetes 2016, [place] [employer]. Diabetes Care. 2016.39(Suppl 1). Performed By: #### 2 4331-1, 15766-1 #### [facility] CLIA [id number] [address] [place] [address] [place] Potassium [Moles/Vol] 4.2 mmol/L Normal 3.7-5.1 [facility] Comment on above: Order Comment: Jenaro echevarria Type: BLOOD SPECIMEN Ordering Facility: [facility] Address: [address] [place] [address] Performed By: #### 2 4331-1, 31526-9 #### [facility] CLIA [id number] [address] [place] [address] [place] Protein [Mass/Vol] 7.5 g/dL Normal 6.3-8.0 [facility] Comment on above: Order Comment: Jenaro echevarria Type: BLOOD SPECIMEN Ordering Facility: [facility] Address: [address] [place] [address] Performed By: #### 2 4331-, 38381-1 #### [facility] CLIA [id number] [address] [place] [address] [place] Sodium [Moles/Vol] 138 mmol/L Normal 136-144 [facility] Comment on above: Order Comment: Speci men Type: BLOOD SPECIMEN Ordering Facility: [facility] Address: [address] [id number] Performed By: #### 2 4331-1, 39564-2 #### [facility] CLIA [id number] [address] [place] [address] [place] Urea nitrogen [Mass/Vol] 19 mg/dL Normal 9-24 [facility] Comment on above: Order Comment: Speci men Type: BLOOD SPECIMEN Ordering Facility: [facility] Address: [address] [place] [address] Performed By: #### 2 4331-1, 84089-7 #### [facility] CLIA [id number] [address] [place] [address] [place] ECG COMPLETEon 11-07-2023 ECG COMPLETE Ventricular Rate : 6 9 BPM Atrial Rate : 69 BPM P-R Interval : 174 ms QRS Duration : 108 ms Q-T Interval : 392 ms QTC Calculation(Bazett) : 420 ms Calculated P [place] : 18 degrees Calculated R [place] : 5 degrees Calculated T [place] : 10 degrees NORMAL SINUS RHYTHM NORMAL ECG Confirmed by АННА BURLESON MD ([id number]) on 11/14/2023 7:55:00 AM NAME : JESSE YEPEZ PID : [id number] : 1985 Gender : Male Race : ORD : [id number] Procedure Date : Nov 07 2023 10:46:46 Edit Date : Nov 14 2023 07:55:01 Diagnosis: NORMAL SINUS RHYTHM NORMAL ECG Confirmed by АННА BURLESON MD ([id number]) on 11/14/2023 7:55:00 AM Test Reason : Location : 314 : J14 j1-4 Overread By : АННА BURLESON MD Edited By : АННА BURLESON MD Referred By : DELILAH RAI Acquired by : RASHAAD COLLIER Normal [facility] Lipid 1996 panelon 4 Cholesterol [Mass/Vol] 135 mg/dL Normal <200 [facility] Comment on above: Order Comment: Evonnei men Type: BLOOD SPECIMEN Ordering Facility: [facility] Address: [address] [place] [address] Result Comment: <200 mg/dL, Desirable 200-239 mg/dL, Borderline high >239 mg/dL, High Performed By: #### 2 4331-1, 90595-2 #### [facility] CLIA [id number] [address] [place] [address] [place] Cholesterol in HDL [Mass/Vol] 25 mg/dL Low >39 [facility] Comment on above: Order Comment: Evonnei men Type: BLOOD SPECIMEN Ordering Facility: [facility] Address: [address] [place] [address] Result Comment: 40-5 9 mg/dL, Acceptable >59 mg/dL, High: Negative risk factor for coronary heart disease <40 mg/dL, Low: Positive risk factor for coronary heart disease Performed By: #### 2 4331-1, 86903-0 #### [facility] CLIA [id number] [address] [place] [address] [place] Cholesterol in LDL [Mass/Vol] 87 mg/dL Normal <100 [facility] Comment on above: Order Comment: Jenaro men Type: BLOOD SPECIMEN Ordering Facility: [facility] Address: [address] [place] [address] Result Comment: <100 mg/dL, Optimal 100-129 mg/dL, Near optimal/above optimal 130-159 mg/dL, Borderline high 160-189 mg/dL, High >189 mg/dL, Very high Secondary prevention optimal LDL Cholesterol levels are recommended to be < 70 mg/dL Performed By: #### 2 4331-1, 76213-6 #### [facility] CLIA [id number] [address] [place] [address] [place] Cholesterol in LDL/Cholesterol in HDL [Mass ratio] 3.48 {ratio} High <2.54 [facility] Comment on above: Order Comment: Speci men Type: BLOOD SPECIMEN Ordering Facility: [facility] Address: [address] [place] [address] Result Comment: Ronald cline: 1. National Cholesterol Education Program ATP III Guideline At-A-Glance Quick Desk Reference: National Heart, Lung, and Blood [place]. National Institutes of Health. 2001: NIH Publication No. 01-3305. 2. An International Atherosclerosis Society position paper: global recommendations for the management of dyslipidemia: executive summary, Atherosclerosis. 2014: 232(2):410-413. Performed By: #### 2 4331-1, 97092-1 #### [facility] CLIA [id number] [address] [place] [address] [place] Cholesterol in VLDL [Mass/Vol] 23 mg/dL Normal <30 [facility] Comment on above: Order Comment: Jenaro echevarria Type: BLOOD SPECIMEN Ordering Facility: [facility] Address: [address] [place] [address] Performed By: #### 2 4331-1, 32967-5 #### [facility] CLIA [id number] [address] [place] [address] [place] Cholesterol non HDL [Mass/Vol] 110 mg/dL Normal <130 [facility] Comment on above: Order Comment: Jenaro echevarria Type: BLOOD SPECIMEN Ordering Facility: [facility] Address: [address] [place] [address] Result Comment: <130 mg/dL, Optimal 130-159 mg/dL, Near optimal/above optimal 160-189 mg/dL, Borderline high 190-219 mg/dL, High >219 mg/dL, Very high Secondary prevention optimal non HDL Cholesterol levels are recommended to be <100 mg/dL Performed By: #### 2 4331-1, 33550-0 #### [facility] CLIA [id number] [address] [place] [address] [place] Cholesterol.total/Cho lesterol in HDL [Mass ratio] 5.40 {ratio} High <5.10 [facility] Comment on above: Order Comment: Jenaro echevarria Type: BLOOD SPECIMEN Ordering Facility: [facility] Address: [address] [place] [address] Performed By: #### 2 4331-1, 51895-5 #### [facility] CLIA [id number] [address] [facility] [place] [address] [place] FASTING TIME 12 hrs Normal [facility] Comment on above: Order Comment: Speci men Type: BLOOD SPECIMEN Ordering Facility: [facility] Address: [address] [place] [address] Performed By: #### 2 4331-1, #### [facility] CLIA [id number] [address] [place] [address] [place] Triglyceride [Mass/Vol] 116 mg/dL Normal <150 [facility] Comment on above: Order Comment: Speci men Type: BLOOD SPECIMEN Ordering Facility: [facility] Address: [address] [place] [address] Result Comment: <150 mg/dL, Normal 150-199 mg/dL, Borderline high 200-499 mg/dL, High >499 mg/dL, Very high Performed By: #### 2 4331-1, #### [facility] CLIA [id number] [address] [place] [address] [place] Office Visiton 01-31-2023 Follow-up visit [id number] Jesse Yepez 1985 [facility] Provider Department Center 01/31/2023 MAGDALENE [...] Paternal Grandmother Alive Paternal Grandfather Level of Service:24197 [place] OFFICE/OUTPATIENT NEW MODERATE MDM 45-59 MINUTES Reason for Visit and Comments: Hypertension [255349] - New Patient Normal [facility] ALDOSTERONE: RENIN RATIOon 0 01-20-2023 Aldos/Renin Ratio 4.1 Normal 0.0-30.0 [facility] Comment on above: Result Comment: Unit s: ng/dL per ng/mL/hr Performed By: #### C RP, CMP #### [facility] [address] [place] [address] Dr. Clive Main Aldosterone 3.0 ng/dL Normal 0.0-30.0 [facility] Comment on above: Performed By: #### C RP, CMP #### [facility] [address] [place] [address] Dr. Clive Main Renin Activity, Plasma 0.730 ng/mL/hr Normal 0.167-5.380 [facility] Comment on above: Performed By: #### C RP, CMP #### [facility] [address] [place] [address] Dr. Clive Main METANEPHRINES PLASMA FREEon 01-18-2023 Metanephrine, Pl <10.0 Normal 0.0-88.0 [facility] Comment on above: Performed By: #### M ETANPF #### [facility] [address] [place] [address] Dr. Clive Main Normetanephrine, Pl 107.5 pg/mL Normal 0.0-210.1 [facility] Comment on above: Performed By: #### M ETANPF #### [facility] [address] [place] [address] Dr. Clive Main CBC AUTO DIFFon 01-12-2023 BASO # 0.0 103/ul Normal 0.0-0.1 [facility] Comment on above: Performed By: #### C BC #### [facility] [address] [place] [address] Dr. Clive Main Basophils/100 WBC (Bld) 0.4 % Normal 0.2-2.0 [facility] Comment on above: Performed By: #### C BC #### [facility] [address] [place] [address] Dr. Clive Main EO # 0.1 103/ul Normal 0.0-0.7 [facility] Comment on above: Performed By: #### C BC #### [facility] [address] [place] [address] Dr. Clive Main Eosinophils/100 WBC (Bld) 0.9 % Normal 0.9-7.[address] [facility] Comment on above: Performed By: #### C BC #### [facility] [address] [place] [address] Dr. Clive Main Erythrocyte distribution width (RBC) [Ratio] 13.8 % Normal 11.0-15.[address] [facility] Comment on above: Performed By: #### C BC #### [facility] [address] [place] [address] Dr. Clive Main Hematocrit (Bld) [Volume fraction] 49.1 % Normal 42.0-54.[address] [facility] Comment on above: Performed By: #### C BC #### [facility] [address] [place] [address] Dr. Clive Main Hemoglobin (Bld) [Mass/Vol] 16.7 g/dL Normal 14.0-18.[address] [facility] Comment on above: Performed By: #### C BC #### [facility] [address] [place] [address] Dr. Clive Main IG # 0.06 10e3/ul Critically high 0.00-0.03 [facility] Comment on above: Performed By: #### C BC #### [facility] [address] [place] [address] Dr. Clive Main IG % 0.5 % Normal 0.0-0.5 [facility] Comment on above: Performed By: #### C BC #### [facility] [address] [place] [address] Dr. Clive Main LYMPH # 2.7 103/ul Normal 1.2-3.8 [facility] Comment on above: Performed By: #### C BC #### [facility] [address] [place] [address] Dr. Clive Main Lymphocytes/100 WBC (Bld) 24.7 % Normal 20.5-60.0 [facility] Comment on above: Performed By: #### C BC #### [facility] [address] [place] [address] Dr. Clive Main MANUAL DIFF REQ NO Normal [facility] Comment on above: Performed By: #### C BC #### [facility] [address] [place] [address] Dr. Clive Main MCH (RBC) [Entitic mass] 28.4 pg Normal 25.9-34.0 [facility] Comment on above: Performed By: #### C BC #### [facility] [address] [place] [address] Dr. Clive Main MCHC (RBC) [Mass/Vol] 34.0 g/dL Normal 29.9-35.2 [facility] Comment on above: Performed By: #### C BC #### [facility] [address] [place] [address] Dr. Clive Main MCV (RBC) [Entitic vol] 83.6 fL Normal 80.0-94.0 [facility] Comment on above: Performed By: #### C BC #### [facility] [address] [place] [address] Dr. Clive Main MONO # 1.3 103/ul Critically high 0.3-0.8 [facility] Comment on above: Performed By: #### C BC #### [facility] [address] [place] [address] Dr. Clive Main Monocytes/100 WBC (Bld) 11.5 % Normal 1.7-12.0 [facility] Comment on above: Performed By: #### C BC #### [facility] [address] [place] [address] Dr. Clive Main NEUT # 6.8 103/ul Critically high 1.4-6.5 [facility] Comment on above: Performed By: #### C BC #### [facility] [address] [place] [address] Dr. Clive Main Neutrophils/100 WBC (Bld) 62.0 % Normal 43.0-75.[address] [facility] Comment on above: Performed By: #### C BC #### [facility] [address] [place] [address] Dr. Clive Main Platelet mean volume (Bld) [Entitic vol] 11.3 fL Normal 9.5-13.[address] [facility] Comment on above: Performed By: #### C BC #### [facility] [address] [address] [address] Clive Main PLT 206 103/ul Normal 150-[address] [facility] Comment on above: Performed By: #### C BC #### [facility] [address] [place] [address] Dr. Clive Main RBC 5.87 106/ul Normal 4.70-6.[address] [facility] Comment on above: Performed By: #### C BC #### [facility] [address] [place] [address] Dr. Clive Main WBC 10.9 103/ul Normal 4.0-11.0 [facility] Comment on above: Performed By: #### C BC #### [facility] [address] [place] [address] Dr. Clive Main ECHOCARDIO M/2D COMPLETEon 0 01-12-2023 ECHOCARDIO M/2D COMPLETE Patient: JESSE YEPEZ Exam Date: 01/12/2023 : 1985 Gender:M Ordering : DR JENNY RAMÍREZ . Admission #: [id number] Family : ANA CROW . Order #: [id number] CLICK HERE TO VIEW EXAM ECHOCARDIOGRAM REPORT [...] 01/12/2023 at 18:[address] [facility] PROF CHEM 8 (BAS METB)on Anion gap [Moles/Vol] 14.2 mmol/L Normal [facility] Comment on above: Performed By: #### H STROPN #### [facility] [address] [place] [address] Dr. Clive Main Calcium [Mass/Vol] 9.2 mg/dL Normal 8.5-10.1 [facility] Comment on above: Performed By: #### H STROPN #### [facility] [address] [place] [address] Dr. Clive Main Chloride [Moles/Vol] 103 mmol/L Normal 98-[address] [facility] Comment on above: Performed By: #### H STROPN #### [facility] [address] [place] [address] Dr. Clive Main CO2 [Moles/Vol] 24.7 mmol/L Normal 21.0-32.0 [facility] Comment on above: Performed By: #### H STROPN #### [facility] [address] [address] [address] Clive Main Creatinine [Mass/Vol] 1.11 mg/dL Normal 0.70-1.[address] [facility] Comment on above: Performed By: #### H STROPN #### [facility] [address] [address] [address] Clive Main EGFR-AF MONTENEGRIN >60 Normal >=60 [facility] Comment on above: Performed By: #### H STROPN #### [facility] [address] [address] [address] Clive Main EGFR-NON AF MONTENEGRIN >60 Normal >=[address] [facility] Comment on above: Performed By: #### H STROPN #### [facility] [address] [address] [address] Clive Main Glucose [Mass/Vol] 117 mg/dL Critically high 74-106 [facility] Comment on above: Performed By: #### H STROPN #### [facility] [address] [address] [address] Clive Main Potassium [Moles/Vol] 3.9 mmol/L Normal 3.5-5.[address] [facility] Comment on above: Performed By: #### H STROPN #### [facility] [address] [address] [address] Clive Main Sodium [Moles/Vol] 138 mmol/L Normal 136-145 [facility] Comment on above: Performed By: #### H STROPN #### [facility] [address] [address] [address] Clive Main Urea nitrogen [Mass/Vol] 20.0 mg/dL Critically high 7.0-18.[address] [facility] Comment on above: Performed By: #### H STROPN #### [facility] [address] [address] [address] Clive Main Urea nitrogen/Creatinine [Mass ratio] 18.0 mg/mg Normal [facility] Comment on above: Performed By: #### H STROPN #### [facility] [address] [address] [address] Clive Main US CAROTID ART BILon [...] JOSEFINA ANGELAKATARZYNADIANA Date: 2023-01-12 06:19 Normal [facility] CARDIAC ANDRE 3-6on 3 CK [Catalytic activity/Vol] 172 U/L Normal 39-308 [facility] Comment on above: Performed By: #### C RP, CMP #### [facility] [address] [place] [address] Dr. Clive Main CK.MB [Mass/Vol] 2.91 ng/mL Normal <=3.60 [facility] Comment on above: Performed By: #### C RP, CMP #### [facility] [address] [place] [address] Dr. Clive Main HSTROP 11.2 pg/mL Normal 4.0-76.1 [facility] Comment on above: Result Comment: CUT- OFF POINTS HAVE BEEN ESTABLISHED BASED ON THE FOURTH UNIVERSAL DEFINITIONS OF MYOCARDIAL INFARCTION. THE UPPER REFERENCE LIMIT (URL) OF TROPONIN, DEFINED THE 99TH PERCENTILE OF cTnI DISTRIBUTION IN A REFERENCE POPULATION, HAS BEEN CONFIRMED THE DECISION THRESHOLD FOR DC DIAGNOSIS. Performed By: #### C RP, CMP #### [facility] [address] [place] [address] Dr. Clive Main CK [Catalytic activity/Vol] 204 U/L Normal 39-308 [facility] Comment on above: Performed By: #### C RP, CMP #### [facility] [address] [place] [address] Dr. Clive Main CK.MB [Mass/Vol] 2.97 ng/mL Normal <=3.60 [facility] Comment on above: Performed By: #### C RP, CMP #### [facility] [address] [place] [address] Dr. Clive Main HSTROP 12.0 pg/mL Normal 4.0-76.1 [facility] Comment on above: Result Comment: CUT- OFF POINTS HAVE BEEN ESTABLISHED BASED ON THE FOURTH UNIVERSAL DEFINITIONS OF MYOCARDIAL INFARCTION. THE UPPER REFERENCE LIMIT (URL) OF TROPONIN, DEFINED THE 99TH PERCENTILE OF cTnI DISTRIBUTION IN A REFERENCE POPULATION, HAS BEEN CONFIRMED THE DECISION THRESHOLD FOR DC DIAGNOSIS. Performed By: #### C RP, CMP #### [facility] [address] [place] [address] Dr. Clive Main CBC AUTO DIFFon 01-11-2023 BASO # 0.1 103/ul Normal 0.0-0.[address] [facility] Comment on above: Performed By: #### C RP, CMP #### [facility] [address] [place] [address] Dr. Clive Main Basophils/100 WBC (Bld) 0.3 % Normal 0.2-2.[address] [facility] Comment on above: Performed By: #### C RP, CMP #### [facility] [address] [place] [address] Dr. Clive Main EO # 0.1 103/ul Normal 0.0-0.[address] [facility] Comment on above: Performed By: #### C RP, CMP #### [facility] [address] [place] [address] Dr. Clive Main Eosinophils/100 WBC (Bld) 0.5 % Critically low 0.9-7.[address] [facility] Comment on above: Performed By: #### C RP, CMP #### [facility] [address] [place] [address] Dr. Clive Main Erythrocyte distribution width (RBC) [Ratio] 13.6 % Normal 11.0-15.[address] [facility] Comment on above: Performed By: #### C RP, CMP #### [facility] [address] [place] [address] Dr. Clive Main Hematocrit (Bld) [Volume fraction] 47.7 % Normal 42.0-54.[address] [facility] Comment on above: Performed By: #### C RP, CMP #### [facility] [address] [place] [address] Dr. Clive Main Hemoglobin (Bld) [Mass/Vol] 16.2 g/dL Normal 14.0-18.[address] [facility] Comment on above: Performed By: #### C RP, CMP #### [facility] [address] [address] [address] Clive Main IG # 0.26 10e3/ul Critically high 0.00-0.03 [facility] Comment on above: Performed By: #### C RP, CMP #### [facility] [address] [place] [address] Dr. Clive Main IG % 1.7 % Critically high 0.0-0.5 [facility] Comment on above: Performed By: #### C RP, CMP #### [facility] [address] [place] [address] Dr. Clive Main LYMPH # 2.2 103/ul Normal 1.2-3.8 [facility] Comment on above: Performed By: #### C RP, CMP #### [facility] [address] [place] [address] Dr. Clive Main Lymphocytes/100 WBC (Bld) 15.1 % Critically low 20.5-60.[address] [facility] Comment on above: Performed By: #### C RP, CMP #### [facility] [address] [place] [address] Dr. Clive Main MANUAL DIFF REQ NO Normal [facility] Comment on above: Performed By: #### C RP, CMP #### [facility] [address] [place] [address] Dr. Clive Main MCH (RBC) [Entitic mass] 28.5 pg Normal 25.9-34.[address] [facility] Comment on above: Performed By: #### C RP, CMP #### [facility] [address] [place] [address] Dr. Clive Main MCHC (RBC) [Mass/Vol] 34.0 g/dL Normal 29.9-35.2 [facility] Comment on above: Performed By: #### C RP, CMP #### [facility] [address] [place] [address] Dr. Clive Main MCV (RBC) [Entitic vol] 84.0 fL Normal 80.0-94.[address] [facility] Comment on above: Performed By: #### C RP, CMP #### [facility] [address] [address] [address] Clive Main MONO # 1.3 103/ul Critically high 0.3-0.8 [facility] Comment on above: Performed By: #### C RP, CMP #### [facility] [address] [place] [address] Dr. Clive Main Monocytes/100 WBC (Bld) 8.7 % Normal 1.7-12.0 [facility] Comment on above: Performed By: #### C RP, CMP #### [facility] [address] [place] [address] Dr. Clive Main NEUT # 11.0 103/ul Critically high 1.4-6.5 [facility] Comment on above: Performed By: #### C RP, CMP #### [facility] [address] [place] [address] Dr. Clive Main Neutrophils/100 WBC (Bld) 73.7 % Normal 43.0-75.0 [facility] Comment on above: Performed By: #### C RP, CMP #### [facility] [address] [place] [address] Dr. Clive Main Platelet mean volume (Bld) [Entitic vol] 11.7 fL Normal 9.5-13.5 [facility] Comment on above: Performed By: #### C RP, CMP #### [facility] [address] [place] [address] Dr. Clive Main PLT 196 103/ul Normal 150-450 [facility] Comment on above: Performed By: #### C RP, CMP #### [facility] [address] [place] [address] Dr. Clive Main RBC 5.68 106/ul Normal 4.70-6.10 [facility] Comment on above: Performed By: #### C RP, CMP #### [facility] [address] [place] [address] Dr. Clive Main WBC 14.9 103/ul Critically high 4.0-11.0 [facility] Comment on above: Performed By: #### C RP, CMP #### [facility] [address] [place] [address] Dr. Clive Main DRUG SCREEN RAPID (URINE)on 01-11-2023 AMP Negative Normal NEGATIVE [facility] Comment on above: Performed By: #### D DIM #### [facility] [address] [place] [address] Dr. Clive Main BAR Negative Normal NEGATIVE [facility] Comment on above: Performed By: #### D DIM #### [facility] [address] [place] [address] Dr. Clive Main BUP Negative Normal NEGATIVE [facility] Comment on above: Performed By: #### D DIM #### [facility] [address] [place] [address] Dr. Clive Main BZO Negative Normal NEGATIVE [facility] Comment on above: Performed By: #### D DIM #### [facility] [address] [place] [address] Dr. Clive Main NEREIDA Negative Normal NEGATIVE [facility] Comment on above: Performed By: #### D DIM #### [facility] [address] [place] [address] Dr. Clive Main CUT-OFFS SEE BELOW Normal [facility] Comment on above: Result Comment: [...] ng/mL Performed By: #### D DIM #### [facility] [address] [place] [address] Dr. Clive Main DRUG CUT HEADER DRUG CLASS TEST SYSTEM CUT-OFF CONCENTRATIONS ARE FOLLOWS: Normal [facility] Comment on above: Performed By: #### D DIM #### [facility] [address] [address] [address] Clive Main mAMP Negative Normal NEGATIVE [facility] Comment on above: Performed By: #### D DIM #### [facility] [address] [address] [address] Clive Main MTD Negative Normal NEGATIVE [facility] Comment on above: Performed By: #### D DIM #### [facility] [address] [place] [address] Dr. Clive Main OPI Negative Normal NEGATIVE [facility] Comment on above: Performed By: #### D DIM #### [facility] [address] [address] [address] Clive Main OXY Negative Normal NEGATIVE [facility] Comment on above: Performed By: #### D DIM #### [facility] [address] [place] [address] Dr. Clive Main PCP Negative Normal NEGATIVE [facility] Comment on above: Performed By: #### D DIM #### [facility] [address] [place] [address] Dr. Clive Main PPX Negative Normal NEGATIVE [facility] Comment on above: Performed By: #### D DIM #### [facility] [address] [place] [address] Dr. Clive Main TCA Negative Normal NEGATIVE [facility] Comment on above: Performed By: #### D DIM #### [facility] [address] [place] [address] Dr. Clive Main THC Negative Normal NEGATIVE [facility] Comment on above: Performed By: #### D DIM #### [facility] [address] [place] [address] Dr. Clive Main ER URINE PROFILEon 3 Bilirubin Ql (U) Negative Normal NEGATIVE [facility] Comment on above: Performed By: #### C RP, CMP #### [facility] [address] [place] [address] Dr. Clive Main Clarity (U) CLEAR Normal CLEAR [facility] Comment on above: Performed By: #### C RP, CMP #### [facility] [address] [place] [address] Dr. Clive Main Color (U) LT. YELLOW Normal YELLOW [facility] Comment on above: Performed By: #### C RP, CMP #### [facility] [address] [place] [address] Dr. Clive NINO A micrscopic examination will be performed if indicated. Normal [facility] Comment on above: Performed By: #### C RP, CMP #### [facility] [address] [place] [address] Dr. Clive Main Glucose Ql (U) Negative Normal NEGATIVE [facility] Comment on above: Performed By: #### C RP, CMP #### [facility] [address] [place] [address] Dr. Clive Main Hemoglobin Ql (U) Negative Normal NEGATIVE [facility] Comment on above: Performed By: #### C RP, CMP #### [facility] [address] [place] [address] Dr. Clive Main Ketones Ql (U) 15 mg/dl Abnormal NEGATIVE [facility] Comment on above: Performed By: #### C RP, CMP #### [facility] [address] [place] [address] Dr. Clive Main LEUKOCYTES Negative Normal NEGATIVE [facility] Comment on above: Performed By: #### C RP, CMP #### [facility] [address] [place] [address] Dr. Clive Main Nitrite Ql (U) Negative Normal NEGATIVE [facility] Comment on above: Performed By: #### C RP, CMP #### [facility] [address] [place] [address] Dr. Clive Main pH (U) 5.5 [pH] Normal 5-9 [facility] Comment on above: Performed By: #### C RP, CMP #### [facility] [address] [place] [address] Dr. Clive Main SPEC GRAVITY 1.020 Normal 1.005-<=1.025 [facility] Comment on above: Performed By: #### C RP, CMP #### [facility] [address] [address] [address] Clive Main UA PROTEIN Negative Normal NEGATIVE/ TRACE [facility] Comment on above: Performed By: #### C RP, CMP #### [facility] [address] [address] [address] Clive Main UR MICRO IND NOT INDICATED Normal [facility] Comment on above: Performed By: #### C RP, CMP #### [facility] [address] [address] [address] Clive Main Urobilinogen Qn (U) 0.2 {Teodoro'U}/dL Normal 0.2 - 1. 0 [facility] Comment on above: Performed By: #### C RP, CMP #### [facility] [address] [address] [address] Clive Main MRI BRAIN WO CONon [...] BENOIT KEENAN Date: 2023-01-11 01:02 Normal [facility] PROF CHEM 8 (BAS METB)on Anion gap [Moles/Vol] 15.8 mmol/L Normal [facility] Comment on above: Performed By: #### B MP #### [facility] [address] [address] [address] Clive Main Calcium [Mass/Vol] 9.0 mg/dL Normal 8.5-10.1 [facility] Comment on above: Performed By: #### B MP #### [facility] [address] [address] [address] Clive Main Chloride [Moles/Vol] 101 mmol/L Normal 98-[address] [facility] Comment on above: Performed By: #### B MP #### [facility] [address] [address] [address] Clive Main CO2 [Moles/Vol] 22.0 mmol/L Normal 21.0-32.0 [facility] Comment on above: Performed By: #### B MP #### [facility] [address] [address] [address] Clive Main Creatinine [Mass/Vol] 0.88 mg/dL Normal 0.70-1.[address] [facility] Comment on above: Performed By: #### B MP #### [facility] [address] [address] [address] Clive Main EGFR-AF MONTENEGRIN >60 Normal >=60 [facility] Comment on above: Performed By: #### B MP #### [facility] [address] [address] [address] Clive Main EGFR-NON AF MONTENEGRIN >60 Normal >=[address] [facility] Comment on above: Performed By: #### B MP #### [facility] [address] [address] [address] Clive Main Glucose [Mass/Vol] 110 mg/dL Critically high 74-106 [facility] Comment on above: Performed By: #### B MP #### [facility] [address] [address] [address] Clive Main Potassium [Moles/Vol] 3.8 mmol/L Normal 3.5-5.[address] [facility] Comment on above: Performed By: #### B MP #### [facility] [address] [place], [place] [address] Dr. Clive Main Sodium [Moles/Vol] 135 mmol/L Critically low 136-145 [facility] Comment on above: Performed By: #### B MP #### [facility] [address] [place], [place] [address] Dr. Clive Main Urea nitrogen [Mass/Vol] 15.0 mg/dL Normal 7.0-18.[address] [facility] Comment on above: Performed By: #### B MP #### [facility] [address] [place], [place] [address] Dr. Clive Main Urea nitrogen/Creatinine [Mass ratio] 17.0 mg/mg Normal [facility] Comment on above: Performed By: #### B MP #### [facility] [address] [place], [place] [address] Dr. Clive Main US KIDNEYSon 01-11-2023 US [...] JOSEFINA SHETTY Date: 2023-01-11 12:57 Normal [facility] BNPon 01-10-2023 Natriuretic peptide B (Bld) [Mass/Vol] 108.0 pg/mL Normal <=450.0 [facility] Comment on above: Performed By: #### C RP, CMP #### [facility] [address] [place] [address] Dr. Clive Main CBC AUTO DIFFon 01-10-2023 BASO # 0.0 103/ul Normal 0.0-0.[address] [facility] Comment on above: Performed By: #### C RP, CMP #### [facility] [address] [place] [address] Dr. Clive Main Basophils/100 WBC (Bld) 0.3 % Normal 0.2-2.[address] [facility] Comment on above: Performed By: #### C RP, CMP #### [facility] [address] [place] [address] Dr. Clive Main EO # 0.1 103/ul Normal 0.0-0.7 [facility] Comment on above: Performed By: #### C RP, CMP #### [facility] [address] [place] [address] Dr. Clive Main Eosinophils/100 WBC (Bld) 0.4 % Critically low 0.9-7.0 [facility] Comment on above: Performed By: #### C RP, CMP #### [facility] [address] [place] [address] Dr. Clive Main Erythrocyte distribution width (RBC) [Ratio] 13.5 % Normal 11.0-15.[address] [facility] Comment on above: Performed By: #### C RP, CMP #### [facility] [address] [place] [address] Dr. Clive Main Hematocrit (Bld) [Volume fraction] 48.4 % Normal 42.0-54.[address] [facility] Comment on above: Performed By: #### C RP, CMP #### [facility] [address] [place] [address] Dr. Clive Main Hemoglobin (Bld) [Mass/Vol] 16.8 g/dL Normal 14.0-18.[address] [facility] Comment on above: Performed By: #### C RP, CMP #### [facility] [address] [place] [address] Dr. Clive Main IG # 0.05 10e3/ul Critically high 0.00-0.03 [facility] Comment on above: Performed By: #### C RP, CMP #### [facility] [address] [place] [address] Dr. Clive Main IG % 0.4 % Normal 0.0-0.[address] [facility] Comment on above: Performed By: #### C RP, CMP #### [facility] [address] [place] [address] Dr. Clive Main LYMPH # 1.8 103/ul Normal 1.2-3.[address] [facility] Comment on above: Performed By: #### C RP, CMP #### [facility] [address] [place] [address] Dr. Clive Main Lymphocytes/100 WBC (Bld) 13.9 % Critically low 20.5-60.[address] [facility] Comment on above: Performed By: #### C RP, CMP #### [facility] [address] [place] [address] Dr. Clive Main MANUAL DIFF REQ NO Normal [facility] Comment on above: Performed By: #### C RP, CMP #### [facility] [address] [place] [address] Dr. Clive Main MCH (RBC) [Entitic mass] 28.7 pg Normal 25.9-34.0 [facility] Comment on above: Performed By: #### C RP, CMP #### [facility] [address] [place] [address] Dr. Clive Main MCHC (RBC) [Mass/Vol] 34.7 g/dL Normal 29.9-35.2 [facility] Comment on above: Performed By: #### C RP, CMP #### [facility] [address] [place] [address] Dr. Clive Main MCV (RBC) [Entitic vol] 82.6 fL Normal 80.0-94.0 [facility] Comment on above: Performed By: #### C RP, CMP #### [facility] [address] [place] [address] Dr. Clive Main MONO # 1.0 103/ul Critically high 0.3-0.8 [facility] Comment on above: Performed By: #### C RP, CMP #### [facility] [address] [place] [address] Dr. Clive Main Monocytes/100 WBC (Bld) 7.2 % Normal 1.7-12.0 [facility] Comment on above: Performed By: #### C RP, CMP #### [facility] [address] [place] [address] Dr. Clive Main NEUT # 10.3 103/ul Critically high 1.4-6.5 [facility] Comment on above: Performed By: #### C RP, CMP #### [facility] [address] [place] [address] Dr. Clive Main Neutrophils/100 WBC (Bld) 77.8 % Critically high 43.0-75.0 [facility] Comment on above: Performed By: #### C RP, CMP #### [facility] [address] [place] [address] Dr. Clive Main Platelet mean volume (Bld) [Entitic vol] 11.3 fL Normal 9.5-13.5 [facility] Comment on above: Performed By: #### C RP, CMP #### [facility] [address] [address] [address] Clive Main PLT 202 103/ul Normal 150-450 [facility] Comment on above: Performed By: #### C RP, CMP #### [facility] [address] [address] [address] Clive Main RBC 5.86 106/ul Normal 4.70-6.10 [facility] Comment on above: Performed By: #### C RP, CMP #### [facility] [address] [address] [address] Clive Main WBC 13.2 103/ul Critically high 4.0-11.0 [facility] Comment on above: Performed By: #### C RP, CMP #### [facility] [address] [address] [address] Clive Main CRPon 01-10-2023 CRP 0.1 mg/dL Normal <=1.[address] [facility] Comment on above: Performed By: #### C RP, CMP #### [facility] [address] [place] [address] HEAD WO CONon [...] SUHA KANG Date: 2023-01-10 19:40 Normal [facility] SARS-CoV-2 (COVID-19) RNA ENIO+probe Ql (Unsp spec) Not detected Normal NOT DETECTED [facility] Comment on above: Result Comment: When diagnostic [...] for this test is supported by the [place] of Health and Human Service's declaration that [...] Performed By: #### C RP, CMP #### [facility] [address] [place] [address] Dr. Clive Main D-DIMERon 01-10-2023 D-DIMER 0.19 mg/L FEU Normal <=0.59 [facility] Comment on above: Performed By: #### D DIM #### [facility] [address] [place] [address] Dr. Clive Main D-DIMER COMMENTS SEE BELOW Normal [facility] Comment on above: Result Comment: Incr [...] hospitalization. Performed By: #### D DIM #### [facility] [address] [place] [address] Dr. Clive Main GLYCOHEMOGLOBIN A1Con 2022 ADA RECOMMENDATION SEE BELOW Normal [facility] Comment on above: Result Comment: ADA RECOMMENDED LIMIT 4.0 - 6.0 ADA THERAPEUTIC TARGET < 7.0 ACTION SUGGESTED > 7.0 Performed By: #### A 1C #### [facility] [address] [place] [address] Dr. Clive Main Glucose [Mass/Vol] 111 mg/dL Normal [facility] Comment on above: Performed By: #### A 1C #### [facility] [address] [place] [address] Dr. Clive Main HbA1c (Bld) [Mass fraction] 5.5 % Normal 4.5-6.[address] [facility] Comment on above: Performed By: #### A 1C #### [facility] [address] [place] [address] Dr. Clive Main LIPID PROFILEon 01-10-2023 CHOL-HDL RATIO NORM SEE BELOW Normal [facility] Comment on above: Result Comment: 3.3 - 4.4 LOW RISK 4.4 - 7.1 AVERAGE RISK 7.1 - 11.0 MODERATE RISK >11.0 HIGH RISK Performed By: #### C RP, CMP #### [facility] [address] [place] [address] Dr. Clive Main Cholesterol [Mass/Vol] 185 mg/dL Normal <=[address] [facility] Comment on above: Performed By: #### C RP, CMP #### [facility] [address] [place] [address] Dr. Clive Main Cholesterol in HDL [Mass/Vol] 36 mg/dL Critically low 40-[address] [facility] Comment on above: Performed By: #### C RP, CMP #### [facility] [address] [place] [address] Dr. Clive Main Cholesterol in LDL [Mass/Vol] 124.4 mg/dL Normal [facility] Comment on above: Performed By: #### C RP, CMP #### [facility] [address] [place] [address] Dr. Clive Main Cholesterol.total/Cho lesterol in HDL [Mass ratio] 5.1 {ratio} Normal [facility] Comment on above: Performed By: #### C RP, CMP #### [facility] [address] [address] [address] Clive Main HDL NORMAL > or = 60 mg/dl - LO W CARDIOVASCULAR RISK <40 mg/dl - HIGH CARDIOVASCULAR RISK Normal [facility] Comment on above: Performed By: #### C RP, CMP #### [facility] [address] [address] [address] Clive Main LDL CALC NORMAL SEE BELOW Normal [facility] Comment on above: Result Comment: <100 mg/dl OPTIMAL 100 - 129 mg/dl NEAR OR ABOVE OPTIMAL 130 - 159 mg/dl BORDERLINE HIGH 160 - 189 mg/dl HIGH >190 mg/dl VERY HIGH Performed By: #### C RP, CMP #### [facility] [address] [place] [address] Dr. Clive Main Triglyceride [Mass/Vol] 123 mg/dL Normal <=[address] [facility] Comment on above: Performed By: #### C RP, CMP #### [facility] [address] [address] [address] Clive Main VLDL CALC 24.6 mg/dL Normal [facility] Comment on above: Performed By: #### C RP, CMP #### [facility] [address] [place] [address] Dr. Clive Main MAGNESIUMon 01-10-2023 Magnesium [Mass/Vol] 2.1 mg/dL Normal 1.8-2.[address] [facility] Comment on above: Performed By: #### C RP, CMP #### [facility] [address] [place] [address] Dr. Clive Main PROF 14(COMP METB)on 023 Albumin [Mass/Vol] 4.5 g/dL Normal 3.4-5.0 [facility] Comment on above: Performed By: #### C RP, CMP #### [facility] [address] [place] [address] Dr. Clive Main Albumin/Globulin [Mass ratio] 1.2 {ratio} Normal [facility] Comment on above: Performed By: #### C RP, CMP #### [facility] [address] [address] [address] Clive Main ALP [Catalytic activity/Vol] 78 U/L Normal 46-[address] [facility] Comment on above: Performed By: #### C RP, CMP #### [facility] [address] [address] [address] Clive Main ALT [Catalytic activity/Vol] 43 U/L Normal 16-[address] [facility] Comment on above: Performed By: #### C RP, CMP #### [facility] [address] [address] [address] Clive Main Anion gap [Moles/Vol] 17.6 mmol/L Normal [facility] Comment on above: Performed By: #### C RP, CMP #### [facility] [address] [place] [address] Dr. Clive Main AST [Catalytic activity/Vol] 23 U/L Normal 15-[address] [facility] Comment on above: Performed By: #### C RP, CMP #### [facility] [address] [place] [address] Dr. Clive Main Bilirubin [Mass/Vol] 0.7 mg/dL Normal 0.2-1.[address] [facility] Comment on above: Performed By: #### C RP, CMP #### [facility] [address] [place] [address] Dr. Clive Main Calcium [Mass/Vol] 9.2 mg/dL Normal 8.5-10.1 [facility] Comment on above: Performed By: #### C RP, CMP #### [facility] [address] [place] [address] Dr. Clive Main Chloride [Moles/Vol] 102 mmol/L Normal 98-[address] [facility] Comment on above: Performed By: #### C RP, CMP #### [facility] [address] [address] [address] Clive Main CO2 [Moles/Vol] 22.1 mmol/L Normal 21.0-32.0 [facility] Comment on above: Performed By: #### C RP, CMP #### [facility] [address] [place] [address] Dr. Clive Main Creatinine [Mass/Vol] 0.88 mg/dL Normal 0.70-1.[address] [facility] Comment on above: Performed By: #### C RP, CMP #### [facility] [address] [address] [address] Clive Main EGFR-AF MONTENEGRIN >60 Normal >=60 [facility] Comment on above: Performed By: #### C RP, CMP #### [facility] [address] [place] [address] Dr. Clive Main EGFR-NON AF MONTENEGRIN >60 Normal >=[address] [facility] Comment on above: Performed By: #### C RP, CMP #### [facility] [address] [place] [address] Dr. Clive Main Globulin (S) [Mass/Vol] 3.8 g/dL Normal [facility] Comment on above: Performed By: #### C RP, CMP #### [facility] [address] [place] [address] Dr. Clive Main Glucose [Mass/Vol] 98 mg/dL Normal 74-106 [facility] Comment on above: Performed By: #### C RP, CMP #### [facility] [address] [place] [address] Dr. Clive Main Potassium [Moles/Vol] 3.7 mmol/L Normal 3.5-5.[address] [facility] Comment on above: Performed By: #### C RP, CMP #### [facility] [address] [place] [address] Dr. Clive Main Protein [Mass/Vol] 8.3 g/dL Critically high 6.4-8.2 [facility] Comment on above: Performed By: #### C RP, CMP #### [facility] [address] [place] [address] Dr. Clive Main Sodium [Moles/Vol] 138 mmol/L Normal 136-145 [facility] Comment on above: Performed By: #### C RP, CMP #### [facility] [address] [place] [address] Dr. Clive Main Urea nitrogen [Mass/Vol] 14.0 mg/dL Normal 7.0-18.[address] [facility] Comment on above: Performed By: #### C RP, CMP #### [facility] [address] [place] [address] Dr. Clive Main Urea nitrogen/Creatinine [Mass ratio] 15.9 mg/mg Normal [facility] Comment on above: Performed By: #### C RP, CMP #### [facility] [address] [place] [address] Dr. Clive Main PROTIMEon 01-10-2023 INR Coag (PPP) [Relative time] 1.08 {INR} Normal [facility] Comment on above: Performed By: #### D DIM #### [facility] [address] [place] [address] Dr. Clive Main INR GUIDELINES SEE BELOW Normal [facility] Comment on above: Result Comment: NATY RED INR: 2.0 - 3.0 CONDITIONS NOT LISTED BELOW 2.5 - 3.5 FOR PROSTHETIC HEART VALVE REPLACEMENT 2.5 - 3.5 RECURRENT THROMBOSIS Performed By: #### D DIM #### [facility] [address] [place] [address] Dr. Clive Main PT Coag (PPP) [Time] 11.4 s Normal 9.0-11.6 [facility] Comment on above: Performed By: #### D DIM #### [facility] [address] [place] [address] Dr. Clive Main PTTon 01-10-2023 aPTT Coag (Bld) [Time] 32.0 s Normal 22.3-36.[address] [facility] Comment on above: Performed By: #### D DIM #### [facility] [address] [place] [address] Dr. Clive Main SED RATE FEDERAL WAYERGRENon 2022 SED RATE 9 mm/hr Normal <=15 [facility] Comment on above: Performed By: #### C RP, CMP #### [facility] [address] [place] [address] Dr. Clive Main T4on 01-10-2023 T4 [Mass/Vol] 12.20 ug/dL Critically high 4.50-12.10 [facility] Comment on above: Performed By: #### C PASQUALE, CMP #### [facility] [address] [place] [address] Dr. Clive Main TROPONIN, HIGH SENSITIVITYon 01-10-2023 HSTROP 8.1 pg/mL Normal 4.0-76.[address] [facility] Comment on above: Result Comment: CUT- OFF POINTS HAVE BEEN ESTABLISHED BASED ON THE FOURTH UNIVERSAL DEFINITIONS OF MYOCARDIAL INFARCTION. THE UPPER REFERENCE LIMIT (URL) OF TROPONIN, DEFINED THE 99TH PERCENTILE OF cTnI DISTRIBUTION IN A REFERENCE POPULATION, HAS BEEN CONFIRMED THE DECISION THRESHOLD FOR DC DIAGNOSIS. Performed By: #### H STROPN #### [facility] [address] [place] [address] Dr. Clive Main TSHon 01-10-2023 TSH 1.219 uIU/mL Normal 0.358-3.740 [facility] Comment on above: Performed By: #### C PASQUALE, CMP #### [facility] [address] [place] [id number] Dr. Clive Main XR CHEST 1 Von [...] MITALI SIMON Date: 2023-01-10 19:33 Normal [facility] CBC AUTO DIFFon 01-09-2023 BASO # 0.1 103/ul Normal 0.0-0.[address] [facility] Comment on above: Performed By: #### C RP, CMP #### [facility] [address] [place] [address] Dr. Clive Main Basophils/100 WBC (Bld) 0.4 % Normal 0.2-2.[address] [facility] Comment on above: Performed By: #### C RP, CMP #### [facility] [address] [place] [address] Dr. Clive Main EO # 0.1 103/ul Normal 0.0-0.[address] [facility] Comment on above: Performed By: #### C RP, CMP #### [facility] [address] [place] [address] Dr. Clive Main Eosinophils/100 WBC (Bld) 0.9 % Normal 0.9-7.[address] [facility] Comment on above: Performed By: #### C RP, CMP #### [facility] [address] [place] [address] Dr. Clive Main Erythrocyte distribution width (RBC) [Ratio] 13.5 % Normal 11.0-15.[address] [facility] Comment on above: Performed By: #### C RP, CMP #### [facility] [address] [place] [address] Dr. Clive Main Hematocrit (Bld) [Volume fraction] 48.0 % Normal 42.0-54.[address] [facility] Comment on above: Performed By: #### C RP, CMP #### [facility] [address] [place] [address] Dr. Clive Main Hemoglobin (Bld) [Mass/Vol] 16.2 g/dL Normal 14.0-18.[address] [facility] Comment on above: Performed By: #### C RP, CMP #### [facility] [address] [place] [address] Dr. Clive Main IG # 0.04 10e3/ul Critically high 0.00-0.03 [facility] Comment on above: Performed By: #### C RP, CMP #### [facility] [address] [place] [address] Dr. Clive Main IG % 0.3 % Normal 0.0-0.[address] [facility] Comment on above: Performed By: #### C RP, CMP #### [facility] [address] [place] [address] Dr. Clive Main LYMPH # 2.3 103/ul Normal 1.2-3.[address] [facility] Comment on above: Performed By: #### C RP, CMP #### [facility] [address] [place] [address] Dr. Clive Main Lymphocytes/100 WBC (Bld) 19.3 % Critically low 20.5-60.[address] [facility] Comment on above: Performed By: #### C RP, CMP #### [facility] [address] [place] [address] Dr. Clive Main MANUAL DIFF REQ NO Normal [facility] Comment on above: Performed By: #### C RP, CMP #### [facility] [address] [place] [address] Dr. Clive Main MCH (RBC) [Entitic mass] 28.3 pg Normal 25.9-34.[address] [facility] Comment on above: Performed By: #### C RP, CMP #### [facility] [address] [place] [address] Dr. Clive Main MCHC (RBC) [Mass/Vol] 33.8 g/dL Normal 29.9-35.[address] [facility] Comment on above: Performed By: #### C RP, CMP #### [facility] [address] [place] [address] Dr. Clive Main MCV (RBC) [Entitic vol] 83.8 fL Normal 80.0-94.[address] [facility] Comment on above: Performed By: #### C RP, CMP #### [facility] [address] [place] [address] Dr. Clive Main MONO # 1.0 103/ul Critically high 0.3-0.8 [facility] Comment on above: Performed By: #### C RP, CMP #### [facility] [address] [place] [address] Dr. Clive Main Monocytes/100 WBC (Bld) 8.1 % Normal 1.7-12.[address] [facility] Comment on above: Performed By: #### C RP, CMP #### [facility] [address] [place] [address] Dr. Clive Main NEUT # 8.3 103/ul Critically high 1.4-6.5 [facility] Comment on above: Performed By: #### C RP, CMP #### [facility] [address] [place] [address] Dr. Clive Main Neutrophils/100 WBC (Bld) 71.0 % Normal 43.0-75.[address] [facility] Comment on above: Performed By: #### C RP, CMP #### [facility] [address] [place] [address] Dr. Clive Main Platelet mean volume (Bld) [Entitic vol] 11.5 fL Normal 9.5-13.[address] [facility] Comment on above: Performed By: #### C RP, CMP #### [facility] [address] [place] [address] Dr. Clive Main PLT 191 103/ul Normal 150-[address] [facility] Comment on above: Performed By: #### C RP, CMP #### [facility] [address] [place] [address] Dr. Clive Main RBC 5.73 106/ul Normal 4.70-6.10 [facility] Comment on above: Performed By: #### C RP, CMP #### [facility] [address] [place] [address] Dr. Clive Main WBC 11.7 103/ul Critically high 4.0-11.0 [facility] Comment on above: Performed By: #### C RP, CMP #### [facility] [address] [place] [address] Dr. Clive Main CPKon 01-09-2023 CK [Catalytic activity/Vol] 211 U/L Normal 39-308 [facility] Comment on above: Performed By: #### H STROPN #### [facility] [address] [place] [address] Dr. Clive Main D-DIMERon 01-09-2023 D-DIMER 0.19 mg/L FEU Normal <=0.59 [facility] Comment on above: Performed By: #### D DIM #### [facility] [address] [place] [address] Dr. Clive Main D-DIMER COMMENTS SEE BELOW Normal [facility] Comment on above: Result Comment: Incr eases [...] hospitalization. Performed By: #### D DIM #### [facility] [address] [place] [address] Dr. Clive Main LACTATE/LACTIC ACIDon 2022 Lactate [Moles/Vol] 1.0 mmol/L Normal 0.4-2.0 [facility] Comment on above: Performed By: #### H STROPN #### [facility] [address] [place] [address] Dr. Clive Main PROF 14(COMP METB)on 023 Albumin [Mass/Vol] 4.5 g/dL Normal 3.4-5.0 [facility] Comment on above: Performed By: #### H STROPN #### [facility] [address] [place] [address] Dr. Clive Main Albumin/Globulin [Mass ratio] 1.2 {ratio} Normal [facility] Comment on above: Performed By: #### H STROPN #### [facility] [address] [place] [address] Dr. Clive Main ALP [Catalytic activity/Vol] 91 U/L Normal 46-[address] [facility] Comment on above: Performed By: #### H STROPN #### [facility] [address] [place] [address] Dr. Clive Main ALT [Catalytic activity/Vol] 37 U/L Normal 16-[address] [facility] Comment on above: Performed By: #### H STROPN #### [facility] [address] [place] [address] Dr. Clive Main Anion gap [Moles/Vol] 13.9 mmol/L Normal [facility] Comment on above: Performed By: #### H STROPN #### [facility] [address] [place] [address] Dr. Clive Main AST [Catalytic activity/Vol] U/L Critically low 15-[address] [facility] Comment on above: Performed By: #### H STROPN #### [facility] [address] [address] [address] Clive Main Bilirubin [Mass/Vol] 0.4 mg/dL Normal 0.2-1.[address] [facility] Comment on above: Performed By: #### H STROPN #### [facility] [address] [place] [address] Dr. Clive Main Calcium [Mass/Vol] 9.0 mg/dL Normal 8.5-10.1 [facility] Comment on above: Performed By: #### H STROPN #### [facility] [address] [place] [address] Dr. Clive Main Chloride [Moles/Vol] 104 mmol/L Normal 98-[address] [facility] Comment on above: Performed By: #### H STROPN #### [facility] [address] [place] [address] Dr. Clive Main CO2 [Moles/Vol] 24.1 mmol/L Normal 21.0-32.0 [facility] Comment on above: Performed By: #### H STROPN #### [facility] [address] [place] [address] Dr. Clive Main Creatinine [Mass/Vol] 1.06 mg/dL Normal 0.70-1.[address] [facility] Comment on above: Performed By: #### H STROPN #### [facility] [address] [place] [address] Dr. Clive Main EGFR-AF MONTENEGRIN >60 Normal >=60 [facility] Comment on above: Performed By: #### H STROPN #### [facility] [address] [place] [address] Dr. Clive Main EGFR-NON AF MONTENEGRIN >60 Normal >=[address] [facility] Comment on above: Performed By: #### H STROPN #### [facility] [address] [address] [address] Clive Main Globulin (S) [Mass/Vol] 3.8 g/dL Normal [facility] Comment on above: Performed By: #### H STROPN #### [facility] [address] [address] [address] Clive Main Glucose [Mass/Vol] 101 mg/dL Normal 74-106 [facility] Comment on above: Performed By: #### H STROPN #### [facility] [address] [address] [address] Clive Main Potassium [Moles/Vol] 4.0 mmol/L Normal 3.5-5.[address] [facility] Comment on above: Performed By: #### H STROPN #### [facility] [address] [address] [address] Clive Main Protein [Mass/Vol] 8.3 g/dL Critically high 6.4-8.2 [facility] Comment on above: Performed By: #### H STROPN #### [facility] [address] [address] [address] Clive Main Sodium [Moles/Vol] 138 mmol/L Normal 136-145 [facility] Comment on above: Performed By: #### H STROPN #### [facility] [address] [address] [address] Clive Main Urea nitrogen [Mass/Vol] 22.0 mg/dL Critically high 7.0-18.[address] [facility] Comment on above: Performed By: #### H STROPN #### [facility] [address] [address] [address] Clive Main Urea nitrogen/Creatinine [Mass ratio] 20.8 mg/mg Normal [facility] Comment on above: Performed By: #### H STROPN #### [facility] [address] [address] [address] Clive Main TROPONIN, HIGH SENSITIVITYon 01-09-2023 HSTROP 6.1 pg/mL Normal 4.0-76.[address] [facility] Comment on above: Result Comment: CUT- OFF POINTS HAVE BEEN ESTABLISHED BASED ON THE FOURTH UNIVERSAL DEFINITIONS OF MYOCARDIAL INFARCTION. THE UPPER REFERENCE LIMIT (URL) OF TROPONIN, DEFINED THE 99TH PERCENTILE OF cTnI DISTRIBUTION IN A REFERENCE POPULATION, HAS BEEN CONFIRMED THE DECISION THRESHOLD FOR DC DIAGNOSIS. Performed By: #### H STROPN #### [facility] [address] [place], [place] [address] Dr. Clive Main TSHon 01-09-2023 TSH 3.045 uIU/mL Normal 0.358-3.740 [facility] Comment on above: Performed By: #### H STROPN #### [facility] [address] [place], [place] [address] Dr. Clive Main CBC with Auto Differentialon 01-07-2023 Absolute Eos # 0.18 [facility] Absolute Immature Granulocyte 0.05 [facility] Absolute Lymph # 2.34 [facility] Absolute Kidder # 0.87 [facility] Basophils (Bld) [#/Vol] 0.05 10*3/uL [facility] Basophils/100 WBC (Bld) 1 % 0 - 2 % [facility] Eosinophils/100 WBC (Bld) 2 % 1 - 4 % [facility] Hematocrit (Bld) [Volume fraction] 45.9 % 40.7 - 50.3 % [facility] Hemoglobin (Bld) [Mass/Vol] 15.5 g/dL 13.0 - 17.0 g/dL [facility] Immature granulocytes/100 WBC (Bld) 1 % High 0 [facility] Interpretation and review of laboratory results Abnormal [facility] Lymphocytes/100 WBC (Bld) 24 % 24 - 43 % [facility] MCH (RBC) [Entitic mass] 29.0 pg 25.2 - 33.5 pg [facility] MCHC (RBC) [Mass/Vol] 33.8 g/dL 28.4 - 34.8 g/dL [facility] MCV (RBC) [Entitic vol] 85.8 fL 82.6 - 102.9 fL [facility] Monocytes/100 WBC (Bld) 9 % 3 - 12 % [facility] NRBC Automated 0.0 0.0 per 100 WBC [facility] Platelet distribution width (Bld) [Ratio] 13.2 % 11.8 - 14.4 % [facility] Platelet mean volume (Bld) [Entitic vol] 11.6 fL 8.1 - 13.5 fL [facility] Platelets (Bld) [#/Vol] 169 10*3/uL [facility] RBC (Bld) [#/Vol] 5.35 10*6/uL 4.21 - 5.7 7 m/uL [facility] Segmented neutrophils/100 WBC (Bld) 63 % 36 - 65 % [facility] Segs Absolute 6.30 [facility] WBC (Bld) [#/Vol] 9.8 10*3/uL [facility] CBC with Diffon 01-07-2023 Abs. Basophil 0.05 k/uL Normal 0.00-0.20 [facility] Comment on above: Performed By: #### C P, CDP #### [facility] [address] [place] [address] [place] [address] Rn Referral: Jacob Gamez MD Abs.Imm.Granulocyte 0.05 k/uL Normal 0.00-0.30 [facility] Comment on above: Performed By: #### C P, CDP #### [facility] [address] [place] [address] Rn Referral: Jacob Gamez MD Abs.Neutrophil (Seg) 6.30 k/uL Normal 1.50-8.10 [facility] Comment on above: Performed By: #### C P, CDP #### [facility] [address] [place] [address] Rn Referral: Jacob Gamez MD Basophils/100 WBC (Bld) 1 % Normal 0-2 [facility] Comment on above: Performed By: #### C P, CDP #### [facility] [address] [place] [address] Dr. [place], [facility]83 Rn Referral: Jacob Gamez MD Eosinophils (Bld) [#/Vol] 0.18 10*3/uL Normal 0.00-0.44 [facility] Comment on above: Performed By: #### C P, CDP #### [address] [place], [facility]83 Rn Referral: Jacob Gamez MD Eosinophils/100 WBC (Bld) 2 % Normal 1-4 [facility] Comment on above: Performed By: #### C P, CDP #### [address] [place], [place] [address] Rn Referral: Jacob Gamez MD Erythrocyte distribution width (RBC) [Ratio] 13.2 % Normal 11.8-14.4 [facility] Comment on above: Performed By: #### C P, CDP #### [address] [place], [place] [address] Rn Referral: Jacob Gamez MD Hematocrit (Bld) [Volume fraction] 45.9 % Normal 40.7-50.3 [facility] Comment on above: Performed By: #### C P, CDP #### [address] [place], [facility]83 Rn Referral: Jacob Gamez MD Hemoglobin (Bld) [Mass/Vol] 15.5 g/dL Normal 13.0-17.0 [facility] Comment on above: Performed By: #### C P, CDP #### [address] [place], [facility]83 Rn Referral: Jacob Gamez MD Immature granulocytes/100 WBC (Bld) 1 % High 0 [facility] Comment on above: Performed By: #### C P, CDP #### [address] [place], [facility]83 Rn Referral: Jacob Gamez MD Lymphocytes (Bld) [#/Vol] 2.34 10*3/uL Normal 1.10-3.70 [facility] Comment on above: Performed By: #### C P, CDP #### [address] [place], [place] [id number] Rn Referral: Jacob Gamez MD Lymphocytes/100 WBC (Bld) 24 % Normal 24-43 [facility] Comment on above: Performed By: #### C P, CDP #### [address] [place] [address] Rn Referral: Jacob Gamez MD MCH (RBC) [Entitic mass] 29.0 pg Normal 25.2-33.5 [facility] Comment on above: Performed By: #### C P, CDP #### [address] [place], [place] [id number] Rn Referral: Jacob Gamez MD MCHC (RBC) [Mass/Vol] 33.8 g/dL Normal 28.4-34.8 [facility] Comment on above: Performed By: #### C P, CDP #### [address] [place] [address] Rn Referral: Jacob Gamez MD MCV (RBC) [Entitic vol] 85.8 fL Normal 82.6-102.9 [facility] Comment on above: Performed By: #### C P, CDP #### [address] [place] [address] Rn Referral: Jacob Gamez MD Monocytes (Bld) [#/Vol] 0.87 10*3/uL Normal 0.10-1.20 [facility] Comment on above: Performed By: #### C P, CDP #### [address] [place], [place] [id number] Rn Referral: Jacob Gamez MD Monocytes/100 WBC (Bld) 9 % Normal 3-12 [facility] Comment on above: Performed By: #### C P, CDP #### [facility] [address] [place], [place] [id number] Rn Referral: Jacob Gamez MD Neutrophil (Seg) 63 % Normal 36-65 [facility] Comment on above: Performed By: #### C P, CDP #### [facility] [address] [place], [place] [id number] Rn Referral: Jacob Gamez MD NRBC Automated 0.0 per 100 WBC Normal 0.0 [facility] Comment on above: Performed By: #### C P, CDP #### [facility] [address] [place], [place] [id number] Rn Referral: Jacob Gamez MD Platelet mean volume (Bld) [Entitic vol] 11.6 fL Normal 8.1-13.5 [facility] Comment on above: Performed By: #### C P, CDP #### [address] [place], [place] [id number] Rn Referral: Jacob Gamez MD Platelets (Bld) [#/Vol] 169 10*3/uL Normal 138-453 [facility] Comment on above: Performed By: #### C P, CDP #### [address] [place], [place] [id number] Rn Referral: Jacob Gamez MD RBC (Bld) [#/Vol] 5.35 10*6/uL Normal 4.21-5.77 [facility] Comment on above: Performed By: #### C P, CDP #### [facility] [address] [place], [place] [id number] Rn Referral: Jacob Gamez MD WBC (Bld) [#/Vol] 9.8 10*3/uL Normal 3.5-11.3 [facility] Comment on above: Performed By: #### C P, CDP #### [facility] [address] [place] [address] Rn Referral: Jacob Gamez MD [facility] 01-07-2023 Albumin [Mass/Vol] 4.1 g/dL 3.5 - 5.2 g/dL [facility] Albumin/Globulin [Mass ratio] 1.3 {ratio} 1.0 - 2.5 [facility] ALP [Catalytic activity/Vol] 87 U/L 40 - 129 U/L [facility] ALT [Catalytic activity/Vol] 22 U/L 5 - 41 U/L [facility] Anion gap [Moles/Vol] 10 mmol/L 9 - 17 mmol/L [facility] AST [Catalytic activity/Vol] 18 U/L NINF - 40 U/L [facility] Bilirubin [Mass/Vol] 0.4 mg/dL 0.3 - 1 .2 mg/dL [facility] Calcium [Mass/Vol] 9.0 mg/dL 8.6 - 10. 4 mg/dL [facility] Chloride [Moles/Vol] 105 mmol/L 98 - 10 7 mmol/L [facility] CO2 [Moles/Vol] 23 mmol/L 20 - 31 mmol/L [facility] Creatinine [Mass/Vol] 1.08 mg/dL 0.70 - 1.20 mg/dL [facility] GFR/1.73 sq M.predicted MDRD (S/P/Bld) [Vol rate/Area] - PINF [facility] Comment on above: These results are [...] 140 mg/dL High 70 - 99 mg/dL [facility] Interpretation and review of laboratory results Abnormal [facility] Potassium [Moles/Vol] 4.1 mmol/L 3.7 - 5.3 mmol/L [facility] Protein [Mass/Vol] 7.3 g/dL 6.4 - 8.3 g/dL [facility] Sodium [Moles/Vol] 138 mmol/L 135 - 144 mmol/L [facility] Urea nitrogen [Mass/Vol] 22 mg/dL High 6 - 20 mg/dL [facility] Urea nitrogen/Creatinine (Bld) [Mass ratio] 20 9 - 20 [facility] Comp Metabolic Profon 2022 Albumin [Mass/Vol] 4.1 g/dL Normal 3.5-5.2 [facility] Comment on above: Performed By: #### C P, CDP #### [facility] [address] [place], [place] [id number] Rn Referral: Jacob Gamez MD Albumin/Glob Ratio 1.3 Normal 1.0-2.5 [facility] Comment on above: Performed By: #### C P, CDP #### [facility] [address] [place], [place] [id number] Rn Referral: Jacob Gamez MD Alkaline Phos 87 U/L Normal 40-129 [facility] Comment on above: Performed By: #### C P, CDP #### [facility] [address] [place], [place] [id number] Rn Referral: Jacob Gamez MD ALT [Catalytic activity/Vol] 22 U/L Normal 5-41 [facility] Comment on above: Performed By: #### C P, CDP #### [facility] [address] [place], [place] [id number] Rn Referral: Jacob Gamez MD Anion gap [Moles/Vol] 10 mmol/L Normal 9-17 [facility] Comment on above: Performed By: #### C P, CDP #### [facility] [address] [place], [place] [id number] Rn Referral: Jacob Gamez MD AST [Catalytic activity/Vol] 18 U/L Normal <40 [facility] Comment on above: Performed By: #### C P, CDP #### [facility] [address] [place] [address] Rn Referral: Jacob Gamez MD Bilirubin [Mass/Vol] 0.4 mg/dL Normal 0.3-1.2 [facility] Comment on above: Performed By: #### C P, CDP #### [facility] [address] [place], [place] [id number] Rn Referral: Jacob Gamez MD BUN/CRE Ratio 20 Normal 9-20 [facility] Comment on above: Performed By: #### C P, CDP #### [facility] [address] [place] [address] Rn Referral: Jacob Gamez MD Calcium [Mass/Vol] 9.0 mg/dL Normal 8.6-10.4 [facility] Comment on above: Performed By: #### C P, CDP #### [address] [place], [place] [id number] Rn Referral: Jacob Gamez MD Chloride [Moles/Vol] 105 mmol/L Normal 98-107 [facility] Comment on above: Performed By: #### C P, CDP #### [facility] [address] [place], [place] [id number] Rn Referral: Jacob Gamez MD CO2 [Moles/Vol] 23 mmol/L Normal 20-31 [facility] Comment on above: Performed By: #### C P, CDP #### [facility] [address] [place], [place] [id number] Rn Referral: Jacob Gamez MD Creatinine [Mass/Vol] 1.08 mg/dL Normal 0.70-1.20 [facility] Comment on above: Performed By: #### C P, CDP #### [facility] [address] [place] [address] Rn Referral: Jacob Gamez MD GFR/1.73 sq M.predicted among non-blacks MDRD (S/P/Bld) [Vol rate/Area] mL/min/{1.73_m2} Normal >60 [facility] Comment on above: Result Comment: These results [...] Performed By: #### C P, CDP #### [address] [place] [address] Rn Referral: Jacob Gamez MD Glucose [Mass/Vol] 140 mg/dL High 70-99 [facility] Comment on above: Performed By: #### C P, CDP #### [address] [place] [address] Rn Referral: Jacob Gamez MD Potassium [Moles/Vol] 4.1 mmol/L Normal 3.7-5.3 [facility] Comment on above: Performed By: #### C P, CDP #### [address] [place] [address] Rn Referral: Jacob Gamez MD Protein [Mass/Vol] 7.3 g/dL Normal 6.4-8.3 [facility] Comment on above: Performed By: #### C P, CDP #### [address] [place] [address] Rn Referral: Jacob Gamez MD Sodium [Moles/Vol] 138 mmol/L Normal 135-144 [facility] Comment on above: Performed By: #### C P, CDP #### [address] [place] [address] Rn Referral: Jacob Gamez MD Urea nitrogen [Mass/Vol] 22 mg/dL High 6-20 [facility] Comment on above: Performed By: #### C P, CDP #### [facility] [address] [place] [address] Rn Referral: Jacob Gamez MD TROPONIN, HIGH SENSITIVITYon 01-07-2023 HSTROP 6.5 pg/mL Normal 4.0-76.[address] [facility] Comment on above: Result Comment: CUT- OFF POINTS HAVE BEEN ESTABLISHED BASED ON THE FOURTH UNIVERSAL DEFINITIONS OF MYOCARDIAL INFARCTION. THE UPPER REFERENCE LIMIT (URL) OF TROPONIN, DEFINED THE 99TH PERCENTILE OF cTnI DISTRIBUTION IN A REFERENCE POPULATION, HAS BEEN CONFIRMED THE DECISION THRESHOLD FOR DC DIAGNOSIS. Performed By: #### H STROPN #### [facility] [address] [place] [address] Dr. Clive Main TSHon 01-07-2023 TSH 1.852 uIU/mL Normal 0.358-3.740 [facility] Comment on above: Performed By: #### H STROPN #### [facility] [address] [address] [address] Clive Main TSH w/reflex to FT4on 2022 Thyroid Stim. Horm. 2.45 uIU/mL Normal 0.30-5.00 [facility] Comment on above: Performed By: #### T SHX #### [facility] [address] [place] [address] Rn Referral: Jacob Gamez MD TSH with Reflexon 01-07-2023 TSH Qn 2.45 m[IU]/L [facility] XR CHEST 2 Von 01-07-2023 XR [...] Date: 2023-01-07 18:[address] [facility] Ambulatory Visit Summaryon 0 03-29-2022 Ambulatory Visit [...] Acute anterior circulation transient ischemic attack [facility] General Surgery Office/Clini c Noteon 03-29-2022 [...] Years., 03/01/2022 Family History Suicide: Father. [facility] Comment on above: Result Comment: Elec tronically Signed By: Mahendra PARK MD\.br\Date and Time Signed: 03/29/22 15:14 EDT Pathology Noteon 03-22-2022 Pathology Note [id number]:127 [facility] Ambulatory Visit Summaryon 0 03-15-2022 Ambulatory [...] MD Where: General Surgery Vivian/Haroldo Gibson [facility] General Surgery Office/Clini c Noteon 03-15-2022 [...] 03/01/2022 Family History Suicide: Father. [facility] Comment on above: Result Comment: [...] Date: 2022-03-04 08:[address] [facility] Ambulatory Visit Summaryon 0 03-01-2022 Ambulatory Visit [...] MD Where: General Surgery Vivian/Haroldo Arthur [facility] Physician Referralon 022 Physician Referral [id number]:127 [facility] [id number] 03-09-2020 SARS-CoV-2 Not Detected Normal Not Detected [facility] Comment on above: Result Comment: (NOT E) This test was developed and its performance characteristics determined by [employer]. This test has not been FDA cleared [...] detected) result in this assay. Performed At: [facility] [address] [facility], [place] [id number] Scar Ball MD Ph:[phone] Performed By: #### A COV #### [facility] [address] [place] [address] Rn Referral: Mahendra Garcia MD Vital Signs Date Time Vital Sign Value Performing Clinician Devon cruz 11-12-2023 13:24-0500 SaO2% (BldA) [Mass fraction] 99 % DELILAH RAI [facility] Comment on above: Order Comment: Specimen Type: ARTERIAL B LOOD SPECIMEN Ordering Facility: [facility] Address: [address] [place] [address] Performed By: #### A LLBG #### [facility] CLIA [id number] [address] [place], [place] [address] [place] 01-07-2023 05:42-0400 Diastolic blood pressure 70 mm[Hg] Verena Velasquez MD Work Phone: [employer] 01-07-2023 05:42-0400 Heart rate 74 /min Verena Velasquez MD Work Phone: [employer] 01-07-2023 05:42-0400 Respiratory rate 16 /min Verena Velasquez MD Work Phone: [employer] 01-07-2023 05:42-0400 SaO2% (BldA) [Mass fraction] 95 % Verena Velasquez MD Work Phone: [employer] 01-07-2023 05:42-0400 Systolic blood pressure 147 mm[Hg] Verena Velasquez MD Work Phone: [employer] 01-07-2023 04:14-0400 Body height 193 cm Verena Velasquez MD Work Phone: [employer] 01-07-2023 04:14-0400 Body mass index (BMI) [Ratio] 50.64 kg/m2 Verena Velasquez MD Work Phone: [employer] 01-07-2023 04:14-0400 Body temperature 98.6 [degF] Verena Velasquez MD Work Phone: [employer] 01-07-2023 04:14-0400 Body weight 188.7 kg Verena Velasquez MD Work Phone: [employer] 03-01-2022 15:41-0400 Blood Pressure Location Mahendra PARK [facility] [place] 03-01-2022 15:41-0400 Diastolic blood pressure 88 mm[Hg] Mahendra PARK [facility] [place] 03-01-2022 15:41-0400 Heart rate 80 /min Mahendra PARK [facility] [place] 03-01-2022 15:41-0400 Respiratory rate 16 /min Mahendra PARK [facility] [place] 03-01-2022 15:41-0400 Systolic blood pressure 130 mm[Hg] Mahendra CHAMBERSL [facility] Surgery [place] Encounters Encounter Date Encounter Type Care Provider Facility Start: 11-12-2023 End: 11-13-2023 ambulatory DELILAH RAI Facility:[facility] Start: 11-11-2023 Telephone encounter Obey Rai MD Work Phone: Cardiology Comment on above: Education Of Patient /family Start: 11-07-2023 End: 11-08-2023 ambulatory DELILAH RAI Facility:[facility] Start: 11-07-2023 End: 11-07-2023 ambulatory DELILAH RAI Facility:[facility] Start: 01-31-2023 End: 01-31-2023 ambulatory MAGDALENE [facility] Start: 01-22-2023 End: 01-23-[address] JENNY RAMÍREZ . Facility:[facility] Start: 01-10-2023 End: 01-12-[address] JENNY RAMÍREZ . Facility:[facility] Start: 01-09-2023 End: 01-10-[address] JENNY RAMÍREZ . Facility:[facility] Start: 01-07-2023 End: 01-07-2023 ambulatory MATILDA ALMENDAREZ . Facility:[facility] Start: 01-07-2023 End: 01-07-2023 Emergency department patient visit VERENA VELASQUEZ [facility] Start: 01-07-2023 End: 01-07-2023 Emergency department patient visit Verena Velasquez MD Work Phone: [facility] ED Comment on above: Hypertension, unspec ified type (Primary Dx); Palpitations Start: 03-23-2022 End: 03-26-2022 ambulatory JENNY RAMÍREZ [facility] Start: 03-23-2022 End: 03-25-2022 Subsequent hospital visit by physician Ashok Barrientos Mri Room 1 [facility] MRI Comment on above: Transient ischemic a ttack, anterior circulation, acute; Essential hypertension, malignant Start: 03-08-2022 End: 03-09-[address] JENNY RAMÍREZ . Facility:[facility] Start: 03-03-2022 End: 03-04-[address] JENNY RAMÍREZ . Facility:[facility] Start: 03-01-2022 End: 03-01-2022 Patient encounter procedure Mahendra PARK General Surgery [facility]oldo [facility] Start: 03-06-2020 End: 03-07-2020 Patient encounter procedure SIERRA Gonzalez [facility] Start: 03-06-2020 End: 03-06-2020 Subsequent hospital visit by physician Shay [facility] Comment on above: [...] Author Start: 11-07-2028 Lipid panel Lipid Screening [facility] Start: 11-07-2024 BP Controlled (<130/80) BP Controlle d (<130/80) [facility] Start: 10-22-2023 Depression Assessment Depression Ass essment [facility] Start: 06-22-2023 Covid-19 Vaccine () Covid-19 Vaccine () [facility] Start: 06-22-2023 Influenza vaccination Influenza Vacc ine (#1) [facility] Start: 06-22-2022 Influenza vaccination Flu vacc ine (Season Ended) [facility] Start: 05-22-2022 Influenza vaccination Flu vaccine (# 1) [facility] Start: 12-01-2021 COVID-19 Vaccine (3 - Booster for Pfizer series) COVID-19 Vaccine (3 - Booster for Pfizer series) [facility] Start: 08-26-2021 COVID-19 Vaccine (3 - Booster for Pfizer series) COVID-19 Vaccine (3 - Booster for Pfizer series) [facility] Start: 06-22-2020 Influenza vaccination Flu vacc ine (Season Ended) [place] Start: 2019 Diabetes screen Diabetes screen [facility] Start: 2003 DTaP/Tdap/Td vaccine (1 - Tdap) DTaP/Tdap/Td vaccine (1 - Tdap) [facility] Start: 2003 Urine microalbumin profile DTaP,Tdap,Td Vaccine (1 - Tdap) [facility] Start: 2002 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 Annual PCP Team Chronic Disease Visit [facility] Start: 2002 Hepatitis C screening [facility] Start: 2002 HIV screening HIV Screening [facility] Start: 1999 HIV screening HIV screen [facility] Start: 1996 Depression Screen Depression Screen [facility] Start: 1990 Pneumococcal 0-64 ye ars Vaccine (1 - PCV) Pneumococcal 0-64 years Vaccine (1 - PCV) [facility] Start: 1990 Pneumococcal 0-64 ye ars Vaccine (1 of 1 - PPSV23) Pneumococcal 0-64 years Vaccine (1 of 1 - PPSV23) [place] Start: 1985 Varicella vaccine (1 of 2 - 2-dose childhood series) Varicella vaccine (1 of 2 - 2-dose childhood series) [facility] Start: 1984 Hepatitis B Vaccine (1 of 3 - 3-dose series) Hepatitis B Vaccine (1 of 3 - 3-dose series) [facility] End: 03-06-2020 COVID-19 Ambulatory COVID-19 Ambulatory Lab Routine Suspected Covid-19 Virus Infection 1 Occurrences starting 03/06/2020 until 03/06/2020 [facility] [place] Comment on above: 1 Occurrences starti ng 03/06/2020 until 03/06/2020 COVID-19 Ambulatory COVID-19 Amb ulatory Lab Routine Suspected COVID-19 virus infection 03/06/2020 12:57 PM EDT [facility] [place] End: 01-07-2023 Senior Living Continuous Cardia Event Monitor [facility] Living Continuous Cardia Event Monitor Cardiac Services Routine One Time for 1 Occurrences starting 01/07/2023 until 01/07/2023 [employer]: Comment on above: One Time for 1 Occur rences starting 01/07/2023 until 01/07/2023 End: 03-23-2022 MRI BRAIN WO CONTRAST MRI BRAIN WO CONTRAST Imaging Routine Transient ischemic attack, anterior circulation, acute Essential hypertension, malignant 1 Occurrences starting 03/23/2022 until 03/23/2022 [employer] Phone: Comment on above: 1 Occurrences starti ng 03/23/2022 until 03/23/2022 [facility] Payers Date Payer Category Payer Unknown [employer] PPO OOS [id number] 2023-Present [phone] [address] [place] [address] PPO [id number] 2023 Unknown [id number] 2023 Medicaid 1985 Unknown [id number] 1984 Unknown [id number] 1984 Unknown [id number] 1984 Unknown [id number] 1984 Unknown [id number] 1984 Unknown [id number] 1984 Unknown [id number] 1984 Unknown [id number] 1959 Unknown [id number] Social History Date Type Detail Facility Start: 11-23-2016 End: 03-06-2020 Tobacco smoking status NHIS Current every day smoker [place] End: 10-22-2014 History of tobacco use Cigarette Smoker [place] Start: 03-06-2020 End: 11-07-2023 Cigarettes smoked current (pack per day) - Reported [place] Start: 03-06-2020 End: 01-07-2023 Alcohol intake Current drinker of alcohol (finding) [place] Start: 11-23-2016 Tobacco Comment instructed to refrain from smoking day of surgery [place] Start: 11-23-2016 Alcohol Comment seldom [place], [place] Start: 1985 Sex Assigned At Not on file [place] Exposure to SARS-CoV -2 (event) Unable to assess [place] Start: 03-01-2022 End: 11-07-2023 Tobacco smoking status Ex-smoker (finding) [facility] [place] Tobacco smoking status Former sm okeless tobacco user, quit more than 30 days ago [facility] [place] Start: 11-07-2023 Sex Assigned At Male G eneral [facility] [place] Start: 11-23-2016 End: 11-07-2023 Tobacco use and exposure Smokeless tobacco non-user [employer] Phone: Start: 12-28-2022 End: 01-07-2023 Exposure to SARS-CoV-2 (event) Not sure [employer]: End: 10-22-2014 History of tobacco use Current smoker [facility] Start: 11-07-2023 Alcohol intake Ex-drinker (finding) [facility] Clinical Notes 03-01-2022 to 11-11-2023 Telephone [...] Instructions/Restrictions- 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 Instructed By Lawrence Almeida RN, RN. In Department of CARDIOLOGY. documented in this encounter [facility] 11-07-2023 Note HNO ID: [id number] Author: DELILAH RAI MD Service: ? Author Type: Physician Type: Progress Notes Filed: 11/08/2023 15:23 Note Text: [facility] [place] Francy Kern Department of Cardiovascular Medicine SECTION [...] artery stenosis. On 10/19 he presented to [facility] for tingling in his left hand. [...] daily to BID recently. He saw a mail carrier technician in January 2023 for follow up of [...] PSV: 116.8 cm/ (more content not included)... [facility] 01-31-2023 Note Review of Systems Constitutional: Positive for malaise/fatigue. Cardiovascular: Positive for dyspnea on exertion, irregular heartbeat, leg swelling and palpitations. All other systems reviewed and are negative. Doron is here as a new patient follow up for hypertension. [facility] 01-31-2023 Note Cardiovascular Medic ine [place] [facility] SUBJECTIVE Chief Complaint Patient presents with Hypertension New Patient HPI Jesse Sal is a 37 y.o. male here as a new patient. PMHx: uncontrolled HTN, JAMES wears CPAP, TIA (1 year ago while dealing with a GI upset and couldn't keep BP medications down, BP was elevated) He was admitted at [facility] 01/07/2023 for uncontrolled HTN. 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 [facility] 01-07-2023 Hospital Discharg e instructions Verena Velasquez MD - 01/07/2023 5:42 AM EDT Continue current medications as prescribed. Follow-up with cardiology as soon as possible. Call Sunday morning to schedule the earliest available appointment. Please seek medical attention immediately if you develop any chest pain shortness of breath weakness dizziness lightheadedness or any other acute concerns. documented in this encounter [employer] Phone: 03-01-2022 Note Chief Complaint consultation for [...] 36 Years., 03/01/2022 Family History Suicide: [facility] Comment on above: Result Comment: Elec tronically Signed By: VIVIAN NOLAN, Mahendra Prakash\.br\Date and Time Signed: 03/01/22 17:17 EDT Evaluation + Plan note Future Appointments Appointment Date:03/15/2022 03:00:00 PM Scheduled Provider:Mahendra PARK MD Location:[facility] Appointment Type: Procedure 30 General Surgery [place] Evaluation note Diagnosis Transient ischemic attack, anterior circulation, acute Unspecified transient cerebral ischemia Essential hypertension, malignant documented in this encounter [employer] Phone: evaluation note* Diagnosis Hypertension, unspecified type- Primary Palpitations documented in this encounter [employer] Phone: Hospital course Narrative No data available for this section [facility] Discharge instructions No data available for this section [facility] Assessments Diagnosis Suspected COVID-19 virus infection Advance Directives No Advanced Directives Records FoundDocuments on File Type Date Recorded Patient Fiscal Agent Expl anation Advance Directives and Living Will Power of Tin Pourer Latest Code Status on File Code Status Date Activated Date Inactivated Comments Full Code 11/30/2016 1:55 PM 11/30/2016 5:37 PM Full Code 11/30/2016 10:18 AM 11/30/2016 1:55 PM Documents on File Type Date Recorded Patient Fiscal Agent Expl anation ACP-Advance Directive ACP-Power of Tin Pourer Latest Code Status on File Code Status [...] Palpitations Verena Velasquez MD [address] [place] [address] [facility] [address] [place] [phone] Referral ID Status Reason Start Date Expiration Date V isits Requested Visits Authorized [id number] Open Specialty Services Required 01/07/2023 01/07/2024 1 1 Scheduling Instructions [facility] Wilkerson MD [address] [place], [place] [id number] Comments The patient can be scheduled with any member of the group, including the provider with the first available appointments. Specialty Diagnoses / Procedures Referred By Contac t Referred To Contact Radiology Diagnoses Transient ischemic attack, anterior circulation, acute Essential hypertension, malignant Procedures MRI BRAIN WO CONTRAST Jenny Ramírez MD [address] [place] [address] Referral ID Status Reason Start Date Expiration Date V isits Requested Visits Authorized [id number] Authorized 03/09/2022 04/08/2022 1 1 Additional Source Comments (unrecognized sect ion and content) No Status Records FoundNo Status Records FoundNo Status Records FoundNo Status Records FoundNo Status Records FoundNo Status Records FoundNo Status Records Found INFORMATION SOURCE (unrecogn ized section and content) DATE CREATED [facility] DATE CREATED AUTHOR AUTHOR'S ORGANIZ ATION 03/25/2022 [facility] DATE CREATED AUTHOR AUTHOR'S ORGANIZ ATION 03/30/2022 [facility] DATE CREATED AUTHOR AUTHOR'S ORGANIZ ATION 01/07/2023 [facility] DATE CREATED AUTHOR AUTHOR'S ORGANIZ ATION 01/27/2023 [facility] DATE CREATED AUTHOR AUTHOR'S ORGANIZ ATION 02/01/2023 [facility] DATE CREATED AUTHOR AUTHOR'S ORGANIZ ATION 12/26/2023 [facility] Reason for Visit (unrecogniz ed section and content) Specialty Diagnoses / Procedures Referred By Contac t Referred To Contact Radiology Diagnoses Transient ischemic attack, anterior circulation, acute Essential hypertension, malignant Procedures MRI BRAIN WO CONTRAST Jenny Ramírez MD [address] [place] [address] Referral ID Status Reason Start Date Expiration Date V isits Requested Visits Authorized [id number] Authorized 03/09/2022 04/08/2022 1 1 Reason Comments Hypertension Took bp meds around 11 pm, started feeling off and anxious around midnight. bp at home 178/116. Anxiety Reason Comments Education Of Patient/family Care Teams (unrecognized sec tion and content) Firewall Security Engineer Relationship Specialty Start Date End Date Jenny Ramírez MD [address] [place] [address] 309 PCP - General Family Medicine 01/07/23 Firewall Security Engineer Relationship Specialty Start Date End Date Delilah Rai MD [address] [place] [address] Primary Staff Physician Cardiology 11/07/23 Source Comments (unrecognize d section and content) In the event this informatio n is protected by the Federal Confidentiality of Alcohol and Drug Abuse Patient Records regulations: The Federal rules restrict any use of the information to criminally investigate or prosecute any alcohol or drug abuse patient.[facility] FOR RECORDS PERTAINING TO PATIENTS WHO [...] BE BASED ON THE PRIMARY CLINICAL RECORDS. [facility] [employer] [facility]. provides no warranty or guarantee of the accuracy or completeness of information in this document.
[2024-08-21 11:48] LABS: Alanine Aminotransferase 30 U/L (16-63); Albumin Level 3.9 g/dL (3.4-5.0); Alkaline Phosphatase 70 U/L (46-116); Anion Gap 13.4; Aspartate Amino Transferase 18 U/L (15-37); BUN Creatinine Ratio 12.8; Bilirubin Total 0.6 mg/dL (0.2-1.0); Calcium 9.3 mg/dL (8.5-10.1); Chloride 103 mmol/L (98-107); Estimated GFR (African America >60 (>=60 mL/min/1.73m^2); Estimated GFR (Non-African Ame >60 (>=60 mL/min/1.73m^2); Globulin 3.8 g/dL; Glucose 103 mg/dL (74-106); Potassium 4.4 mmol/L (3.5-5.1); Sodium 139 mmol/L (136-145); Total Protein 7.7 g/dL (6.4-8.2); Troponin I High Sensitivity 4.3 pg/mL (4.0-76.1)
== END 2024-08-21 10:39 | disposition home or self-care (01) ==
LOC: LAB 10:42
PROVIDERS: PCP Family Medicine; Visit Provider Family Medicine
DX: R60.0 Localized edema (principal); R60.9 Edema, unspecified; M23.91 Unspecified internal derangement of right knee; M17.11 Unilateral primary osteoarthritis, right knee
CPT/HCPCS: 36415; 73562; 80053; 83880; 84484; G0463

== ENCOUNTER 2024-10-16 15:47 | Outpatient (OUT) | payer BC, SELFPAY ==
--- NOTE | 2024-10-16 15:50 | MR_ITS ---
The [address] [address] Patient Name: JESSE YEPEZ MRN: [id number] date: 1985 Sex: M Assigned Patient Location: MRI Current Patient Location: MRI Accession/Order Number: [id number] Exam Date: 10/16/2024 16:00 Report Date: 10/17/2024 16:56 At the request of: JENNY MONTEMAYOR Procedure: MR knee RT wo con EXAM: MR KNEE RT WO CON HISTORY: Knee osteoarthritis. COMPARISON: 08/21/2024 TECHNIQUE: MRI images obtained with multiple sequences. MRI of the right knee without contrast. Sequences obtained by standard department protocol. FINDINGS: Anterior cruciate ligament is intact. There is a ganglion cyst associated with the posterior cruciate ligament measuring approximately 0.6 cm in width extending along the length of the posterior cruciate ligament fibers. Medial collateral ligament is intact. Lateral supporting structures are intact. Free edge fraying of the lateral meniscal body (coronal PD fat-sat image 18). Mild surface contour irregularity of the lateral compartment. Medial meniscus is intact. Medial compartment articular cartilage is preserved. Extensor mechanism is intact. Chondral thinning at the patellar articular cartilage. No knee joint effusion. No acute fractures. Subcutaneous soft tissue edema anterior to the knee joint. MR/MR knee RT wo con IMPRESSION: 1. Free edge fraying of the lateral meniscal body (coronal PD fat-sat image 18). 2. Extensor mechanism is intact. 3. Anterior cruciate ligament fibers are intact. 4. Ganglion cyst associated with the posterior cruciate ligament fibers as described. No full-thickness tear of the posterior cruciate ligament fibers. 5. Chondral thinning at the patellar articular cartilage. Mild surface contour irregularity of the lateral compartment. Electronically authenticated by: CLINT ANTONY Date: 10/17/2024 16:56
--- OUTSIDE RECORDS SUMMARY | 2024-10-16 15:58 | XMS_ITS | CCD ---
Author Organization [facility] Care Team Providers Care Dock Pumper Name Role Phone High, Generic Primary Care Provider UnavailSIERRA Arriaza Referring Unavailable HIGH, GENERIC Primary Care Unavailable Jenny Ramírez Primary Care Physician Unavailable Primary Care Provider UnavailJENNY Duvall Referring Unavailable Jenny Ramírez MD Primary Care Provider [phone] VERENA VELASQUEZ Attending Unavailable JENNY RAMÍREZ Primary Care Unavailable SIM ., DR ALVARADO Primary Care Unavailable TRISTIN ., ANA Admitting Unavailable TRISTIN ., ANA Attending Unavailable HOVenkatesh ., DR ALVARADO Consulting Unavailable SANJUANA, DR ERIKA Wills Consulting Unavailannelise e DIOGENES, DR JOSEFINA Prakash Consulting Unavailable JOVANY, CASEY Consulting Unavailable EKENAN, BENOIT Consulting Unavailable NEFCY, MITALI Consulting Unavailable [...] Unavailable HOY ., DR ALVARADO Admitting Unavailable [place], DR JACOB Tolbert Consulting Unavailable SIM .DR [...] Propensity to adverse reactions to drug 11-30-[address] [place] [address] (4 sources) Sulfamethoxazole / Trimethoprim; Translations: [SULFAMETHOXAZOLE-T RIMETHOPRIM] Drug Allergy 11-23-[address] [place] [address] (2 sources) Penicillin; Translations: [penicillin] Drug Allergy Weal (disorder) General Surgery [place] (2 sources) Penicillins Propensity to adverse reactions to drug 11-30-[address] [place] [address] (1 source) Amoxicillin Drug Allergy 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 Faxed via [facility] Allergies As of Date: 12/25/2023 Noted Allergy [...] Encounter Status:Closed by ALVIN PRATER on 12/25/23 [facility] ([id number]) 1985 M Date Time Provider Department 11/21/23 DELILAH RAI During your visit today, we recorded the following information about you: Alvin Prater 11/21/2023 9:12 AM Signed Rec'd faxed FMLA forms to fill out. Copy saved to scanned documents Azalia Barnes APRN.CNP 11/21/2023 5:33 PM Signed [facility] papers completed Allergies As of Date: 11/21/2023 Noted Allergy Reaction PENICILLINS 11/07/2023 4 - Hives Date Reviewed: 11/12/2023 Reviewed by: Maddy Eid RN - Fully Assessed Reason for Visit: [place] Paperwork [0745] Prescriptions as of 11/21/2023 - allopurinol (ZYLOPRIM) [...] Status:Closed by AZALIA BARNES on 11/21/23 Normal [facility] ARTERIAL BLOOD GASESon 11-12 Base deficit (BldA) [Moles/Vol] -2 mmol/L Normal -2-0 [facility] Comment on above: Order Comment: Speci men Type: ARTERIAL BLOOD SPECIMEN Ordering Facility: [facility] Address: [address] [place] [address] Performed By: #### A LLBG #### [facility] CLIA [id number] [address] [place] [address] [place] Calcium.ionized (Bld) [Mass/Vol] 1.25 mmol/L Normal 1.08-1.30 [facility] Comment on above: Order Comment: Speci men Type: ARTERIAL BLOOD SPECIMEN Ordering Facility: [facility] Address: [address] [place] [address] Performed By: #### A LLBG #### [facility] CLIA [id number] [address] [place] [address] [place] Calcium.ionized adjusted to pH 7.4 (BldA) [Moles/Vol] 1.24 mmol/L Normal 1.08-1.30 [facility] Comment on above: Order Comment: Speci men Type: ARTERIAL BLOOD SPECIMEN Ordering Facility: [facility] Address: [address] [place] [address] Performed By: #### A LLBG #### [facility] CLIA [id number] [address] [place] [address] [place] Carboxyhemoglobin (BldA) [Mass fraction] 1.1 % Normal 0.0-2.0 [facility] Comment on above: Order Comment: Speci men Type: ARTERIAL BLOOD SPECIMEN Ordering Facility: [facility] Address: [address] [place] [address] Result Comment: Carb oxyhemoglobin Reference Range for Smokers: 2.0-8.0% Performed By: #### A LLBG #### [facility] IA [id number] [address] [place] [address] [place] CO2 (Bld) [Partial pressure] 39 mm Hg Normal 36-46 [facility] Comment on above: Order Comment: Speci men Type: ARTERIAL BLOOD SPECIMEN Ordering Facility: [facility] Address: [address] [place] [address] Performed By: #### A LLBG #### [facility] CLIA [id number] [address] [place] [address] [place] CO2 adjusted to patient's actual temperature (Bld) [Partial pressure] 39 mmHg Normal 36-46 [facility] Comment on above: Order Comment: Speci men Type: ARTERIAL BLOOD SPECIMEN Ordering Facility: [facility] Address: [address] [place] [address] Performed By: #### A LLBG #### [facility] CLIA [id number] [address] [place] [address] [place] Glucose [Mass/Vol] 116 mg/dL High 60-105 [facility] Comment on above: Order Comment: Speci men Type: ARTERIAL BLOOD SPECIMEN Ordering Facility: [facility] Address: [address] [place] [address] Performed By: #### A LLBG #### [facility] CLIA [id number] [address] [place] [address] [place] HCO3 (Bld) [Moles/Vol] 23 mmol/L Normal 22-26 [facility] Comment on above: Order Comment: Speci men Type: ARTERIAL BLOOD SPECIMEN Ordering Facility: [facility] Address: [address] [place] [address] Performed By: #### A LLBG #### [facility] CLIA [id number] [address] [place] [address] [place] Hematocrit (Bld) [Volume fraction] 45.5 % Normal 39.0-51.0 [facility] Comment on above: Order Comment: Speci men Type: ARTERIAL BLOOD SPECIMEN Ordering Facility: [facility] Address: [address] [place] [address] Performed By: #### A LLBG #### [facility] CLIA [id number] [address] [place] [address] [place] Hemoglobin (Bld) [Mass/Vol] 14.9 g/dL Normal 13.0-17.0 [facility] Comment on above: Order Comment: Speci men Type: ARTERIAL BLOOD SPECIMEN Ordering Facility: [facility] Address: [address] [place] [address] Performed By: #### A LLBG #### [facility] CLIA [id number] [address] [place] [address] [place] Lactate [Moles/Vol] 1.2 mmol/L Normal 0.5-2.2 [facility] Comment on above: Order Comment: Speci men Type: ARTERIAL BLOOD SPECIMEN Ordering Facility: [facility] Address: [address] [place] [address] Performed By: #### A LLBG #### [facility] CLIA [id number] [address] [place] [address] [place] Methemoglobin (Bld) [Mass fraction] 1.1 % Normal 0.0-1.5 [facility] Comment on above: Order Comment: Speci men Type: ARTERIAL BLOOD SPECIMEN Ordering Facility: [facility] Address: [address] [place] [address] Performed By: #### A LLBG #### [facility] CLIA [id number] [address] [place] [address] [place] Oxygen (Bld) [Partial pressure] 111 mm Hg High 85-95 [facility] Comment on above: Order Comment: Speci men Type: ARTERIAL BLOOD SPECIMEN Ordering Facility: [facility] Address: [address] [place] [address] Performed By: #### A LLBG #### [facility] CLIA [id number] [address] [place] [id number] [place] Oxygen adjusted to patient's actual temperature (Bld) [Partial pressure] 111 mmHg High 85-95 [facility] Comment on above: Order Comment: Speci men Type: ARTERIAL BLOOD SPECIMEN Ordering Facility: [facility] Address: [address] [place] [address] Performed By: #### A LLBG #### [facility] CLIA [id number] [address] [place] [address] [place] Oxyhemoglobin (BldA) [Mass fraction] 97 % Normal 95-98 [facility] Comment on above: Order Comment: Speci men Type: ARTERIAL BLOOD SPECIMEN Ordering Facility: [facility] Address: [address] [place] [address] Performed By: #### A LLBG #### [facility] CLIA [id number] [address] [place] [address] [place] pH (Bld) 7.38 [pH] Normal 7.35-7.45 [facility] Comment on above: Order Comment: Speci men Type: ARTERIAL BLOOD SPECIMEN Ordering Facility: [facility] Address: [address] [place] [address] Performed By: #### A LLBG #### [facility] CLIA [id number] [address] [place] [address] [place] pH adjusted to patient's actual temperature (Bld) 7.38 Normal 7.35-7.45 [facility] Comment on above: Order Comment: Speci men Type: ARTERIAL BLOOD SPECIMEN Ordering Facility: [facility] Address: [address] [place] [address] Performed By: #### A LLBG #### [facility] CLIA [id number] [address] [place] [address] [place] Potassium [Moles/Vol] 4.3 mmol/L Normal 3.5-5.0 [facility] Comment on above: Order Comment: Speci men Type: ARTERIAL BLOOD SPECIMEN Ordering Facility: [facility] Address: [address] [place] [address] Performed By: #### A LLBG #### [facility] CLIA [id number] [address] [place] [address] [place] Sodium [Moles/Vol] 141 mmol/L Normal 136-144 [facility] Comment on above: Order Comment: Speci men Type: ARTERIAL BLOOD SPECIMEN Ordering Facility: [facility] Address: [address] [place] [address] Performed By: #### A LLBG #### [facility] CLIA [id number] [address] [facility] [id number] [id number] [place] CARD CATH DIAGNOSTICon 11-12 CARD CATH DIAGNOSTIC Site Id: [facility] Lab #: [id number] Creasing Machine Operator 1 Study Date: 11/12/2023 Start Time: 11/12/2023 10:41:02 AM End Time: 11/12/2023 12:04:05 PM Physician Name Delilah Ria M.D., Beka M.D. Dugan, Eunice M.D. Sheng, Calvin M.D. [facility]enn[facility]., M. RJulisa Leavitt R.N., K. [...] Catheter Heparin-Coated Multiflex, Non-latex (formerly Hospira cat# [id number]) (INCORRECT BARCODE FORMAT) Used Catheter, Diagnostic Imaging [...] Time: 10/23 (more content not included)... Normal [facility] CNPNon 11-11-2023 CNPN Telephone (CATLMN) JESSE YEPEZ ([id number]) 1985 Date Time Provider Department 11/11/23 DELILAH [...] ions- instructed to be accompanied by adult day haul or farm charter bus driver at discharge Patient/Family Response Evaluation: Verbalizes [...] Status:Closed by LAWRENCE ALMEIDA RN on 11/11/23 [facility] 11-08-2023 [facility] Telephone (EFFIE) JESSE YEPEZ ([id number]) 1985 M Date Time Provider Department 11/08/23 [...] be - Office explained that this is grfhotl-sb-jqhuwld based and something we are unable to [...] documents/records to be emailed * Email: [email or web address] Records that need to be sent - [...] The correct email address is the following: [email or web address] emailed the letter and attachments as requested. Pt's employer's number is [phone]. Allergies As of Date: 11/08/2023 Noted Allergy Reaction PENICILLINS 11/07/2023 4 - Hives Date Reviewed: 11/07/2023 Reviewed by: Alison Christy RN - Fully Assessed Reason for Visit: Release Of Medical Records [2017] Cmt: Cardiac Cath/OPD Notes - Employment Purposes Patient Question [2941] RTW/Cath Documents Needed [Other] Prescriptions as of [...] Status:Closed by ALVIN PRATER on 11/08/23 Normal [facility] CBC panel Auto (Bld)on 11-07 Erythrocyte distribution width (RBC) [Ratio] 13.3 % Normal 11.5-15.0 [facility] Comment on above: Order Comment: Speci men Type: BLOOD SPECIMEN Ordering Facility: [facility] Address: [address] [place] [address] Performed By: #### 5 8410-2 #### [facility] CLIA [id number] [address] [place] [address] [place] Hematocrit (Bld) [Volume fraction] 46.8 % Normal 39.0-51.0 [facility] Comment on above: Order Comment: Speci men Type: BLOOD SPECIMEN Ordering Facility: [facility] Address: [address] [place] [address] Performed By: #### 5 8410-2 #### [facility] CLIA [id number] [address] [place] [address] [place] Hemoglobin (Bld) [Mass/Vol] 15.5 g/dL Normal 13.0-17.0 [facility] Comment on above: Order Comment: Speci men Type: BLOOD SPECIMEN Ordering Facility: [facility] Address: [address] [place] [address] Performed By: #### 5 8410-2 #### [facility] CLIA [id number] [address] [place] [address] [place] MCH (RBC) [Entitic mass] 28.3 pg Normal 26.0-34.0 [facility] Comment on above: Order Comment: Speci men Type: BLOOD SPECIMEN Ordering Facility: [facility] Address: [address] [place] [address] Performed By: #### 5 8410-2 #### [facility] CLIA [id number] [address] [place] [address] [place] MCHC (RBC) [Mass/Vol] 33.1 g/dL Normal 30.5-36.0 [facility] Comment on above: Order Comment: Speci men Type: BLOOD SPECIMEN Ordering Facility: [facility] Address: [address] [place] [address] Performed By: #### 5 8410-2 #### [facility] CLIA [id number] [address] [place] [address] [place] MCV (RBC) [Entitic vol] 85.4 fL Normal 80.0-100.0 [facility] Comment on above: Order Comment: Speci men Type: BLOOD SPECIMEN Ordering Facility: [facility] Address: [address] [place] [address] Performed By: #### 5 8410-2 #### [facility] CLIA [id number] [address] [place] [address] [place] Nucleated RBC (Bld) [#/Vol] 10*3/uL Normal <0.01 [facility] Comment on above: Order Comment: Speci men Type: BLOOD SPECIMEN Ordering Facility: [facility] Address: [address] [place] [address] Performed By: #### 5 8410-2 #### [facility] CLIA [id number] [address] [place] [address] [place] Platelet mean volume (Bld) [Entitic vol] 11.5 fL Normal 9.0-12.7 [facility] Comment on above: Order Comment: Speci men Type: BLOOD SPECIMEN Ordering Facility: [facility] Address: [address] [place] [address] Performed By: #### 5 8410-2 #### [facility] CLIA [id number] [address] [place] [address] [place] Platelets (Bld) [#/Vol] 168 10*3/uL Normal 150-400 [facility] Comment on above: Order Comment: Speci men Type: BLOOD SPECIMEN Ordering Facility: [facility] Address: [address] [place] [address] Performed By: #### 5 8410-2 #### [facility] CLIA [id number] [address] [place] [address] [place] RBC (Bld) [#/Vol] 5.48 10*6/uL Normal 4.20-6.00 [facility] Comment on above: Order Comment: Speci men Type: BLOOD SPECIMEN Ordering Facility: [facility] Address: [address] [place] [address] Performed By: #### 5 8410-2 #### [facility] CLIA [id number] [address] [place] [address] [place] WBC (Bld) [#/Vol] 8.07 10*3/uL Normal 3.70-11.00 [facility] Comment on above: Order Comment: Speci men Type: BLOOD SPECIMEN Ordering Facility: [facility] Address: [address] [place] [address] Performed By: #### 5 8410-2 #### [facility] CLIA [id number] [address] [place] [address] [place] CNOVon 11-07-2023 CNOV Office Visit (CATHMN ) JESSE YEPEZ ([id number]) 1985 M Date Time Provider Department 11/07/23 8:45 AM DELILAH RAI During your visit today, we recorded the following information about you: Pulse Respiration Blood pressure Weight 67/minute 18/minute 119/75 188.7 kg Height 1.93 m Delilah Rai MD 11/08/2023 3:23 PM Signed [facility] Department of Cardiovascular Medicine SECTION [...] artery stenosis. On 10/19 he presented to [facility] for tingling in his left hand. [...] daily to BID recently. He saw a campus administrator in January 2023 for follow up of [...] No visible (more content not included)... Normal [facility] Comprehensive metabolic 2000 panelon 11-07-2023 Albumin [Mass/Vol] 4.6 g/dL Normal 3.9-4.9 [facility] Comment on above: Order Comment: Speci men Type: BLOOD SPECIMEN Ordering Facility: [facility] Address: [address] [place] [address] Performed By: #### 2 4331-1, 84293-9 #### [facility] CLIA [id number] [address] [place] [address] [place] ALP [Catalytic activity/Vol] 64 U/L Normal 38-113 [facility] Comment on above: Order Comment: Speci men Type: BLOOD SPECIMEN Ordering Facility: [facility] Address: [address] [place] [address] Performed By: #### 2 4331-1, #### [facility] CLIA [id number] [address] [place] [address] [place] ALT [Catalytic activity/Vol] 24 U/L Normal 10-54 [facility] Comment on above: Order Comment: Speci men Type: BLOOD SPECIMEN Ordering Facility: [facility] Address: [address] [place] [address] Performed By: #### 2 4331-1, 05354-0 #### [facility] CLIA [id number] [address] [place] [address] [place] Anion gap [Moles/Vol] 9 mmol/L Normal 9-18 [facility] Comment on above: Order Comment: Speci men Type: BLOOD SPECIMEN Ordering Facility: [facility] Address: [address] [place] [address] Performed By: #### 2 4331-1, #### [facility] CLIA [id number] [address] [place] [address] [place] AST [Catalytic activity/Vol] 22 U/L Normal 14-40 [facility] Comment on above: Order Comment: Speci men Type: BLOOD SPECIMEN Ordering Facility: [facility] Address: [address] [place] [address] Performed By: #### 2 4331-1, #### [facility] CLIA [id number] [address] [place] [address] [place] Bilirubin [Mass/Vol] 0.6 mg/dL Normal 0.2-1.3 [facility] Comment on above: Order Comment: Speci men Type: BLOOD SPECIMEN Ordering Facility: [facility] Address: [address] [place] [address] Performed By: #### 2 4331-1, #### [facility] CLIA [id number] [address] [place] [address] [place] Calcium [Mass/Vol] 9.5 mg/dL Normal 8.5-10.2 [facility] Comment on above: Order Comment: Speci men Type: BLOOD SPECIMEN Ordering Facility: [facility] Address: [address] [place] [address] Performed By: #### 2 4331-1, #### [facility] CLIA [id number] [address] [place] [address] [place] Chloride [Moles/Vol] 103 mmol/L Normal 97-105 [facility] Comment on above: Order Comment: Speci men Type: BLOOD SPECIMEN Ordering Facility: [facility] Address: [address] [place] [address] Performed By: #### 2 4331-1, #### [facility] CLIA [id number] [address] [place] [address] [place] CO2 [Moles/Vol] 26 mmol/L Normal 22-30 [facility] Comment on above: Order Comment: Speci men Type: BLOOD SPECIMEN Ordering Facility: [facility] Address: [address] [place] [address] Performed By: #### 2 4331-, #### [facility] CLIA [id number] [address] [place] [address] [place] Creatinine [Mass/Vol] 1.17 mg/dL Normal 0.73-1.22 [facility] Comment on above: Order Comment: Speci men Type: BLOOD SPECIMEN Ordering Facility: [facility] Address: [address] [place] [address] Performed By: #### 2 433-, #### [facility] CLIA [id number] [address] [place] [address] [place] Creatinine and Glomerular filtration rate.predicted panel (S/P/Bld) 81 mL/min/1.73m??? Normal >=60 [facility] Comment on above: Order Comment: Speci men Type: BLOOD SPECIMEN Ordering Facility: [facility] Address: [address] [place] [address] Result Comment: Janice mated Glomerular Filtration Rate [...] actual GFR. Performed By: #### 2 4331-1, 42412-8 #### [facility] CLIA [id number] [address] [place] [address] [place] Glucose [Mass/Vol] 99 mg/dL Normal 74-99 [facility] Comment on above: Order Comment: Speci wale Type: BLOOD SPECIMEN Ordering Facility: [facility] Address: [address] [place] [address] Result Comment: The [place] [employer] (ADA) provides guidance for [...] Standards of Medical Care in Diabetes 2016, [place] [employer]. Diabetes Care. 2016.39(Suppl 1). Performed By: #### 2 4331-1, 54368-5 #### [facility] CLIA [id number] [address] [place] [address] [place] Potassium [Moles/Vol] 4.2 mmol/L Normal 3.7-5.1 [facility] Comment on above: Order Comment: Jenaro echevarria Type: BLOOD SPECIMEN Ordering Facility: [facility] Address: [address] [place] [address] Performed By: #### 2 4331-1, 69800-9 #### [facility] CLIA [id number] [address] [place] [address] [place] Protein [Mass/Vol] 7.5 g/dL Normal 6.3-8.0 [facility] Comment on above: Order Comment: Jenaro echevarria Type: BLOOD SPECIMEN Ordering Facility: [facility] Address: [address] [place] [address] Performed By: #### 2 4331-, 79295-9 #### [facility] CLIA [id number] [address] [place] [address] [place] Sodium [Moles/Vol] 138 mmol/L Normal 136-144 [facility] Comment on above: Order Comment: Speci men Type: BLOOD SPECIMEN Ordering Facility: [facility] Address: [address] [place] [id number] Performed By: #### 2 4331-1, 96320-0 #### [facility] CLIA [id number] [address] [place] [address] [place] Urea nitrogen [Mass/Vol] 19 mg/dL Normal 9-24 [facility] Comment on above: Order Comment: Speci men Type: BLOOD SPECIMEN Ordering Facility: [facility] Address: [address] [place] [address] Performed By: #### 2 4331-1, 30003-7 #### [facility] CLIA [id number] [address] [place] [address] [place] ECG COMPLETEon 11-07-2023 ECG COMPLETE Ventricular Rate : 6 9 BPM Atrial Rate : 69 BPM P-R Interval : 174 ms QRS Duration : 108 ms Q-T Interval : 392 ms QTC Calculation(Bazett) : 420 ms Calculated P Beaver : 18 degrees Calculated R Beaver : 5 degrees Calculated T Beaver : 10 degrees NORMAL SINUS RHYTHM NORMAL ECG Confirmed by АННА BURLESON MD ([id number]) on 11/14/2023 7:55:00 AM NAME : JESSE YEPEZ PID : [id number] : 1985 Gender : Male Race : ORD : [id number] Procedure Date : Nov 07 2023 10:46:46 Edit Date : Nov 14 2023 07:55:01 Diagnosis: NORMAL SINUS RHYTHM NORMAL ECG Confirmed by АННА BURLESON MD ([id number]) on 11/14/2023 7:55:00 AM Test Reason : Location : 314 : J14 j1-4 Overread By : АННА BURLESON MD Edited By : АННА BURLESON MD Referred By : DELILAH RAI Acquired by : RASHAAD COLLIER Normal [facility] Lipid 1996 panelon 4 Cholesterol [Mass/Vol] 135 mg/dL Normal <200 [facility] Comment on above: Order Comment: Evonnei men Type: BLOOD SPECIMEN Ordering Facility: [facility] Address: [address] [place] [address] Result Comment: <200 mg/dL, Desirable 200-239 mg/dL, Borderline high >239 mg/dL, High Performed By: #### 2 4331-1, 88541-1 #### [facility] CLIA [id number] [address] [place] [address] [place] Cholesterol in HDL [Mass/Vol] 25 mg/dL Low >39 [facility] Comment on above: Order Comment: Evonnei men Type: BLOOD SPECIMEN Ordering Facility: [facility] Address: [address] [place] [address] Result Comment: 40-5 9 mg/dL, Acceptable >59 mg/dL, High: Negative risk factor for coronary heart disease <40 mg/dL, Low: Positive risk factor for coronary heart disease Performed By: #### 2 4331-1, 72992-5 #### [facility] CLIA [id number] [address] [place] [address] [place] Cholesterol in LDL [Mass/Vol] 87 mg/dL Normal <100 [facility] Comment on above: Order Comment: Jenaro men Type: BLOOD SPECIMEN Ordering Facility: [facility] Address: [address] [place] [address] Result Comment: <100 mg/dL, Optimal 100-129 mg/dL, Near optimal/above optimal 130-159 mg/dL, Borderline high 160-189 mg/dL, High >189 mg/dL, Very high Secondary prevention optimal LDL Cholesterol levels are recommended to be < 70 mg/dL Performed By: #### 2 4331-1, 85721-5 #### [facility] CLIA [id number] [address] [place] [address] [place] Cholesterol in LDL/Cholesterol in HDL [Mass ratio] 3.48 {ratio} High <2.54 [facility] Comment on above: Order Comment: Speci men Type: BLOOD SPECIMEN Ordering Facility: [facility] Address: [address] [place] [address] Result Comment: Ronald cline: 1. National Cholesterol Education Program ATP III Guideline At-A-Glance Quick Desk Reference: National Heart, Lung, and Blood Wallace. National Institutes of Health. 2001: NIH Publication No. 01-3305. 2. An International Atherosclerosis Society position paper: global recommendations for the management of dyslipidemia: executive summary, Atherosclerosis. 2014: 232(2):410-413. Performed By: #### 2 4331-1, 57571-8 #### [facility] CLIA [id number] [address] [place] [address] [place] Cholesterol in VLDL [Mass/Vol] 23 mg/dL Normal <30 [facility] Comment on above: Order Comment: Jenaro echevarria Type: BLOOD SPECIMEN Ordering Facility: [facility] Address: [address] [place] [address] Performed By: #### 2 4331-1, 27894-4 #### [facility] CLIA [id number] [address] [place] [address] [place] Cholesterol non HDL [Mass/Vol] 110 mg/dL Normal <130 [facility] Comment on above: Order Comment: Jenaro echevarria Type: BLOOD SPECIMEN Ordering Facility: [facility] Address: [address] [place] [address] Result Comment: <130 mg/dL, Optimal 130-159 mg/dL, Near optimal/above optimal 160-189 mg/dL, Borderline high 190-219 mg/dL, High >219 mg/dL, Very high Secondary prevention optimal non HDL Cholesterol levels are recommended to be <100 mg/dL Performed By: #### 2 4331-1, 00180-1 #### [facility] CLIA [id number] [address] [place] [address] [place] Cholesterol.total/Cho lesterol in HDL [Mass ratio] 5.40 {ratio} High <5.10 [facility] Comment on above: Order Comment: Jenaro echevarria Type: BLOOD SPECIMEN Ordering Facility: [facility] Address: [address] [place] [address] Performed By: #### 2 4331-1, 73030-4 #### [facility] CLIA [id number] [address] [place] [address] [place] FASTING TIME 12 hrs Normal [facility] Comment on above: Order Comment: Speci men Type: BLOOD SPECIMEN Ordering Facility: [facility] Address: [address] [place] [address] Performed By: #### 2 4331-1, #### [facility] CLIA [id number] [address] [place] [address] [place] Triglyceride [Mass/Vol] 116 mg/dL Normal <150 [facility] Comment on above: Order Comment: Speci men Type: BLOOD SPECIMEN Ordering Facility: [facility] Address: [address] [place] [address] Result Comment: <150 mg/dL, Normal 150-199 mg/dL, Borderline high 200-499 mg/dL, High >499 mg/dL, Very high Performed By: #### 2 4331-1, #### [facility] CLIA [id number] [address] [place] [address] [place] Office Visiton 01-31-2023 Follow-up visit [id number] Jesse Yepez 1985 [facility] Provider Department Center 01/31/2023 MAGDALENE GONZALEZ [...] Paternal Grandmother Alive Paternal Grandfather Level of Service:[address] [place] OFFICE/OUTPATIENT NEW MODERATE MDM 45-59 MINUTES Reason for Visit and Comments: Hypertension [281437] - New Patient Normal [facility] ALDOSTERONE: RENIN RATIOon 0 01-20-2023 Aldos/Renin Ratio 4.1 Normal 0.0-30.0 [facility] Comment on above: Result Comment: Unit s: ng/dL per ng/mL/hr Performed By: #### C RP, CMP #### [facility] [address] [place] [address] Dr. Clive Main Aldosterone 3.0 ng/dL Normal 0.0-30.[address] [facility] Comment on above: Performed By: #### C RP, CMP #### [facility] [address] [place] [address] Dr. Clive Main Renin Activity, Plasma 0.730 ng/mL/hr Normal 0.167-5.[address] [facility] Comment on above: Performed By: #### C RP, CMP #### [facility] [address] [place] [address] Dr. Clive Main METANEPHRINES PLASMA FREEon 01-18-2023 Metanephrine, Pl <10.0 Normal 0.0-88.0 [facility] Comment on above: Performed By: #### M ETANPF #### [facility] [address] [place] [address] Dr. Clive Main Normetanephrine, Pl 107.5 pg/mL Normal 0.0-210.[address] [facility] Comment on above: Performed By: #### M ETANPF #### [facility] [address] [place] [address] Dr. Clive Main CBC AUTO DIFFon 01-12-2023 BASO # 0.0 103/ul Normal 0.0-0.[address] [facility] Comment on above: Performed By: #### C BC #### [facility] [address] [place] [address] Dr. Clive Main Basophils/100 WBC (Bld) 0.4 % Normal 0.2-2.[address] [facility] Comment on above: Performed By: #### C BC #### [facility] [address] [place] [address] Dr. Clive Main EO # 0.1 103/ul Normal 0.0-0.[address] [facility] Comment on above: Performed By: #### C BC #### [facility] [address] [place] [address] Dr. Clive Main Eosinophils/100 WBC (Bld) 0.9 % Normal 0.9-7.0 [facility] Comment on above: Performed By: #### C BC #### [facility] [address] [place] [address] Dr. Clive Main Erythrocyte distribution width (RBC) [Ratio] 13.8 % Normal 11.0-15.0 [facility] Comment on above: Performed By: #### C BC #### [facility] [address] [place] [address] Dr. Clive Main Hematocrit (Bld) [Volume fraction] 49.1 % Normal 42.0-54.0 [facility] Comment on above: Performed By: #### C BC #### [facility] [address] [place] [address] Dr. Clive Main Hemoglobin (Bld) [Mass/Vol] 16.7 g/dL Normal 14.0-18.0 [facility] Comment on above: Performed By: #### C BC #### [facility] [address] [place] [address] Dr. Clive Main IG # 0.06 10e3/ul Critically high 0.00-0.03 [facility] Comment on above: Performed By: #### C BC #### [facility] [address] [place] [address] Dr. Clive Main IG % 0.5 % Normal 0.0-0.[address] [facility] Comment on above: Performed By: #### C BC #### [facility] [address] [place] [address] Dr. Clive Main LYMPH # 2.7 103/ul Normal 1.2-3.[address] [facility] Comment on above: Performed By: #### C BC #### [facility] [address] [place] [address] Dr. Clive Main Lymphocytes/100 WBC (Bld) 24.7 % Normal 20.5-60.[address] [facility] Comment on above: Performed By: #### C BC #### [facility] [address] [place] [address] Dr. Clive Main MANUAL DIFF REQ NO Normal [facility] Comment on above: Performed By: #### C BC #### [facility] [address] [place] [address] Dr. Clive Main MCH (RBC) [Entitic mass] 28.4 pg Normal 25.9-34.[address] [facility] Comment on above: Performed By: #### C BC #### [facility] [address] [place] [address] Dr. Clive Main MCHC (RBC) [Mass/Vol] 34.0 g/dL Normal 29.9-35.[address] [facility] Comment on above: Performed By: #### C BC #### [facility] [address] [place] [address] Dr. Clive Main MCV (RBC) [Entitic vol] 83.6 fL Normal 80.0-94.[address] [facility] Comment on above: Performed By: #### C BC #### [facility] [address] [place] [address] Dr. Clive Main MONO # 1.3 103/ul Critically high 0.3-0.8 [facility] Comment on above: Performed By: #### C BC #### [facility] [address] [place] [address] Dr. Clive Main Monocytes/100 WBC (Bld) 11.5 % Normal 1.7-12.[address] [facility] Comment on above: Performed By: #### C BC #### [facility] [address] [place] [address] Dr. Clive Main NEUT # 6.8 103/ul Critically high 1.4-6.5 [facility] Comment on above: Performed By: #### C BC #### [facility] [address] [place] [address] Dr. Clive Main Neutrophils/100 WBC (Bld) 62.0 % Normal 43.0-75.0 [facility] Comment on above: Performed By: #### C BC #### [facility] [address] [place] [address] Dr. Clive Main Platelet mean volume (Bld) [Entitic vol] 11.3 fL Normal 9.5-13.5 [facility] Comment on above: Performed By: #### C BC #### [facility] [address] [address] [address] Clive Main PLT 206 103/ul Normal 150-450 [facility] Comment on above: Performed By: #### C BC #### [facility] [address] [place] [address] Dr. Clive Main RBC 5.87 106/ul Normal 4.70-6.10 [facility] Comment on above: Performed By: #### C BC #### [facility] [address] [place] [address] Dr. Clive Main WBC 10.9 103/ul Normal 4.0-11.[address] [facility] Comment on above: Performed By: #### C BC #### [facility] [address] [place] [address] Dr. Clive Main ECHOCARDIO M/2D COMPLETEon 0 01-12-2023 ECHOCARDIO M/2D COMPLETE Patient: JESSE YEPEZ Exam Date: 01/12/2023 : 1985 Gender:M Ordering : DR JENNY RAMÍREZ . Admission #: [id number] Family : ANA CROW . Order #: [id number] CLICK HERE TO VIEW EXAM ECHOCARDIOGRAM REPORT [...] Mooney M.D. on 01/12/2023 at 18:57 Normal [facility] PROF CHEM 8 (BAS METB)on Anion gap [Moles/Vol] 14.2 mmol/L Normal [facility] Comment on above: Performed By: #### H STROPN #### [facility] [address] [place] [address] Dr. Clive Main Calcium [Mass/Vol] 9.2 mg/dL Normal 8.5-10.1 [facility] Comment on above: Performed By: #### H STROPN #### [facility] [address] [place] [address] Dr. Clive Main Chloride [Moles/Vol] 103 mmol/L Normal 98-107 [facility] Comment on above: Performed By: #### H STROPN #### [facility] [address] [place] [address] Dr. Clive Main CO2 [Moles/Vol] 24.7 mmol/L Normal 21.0-32.0 [facility] Comment on above: Performed By: #### H STROPN #### [facility] [address] [address] [address] Clive Main Creatinine [Mass/Vol] 1.11 mg/dL Normal 0.70-1.30 [facility] Comment on above: Performed By: #### H STROPN #### [facility] [address] [address] [address] Clive Main EGFR-AF MALAGASY >60 Normal >=60 [facility] Comment on above: Performed By: #### H STROPN #### [facility] [address] [address] [address] Clive Main EGFR-NON AF MALAGASY >60 Normal >=60 [facility] Comment on above: Performed By: #### H STROPN #### [facility] [address] [address] [address] Clive Main Glucose [Mass/Vol] 117 mg/dL Critically high 74-106 [facility] Comment on above: Performed By: #### H STROPN #### [facility] [address] [address] [address] Clive Main Potassium [Moles/Vol] 3.9 mmol/L Normal 3.5-5.1 [facility] Comment on above: Performed By: #### H STROPN #### [facility] [address] [address] [address] Clive Main Sodium [Moles/Vol] 138 mmol/L Normal 136-145 [facility] Comment on above: Performed By: #### H STROPN #### [facility] [address] [address] [address] Clive Main Urea nitrogen [Mass/Vol] 20.0 mg/dL Critically high 7.0-18.0 [facility] Comment on above: Performed By: #### H STROPN #### [facility] [address] [address] [address] Clive Main Urea nitrogen/Creatinine [Mass ratio] 18.0 mg/mg Normal [facility] Comment on above: Performed By: #### H STROPN #### [facility] [address] [address] [address] Clive Main US CAROTID ART BILon [...] JOSEFINA ANGELAKATARZYNADIANA Date: 2023-01-12 06:[address] [facility] CARDIAC ANDRE 3-6on 3 CK [Catalytic activity/Vol] 172 U/L Normal 39-[address] [facility] Comment on above: Performed By: #### C RP, CMP #### [facility] [address] [place] [address] Dr. Clive Main CK.MB [Mass/Vol] 2.91 ng/mL Normal <=3.60 [facility] Comment on above: Performed By: #### C RP, CMP #### [facility] [address] [place] [address] Dr. Clive Main HSTROP 11.2 pg/mL Normal 4.0-76.[address] [facility] Comment on above: Result Comment: CUT- OFF POINTS HAVE BEEN ESTABLISHED BASED ON THE FOURTH UNIVERSAL DEFINITIONS OF MYOCARDIAL INFARCTION. THE UPPER REFERENCE LIMIT (URL) OF TROPONIN, DEFINED THE 99TH PERCENTILE OF cTnI DISTRIBUTION IN A REFERENCE POPULATION, HAS BEEN CONFIRMED THE DECISION THRESHOLD FOR [place] DIAGNOSIS. Performed By: #### C RP, CMP #### [facility] [address] [place] [address] Dr. Clive Main CK [Catalytic activity/Vol] 204 U/L Normal 39-[address] [facility] Comment on above: Performed By: #### C RP, CMP #### [facility] [address] [place] [address] Dr. Clive Main CK.MB [Mass/Vol] 2.97 ng/mL Normal <=3.60 [facility] Comment on above: Performed By: #### C RP, CMP #### [facility] [address] [place] [address] Dr. Clive Main HSTROP 12.0 pg/mL Normal 4.0-76.[address] [facility] Comment on above: Result Comment: CUT- OFF POINTS HAVE BEEN ESTABLISHED BASED ON THE FOURTH UNIVERSAL DEFINITIONS OF MYOCARDIAL INFARCTION. THE UPPER REFERENCE LIMIT (URL) OF TROPONIN, DEFINED THE 99TH PERCENTILE OF cTnI DISTRIBUTION IN A REFERENCE POPULATION, HAS BEEN CONFIRMED THE DECISION THRESHOLD FOR [place] DIAGNOSIS. Performed By: #### C RP, CMP #### [facility] [address] [place] [address] Dr. Clive Main CBC AUTO DIFFon 01-11-2023 BASO # 0.1 103/ul Normal 0.0-0.1 [facility] Comment on above: Performed By: #### C RP, CMP #### [facility] [address] [place] [address] Dr. Clive Main Basophils/100 WBC (Bld) 0.3 % Normal 0.2-2.0 [facility] Comment on above: Performed By: #### C RP, CMP #### [facility] [address] [place] [address] Dr. Clive Main EO # 0.1 103/ul Normal 0.0-0.7 [facility] Comment on above: Performed By: #### C RP, CMP #### [facility] [address] [place] [address] Dr. Clive Main Eosinophils/100 WBC (Bld) 0.5 % Critically low 0.9-7.0 [facility] Comment on above: Performed By: #### C RP, CMP #### [facility] [address] [place] [address] Dr. Clive Main Erythrocyte distribution width (RBC) [Ratio] 13.6 % Normal 11.0-15.0 [facility] Comment on above: Performed By: #### C RP, CMP #### [facility] [address] [place] [address] Dr. Clive Main Hematocrit (Bld) [Volume fraction] 47.7 % Normal 42.0-54.0 [facility] Comment on above: Performed By: #### C RP, CMP #### [facility] [address] [place] [address] Dr. Clive Main Hemoglobin (Bld) [Mass/Vol] 16.2 g/dL Normal 14.0-18.0 [facility] Comment on above: Performed By: #### C RP, CMP #### [facility] [address] [address] [address] Clive Main IG # 0.26 10e3/ul Critically high 0.00-0.03 [facility] Comment on above: Performed By: #### C RP, CMP #### [facility] [address] [place] [address] Dr. Clive Main IG % 1.7 % Critically high 0.0-0.5 [facility] Comment on above: Performed By: #### C RP, CMP #### [facility] [address] [place] [address] Dr. Clive Main LYMPH # 2.2 103/ul Normal 1.2-3.[address] [facility] Comment on above: Performed By: #### C RP, CMP #### [facility] [address] [place] [address] Dr. Clive Main Lymphocytes/100 WBC (Bld) 15.1 % Critically low 20.5-60.0 [facility] Comment on above: Performed By: #### C RP, CMP #### [facility] [address] [place] [address] Dr. Clive Main MANUAL DIFF REQ NO Normal [facility] Comment on above: Performed By: #### C RP, CMP #### [facility] [address] [place] [address] Dr. Clive Main MCH (RBC) [Entitic mass] 28.5 pg Normal 25.9-34.0 [facility] Comment on above: Performed By: #### C RP, CMP #### [facility] [address] [place] [address] Dr. Clive Main MCHC (RBC) [Mass/Vol] 34.0 g/dL Normal 29.9-35.[address] [facility] Comment on above: Performed By: #### C RP, CMP #### [facility] [address] [place] [address] Dr. Clive Main MCV (RBC) [Entitic vol] 84.0 fL Normal 80.0-94.0 [facility] Comment on above: Performed By: #### C RP, CMP #### [facility] [address] [address] [address] Clive Main MONO # 1.3 103/ul Critically high 0.3-0.8 [facility] Comment on above: Performed By: #### C RP, CMP #### [facility] [address] [place] [address] Dr. Clive Main Monocytes/100 WBC (Bld) 8.7 % Normal 1.7-12.[address] [facility] Comment on above: Performed By: #### C RP, CMP #### [facility] [address] [place] [address] Dr. Clive Main NEUT # 11.0 103/ul Critically high 1.4-6.5 [facility] Comment on above: Performed By: #### C RP, CMP #### [facility] [address] [place] [address] Dr. Clive Main Neutrophils/100 WBC (Bld) 73.7 % Normal 43.0-75.[address] [facility] Comment on above: Performed By: #### C RP, CMP #### [facility] [address] [place] [address] Dr. Clive Main Platelet mean volume (Bld) [Entitic vol] 11.7 fL Normal 9.5-13.[address] [facility] Comment on above: Performed By: #### C RP, CMP #### [facility] [address] [place] [address] Dr. Clive Main PLT 196 103/ul Normal 150-[address] [facility] Comment on above: Performed By: #### C RP, CMP #### [facility] [address] [place] [address] Dr. Clive Main RBC 5.68 106/ul Normal 4.70-6.[address] [facility] Comment on above: Performed By: #### C RP, CMP #### [facility] [address] [place] [address] Dr. Clive Main WBC 14.9 103/ul Critically high 4.0-11.0 [facility] Comment on above: Performed By: #### C RP, CMP #### [facility] [address] [place] [address] Dr. Clive Main DRUG SCREEN RAPID (URINE)on 01-11-2023 AMP Negative Normal NEGATIVE [facility] Comment on above: Performed By: #### D DIM #### [facility] [address] [place] [address] Dr. Clive Main BAR Negative Normal NEGATIVE [facility] Comment on above: Performed By: #### D DIM #### [facility] [address] [place] [address] Dr. Clive Main BUP Negative Normal NEGATIVE [facility] Comment on above: Performed By: #### D DIM #### [facility] [address] [place] [address] Dr. Clive Main BZO Negative Normal NEGATIVE [facility] Comment on above: Performed By: #### D DIM #### [facility] [address] [place] [address] Dr. Clive Main NEREIDA Negative Normal NEGATIVE [facility] Comment on above: Performed By: #### D DIM #### [facility] [address] [place] [address] Dr. Clive Main CUT-OFFS SEE BELOW Normal [facility] Comment on above: Result Comment: [...] ng/mL Performed By: #### D DIM #### [facility] [address] [place] [address] Dr. Clive Main DRUG CUT HEADER DRUG CLASS TEST SYSTEM CUT-OFF CONCENTRATIONS ARE FOLLOWS: Normal [facility] Comment on above: Performed By: #### D DIM #### [facility] [address] [address] [address] Clive Main mAMP Negative Normal NEGATIVE [facility] Comment on above: Performed By: #### D DIM #### [facility] [address] [address] [address] Clive Main MTD Negative Normal NEGATIVE [facility] Comment on above: Performed By: #### D DIM #### [facility] [address] [place] [address] Dr. Clive Main OPI Negative Normal NEGATIVE [facility] Comment on above: Performed By: #### D DIM #### [facility] [address] [address] [address] Clive Main OXY Negative Normal NEGATIVE [facility] Comment on above: Performed By: #### D DIM #### [facility] [address] [place] [address] Dr. Clive Main PCP Negative Normal NEGATIVE [facility] Comment on above: Performed By: #### D DIM #### [facility] [address] [place] [address] Dr. Clive Main PPX Negative Normal NEGATIVE [facility] Comment on above: Performed By: #### D DIM #### [facility] [address] [place] [address] Dr. Clive Main TCA Negative Normal NEGATIVE [facility] Comment on above: Performed By: #### D DIM #### [facility] [address] [place] [address] Dr. Clive Main THC Negative Normal NEGATIVE [facility] Comment on above: Performed By: #### D DIM #### [facility] [address] [place] [address] Dr. Clive Main ER URINE PROFILEon 3 Bilirubin Ql (U) Negative Normal NEGATIVE [facility] Comment on above: Performed By: #### C RP, CMP #### [facility] [address] [place] [address] Dr. Clive Main Clarity (U) CLEAR Normal CLEAR [facility] Comment on above: Performed By: #### C RP, CMP #### [facility] [address] [place] [address] Dr. Clive Main Color (U) LT. YELLOW Normal YELLOW [facility] Comment on above: Performed By: #### C RP, CMP #### [facility] [address] [place] [address] Dr. Clive NINO A micrscopic examination will be performed if indicated. Normal [facility] Comment on above: Performed By: #### C RP, CMP #### [facility] [address] [place] [address] Dr. Clive Main Glucose Ql (U) Negative Normal NEGATIVE [facility] Comment on above: Performed By: #### C RP, CMP #### [facility] [address] [place] [address] Dr. Clive Main Hemoglobin Ql (U) Negative Normal NEGATIVE [facility] Comment on above: Performed By: #### C RP, CMP #### [facility] [address] [place] [address] Dr. Clive Main Ketones Ql (U) 15 mg/dl Abnormal NEGATIVE [facility] Comment on above: Performed By: #### C RP, CMP #### [facility] [address] [place] [address] Dr. Clive Main LEUKOCYTES Negative Normal NEGATIVE [facility] Comment on above: Performed By: #### C RP, CMP #### [facility] [address] [place] [address] Dr. Clive Main Nitrite Ql (U) Negative Normal NEGATIVE [facility] Comment on above: Performed By: #### C RP, CMP #### [facility] [address] [place] [address] Dr. Clive Main pH (U) 5.5 [pH] Normal 5-[address] [facility] Comment on above: Performed By: #### C RP, CMP #### [facility] [address] [place] [address] Dr. Clive Main SPEC GRAVITY 1.020 Normal 1.005-<=1.025 [facility] Comment on above: Performed By: #### C RP, CMP #### [facility] [address] [address] [address] Clive Main UA PROTEIN Negative Normal NEGATIVE/ TRACE [facility] Comment on above: Performed By: #### C RP, CMP #### [facility] [address] [address] [address] Clive Main UR MICRO IND NOT INDICATED Normal [facility] Comment on above: Performed By: #### C RP, CMP #### [facility] [address] [address] [address] Clive Main Urobilinogen Qn (U) 0.2 {Teodoro'U}/dL Normal 0.2 - 1. [address] [facility] Comment on above: Performed By: #### C RP, CMP #### [facility] [address] [address] [address] Clive Main MRI BRAIN WO CONon [...] BENOIT KEENAN Date: 2023-01-11 01:[address] [facility] PROF CHEM 8 (BAS METB)on Anion gap [Moles/Vol] 15.8 mmol/L Normal [facility] Comment on above: Performed By: #### B MP #### [facility] [address] [address] [address] Clive Main Calcium [Mass/Vol] 9.0 mg/dL Normal 8.5-10.1 [facility] Comment on above: Performed By: #### B MP #### [facility] [address] [address] [address] Clive Main Chloride [Moles/Vol] 101 mmol/L Normal 98-107 [facility] Comment on above: Performed By: #### B MP #### [facility] [address] [address] [address] Clive Main CO2 [Moles/Vol] 22.0 mmol/L Normal 21.0-32.0 [facility] Comment on above: Performed By: #### B MP #### [facility] [address] [address] [address] Clive Main Creatinine [Mass/Vol] 0.88 mg/dL Normal 0.70-1.30 [facility] Comment on above: Performed By: #### B MP #### [facility] [address] [address] [address] Clive Main EGFR-AF MALAGASY >60 Normal >=60 [facility] Comment on above: Performed By: #### B MP #### [facility] [address] [address] [address] Clive Main EGFR-NON AF MALAGASY >60 Normal >=60 [facility] Comment on above: Performed By: #### B MP #### [facility] [address] [address] [address] Clive Main Glucose [Mass/Vol] 110 mg/dL Critically high 74-106 [facility] Comment on above: Performed By: #### B MP #### [facility] [address] [address] [address] Clive Main Potassium [Moles/Vol] 3.8 mmol/L Normal 3.5-5.1 [facility] Comment on above: Performed By: #### B MP #### [facility] [address] [place], [place] [address] Dr. Clive Main Sodium [Moles/Vol] 135 mmol/L Critically low 136-[address] [facility] Comment on above: Performed By: #### B MP #### [facility] [address] [place], [place] [address] Dr. Clive Main Urea nitrogen [Mass/Vol] 15.0 mg/dL Normal 7.0-18.0 [facility] Comment on above: Performed By: #### B MP #### [facility] [address] [place], [place] [address] Dr. Clive Mani Urea nitrogen/Creatinine [Mass ratio] 17.0 mg/mg Normal [facility] Comment on above: Performed By: #### B MP #### [facility] [address] [place], [place] [address] Dr. Clive Main US KIDNEYSon 01-11-2023 US [...] JOSEFINA SHETTY Date: 2023-01-11 12:[address] [facility] BNPon 01-10-2023 Natriuretic peptide B (Bld) [Mass/Vol] 108.0 pg/mL Normal <=450.[address] [facility] Comment on above: Performed By: #### C RP, CMP #### [facility] [address] [place] [address] Dr. Clive Main CBC AUTO DIFFon 01-10-2023 BASO # 0.0 103/ul Normal 0.0-0.1 [facility] Comment on above: Performed By: #### C RP, CMP #### [facility] [address] [place] [address] Dr. Clive Main Basophils/100 WBC (Bld) 0.3 % Normal 0.2-2.0 [facility] Comment on above: Performed By: #### C RP, CMP #### [facility] [address] [place] [address] Dr. Clive Main EO # 0.1 103/ul Normal 0.0-0.[address] [facility] Comment on above: Performed By: #### C RP, CMP #### [facility] [address] [place] [address] Dr. Clive Main Eosinophils/100 WBC (Bld) 0.4 % Critically low 0.9-7.[address] [facility] Comment on above: Performed By: #### C RP, CMP #### [facility] [address] [place] [address] Dr. Clive Main Erythrocyte distribution width (RBC) [Ratio] 13.5 % Normal 11.0-15.0 [facility] Comment on above: Performed By: #### C RP, CMP #### [facility] [address] [place] [address] Dr. Clive Main Hematocrit (Bld) [Volume fraction] 48.4 % Normal 42.0-54.0 [facility] Comment on above: Performed By: #### C RP, CMP #### [facility] [address] [place] [address] Dr. Clive Main Hemoglobin (Bld) [Mass/Vol] 16.8 g/dL Normal 14.0-18.0 [facility] Comment on above: Performed By: #### C RP, CMP #### [facility] [address] [place] [address] Dr. Clive Main IG # 0.05 10e3/ul Critically high 0.00-0.03 [facility] Comment on above: Performed By: #### C RP, CMP #### [facility] [address] [place] [address] Dr. Clive Main IG % 0.4 % Normal 0.0-0.5 [facility] Comment on above: Performed By: #### C RP, CMP #### [facility] [address] [place] [address] Dr. Clive Main LYMPH # 1.8 103/ul Normal 1.2-3.8 [facility] Comment on above: Performed By: #### C RP, CMP #### [facility] [address] [place] [address] Dr. Clive Main Lymphocytes/100 WBC (Bld) 13.9 % Critically low 20.5-60.0 [facility] Comment on above: Performed By: #### C RP, CMP #### [facility] [address] [place] [address] Dr. Clive Main MANUAL DIFF REQ NO Normal [facility] Comment on above: Performed By: #### C RP, CMP #### [facility] [address] [place] [address] Dr. Clive Main MCH (RBC) [Entitic mass] 28.7 pg Normal 25.9-34.[address] [facility] Comment on above: Performed By: #### C RP, CMP #### [facility] [address] [place] [address] Dr. Clive Main MCHC (RBC) [Mass/Vol] 34.7 g/dL Normal 29.9-35.[address] [facility] Comment on above: Performed By: #### C RP, CMP #### [facility] [address] [place] [address] Dr. Clive Main MCV (RBC) [Entitic vol] 82.6 fL Normal 80.0-94.[address] [facility] Comment on above: Performed By: #### C RP, CMP #### [facility] [address] [place] [address] Dr. Clive Main MONO # 1.0 103/ul Critically high 0.3-0.8 [facility] Comment on above: Performed By: #### C RP, CMP #### [facility] [address] [place] [address] Dr. Clive Main Monocytes/100 WBC (Bld) 7.2 % Normal 1.7-12.[address] [facility] Comment on above: Performed By: #### C RP, CMP #### [facility] [address] [place] [address] Dr. Clive Main NEUT # 10.3 103/ul Critically high 1.4-6.5 [facility] Comment on above: Performed By: #### C RP, CMP #### [facility] [address] [place] [address] Dr. Clive Main Neutrophils/100 WBC (Bld) 77.8 % Critically high 43.0-75.[address] [facility] Comment on above: Performed By: #### C RP, CMP #### [facility] [address] [place] [address] Dr. Clive Main Platelet mean volume (Bld) [Entitic vol] 11.3 fL Normal 9.5-13.[address] [facility] Comment on above: Performed By: #### C RP, CMP #### [facility] [address] [address] [address] Clive Main PLT 202 103/ul Normal 150-[address] [facility] Comment on above: Performed By: #### C RP, CMP #### [facility] [address] [address] [address] Clive Main RBC 5.86 106/ul Normal 4.70-6.[address] [facility] Comment on above: Performed By: #### C RP, CMP #### [facility] [address] [address] [address] Clive Main WBC 13.2 103/ul Critically high 4.0-11.0 [facility] Comment on above: Performed By: #### C RP, CMP #### [facility] [address] [address] [address] Clive Main CRPon 01-10-2023 CRP 0.1 mg/dL Normal <=1.0 [facility] Comment on above: Performed By: #### C RP, CMP #### [facility] [address] [place] [address] HEAD WO CONon [...] SUHA KANG Date: 2023-01-10 19:[address] [facility]21 SARS-CoV-2 (COVID-19) RNA ENIO+probe Ql (Unsp spec) Not detected Normal NOT DETECTED [facility] Comment on above: Result Comment: When [...] for this test is supported by the Insulation Mechanic of Health and Human Service's declaration that [...] Performed By: #### C RP, CMP #### [facility] [address] [place] [address] Dr. Clive Main D-DIMERon 01-10-2023 D-DIMER 0.19 mg/L FEU Normal <=0.59 [facility] Comment on above: Performed By: #### D DIM #### [facility] [address] [place] [address] Dr. Clive Main D-DIMER COMMENTS SEE BELOW Normal [facility] Comment on above: Result Comment: Incr [...] hospitalization. Performed By: #### D DIM #### [facility] [address] [place] [address] Dr. Clive Main GLYCOHEMOGLOBIN A1Con 2022 ADA RECOMMENDATION SEE BELOW Normal [facility] Comment on above: Result Comment: ADA RECOMMENDED LIMIT 4.0 - 6.0 ADA THERAPEUTIC TARGET < 7.0 ACTION SUGGESTED > 7.0 Performed By: #### A 1C #### [facility] [address] [place] [address] Dr. Clive Main Glucose [Mass/Vol] 111 mg/dL Normal [facility] Comment on above: Performed By: #### A 1C #### [facility] [address] [place] [address] Dr. Clive Main HbA1c (Bld) [Mass fraction] 5.5 % Normal 4.5-6.2 [facility] Comment on above: Performed By: #### A 1C #### [facility] [address] [place] [address] Dr. Clive Main LIPID PROFILEon 01-10-2023 CHOL-HDL RATIO NORM SEE BELOW Normal [facility] Comment on above: Result Comment: 3.3 - 4.4 LOW RISK 4.4 - 7.1 AVERAGE RISK 7.1 - 11.0 MODERATE RISK >11.0 HIGH RISK Performed By: #### C RP, CMP #### [facility] [address] [place] [address] Dr. Clive Main Cholesterol [Mass/Vol] 185 mg/dL Normal <=200 [facility] Comment on above: Performed By: #### C RP, CMP #### [facility] [address] [place] [address] Dr. Clive Main Cholesterol in HDL [Mass/Vol] 36 mg/dL Critically low 40-60 [facility] Comment on above: Performed By: #### C RP, CMP #### [facility] [address] [place] [address] Dr. Clive Main Cholesterol in LDL [Mass/Vol] 124.4 mg/dL Normal [facility] Comment on above: Performed By: #### C RP, CMP #### [facility] [address] [place] [address] Dr. Clive Main Cholesterol.total/Cho lesterol in HDL [Mass ratio] 5.1 {ratio} Normal [facility] Comment on above: Performed By: #### C RP, CMP #### [facility] [address] [address] [address] Clive Main HDL NORMAL > or = 60 mg/dl - LO W CARDIOVASCULAR RISK <40 mg/dl - HIGH CARDIOVASCULAR RISK Normal [facility] Comment on above: Performed By: #### C RP, CMP #### [facility] [address] [address] [address] Clive Main LDL CALC NORMAL SEE BELOW Normal [facility] Comment on above: Result Comment: <100 mg/dl OPTIMAL 100 - 129 mg/dl NEAR OR ABOVE OPTIMAL 130 - 159 mg/dl BORDERLINE HIGH 160 - 189 mg/dl HIGH >190 mg/dl VERY HIGH Performed By: #### C RP, CMP #### [facility] [address] [place] [address] Dr. Clive Main Triglyceride [Mass/Vol] 123 mg/dL Normal <=150 [facility] Comment on above: Performed By: #### C RP, CMP #### [facility] [address] [address] [address] Clive Main VLDL CALC 24.6 mg/dL Normal [facility] Comment on above: Performed By: #### C RP, CMP #### [facility] [address] [place] [address] Dr. Clive Main MAGNESIUMon 01-10-2023 Magnesium [Mass/Vol] 2.1 mg/dL Normal 1.8-2.4 [facility] Comment on above: Performed By: #### C RP, CMP #### [facility] [address] [place] [address] Dr. Clive Main PROF 14(COMP METB)on 023 Albumin [Mass/Vol] 4.5 g/dL Normal 3.4-5.0 [facility] Comment on above: Performed By: #### C RP, CMP #### [facility] [address] [place] [address] Dr. Clive aMin Albumin/Globulin [Mass ratio] 1.2 {ratio} Normal [facility] Comment on above: Performed By: #### C RP, CMP #### [facility] [address] [address] [address] Clive Main ALP [Catalytic activity/Vol] 78 U/L Normal 46-116 [facility] Comment on above: Performed By: #### C RP, CMP #### [facility] [address] [address] [address] Clive Main ALT [Catalytic activity/Vol] 43 U/L Normal 16-63 [facility] Comment on above: Performed By: #### C RP, CMP #### [facility] [address] [address] [address] Clive Main Anion gap [Moles/Vol] 17.6 mmol/L Normal [facility] Comment on above: Performed By: #### C RP, CMP #### [facility] [address] [place] [address] Dr. Clive Main AST [Catalytic activity/Vol] 23 U/L Normal 15-37 [facility] Comment on above: Performed By: #### C RP, CMP #### [facility] [address] [place] [address] Dr. Clive Main Bilirubin [Mass/Vol] 0.7 mg/dL Normal 0.2-1.0 [facility] Comment on above: Performed By: #### C RP, CMP #### [facility] [address] [place] [address] Dr. Clive Main Calcium [Mass/Vol] 9.2 mg/dL Normal 8.5-10.1 [facility] Comment on above: Performed By: #### C RP, CMP #### [facility] [address] [place] [address] Dr. Clive Main Chloride [Moles/Vol] 102 mmol/L Normal 98-107 [facility] Comment on above: Performed By: #### C RP, CMP #### [facility] [address] [address] [address] Clive Main CO2 [Moles/Vol] 22.1 mmol/L Normal 21.0-32.0 [facility] Comment on above: Performed By: #### C RP, CMP #### [facility] [address] [place] [address] Dr. Clive Main Creatinine [Mass/Vol] 0.88 mg/dL Normal 0.70-1.30 [facility] Comment on above: Performed By: #### C RP, CMP #### [facility] [address] [address] [address] Clive Main EGFR-AF MALAGASY >60 Normal >=60 [facility] Comment on above: Performed By: #### C RP, CMP #### [facility] [address] [place] [address] Dr. Clive Main EGFR-NON AF MALAGASY >60 Normal >=60 [facility] Comment on above: Performed By: #### C RP, CMP #### [facility] [address] [place] [address] Dr. Clive Main Globulin (S) [Mass/Vol] 3.8 g/dL Normal [facility] Comment on above: Performed By: #### C RP, CMP #### [facility] [address] [place] [address] Dr. Clive Main Glucose [Mass/Vol] 98 mg/dL Normal 74-106 [facility] Comment on above: Performed By: #### C RP, CMP #### [facility] [address] [place] [address] Dr. Clive Main Potassium [Moles/Vol] 3.7 mmol/L Normal 3.5-5.1 [facility] Comment on above: Performed By: #### C RP, CMP #### [facility] [address] [place] [address] Dr. Clive Main Protein [Mass/Vol] 8.3 g/dL Critically high 6.4-8.2 [facility] Comment on above: Performed By: #### C RP, CMP #### [facility] [address] [place] [address] Dr. Clive Main Sodium [Moles/Vol] 138 mmol/L Normal 136-145 [facility] Comment on above: Performed By: #### C RP, CMP #### [facility] [address] [place] [address] Dr. Clive Main Urea nitrogen [Mass/Vol] 14.0 mg/dL Normal 7.0-18.0 [facility] Comment on above: Performed By: #### C RP, CMP #### [facility] [address] [place] [address] Dr. Clive Main Urea nitrogen/Creatinine [Mass ratio] 15.9 mg/mg Normal [facility] Comment on above: Performed By: #### C RP, CMP #### [facility] [address] [place] [address] Dr. Clive Main PROTIMEon 01-10-2023 INR Coag (PPP) [Relative time] 1.08 {INR} Normal [facility] Comment on above: Performed By: #### D DIM #### [facility] [address] [place] [address] Dr. Clive Main INR GUIDELINES SEE BELOW Normal [facility] Comment on above: Result Comment: NATY RED INR: 2.0 - 3.0 CONDITIONS NOT LISTED BELOW 2.5 - 3.5 FOR PROSTHETIC HEART VALVE REPLACEMENT 2.5 - 3.5 RECURRENT THROMBOSIS Performed By: #### D DIM #### [facility] [address] [place] [address] Dr. Clive Main PT Coag (PPP) [Time] 11.4 s Normal 9.0-11.[address] [facility] Comment on above: Performed By: #### D DIM #### [facility] [address] [place] [address] Dr. Clive Main PTTon 01-10-2023 aPTT Coag (Bld) [Time] 32.0 s Normal 22.3-36.2 [facility] Comment on above: Performed By: #### D DIM #### [facility] [address] [place] [address] Dr. Clive Main SED RATE DETROITERGRENon 2022 SED RATE 9 mm/hr Normal <=[address] [facility] Comment on above: Performed By: #### C RP, CMP #### [facility] [address] [place] [address] Dr. Clive Main T4on 01-10-2023 T4 [Mass/Vol] 12.20 ug/dL Critically high 4.50-12.10 [facility] Comment on above: Performed By: #### C PASQUALE, CMP #### [facility] [address] [place] [address] Dr. Clive Main TROPONIN, HIGH SENSITIVITYon 01-10-2023 HSTROP 8.1 pg/mL Normal 4.0-76.1 [facility] Comment on above: Result Comment: CUT- OFF POINTS HAVE BEEN ESTABLISHED BASED ON THE FOURTH UNIVERSAL DEFINITIONS OF MYOCARDIAL INFARCTION. THE UPPER REFERENCE LIMIT (URL) OF TROPONIN, DEFINED THE 99TH PERCENTILE OF cTnI DISTRIBUTION IN A REFERENCE POPULATION, HAS BEEN CONFIRMED THE DECISION THRESHOLD FOR [place] DIAGNOSIS. Performed By: #### H STROPN #### [facility] [address] [place] [address] Dr. Clive Main TSHon 01-10-2023 TSH 1.219 uIU/mL Normal 0.358-3.740 [facility] Comment on above: Performed By: #### C PASQUALE, CMP #### [facility] [address] [place] [address] Dr. Clive Main XR CHEST 1 Von [...] chest is essentially unchanged. Electronically authenticated by: MITLAI SIMON Date: 2023-01-10 19:[address] [facility] CBC AUTO DIFFon 01-09-2023 BASO # 0.1 103/ul Normal 0.0-0.1 [facility] Comment on above: Performed By: #### C RP, CMP #### [facility] [address] [place] [address] Dr. Clive Main Basophils/100 WBC (Bld) 0.4 % Normal 0.2-2.0 [facility] Comment on above: Performed By: #### C RP, CMP #### [facility] [address] [place] [address] Dr. Clive Main EO # 0.1 103/ul Normal 0.0-0.7 [facility] Comment on above: Performed By: #### C RP, CMP #### [facility] [address] [place] [address] Dr. Clive Main Eosinophils/100 WBC (Bld) 0.9 % Normal 0.9-7.0 [facility] Comment on above: Performed By: #### C RP, CMP #### [facility] [address] [place] [address] Dr. Clive Main Erythrocyte distribution width (RBC) [Ratio] 13.5 % Normal 11.0-15.0 [facility] Comment on above: Performed By: #### C RP, CMP #### [facility] [address] [place] [address] Dr. Clive Main Hematocrit (Bld) [Volume fraction] 48.0 % Normal 42.0-54.0 [facility] Comment on above: Performed By: #### C RP, CMP #### [facility] [address] [place] [address] Dr. Clive Main Hemoglobin (Bld) [Mass/Vol] 16.2 g/dL Normal 14.0-18.0 [facility] Comment on above: Performed By: #### C RP, CMP #### [facility] [address] [place] [address] Dr. Clive Main IG # 0.04 10e3/ul Critically high 0.00-0.03 [facility] Comment on above: Performed By: #### C RP, CMP #### [facility] [address] [place] [address] Dr. Clive Main IG % 0.3 % Normal 0.0-0.5 [facility] Comment on above: Performed By: #### C RP, CMP #### [facility] [address] [place] [address] Dr. Clive Main LYMPH # 2.3 103/ul Normal 1.2-3.8 [facility] Comment on above: Performed By: #### C RP, CMP #### [facility] [address] [place] [address] Dr. Clive Main Lymphocytes/100 WBC (Bld) 19.3 % Critically low 20.5-60.0 [facility] Comment on above: Performed By: #### C RP, CMP #### [facility] [address] [place] [address] Dr. Clive Main MANUAL DIFF REQ NO Normal [facility] Comment on above: Performed By: #### C RP, CMP #### [facility] [address] [place] [address] Dr. Clive Main MCH (RBC) [Entitic mass] 28.3 pg Normal 25.9-34.0 [facility] Comment on above: Performed By: #### C RP, CMP #### [facility] [address] [place] [address] Dr. Clive Main MCHC (RBC) [Mass/Vol] 33.8 g/dL Normal 29.9-35.2 [facility] Comment on above: Performed By: #### C RP, CMP #### [facility] [address] [place] [address] Dr. Clive Main MCV (RBC) [Entitic vol] 83.8 fL Normal 80.0-94.0 [facility] Comment on above: Performed By: #### C RP, CMP #### [facility] [address] [place] [address] Dr. Clive Main MONO # 1.0 103/ul Critically high 0.3-0.8 [facility] Comment on above: Performed By: #### C RP, CMP #### [facility] [address] [place] [address] Dr. Clive Main Monocytes/100 WBC (Bld) 8.1 % Normal 1.7-12.0 [facility] Comment on above: Performed By: #### C RP, CMP #### [facility] [address] [place] [address] Dr. Clive Main NEUT # 8.3 103/ul Critically high 1.4-6.5 [facility] Comment on above: Performed By: #### C RP, CMP #### [facility] [address] [place] [address] Dr. Clive Main Neutrophils/100 WBC (Bld) 71.0 % Normal 43.0-75.0 [facility] [facility] Comment on above: Performed By: #### C RP, CMP #### [facility] [address] [place] [address] Dr. Clive Main Platelet mean volume (Bld) [Entitic vol] 11.5 fL Normal 9.5-13.5 [facility] Comment on above: Performed By: #### C RP, CMP #### [facility] [address] [place] [address] Dr. Clive Main PLT 191 103/ul Normal 150-450 [facility] Comment on above: Performed By: #### C RP, CMP #### [facility] [address] [place] [address] Dr. Clive Main RBC 5.73 106/ul Normal 4.70-6.[address] [facility] Comment on above: Performed By: #### C RP, CMP #### [facility] [address] [place] [address] Dr. Clive Main WBC 11.7 103/ul Critically high 4.0-11.0 [facility] Comment on above: Performed By: #### C RP, CMP #### [facility] [address] [place] [address] Dr. Clive Main CPKon 01-09-2023 CK [Catalytic activity/Vol] 211 U/L Normal 39-[address] [facility] Comment on above: Performed By: #### H STROPN #### [facility] [address] [place] [address] Dr. Clive Main D-DIMERon 01-09-2023 D-DIMER 0.19 mg/L FEU Normal <=0.59 [facility] Comment on above: Performed By: #### D DIM #### [facility] [address] [place] [address] Dr. Clive Main D-DIMER COMMENTS SEE BELOW Normal [facility] Comment on above: Result Comment: [...] hospitalization. Performed By: #### D DIM #### [facility] [address] [place] [address] Dr. Clive Main LACTATE/LACTIC ACIDon 2022 Lactate [Moles/Vol] 1.0 mmol/L Normal 0.4-2.0 [facility] Comment on above: Performed By: #### H STROPN #### [facility] [address] [place] [address] Dr. Clive Main PROF 14(COMP METB)on 023 Albumin [Mass/Vol] 4.5 g/dL Normal 3.4-5.0 [facility] Comment on above: Performed By: #### H STROPN #### [facility] [address] [place] [address] Dr. Clive Main Albumin/Globulin [Mass ratio] 1.2 {ratio} Normal [facility] Comment on above: Performed By: #### H STROPN #### [facility] [address] [place] [address] Dr. Clive Main ALP [Catalytic activity/Vol] 91 U/L Normal 46-116 [facility] Comment on above: Performed By: #### H STROPN #### [facility] [address] [place] [address] Dr. Clive Main ALT [Catalytic activity/Vol] 37 U/L Normal 16-63 [facility] Comment on above: Performed By: #### H STROPN #### [facility] [address] [place] [address] Dr. Clive Main Anion gap [Moles/Vol] 13.9 mmol/L Normal [facility] Comment on above: Performed By: #### H STROPN #### [facility] [address] [place] [address] Dr. Clive Main AST [Catalytic activity/Vol] U/L Critically low 15-37 [facility] Comment on above: Performed By: #### H STROPN #### [facility] [address] [address] [address] Clive Main Bilirubin [Mass/Vol] 0.4 mg/dL Normal 0.2-1.0 [facility] Comment on above: Performed By: #### H STROPN #### [facility] [address] [place] [address] Dr. Clive Main Calcium [Mass/Vol] 9.0 mg/dL Normal 8.5-10.1 [facility] Comment on above: Performed By: #### H STROPN #### [facility] [address] [place] [address] Dr. Clive Main Chloride [Moles/Vol] 104 mmol/L Normal 98-107 [facility] Comment on above: Performed By: #### H STROPN #### [facility] [address] [place] [address] Dr. Clive Main CO2 [Moles/Vol] 24.1 mmol/L Normal 21.0-32.0 [facility] Comment on above: Performed By: #### H STROPN #### [facility] [address] [place] [address] Dr. Clive Main Creatinine [Mass/Vol] 1.06 mg/dL Normal 0.70-1.30 [facility] Comment on above: Performed By: #### H STROPN #### [facility] [address] [place] [address] Dr. Clive Main EGFR-AF MALAGASY >60 Normal >=60 [facility] Comment on above: Performed By: #### H STROPN #### [facility] [address] [place] [address] Dr. Clive Main EGFR-NON AF MALAGASY >60 Normal >=60 [facility] Comment on above: Performed By: #### H STROPN #### [facility] [address] [address] [address] Clive Main Globulin (S) [Mass/Vol] 3.8 g/dL Normal [facility] Comment on above: Performed By: #### H STROPN #### [facility] [address] [address] [address] Clive Main Glucose [Mass/Vol] 101 mg/dL Normal 74-106 [facility] Comment on above: Performed By: #### H STROPN #### [facility] [address] [address] [address] Clive Main Potassium [Moles/Vol] 4.0 mmol/L Normal 3.5-5.1 [facility] Comment on above: Performed By: #### H STROPN #### [facility] [address] [address] [address] Clive Main Protein [Mass/Vol] 8.3 g/dL Critically high 6.4-8.[address] [facility] Comment on above: Performed By: #### H STROPN #### [facility] [address] [address] [address] Clive Main Sodium [Moles/Vol] 138 mmol/L Normal 136-145 [facility] Comment on above: Performed By: #### H STROPN #### [facility] [address] [address] [address] Clive Main Urea nitrogen [Mass/Vol] 22.0 mg/dL Critically high 7.0-18.0 [facility] Comment on above: Performed By: #### H STROPN #### [facility] [address] [address] [address] Clive Main Urea nitrogen/Creatinine [Mass ratio] 20.8 mg/mg Normal [facility] Comment on above: Performed By: #### H STROPN #### [facility] [address] [address] [address] Clive Main TROPONIN, HIGH SENSITIVITYon 01-09-2023 HSTROP 6.1 pg/mL Normal 4.0-76.1 [facility] Comment on above: Result Comment: CUT- OFF POINTS HAVE BEEN ESTABLISHED BASED ON THE FOURTH UNIVERSAL DEFINITIONS OF MYOCARDIAL INFARCTION. THE UPPER REFERENCE LIMIT (URL) OF TROPONIN, DEFINED THE 99TH PERCENTILE OF cTnI DISTRIBUTION IN A REFERENCE POPULATION, HAS BEEN CONFIRMED THE DECISION THRESHOLD FOR [place] DIAGNOSIS. Performed By: #### H STROPN #### [facility] [address] [place], [place] [address] Dr. Clive Main TSHon 01-09-2023 TSH 3.045 uIU/mL Normal 0.358-3.740 [facility] Comment on above: Performed By: #### H STROPN #### [facility] [address] [place], [place] [address] Dr. Clive Main CBC with Auto Differentialon 01-07-2023 Absolute Eos # 0.18 [facility] Absolute Immature Granulocyte 0.[address] [facility] Absolute Lymph # 2.34 [facility] Absolute [place] # 0.87 [facility] RS [facility] Basophils (Bld) [#/Vol] 0.05 10*3/uL [facility] Basophils/100 WBC (Bld) 1 % 0 - 2 % [facility] Eosinophils/100 WBC (Bld) 2 % 1 - 4 % [facility] Hematocrit (Bld) [Volume fraction] 45.9 % 40.7 - 50.3 % [facility] Hemoglobin (Bld) [Mass/Vol] 15.5 g/dL 13.0 - 17.0 g/dL [facility] Immature granulocytes/100 WBC (Bld) 1 % High [address] [facility] Interpretation and review of laboratory results Abnormal [facility] Lymphocytes/100 WBC (Bld) 24 % 24 - 43 % [facility] MCH (RBC) [Entitic mass] 29.0 pg 25.2 - 33.[address] [facility] MCHC (RBC) [Mass/Vol] 33.8 g/dL 28.4 - 34.8 g/dL [facility] MCV (RBC) [Entitic vol] 85.8 fL 82.6 - 102.[address] [facility] Monocytes/100 WBC (Bld) 9 % 3 - 12 % [facility] NRBC Automated 0.0 0.0 per [address] [facility] Platelet distribution width (Bld) [Ratio] 13.2 % 11.8 - 14.4 % [facility] Platelet mean volume (Bld) [Entitic vol] 11.6 fL 8.1 - 13.[address] [facility] Platelets (Bld) [#/Vol] 169 10*3/uL [facility] RBC (Bld) [#/Vol] 5.35 10*6/uL 4.21 - 5.7 7 m/uL [facility] Segmented neutrophils/100 WBC (Bld) 63 % 36 - 65 % [facility] Segs Absolute 6.[address] [facility] WBC (Bld) [#/Vol] 9.8 10*3/uL [facility] CBC with Diffon 01-07-2023 Abs. Basophil 0.05 k/uL Normal 0.00-0.20 [facility] Comment on above: Performed By: #### C P, CDP #### [facility] [address] [place] [address] [place] [address] [employer]: Jacob Gamez MD Abs.Imm.Granulocyte 0.05 k/uL Normal 0.00-0.30 [facility] Comment on above: Performed By: #### C P, CDP #### [facility] [address] [place] [address] [employer]: Jacob Gamez MD Abs.Neutrophil (Seg) 6.30 k/uL Normal 1.50-8.10 [facility] [place] [facility] Comment on above: Performed By: #### C P, CDP #### [facility] [address] [place] [address] [employer]: Jacob Gamez MD Basophils/100 WBC (Bld) 1 % Normal 0-2 [facility] Comment on above: Performed By: #### C P, CDP #### [facility] [address] [place] [address] Dr. [place], [facility]83 [employer]: Jacob Gamez MD Eosinophils (Bld) [#/Vol] 0.18 10*3/uL Normal 0.00-0.44 [facility] Comment on above: Performed By: #### C P, CDP #### [address] [place], [facility]83 [employer]: Jacob Gamez MD Eosinophils/100 WBC (Bld) 2 % Normal 1-4 [facility] Comment on above: Performed By: #### C P, CDP #### [address] [place], [place] [address] [employer]: Jacob Gamez MD Erythrocyte distribution width (RBC) [Ratio] 13.2 % Normal 11.8-14.4 [facility] Comment on above: Performed By: #### C P, CDP #### [address] [place], [place] [address] [employer]: Jacob Gamez MD Hematocrit (Bld) [Volume fraction] 45.9 % Normal 40.7-50.3 [facility] Comment on above: Performed By: #### C P, CDP #### [address] [place], [facility]83 [employer]: Jacob Gamez MD Hemoglobin (Bld) [Mass/Vol] 15.5 g/dL Normal 13.0-17.0 [facility] Comment on above: Performed By: #### C P, CDP #### [address] [place], [facility]83 [employer]: Jacob Gamez MD Immature granulocytes/100 WBC (Bld) 1 % High 0 [facility] Comment on above: Performed By: #### C P, CDP #### [address] [place], [facility]83 [employer]: Jacob Gamez MD Lymphocytes (Bld) [#/Vol] 2.34 10*3/uL Normal 1.10-3.70 [facility] Comment on above: Performed By: #### C P, CDP #### [address] [place], [place] [id number] [employer]: Jacob Gamez MD Lymphocytes/100 WBC (Bld) 24 % Normal 24-43 [facility] Comment on above: Performed By: #### C P, CDP #### [address] [place] [address] [employer]: Jacob Gamez MD MCH (RBC) [Entitic mass] 29.0 pg Normal 25.2-33.5 [facility] Comment on above: Performed By: #### C P, CDP #### [address] [place], [place] [id number] [employer]: Jacob Gamez MD MCHC (RBC) [Mass/Vol] 33.8 g/dL Normal 28.4-34.8 [facility] Comment on above: Performed By: #### C P, CDP #### [address] [place] [address] [employer]: Jacob Gamez MD MCV (RBC) [Entitic vol] 85.8 fL Normal 82.6-102.9 [facility] Comment on above: Performed By: #### C P, CDP #### [address] [place] [address] [employer]: Jacob Gamez MD Monocytes (Bld) [#/Vol] 0.87 10*3/uL Normal 0.10-1.20 [facility] Comment on above: Performed By: #### C P, CDP #### [address] [place], [place] [address]83 [employer]: Jacob Gamez MD Monocytes/100 WBC (Bld) 9 % Normal 3-12 [facility] Comment on above: Performed By: #### C P, CDP #### [facility] [address] [place], [place] [address] [employer]: Jacob Gamez MD Neutrophil (Seg) 63 % Normal 36-[address] [facility] Comment on above: Performed By: #### C P, CDP #### [facility] [address] [place], [place] [address]83 [employer]: Jacob Gamez MD NRBC Automated 0.0 per 100 WBC Normal 0.0 [facility] Comment on above: Performed By: #### C P, CDP #### [facility] [address] [place], [place] [address]83 [employer]: Jacob Gamez MD Platelet mean volume (Bld) [Entitic vol] 11.6 fL Normal 8.1-13.5 [facility] Comment on above: Performed By: #### C P, CDP #### [address] [place], [place] [address] [employer]: Jacob Gamez MD Platelets (Bld) [#/Vol] 169 10*3/uL Normal 138-453 [facility] Comment on above: Performed By: #### C P, CDP #### [address] [place], [place] [id number] [employer]: Jacob Gamez MD RBC (Bld) [#/Vol] 5.35 10*6/uL Normal 4.21-5.77 [facility] Comment on above: Performed By: #### C P, CDP #### [facility] [address] [place], [place] [id number] [employer]: Jacob Gamez MD WBC (Bld) [#/Vol] 9.8 10*3/uL Normal 3.5-11.3 [facility] Comment on above: Performed By: #### C P, CDP #### [facility] [address] [place] [address] [employer]: Jacob Gamez MD [facility] 01-07-2023 Albumin [Mass/Vol] 4.1 g/dL 3.5 - 5.2 g/dL [facility] Albumin/Globulin [Mass ratio] 1.3 {ratio} 1.0 - 2.[address] [facility] ALP [Catalytic activity/Vol] 87 U/L 40 - 129 U/L [facility] ALT [Catalytic activity/Vol] 22 U/L 5 - 41 U/L [facility] Anion gap [Moles/Vol] 10 mmol/L 9 - 17 mmol/L [facility] AST [Catalytic activity/Vol] 18 U/L NINF - 40 U/L [facility] Bilirubin [Mass/Vol] 0.4 mg/dL 0.3 - 1 .2 mg/dL [facility] Calcium [Mass/Vol] 9.0 mg/dL 8.6 - 10. 4 mg/dL [facility] Chloride [Moles/Vol] 105 mmol/L 98 - 10 7 mmol/L [facility] CO2 [Moles/Vol] 23 mmol/L 20 - 31 mmol/L [facility] Creatinine [Mass/Vol] 1.08 mg/dL 0.70 - 1.20 mg/dL [facility] GFR/1.73 sq M.predicted MDRD (S/P/Bld) [Vol rate/Area] - PINF [facility] Comment on above: These results [...] 140 mg/dL High 70 - 99 mg/dL [facility] Interpretation and review of laboratory results Abnormal [facility] Potassium [Moles/Vol] 4.1 mmol/L 3.7 - 5.3 mmol/L [facility] Protein [Mass/Vol] 7.3 g/dL 6.4 - 8.3 g/dL [facility] Sodium [Moles/Vol] 138 mmol/L 135 - 144 mmol/L [facility] Urea nitrogen [Mass/Vol] 22 mg/dL High 6 - 20 mg/dL [facility] Urea nitrogen/Creatinine (Bld) [Mass ratio] 20 9 - 20 [facility] Comp Metabolic Profon 2022 Albumin [Mass/Vol] 4.1 g/dL Normal 3.5-5.2 [facility] Comment on above: Performed By: #### C P, CDP #### [facility] [address] [place], [place] [id number] [employer]: Jacob Gamez MD Albumin/Glob Ratio 1.3 Normal 1.0-2.5 [facility] Comment on above: Performed By: #### C P, CDP #### [facility] [address] [place], [place] [address]83 [employer]: Jacob Gamez MD Alkaline Phos 87 U/L Normal 40-129 [facility] Comment on above: Performed By: #### C P, CDP #### [facility] [address] [place], [place] [address]83 [employer]: Jacob Gamez MD ALT [Catalytic activity/Vol] 22 U/L Normal 5-41 [facility] Comment on above: Performed By: #### C P, CDP #### [facility] [address] [place], [place] [address] [employer]: Jacob Gamez MD Anion gap [Moles/Vol] 10 mmol/L Normal 9-17 [facility] Comment on above: Performed By: #### C P, CDP #### [facility] [address] [place], [place] [address] [employer]: Jacob Gamez MD AST [Catalytic activity/Vol] 18 U/L Normal <40 [facility] Comment on above: Performed By: #### C P, CDP #### [facility] [address] [place] [address] [employer]: Jacob Gamez MD Bilirubin [Mass/Vol] 0.4 mg/dL Normal 0.3-1.2 [facility] [place] [facility] Comment on above: Performed By: #### C P, CDP #### [facility] [address] [place], [place] [id number] [employer]: Jacob Gamez MD BUN/CRE Ratio 20 Normal 9-20 [facility] Comment on above: Performed By: #### C P, CDP #### [facility] [address] [place] [address] [employer]: Jacob Gamez MD Calcium [Mass/Vol] 9.0 mg/dL Normal 8.6-10.4 [facility] Comment on above: Performed By: #### C P, CDP #### [address] [place], [place] [address] [employer]: Jacob Gamez MD Chloride [Moles/Vol] 105 mmol/L Normal 98-107 [facility] [place] [facility] Comment on above: Performed By: #### C P, CDP #### [facility] [address] [place], [place] [address] [employer]: Jacob Gaemz MD CO2 [Moles/Vol] 23 mmol/L Normal 20-31 [facility] Comment on above: Performed By: #### C P, CDP #### [facility] [address] [place], [place] [address]83 [employer]: Jacob Gamez MD Creatinine [Mass/Vol] 1.08 mg/dL Normal 0.70-1.20 [facility] Comment on above: Performed By: #### C P, CDP #### [facility] [address] [place] [address] [employer]: Jacob Gamez MD GFR/1.73 sq M.predicted among non-blacks MDRD (S/P/Bld) [Vol rate/Area] mL/min/{1.73_m2} Normal >60 [facility] Comment on above: Result Comment: These [...] Performed By: #### C P, CDP #### [address] [place] [address] [employer]: Jacob Gmaez MD Glucose [Mass/Vol] 140 mg/dL High 70-99 [facility] Comment on above: Performed By: #### C P, CDP #### [address] [place] [address] [employer]: Jacob Gamez MD Potassium [Moles/Vol] 4.1 mmol/L Normal 3.7-5.3 [facility] Comment on above: Performed By: #### C P, CDP #### [address] [place] [address] [employer]: Jacbo Gamez MD Protein [Mass/Vol] 7.3 g/dL Normal 6.4-8.3 [facility] Comment on above: Performed By: #### C P, CDP #### [address] [place] [address] [employer]: Jacob Gamez MD Sodium [Moles/Vol] 138 mmol/L Normal 135-144 [facility] Comment on above: Performed By: #### C P, CDP #### [address] [place] [address] [employer]: Jacob Gamez MD Urea nitrogen [Mass/Vol] 22 mg/dL High 6-20 [facility] Comment on above: Performed By: #### C P, CDP #### [facility] [address] [place] [address] [employer]: Jacob Gamez MD TROPONIN, HIGH SENSITIVITYon 01-07-2023 HSTROP 6.5 pg/mL Normal 4.0-76.1 [facility] Comment on above: Result Comment: CUT- OFF POINTS HAVE BEEN ESTABLISHED BASED ON THE FOURTH UNIVERSAL DEFINITIONS OF MYOCARDIAL INFARCTION. THE UPPER REFERENCE LIMIT (URL) OF TROPONIN, DEFINED THE 99TH PERCENTILE OF cTnI DISTRIBUTION IN A REFERENCE POPULATION, HAS BEEN CONFIRMED THE DECISION THRESHOLD FOR [place] DIAGNOSIS. Performed By: #### H STROPN #### [facility] [address] [place] [address] Dr. Clive Main TSHon 01-07-2023 TSH 1.852 uIU/mL Normal 0.358-3.740 [facility] Comment on above: Performed By: #### H STROPN #### [facility] [address] [address] [address] Clive Main TSH w/reflex to FT4on 2022 Thyroid Stim. Horm. 2.45 uIU/mL Normal 0.30-5.00 [facility] [place] [facility] Comment on above: Performed By: #### T SHX #### [facility] [address] [place] [address] [employer]: Jacob Gamez MD TSH with Reflexon 01-07-2023 TSH Qn 2.45 m[IU]/L [facility] XR CHEST 2 Von 01-07-2023 XR [...] by: JACOB EVERETT Date: 2023-01-07 18:23 Normal [facility] Ambulatory Visit Summaryon 0 03-29-2022 [...] Acute anterior circulation transient ischemic attack Normal [facility] General Surgery Office/Clini c Noteon 03-29-2022 [...] Years., 03/01/2022 Family History Suicide: Father. Normal [facility] Comment on above: Result Comment: Elec tronically Signed By: Mahendra PARK MD\.br\Date and Time Signed: 03/29/22 15:14 EDT Pathology Noteon 03-22-2022 Pathology Note [id number] .[id number]:127 Normal [facility] Ambulatory Visit Summaryon 0 03-15-2022 Ambulatory [...] MD Where: General Surgery Vivian/Haroldo Gibson Normal [facility] General Surgery Office/Clini c Noteon 03-15-2022 [...] 03/01/2022 Family History Suicide: Father. Normal [facility] Comment on above: Result Comment: [...] by: JACOB AGUAYO Date: 2022-03-04 08:12 Normal [facility] Ambulatory Visit Summaryon 0 03-01-2022 [...] MD Where: General Surgery Vivian/Haroldo Arthur Normal [facility] Physician Referralon 022 Physician Referral [id number] .[id number]:127 Normal [facility] [id number] 03-09-2020 SARS-CoV-2 Not Detected Normal Not Detected [facility] Comment on above: Result Comment: (NOT E) This test was developed and its performance characteristics determined by [employer]. This test has not been FDA cleared [...] detected) result in this assay. Performed At: [facility] [address] [facility], [place] [id number] Scar Ball MD Ph:[phone] Performed By: #### A COV #### [facility] [address] [place] [address] [employer]: Mahendra Garcia MD Vital Signs Date Time Vital Sign Value Performing Clinician Devon cruz 11-12-2023 13:24-0500 SaO2% (BldA) [Mass fraction] 99 % DELILAH RAI [facility] Comment on above: Order Comment: Specimen Type: ARTERIAL B LOOD SPECIMEN Ordering Facility: [facility] Address: [address] [place] [id number] Performed By: #### A LLBG #### [facility] CLIA [id number] [address] [place], [place] [id number] [place] 01-07-2023 05:42-0400 Diastolic blood pressure 70 mm[Hg] Verena Velasquez MD Work Phone: [facility] 01-07-2023 05:42-0400 Heart rate 74 /min Verena Velasquez MD Work Phone: [facility] 01-07-2023 05:42-0400 Respiratory rate 16 /min Verena Velasquez MD Work Phone: [facility] 01-07-2023 05:42-0400 SaO2% (BldA) [Mass fraction] 95 % Verena Velasquez MD Work Phone: [facility] 01-07-2023 05:42-0400 Systolic blood pressure 147 mm[Hg] Verena Velasquez MD Work Phone: [facility] 01-07-2023 04:14-0400 Body height 193 cm Verena Velasquez MD Work Phone: [facility] 01-07-2023 04:14-0400 Body mass index (BMI) [Ratio] 50.64 kg/m2 Verena Velasquez MD Work Phone: [facility] 01-07-2023 04:14-0400 Body temperature 98.6 [degF] Verena Velasquez MD Work Phone: [facility] 01-07-2023 04:14-0400 Body weight 188.7 kg Verena Velasquez MD Work Phone: [facility] 03-01-2022 15:41-0400 Blood Pressure Location Mahendra PARK [facility] [place] 03-01-2022 15:41-0400 Diastolic blood pressure 88 mm[Hg] Mahendra PARK [facility] [place] 03-01-2022 15:41-0400 Heart rate 80 /min Mahendra PARK [facility] [place] 03-01-2022 15:41-0400 Respiratory rate 16 /min Mahendra PARK [facility] [place] 03-01-2022 15:41-0400 Systolic blood pressure 130 mm[Hg] Mahendra CHAMBERSL [facility] [place] Encounters Encounter Date Encounter Type Care Provider Facility Start: 11-12-2023 End: 11-13-2023 ambulatory DELILAH RAI Facility:[facility] Start: 11-11-2023 Telephone encounter Obey Rai MD Work Phone: Cardiology Comment on above: Education Of Patient /family Start: 11-07-2023 End: 11-08-2023 ambulatory DELILAH RAI Facility:[facility] Start: 11-07-2023 End: 11-07-2023 ambulatory DELILAH RAI Facility:[facility] Start: 01-31-2023 End: 01-31-2023 ambulatory MAGDALENE [facility] Start: 01-22-2023 End: 01-23-[address] JENNY RAMÍREZ . Facility:[facility] Start: 01-10-2023 End: 01-12-[address] JENNY RAMÍREZ . Facility:[facility] Start: 01-09-2023 End: 01-10-[address] JENNY RAMÍREZ . Facility:[facility] Start: 01-07-2023 End: 01-07-2023 ambulatory MATILDA ALMENDAREZ . Facility:[facility] Start: 01-07-2023 End: 01-07-2023 Emergency department patient visit VERENA VELASQUEZ [facility] Start: 01-07-2023 End: 01-07-2023 Emergency department patient visit Verena Velasquez MD Work Phone: [facility] ED Comment on above: Hypertension, unspec ified type (Primary Dx); Palpitations Start: 03-23-2022 End: 03-26-2022 ambulatory JENNY RAMÍREZ [facility] Start: 03-23-2022 End: 03-25-2022 Subsequent hospital visit by physician Ashok Barrientos Mri Room 1 [facility] Imaging MRI Comment on above: Transient ischemic a ttack, anterior circulation, acute; Essential hypertension, malignant Start: 03-08-2022 End: 03-09-[address] JENNY RAMÍREZ . Facility:[facility] Start: 03-03-2022 End: 03-04-[address] JENNY RAMÍREZ . Facility:[facility] Start: 03-01-2022 End: 03-01-2022 Patient encounter procedure Mahendra PARK General [facility] Start: 03-06-2020 End: 03-07-2020 Patient encounter procedure SIERRA Gonzalez [facility] Start: 03-06-2020 End: 03-06-2020 Subsequent hospital visit by physician Shay [facility] Laboratory Comment on above: Suspected [...] Author Start: 11-07-2028 Lipid panel Lipid Screening [facility] Start: 11-07-2024 BP Controlled (<130/80) BP Controlle d (<130/80) [facility] Start: 10-22-2023 Depression Assessment Depression Ass essment [facility] Start: 06-22-2023 Covid-19 Vaccine () Covid-19 Vaccine () [facility] Start: 06-22-2023 Influenza vaccination Influenza Vacc ine (#1) [facility] Start: 06-22-2022 Influenza vaccination Flu vacc ine (Season Ended) [facility] Start: 05-22-2022 Influenza vaccination Flu vaccine (# 1) [facility] Start: 12-01-2021 COVID-19 Vaccine (3 - Booster for Pfizer series) COVID-19 Vaccine (3 - Booster for Pfizer series) [facility] Start: 08-26-2021 COVID-19 Vaccine (3 - Booster for Pfizer series) COVID-19 Vaccine (3 - Booster for Pfizer series) [facility] Start: 06-22-2020 Influenza vaccination Flu vacc ine (Season Ended) [place] Start: 2019 Diabetes screen Diabetes screen [facility] Start: 2003 DTaP/Tdap/Td vaccine (1 - Tdap) DTaP/Tdap/Td vaccine (1 - Tdap) [facility] Start: 2003 Urine microalbumin profile DTaP,Tdap,Td Vaccine (1 - Tdap) [facility] Start: 2002 Annual PCP Team [employer] gaudencio Disease Visit Annual PCP Team Chronic Disease Visit [facility] Start: 2002 Hepatitis C screening [facility] Start: 2002 HIV screening HIV Screening [facility] Start: 1999 HIV screening HIV screen [facility] Start: 1996 Depression Screen Depression Screen [facility] Start: 1990 Pneumococcal 0-64 ye ars Vaccine (1 - PCV) Pneumococcal 0-64 years Vaccine (1 - PCV) [facility] Start: 1990 Pneumococcal 0-64 ye ars Vaccine (1 of 1 - PPSV23) Pneumococcal 0-64 years Vaccine (1 of 1 - PPSV23) [place] Start: 1985 Varicella vaccine (1 of 2 - 2-dose childhood series) Varicella vaccine (1 of 2 - 2-dose childhood series) [facility] Start: 1984 Hepatitis B Vaccine (1 of 3 - 3-dose series) Hepatitis B Vaccine (1 of 3 - 3-dose series) [facility] End: 03-06-2020 COVID-19 Ambulatory COVID-19 Ambulatory Lab Routine Suspected Covid-19 Virus Infection 1 Occurrences starting 03/06/2020 until 03/06/2020 [facility] [place] Comment on above: 1 Occurrences starti ng 03/06/2020 until 03/06/2020 COVID-19 Ambulatory COVID-19 Amb ulatory Lab Routine Suspected COVID-19 virus infection 03/06/2020 12:57 PM EDT [facility] [place] End: 01-07-2023 Custodial Continuous Cardia Event Monitor Custodial Continuous Cardia Event Monitor Cardiac Services Routine One Time for 1 Occurrences starting 01/07/2023 until 01/07/2023 [facility] Phone: Comment on above: One Time for 1 Occur rences starting 01/07/2023 until 01/07/2023 End: 03-23-2022 MRI BRAIN WO CONTRAST MRI BRAIN WO CONTRAST Imaging Routine Transient ischemic attack, anterior circulation, acute Essential hypertension, malignant 1 Occurrences starting 03/23/2022 until 03/23/2022 [facility] Phone: Comment on above: 1 Occurrences starti ng 03/23/2022 until 03/23/2022 [facility] Payers Date Payer Category Payer Unknown [employer] BLUE C[employer] PPO OOS [id number] 2023-Present [phone] [address] [place] [address] PPO [id number] 2023 Unknown [id number] 2023 Medicaid 1984 Unknown [id number] 1984 Unknown [id number] 1984 Unknown [id number] 1984 Unknown [id number] 1984 Unknown [id number] 1984 Unknown [id number] 1984 Unknown [id number] 1984 Unknown [id number] 1959 Unknown [id number] Social History Date Type Detail Facility Start: 11-23-2016 End: 03-06-2020 Tobacco smoking status NHIS Current every day smoker [place], [place] End: 10-22-2014 History of tobacco use Cigarette Smoker [place] Start: 03-06-2020 End: 11-07-2023 Cigarettes smoked current (pack per day) - Reported [place] Start: 03-06-2020 End: 01-07-2023 Alcohol intake Current drinker of alcohol (finding) [place] Start: 11-23-2016 Tobacco Comment instructed to refrain from smoking day of surgery [place] Start: 11-23-2016 Alcohol Comment seldom [place], [place] Start: 1984 Sex Assigned At Not on file M [place], [place] Exposure to SARS-CoV -2 (event) Unable to assess [place] Start: 03-01-2022 End: 11-07-2023 Tobacco smoking status Ex-smoker (finding) [facility] Tobacco smoking status Former sm okeless tobacco user, quit more than 30 days ago [facility] [place] Start: 11-07-2023 Sex Assigned At Male [facility] Start: 11-23-2016 End: 11-07-2023 Tobacco use and exposure Smokeless tobacco non-user [facility] Phone: Start: 12-28-2022 End: 01-07-2023 Exposure to SARS-CoV-2 (event) Not sure [facility] Phone: End: 10-22-2014 History of tobacco use Current smoker [facility] Start: 11-07-2023 Alcohol intake Ex-drinker (finding) [facility] Clinical Notes 03-01-2022 to 11-11-2023 [...] Instructions/Restrictions- instructed to be accompanied by adult day haul or farm charter bus driver at discharge Patient/Family Response Evaluation: Verbalizes understanding Follow Up Plan and Medication: As directed by physician Instruction/Supplemental Material Given: Cardiac catheterization instructions, procedure information, hospital information, hotel information. Instructed By Lawrence Almeida RN, RN. In Department of CARDIOLOGY. documented in this encounter [facility] 11-07-2023 Note HNO ID: [id number] Author: DELILAH RAI MD Service: ? Author Type: Physician Type: Progress Notes Filed: 11/08/2023 15:23 Note Text: [facility] Department of Cardiovascular Medicine SECTION [...] artery stenosis. On 10/19 he presented to [facility] for tingling in his left hand. [...] daily to BID recently. He saw a campus administrator in January 2023 for follow up of [...] PSV: 116.8 cm/ (more content not included)... [facility] 01-31-2023 Note Review of Systems Constitutional: Positive for malaise/fatigue. Cardiovascular: Positive for dyspnea on exertion, irregular heartbeat, leg swelling and palpitations. All other systems reviewed and are negative. Doron is here as a new patient follow up for hypertension. [facility] 01-31-2023 Note Cardiovascular Medic ine [place] [facility] SUBJECTIVE Chief Complaint Patient presents with Hypertension New Patient HPI Jesse Sal is a 37 y.o. male here as a new patient. PMHx: uncontrolled HTN, JAMES wears CPAP, TIA (1 year ago while dealing with a GI upset and couldn't keep BP medications down, BP was elevated) He was admitted at [facility] 01/07/2023 for uncontrolled HTN. 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 [facility] 01-07-2023 Hospital Discharg e instructions Verena Velasquez MD - 01/07/2023 5:42 AM EDT Continue current medications as prescribed. Follow-up with cardiology as soon as possible. Call Sunday morning to schedule the earliest available appointment. Please seek medical attention immediately if you develop any chest pain shortness of breath weakness dizziness lightheadedness or any other acute concerns. documented in this encounter [facility] [place] Phone: 03-01-2022 Note Chief Complaint consultation for [...] 36 Years., 03/01/2022 Family History Suicide: Father. [facility] Comment on above: Result Comment: Elec tronically Signed By: VIVIAN NOLAN, Mahendra Prakash\.br\Date and Time Signed: 03/01/22 17:17 EDT Evaluation + Plan note Future Appointments Appointment Date:03/15/2022 03:00:00 PM Scheduled Provider:Mahendra PARK MD Location:[facility] Appointment Type: Procedure 30 General Surgery [place] Evaluation note Diagnosis Transient ischemic attack, anterior circulation, acute Unspecified transient cerebral ischemia Essential hypertension, malignant documented in this encounter [facility] Phone: evaluation note* Diagnosis Hypertension, unspecified type- Primary Palpitations documented in this encounter [facility] Phone: Hospital course Narrative No data available for this section General Surgery [employer] Hospital Discharge instructions No data available for this section General Surgery [employer] Assessments Diagnosis Suspected COVID-19 virus infection Advance Directives No Advanced Directives Records FoundDocuments on File Type Date 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 Advance Directives and Living Will Power of Job Training Specialist Latest Code Status on File Code Status Date Activated Date Inactivated Comments Full Code 11/30/2016 1:55 PM 11/30/2016 5:37 PM Full Code 11/30/2016 10:18 AM 11/30/2016 1:55 PM Documents on File Type Date 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 ACP-Advance Directive ACP-Power of Job Training Specialist Latest Code Status on File Code Status [...] Palpitations Verena Velasquez MD [address] [place] [address] [facility] [address] [place] [id number] Referral ID Status Reason Start Date Expiration Date V isits Requested Visits Authorized [id number] Open Specialty Services Required 01/07/2023 01/07/2024 1 1 Scheduling Instructions [facility] Albers- Trinity Wilkerson MD [address] [place], [place] [id number] Comments The patient can be scheduled with any member of the group, including the provider with the first available appointments. Specialty Diagnoses / Procedures Referred By Contac t Referred To Contact Radiology Diagnoses Transient ischemic attack, anterior circulation, acute Essential hypertension, malignant Procedures MRI BRAIN WO CONTRAST Jenny Ramírez MD [address] [place] [address] Referral ID Status Reason Start Date Expiration Date V isits Requested Visits Authorized [id number] Authorized 03/09/2022 04/08/2022 1 1 Additional Source Comments (unrecognized sect ion and content) No Status Records FoundNo Status Records FoundNo Status Records FoundNo Status Records FoundNo Status Records FoundNo Status Records FoundNo Status Records Found INFORMATION SOURCE (unrecogn ized section and content) DATE CREATED [facility] DATE CREATED AUTHOR AUTHOR'S ORGANIZ ATION 03/25/2022 [facility] DATE CREATED AUTHOR AUTHOR'S ORGANIZ ATION 03/30/2022 [facility] DATE CREATED AUTHOR AUTHOR'S ORGANIZ ATION 01/07/2023 [facility] DATE CREATED AUTHOR AUTHOR'S ORGANIZ ATION 01/27/2023 [facility] DATE CREATED AUTHOR AUTHOR'S ORGANIZ ATION 02/01/[address] [facility] DATE CREATED AUTHOR AUTHOR'S ORGANIZ ATION 12/26/2023 [facility] Reason for Visit (unrecogniz ed section and content) Specialty Diagnoses / Procedures Referred By Contac t Referred To Contact Radiology Diagnoses Transient ischemic attack, anterior circulation, acute Essential hypertension, malignant Procedures MRI BRAIN WO CONTRAST Jenny Ramírez MD [address] [place] [address] Referral ID Status Reason Start Date Expiration Date V isits Requested Visits Authorized [id number] Authorized 03/09/2022 04/08/2022 1 1 Reason Comments Hypertension Took bp meds around 11 pm, started feeling off and anxious around midnight. bp at home 178/116. Anxiety Reason Comments Education Of Patient/family Care Teams (unrecognized sec tion and content) Dock Pumper Relationship Specialty Start Date End Date Jenny Ramírez MD [address] [place] [address] 779 PCP - General Family Medicine 01/07/23 Dock Pumper Relationship Specialty Start Date End Date Delilah Rai MD [address] [place] [address] Primary Staff Physician Cardiology 11/07/23 Source Comments (unrecognize d section and content) In the event this informatio n is protected by the Federal Confidentiality of Alcohol and Drug Abuse Patient Records regulations: The Federal rules restrict any use of the information to criminally investigate or prosecute any alcohol or drug abuse patient.[facility] FOR RECORDS PERTAINING TO PATIENTS [...] BE BASED ON THE PRIMARY CLINICAL RECORDS. [facility] [facility]. provides no warranty or guarantee of the accuracy or completeness of information in this document.
== END 2024-10-16 15:48 | disposition home or self-care (01) ==
LOC: MRI 15:47
PROVIDERS: PCP Family Medicine; Visit Provider Family Medicine
DX: M17.9 Osteoarthritis of knee, unspecified (principal); M67.461 Ganglion, right knee
CPT/HCPCS: 73721